=== PATIENT | male | born 1965 | race Caucasian/White ===

== ENCOUNTER → 2017-11-25 | Outpatient (CLI) | payer BC ==
--- NOTE | 2017-11-25 13:21 | US ---
EXAMINATION TYPE: US thyroid st tissue head/neck DATE OF EXAM: 11/25/2017 COMPARISON: NONE CLINICAL HISTORY: E04.1 Thyroid nodule. GLAND SIZE: Right Lobe: 4.5 x 2.1 x 1.9 cm Overall Parenchyma: homogenous Left Lobe: 5.1 x 1.9 x 1.9 cm Overall Parenchyma: homogeneous Isthmus Thickness: 0.4 cm NODULES RIGHT: # of nodules measured on right: 1 1. 1.1 X 1.1 x 1.0 cm isoechoic mixed nodule at the lower pole with well-defined margins. This nod ule is wider than tall and shows no intranodular vascularity. Prior size: no prior LEFT: # of nodules measured on left: 0 ISTHMUS: # of nodules measured in the isthmus: 0 Bilateral neck scanned, no evidence of lymphadenopathy. Also scanned just superior to left thyroid, where patient states Dr felt lump, the submandibular glan d is seen, no other abnormality noted. IMPRESSION: 1.1 cm right thyroid nodule corresponding to a TI-RADS 3: Mildly Suspicious: FNA if ? 2.5 cm; Follow if ? 1.5 cm. Surveillance could still considered. Overall thyroid gland is enlarged.
== END | disposition home or self-care (01) ==
LOC: RADUSWWP 12:54
PROVIDERS: ATTEND Family Medicine
DX: E04.1 Nontoxic single thyroid nodule (principal)
CPT/HCPCS: 76536

== ENCOUNTER 2018-01-19 09:26 | Day surgery (SDC) | payer OTHER ==
[2018-01-19 09:54] VITALS: RESP 16; TEMP 98.1
[2018-01-19 11:39] VITALS: BP 139/90; PULSE 76
--- NOTE | 2018-01-19 14:26 | US ---
EXAMINATION TYPE: US FNA thyroid DATE OF EXAM: 01/19/2018 COMPARISON: NONE HISTORY: Thyroid nodule, E04.1 Maximal barrier technique was utilized. Ultrasound using sterile technique. The skin overlying the no dule was localized with ultrasound and the overlying skin prepped and draped. Lidocaine used for loca l anesthesia. 5 passes with a 25-gauge needle were made into the nodule under ultrasound guidance. As pirate specimen submitted to cytology. Following the procedure hemostasis achieved. No immediate comp lication IMPRESSION: Status post ultrasound-guided fine-needle aspiration of thyroid nodule, pathology pending .
== END 2018-01-19 11:05 | disposition home or self-care (01) ==
LOC: RADPROMAIN 09:26
PROVIDERS: ATTEND Otolaryngology
DX: E04.1 Nontoxic single thyroid nodule (principal)
CPT/HCPCS: 10022; 76942; 88173; 88305

== ENCOUNTER → 2019-03-01 | Outpatient (CLI) | payer BC ==
--- NOTE | 2019-03-02 06:55 | CT ---
EXAMINATION TYPE: CT chest wo/w con DATE OF EXAM: 03/01/2019 COMPARISON: None HISTORY: Bronchopneumonia CT DLP: 1201.50 mGycm, Automated exposure control for dose reduction was used. CONTRAST: Performed injected with 100 mL of Isovue 300. TECHNIQUE: Axial images were obtained at 5 mm thick sections. Reconstructed images are reviewed on [employer] computer in the coronal plane. FINDINGS: Portion of the thyroid visualized is normal. No suspicious lung nodules or focal infiltrates are present. No significant peribronchial thickening is evident. Very minimal infiltrate may be in the azygoesophageal recess. No enlarged mediastinal or hilar adenopathy is evident. The ascending aorta diameter at the level o f the main pulmonary artery is 3.2 cm. The main pulmonary artery diameter at the bifurcation is 3.4 cm. Correlate for pulmonary hypertension Limited CT sections are obtained through the upper abdomen. There has been a prior cholecystectomy. IMPRESSIONS: 1. Very minimal infiltrate within the azygoesophageal recess. Resolving pneumonia could be considered . Atelectasis is within the differential. 2. Clinical consideration for pulmonary hypertension is recommended
== END | disposition home or self-care (01) ==
LOC: RADCTMAIN 16:43
PROVIDERS: ATTEND Nurse Practitioner Family
DX: K22.8 Other specified diseases of esophagus (principal)
CPT/HCPCS: 71270; Q9967

== ENCOUNTER → 2019-04-02 | Outpatient (CLI) | payer BC ==
--- NOTE | 2019-04-03 09:36 | ECHOF ---
Referral Reason:I27.20 pulmonary hypertension MEASUREMENTS -------- HEIGHT: 170.2 cm WEIGHT: 118.8 kg BP: RVIDd: 2.9 cm (< 3.3) IVSd: 1.2 cm (0.6 - 1.1) LVIDd: 4.1 cm (3.9 - 5.3) LVPWd: 1.5 cm (0.6 - 1.1) IVSs: 1.7 cm LVIDs: 2.5 cm LVPWs: 2.1 cm LAESV Index (A-L): 12.85 ml/m Ao Diam: 2.9 cm (2.0 - 3.7) AV Cusp: 2.3 cm (1.5 - 2.6) LA Diam: 3.0 cm (2.7 - 3.8) MV EXCURSION: 13.189 mm (> 18.000) MV EF SLOPE: 62 mm/s (70 - 150) EPSS: 0.9 cm MV E Nate: 0.61 m/s MV DecT: 227 ms MV A Nate: 0.79 m/s MV E/A Ratio: 0.78 RAP: 5.00 mmHg RVSP: 13.49 mmHg TAPSE: 25.77 mm FINDINGS -------- Sinus rhythm. This was a technically adequate study. The left ventricular size is normal. There is mild concentric left ventricular hypertrophy. Overa ll left ventricular systolic function is normal with, an EF between 55 - 60 %. The diastolic fillin g pattern is normal for the age of the patient 8.74. The right ventricle is normal in size. The right ventricular systolic function is normal. The left atrial size is normal. Normal LA size by volume 22+/-6 ml/m2. The right atrial size is normal. The aortic valve is trileaflet and appears structurally normal. The mitral valve is normal. There is trace mitral regurgitation. The tricuspid valve appears structurally normal. Trace tricuspid regurgitation present. Right natalie tricular systolic pressure is normal at < 35 mmHg. There is no pulmonic regurgitation present. The aortic root size is normal. Normal inferior vena cava with normal inspiratory collapse consistent with estimated right atrial pre ssure of 5 mmHg. There is no pericardial effusion. CONCLUSIONS -------- 1. Sinus rhythm. 2. This was a technically adequate study. 3. The left ventricular size is normal. 4. There is mild concentric left ventricular hypertrophy. 5. Overall left ventricular systolic function is normal with, an EF between 55 - 60 %. 6. The diastolic filling pattern is normal for the age of the patient 8.74 7. The right ventricle is normal in size. 8. The right ventricular systolic function is normal. 9. The left atrial size is normal. 10. Normal LA size by volume 22+/-6 ml/m2. 11. The right atrial size is normal. 12. The aortic valve is trileaflet and appears structurally normal. 13. The mitral valve is normal. 14. There is trace mitral regurgitation. 15. The tricuspid valve appears structurally normal. 16. Trace tricuspid regurgitation present. 17. Right ventricular systolic pressure is normal at < 35 mmHg. 18. There is no pulmonic regurgitation present. 19. The aortic root size is normal. 20. Normal inferior vena cava with normal inspiratory collapse consistent with estimated right atrial pressure of 5 mmHg. 21. There is no pericardial effusion. [employer]CTIONAL [employer]PPLY SUPERVISOR: Davina Avalos RDCS
== END | disposition home or self-care (01) ==
LOC: RADECHMAIN 14:54
PROVIDERS: ATTEND Internal Medicine
DX: I27.20 Pulmonary hypertension, unspecified (principal)
CPT/HCPCS: 93306

== ENCOUNTER 2021-02-25 08:05 | Inpatient (IN) | payer BC ==
[2021-02-25] MEDS ORDERED: DEXAMETHASONE SOD PHOSPHATE 10 MG/ML 1 ML VIAL IV STA (08:12)
[2021-02-25] MEDS ORDERED: ACETAMINOPHEN TAB 500 MG TAB PO STA (08:31)
--- NOTE | 2021-02-25 08:42 | XR ---
EXAMINATION TYPE: XR chest 1V portable DATE OF EXAM: 02/25/2021 COMPARISON: Chest x-ray 09/24/2019, 05/16/2015 HISTORY: Covid 19 pneumonia, shortness of breath and cough TECHNIQUE: frontal view of the chest is obtained on 2 images. FINDINGS: Bilateral airspace disease is present. There is motion on the exam, technique is apical lo rdotic and rotated. There are overlying leads. Heart appears prominently which may be at least in par t due to technique. Right hemidiaphragm remains elevated. No evident pneumothorax or pleural effusion . IMPRESSION: Correlate for pneumonia versus edema, heart appears enlarged as described. Follow-up PA and lateral chest x-ray when stable.
[2021-02-25 08:55] LABS: Basophils % (A) 0 %; Eosinophils % (A) 0 %; HGB 15.6 gm/dL (13.0-17.5); Lymphocytes # (A) 0.5 k/uL (1.0-4.8); Lymphocytes % (A) 3 %; MCH 30.2 pg (25.0-35.0); MCHC 32.6 g/dL (31.0-37.0); MCV 92.6 fL (80.0-100.0); Mean Platelet Volume 8.1; Monocytes # (A) 0.2 k/uL (0-1.0); Monocytes % (A) 1 %; Neutrophils # (A) 15.2 k/uL (1.3-7.7); Neutrophils % (A) 95 %; Platelet Count 230 k/uL (150-450); RBC 5.18 m/uL (4.30-5.90); RDW 13.4 % (11.5-15.5); WBC 15.9 k/uL (3.8-10.6)
[2021-02-25] MEDS ORDERED: NALOXONE 0.4 MG/ML 1 ML VIAL IV PRN ×2 (09:15→10:34)
--- NOTE | 2021-02-25 09:27 | ED ---
General Adult HPI - General Chief complaint: Shortness of Breath Stated complaint: SOB Time Seen by Provider: 02/25/21 08:08 Source: patient, EMS, RN notes reviewed, old records reviewed Mode of arrival: EMS Limitations: no limitations - History of Present Illness Initial comments: 55-year-old male presenting with cough and dyspnea over the past 4 days. Patient is not vaccinated against coronavirus and did test positive as an outpatient. He was found to be hypoxic in the 50s by paramedics, placed on a nonrebreather. He has had slightly reduced appetite, no nausea or vomiting. No central chest pain. No lower extremity pain or swelling. - Related Data Home Medications Medication Instructions Recorded Confirmed Losartan Potassium 100 mg PO HS 06/21/13 02/25/21 Budesonide [Pulmicort Flexhaler] 2 puff INHALATION RT-BID 02/25/21 02/25/21 Cholecalciferol (Vitamin D3) 125 mcg PO DAILY 02/25/21 02/25/21 [Vitamin D3 (125 MCG = 5,000 IU)] Citalopram Hydrobromide [CeleXA] 20 mg PO DAILY 02/25/21 02/25/21 Fluticasone/Umeclidin/Vilanter 1 puff INHALATION RT-DAILY 02/25/21 02/25/21 [Trelegy Ellipta 200-62.5-25] Levofloxacin [Levaquin] 500 mg PO DAILY 02/25/21 02/25/21 metFORMIN HCL 500 mg PO BID 02/25/21 02/25/21 Allergies Allergy/AdvReac Type Severity Reaction Status Date / Time lisinopril AdvReac Cough Verified 02/25/21 09:40 Review of Systems ROS Statement: Those systems with pertinent positive or pertinent negative responses have been documented in the HPI. ROS Other: All systems not noted in ROS Statement are negative. Past Medical History Past Medical History: GERD/Reflux, Hypertension, Sleep Apnea/CPAP/BIPAP Additional Past Medical History / Comment(s): thyroid nodule History of Any Multi-Drug Resistant Organisms: None Reported Past Surgical History: Cholecystectomy Additional Past Surgical History / Comment(s): EGD Past Anesthesia/Blood Transfusion Reactions: No Reported Reaction Past Psychological History: No Psychological Hx Reported Smoking Status: Never smoker Past Alcohol Use History: Occasional Past Drug Use History: None Reported - Past Family History Mother Family Medical History: Cancer Additional Family Medical History / Comment(s): ovarian General Exam Limitations: no limitations General appearance: alert, in distress Head exam: Present: atraumatic, normocephalic Eye exam: Present: normal appearance, PERRL ENT exam: Present: normal exam Neck exam: Present: normal inspection. Absent: tenderness, meningismus Respiratory exam: Present: respiratory distress, rales, rhonchi Cardiovascular Exam: Present: normal rhythm, tachycardia GI/Abdominal exam: Present: soft. Absent: distended, tenderness Extremities exam: Present: normal inspection, normal capillary refill Neurological exam: Present: alert, oriented X3 Psychiatric exam: Present: anxious Skin exam: Present: warm, dry, intact. Absent: cyanosis, diaphoretic Course Vital Signs 02/25/21 02/25/21 08:08 10:05 Temperature 101.9 F H Pulse Rate 106 H 95 Respiratory 30 H 24 Rate Blood Pressure 88/52 96/61 O2 Sat by Pulse 90 L 92 L Oximetry EKG Findings - EKG Comments: EKG Findings:: EKG: Sinus tachycardia, rate of 109, VT interval 1:30, QRS duration 82, QTC 447, no ST segment elevation. Medical Decision Making - Medical Decision Making 55-year-old male with severe Covid pneumonia and hypoxia. Chest x-ray showed bilateral infiltrate. Laboratory studies are pending due to computer downtime. The patient given Decadron in the emergency department, started on maintenance fluid. He will be admitted to [facility] physician Dr. Mcelroy who is aware. - Lab Data Result diagrams: 02/25/21 08:15 02/25/21 08:15 Lab Results 02/25/21 02/25/21 02/25/21 Range/Units 08:15 08:15 08:15 WBC 15.9 H (3.8-10.6) k/uL RBC 5.18 (4.30-5.90) m/uL Hgb 15.6 (13.0-17.5) gm/dL Hct 48.0 (39.0-53.0) % MCV 92.6 (80.0-100.0) fL MCH 30.2 (25.0-35.0) pg MCHC 32.6 (31.0-37.0) g/dL RDW 13.4 (11.5-15.5) % Plt Count 230 (150-450) k/uL MPV 8.1 Neutrophils % 95 % Lymphocytes % 3 % Monocytes % 1 % Eosinophils % 0 % Basophils % 0 % Neutrophils # 15.2 H (1.3-7.7) k/uL Lymphocytes # 0.5 L (1.0-4.8) k/uL Monocytes # 0.2 (0-1.0) k/uL Eosinophils # 0.0 (0-0.7) k/uL Basophils # 0.0 (0-0.2) k/uL Sodium 137 (137-145) mmol/L Potassium 4.4 (3.5-5.1) mmol/L Chloride 106 (98-107) mmol/L Carbon Dioxide 21 L (22-30) mmol/L Anion Gap 10 mmol/L BUN 27 H (9-20) mg/dL Creatinine 1.30 H (0.66-1.25) mg/dL Est GFR (CKD-EPI)AfAm 72 (>60 ml/min/1.73 sqM) Est GFR (CKD-EPI)NonAf 62 (>60 ml/min/1.73 sqM) Glucose 224 H (74-99) mg/dL Plasma Lactic Acid Homero 2.9 H* (0.7-2.0) mmol/L Calcium 8.7 (8.4-10.2) mg/dL Magnesium 1.8 (1.6-2.3) mg/dL Total Bilirubin 0.6 (0.2-1.3) mg/dL AST 42 (17-59) U/L ALT 37 (4-49) U/L Alkaline Phosphatase 93 (38-126) U/L Lactate Dehydrogenase 1661 H (313-618) U/L C-Reactive Protein 26.4 H (<1.0) mg/dL Total Protein 6.1 L (6.3-8.2) g/dL Albumin 3.1 L (3.5-5.0) g/dL Coronavirus (PCR) (Not Detectd) 02/25/21 Range/Units 08:15 WBC (3.8-10.6) k/uL RBC (4.30-5.90) m/uL Hgb (13.0-17.5) gm/dL Hct (39.0-53.0) % MCV (80.0-100.0) fL MCH (25.0-35.0) pg MCHC (31.0-37.0) g/dL RDW (11.5-15.5) % Plt Count (150-450) k/uL MPV Neutrophils % % Lymphocytes % % Monocytes % % Eosinophils % % Basophils % % Neutrophils # (1.3-7.7) k/uL Lymphocytes # (1.0-4.8) k/uL Monocytes # (0-1.0) k/uL Eosinophils # (0-0.7) k/uL Basophils # (0-0.2) k/uL Sodium (137-145) mmol/L Potassium (3.5-5.1) mmol/L Chloride (98-107) mmol/L Carbon Dioxide (22-30) mmol/L Anion Gap mmol/L BUN (9-20) mg/dL Creatinine (0.66-1.25) mg/dL Est GFR (CKD-EPI)AfAm (>60 ml/min/1.73 sqM) Est GFR (CKD-EPI)NonAf (>60 ml/min/1.73 sqM) Glucose (74-99) mg/dL Plasma Lactic Acid Homero (0.7-2.0) mmol/L Calcium (8.4-10.2) mg/dL Magnesium (1.6-2.3) mg/dL Total Bilirubin (0.2-1.3) mg/dL AST (17-59) U/L ALT (4-49) U/L Alkaline Phosphatase (38-126) U/L Lactate Dehydrogenase (313-618) U/L C-Reactive Protein (<1.0) mg/dL Total Protein (6.3-8.2) g/dL Albumin (3.5-5.0) g/dL Coronavirus (PCR) Detected A (Not Detectd) Critical Care Time Critical Care Time: Yes Total Critical Care Time: 35 Disposition Clinical Impression: Pneumonia due to COVID-19 virus Disposition: ADMITTED IP TO THIS HOSP Condition: Serious Is patient prescribed a controlled substance at d/c from ED?: No Decision to Admit Reason: Admit from EC Decision Date: 02/25/21 Decision Time: 09:27
[2021-02-25 09:31] LABS: Albumin 3.1 g/dL (3.5-5.0); Calcium 8.7 mg/dL (8.4-10.2); Magnesium 1.8 mg/dL (1.6-2.3); Potassium 4.4 mmol/L (3.5-5.1); Total Bilirubin 0.6 mg/dL (0.2-1.3); Total Protein 6.1 g/dL (6.3-8.2)
[2021-02-25 09:45] LABS: C Reactive Protein 26.4 mg/dL (<1.0)
[2021-02-25 10:33] LABS: Partial Thromboplastin Time 20.7 sec (22.0-30.0)
[2021-02-25] MEDS ORDERED: ONDANSETRON 4 MG/2 ML VIAL IVP PRN (10:34)
[2021-02-25] MEDS ORDERED: LOPERAMIDE 2 MG CAP PO PRN (10:34)
[2021-02-25] MEDS ORDERED: MAG HYDROX/AL HYDROX/SIMETH 30 ML CUP PO PRN (10:34)
--- NOTE | 2021-02-25 10:44 | P.HPIM ---
History of Present Illness H&P Date: 02/25/21 55-year-old male with past medical history of hypertension morbid obesity was not been feeling well for the last few days has been recently diagnosed with covid into got worse more short of breath feeling weak Patient was found to be hypoxic in the ER started on 100% on nonrebreather Review of systems and systems has been reviewed all negative and positive findings as per history of present illness Constitutional: No acute distress, conversant, pleasant Eyes: Anicteric sclerae, moist conjunctiva, no lid-lag PERRLA ENMT: NC/AT Oropharynx clear, no erythema, exudates Neck: Supple, FROM, no masses, or JVD No carotid bruits No thyromegaly Lungs: crackly , no accessory muscle use Cardiovascular: Heart regular in rate and rhythm, No murmurs, gallops, or rubs No peripheral edema Abdominal: Soft Nontender, no guarding, rebound or rigidity Abdomen moving with respiration Normoactive bowel sounds No hepatomegaly, No splenomegaly No palpable mass No abdominal wall hernia noted Skin: Normal temperature, tone, texture, turgor No induration No subcutaneous nodules No rash, lesions No ulcers Extremities: No digital cyanosis No clubbing Pedal pulses intact and symmetrical Radial pulses intact and symmetrical Normal gait and station No calf tenderness Psychiatric:Alert and oriented to person, place and time Appropriate affect Intact judgement Neuro: Muscles Strength 5/5 in all 4 extremities Sensation to light touch grossly present throughout Cranial nerves II-XII grossly intact No focal sensory deficits Acute hypoxic respiratory failure due to pneumonia from COVID-19 infection Pulmonology has been consulted We'll continue patient on IV antibiotic Rocephin and Zithromax We'll also add IV steroids Borderline diabetes but the patient on sliding scale insulin Morbid obesity DVT and GI prophylaxis Past Medical History Past Medical History: GERD/Reflux, Hypertension, Sleep Apnea/CPAP/BIPAP Additional Past Medical History / Comment(s): thyroid nodule History of Any Multi-Drug Resistant Organisms: None Reported Past Surgical History: Cholecystectomy Additional Past Surgical History / Comment(s): EGD Past Anesthesia/Blood Transfusion Reactions: No Reported Reaction Past Psychological History: No Psychological Hx Reported Smoking Status: Never smoker Past Alcohol Use History: Occasional Past Drug Use History: None Reported - Past Family History Mother Family Medical History: Cancer Additional Family Medical History / Comment(s): ovarian Medications and Allergies Home Medications Medication Instructions Recorded Confirmed Type Losartan Potassium 100 mg PO HS 06/21/13 02/25/21 History Budesonide [Pulmicort Flexhaler] 2 puff INHALATION RT-BID 02/25/21 02/25/21 History Cholecalciferol (Vitamin D3) 125 mcg PO DAILY 02/25/21 02/25/21 History [Vitamin D3 (125 MCG = 5,000 IU)] Citalopram Hydrobromide [CeleXA] 20 mg PO DAILY 02/25/21 02/25/21 History Fluticasone/Umeclidin/Vilanter 1 puff INHALATION RT-DAILY 02/25/21 02/25/21 History [Trelegy Ellipta 200-62.5-25] Levofloxacin [Levaquin] 500 mg PO DAILY 02/25/21 02/25/21 History metFORMIN HCL 500 mg PO BID 02/25/21 02/25/21 History Allergies Allergy/AdvReac Type Severity Reaction Status Date / Time lisinopril AdvReac Cough Verified 02/25/21 09:40 Physical Exam Vitals: Vital Signs Temp Pulse Resp BP Pulse Ox 02/25/21 10:38 100.5 F H 86 22 100/56 91 L 02/25/21 10:05 95 24 96/61 92 L 02/25/21 08:08 101.9 F H 106 H 30 H 88/52 90 L Intake and Output 02/24/21 02/25/21 02/25/21 22:59 06:59 14:59 Other: Weight 119.748 kg Results CBC & Chem 7: 02/25/21 08:15 02/25/21 08:15 Labs: Abnormal Lab Results - Last 24 Hours (Table) 02/25/21 02/25/21 02/25/21 Range/Units 08:15 08:15 08:15 WBC 15.9 H (3.8-10.6) k/uL Neutrophils # 15.2 H (1.3-7.7) k/uL Lymphocytes # 0.5 L (1.0-4.8) k/uL APTT 20.7 L (22.0-30.0) sec D-Dimer 3.97 H (<0.60) mg/L FEU Carbon Dioxide 21 L (22-30) mmol/L BUN 27 H (9-20) mg/dL Creatinine 1.30 H (0.66-1.25) mg/dL Glucose 224 H (74-99) mg/dL Plasma Lactic Acid Homero (0.7-2.0) mmol/L Lactate Dehydrogenase 1661 H (313-618) U/L C-Reactive Protein 26.4 H (<1.0) mg/dL Total Protein 6.1 L (6.3-8.2) g/dL Albumin 3.1 L (3.5-5.0) g/dL Coronavirus (PCR) (Not Detectd) 02/25/21 02/25/21 Range/Units 08:15 08:15 WBC (3.8-10.6) k/uL Neutrophils # (1.3-7.7) k/uL Lymphocytes # (1.0-4.8) k/uL APTT (22.0-30.0) sec D-Dimer (<0.60) mg/L FEU Carbon Dioxide (22-30) mmol/L BUN (9-20) mg/dL Creatinine (0.66-1.25) mg/dL Glucose (74-99) mg/dL Plasma Lactic Acid Homero 2.9 H* (0.7-2.0) mmol/L Lactate Dehydrogenase (313-618) U/L C-Reactive Protein (<1.0) mg/dL Total Protein (6.3-8.2) g/dL Albumin (3.5-5.0) g/dL Coronavirus (PCR) Detected A (Not Detectd)
[2021-02-25] MEDS ORDERED: ENOXAPARIN 40 MG/0.4 ML SYRINGE SQ SCH (10:45)
[2021-02-25] MEDS ORDERED: IBUPROFEN 400 MG TAB PO STA (11:18)
[2021-02-25] MEDS: SODIUM CHLORIDE 0.9% 1,000 ML IV SCH (11:31)
[2021-02-25 11:43] LABS: Glucose,Whole Blood 201 mg/dL (75-99)
[2021-02-25] MEDS: AZITHROMYCIN 500 MG in SODIUM CHLORIDE 0.9% 250 ML IVPB SCH (11:44)
[2021-02-25] MEDS: INSULIN ASPART (NovoLOG) 100 UNIT/ML VIAL SQ SCH ×3 (11:53→22:06)
[2021-02-25] MEDS: ALBUTEROL HFA INHALER INHALATION PRN ×2 (16:36→20:32)
--- NOTE | 2021-02-25 17:24 | P.CNPUL ---
History of Present Illness Consult date: 02/25/21 Requesting physician: Anton Gill Reason for consult: pneumonia Chief complaint: Shortness of breath History of present illness: This is a 55-year-old white male with history of mild intermittent asthma, GERD , hypertension, obstructive sleep apnea syndrome, normally on CPAP. Patient was recently diagnosed with COVID-19 infection, and the patient has had symptoms for the last 10 days. Patient had mostly symptoms of shortness of breath weakness, vague aches and pains, and his oxygen saturation has been getting worse over the last 2 days, hence he decided to come to the ER. Chest x-ray showed bilateral infiltrates consistent with COVID-19 pneumonia. Patient required placement on a nonrebreather mask and high flow nasal cannula with O2 saturation in the low 90s. Patient was found to have elevated WBC count of 15.9. Elevated d-dimer of 3.97. Elevated creatinine of 1.30. Elevated ferritin of 710, elevated LDH of 1661 elevated C-reactive protein of 26.4, and he was also noted to have elevated pro calcitonin of 0.54. Patient tested positive for COVID-19. Hence the patient was admitted and this consult was initiated. I saw the patient in the ER, recommended that the patient continues with the COVID-19 cocktail. Patient is already out of the window for Remdesivir. Patient is not a good candidate to receive Baricitinib at this point specially with elevated pro calcitonin level. Considering his elevated d-dimer I'm recommending venous Doppler of the lower extremities. In the meantime I'm recommending a relatively higher dose of Lovenox 40 mg subcu twice a day, considering his renal status I would not recommend CT angiogram of the chest at this point. Patient will be admitted and we will continue to follow closely. Review of Systems Constitutional: Vague aches and pains, no fever no chills. No weight loss. HEENT: History of obstructive sleep apnea syndrome on CPAP. Pulmonary: As noted in HPI mostly shortness of breath, hardly any cough. Patient is known to have history of asthma presently not requiring any medication is not even using a rescue inhaler. Cardiac: Negative patient is known to have history of hypertension. GI: Negative. Genitourinary: Negative. Musculoskeletal: Vague aches and pains Psychiatric: Negative Endocrine: Negative Hematologic: Negative Neurologic: Negative Skin: Negative Past Medical History Past Medical History: Asthma, GERD/Reflux, Hypertension, Sleep Apnea/CPAP/BIPAP Additional Past Medical History / Comment(s): thyroid nodule History of Any Multi-Drug Resistant Organisms: None Reported Past Surgical History: Cholecystectomy Additional Past Surgical History / Comment(s): EGD Past Anesthesia/Blood Transfusion Reactions: No Reported Reaction Past Psychological History: No Psychological Hx Reported Smoking Status: Never smoker Past Alcohol Use History: Occasional Past Drug Use History: None Reported - Past Family History Mother Family Medical History: Cancer Additional Family Medical History / Comment(s): ovarian Medications and Allergies Home Medications Medication Instructions Recorded Confirmed Type Losartan Potassium 100 mg PO HS 06/21/13 02/25/21 History Budesonide [Pulmicort Flexhaler] 2 puff INHALATION RT-BID 02/25/21 02/25/21 History Cholecalciferol (Vitamin D3) 125 mcg PO DAILY 02/25/21 02/25/21 History [Vitamin D3 (125 MCG = 5,000 IU)] Citalopram Hydrobromide [CeleXA] 20 mg PO DAILY 02/25/21 02/25/21 History Fluticasone/Umeclidin/Vilanter 1 puff INHALATION RT-DAILY 02/25/21 02/25/21 History [Trelegy Ellipta 200-62.5-25] Levofloxacin [Levaquin] 500 mg PO DAILY 02/25/21 02/25/21 History metFORMIN HCL 500 mg PO BID 02/25/21 02/25/21 History Allergies Allergy/AdvReac Type Severity Reaction Status Date / Time lisinopril AdvReac Cough Verified 02/25/21 09:40 Physical Exam Vitals: Vital Signs Temp Pulse Resp BP Pulse Ox 02/25/21 16:36 89 L 02/25/21 14:44 73 20 93 L 02/25/21 13:31 99.8 F H 74 18 95/59 94 L 02/25/21 11:27 84 92 L 02/25/21 10:38 100.5 F H 86 22 100/56 91 L 02/25/21 10:05 95 24 96/61 92 L 02/25/21 10:00 90 22 92/68 92 L 02/25/21 08:08 101.9 F H 106 H 30 H 88/52 90 L Intake and Output 02/25/21 02/25/21 02/25/21 06:59 14:59 22:59 Other: Weight 119.748 kg Physical Exam: Revealed 55-year-old white male, pleasant, obese, on non-r ebreather mask and high flow cannula, does not seem to be in distress. Head: Atraumatic, normocephalic. HEENT:[Neck is supple.] [No neck masses.] [No thyromegaly.] [No JVD.] Mallampati class IV. Chest: [Symmetrical chest expansion crackles at the bases bilaterally. Cardiac Exam: Distant S1 and S2, no S3 gallop. Abdomen: [Obese, Soft, nontender, no megaly, no rebound, no guarding, normal bowel sounds.] Positive bowel sounds. Extremities: [No clubbing, no edema, no cyanosis.] Good pulses bilaterally. Neurological Exam: Alert and oriented 3. [No focal neurologic deficit.] Psychiatric: Normal mood affect and normal mental status examination. Skin: No rashes. Musculoskeletal no deformities and no limitation in range of motion. Results - Laboratory Findings CBC and BMP: 02/25/21 08:15 02/25/21 08:15 PT/INR, D-dimer PT 11.0 sec (9.0-12.0) 02/25/21 08:15 INR 1.0 (<1.2) 02/25/21 08:15 D-Dimer 3.97 mg/L FEU (<0.60) H 02/25/21 08:15 Abnormal lab findings: Abnormal Labs 02/25/21 02/25/21 02/25/21 08:15 08:15 08:15 WBC 15.9 H Neutrophils # 15.2 H Lymphocytes # 0.5 L APTT 20.7 L D-Dimer 3.97 H Carbon Dioxide 21 L BUN 27 H Creatinine 1.30 H Glucose 224 H POC Glucose (mg/dL) Plasma Lactic Acid Homero Ferritin 710.0 H Lactate Dehydrogenase 1661 H C-Reactive Protein 26.4 H Total Protein 6.1 L Albumin 3.1 L Procalcitonin Coronavirus (PCR) 02/25/21 02/25/21 02/25/21 08:15 08:15 08:15 WBC Neutrophils # Lymphocytes # APTT D-Dimer Carbon Dioxide BUN Creatinine Glucose POC Glucose (mg/dL) Plasma Lactic Acid Homero 2.9 H* Ferritin Lactate Dehydrogenase C-Reactive Protein Total Protein Albumin Procalcitonin 0.54 H Coronavirus (PCR) Detected A 02/25/21 11:42 WBC Neutrophils # Lymphocytes # APTT D-Dimer Carbon Dioxide BUN Creatinine Glucose POC Glucose (mg/dL) 201 H Plasma Lactic Acid Homero Ferritin Lactate Dehydrogenase C-Reactive Protein Total Protein Albumin Procalcitonin Coronavirus (PCR) - Diagnostic Findings Chest x-ray: image reviewed (As noted in HPI.) Assessment and Plan Assessment: Impression: Acute hypoxic respiratory failure secondary to COVID-19 pneumonia Not vaccinated History of mild intermittent asthma History of obstructive sleep apnea syndrome, maintained on CPAP at home. History of hypertension. Type 2 diabetes. GERD without esophagitis. Morbid obesity. Elevated pro calcitonin level, underlying superimposed bacterial pneumonia is not entirely ruled out, especially with his elevated pro calcitonin level. Recommendation: Continue oxygen and titrate accordingly Continue COVID-19 cocktail, patient is out of the window for Remdesivir and definitely not a candidate for Baricitinib. Especially with his elevated pro calcitonin level. BiPAP at night, patient is known to have history of severe obstructive sleep apnea. Arrange for venous Doppler with his elevated d-dimer in the meantime patient will go on Lovenox 40 mg subcu twice a day. Consider CT angiogram of the chest once his renal profile improves. Continue GI and DVT prophylaxis. Continue Decadron 6 mg IV push twice a day. Continue empiric antibiotics including Rocephin and Zithromax. Resume home meds. We'll continue to follow. Patient is very well aware that his prognosis is guarded considering his multi ple comorbidities. Monitor renal profile and monitor inflammatory markers. Time with Patient: Greater than 30
--- NOTE | 2021-02-25 17:44 | US ---
EXAMINATION TYPE: US venous doppler duplex LE DATE OF EXAM: 02/25/2021 4:56 PM COMPARISON: NONE CLINICAL HISTORY: elevated d-dimer. SIDE PERFORMED: Bilateral TECHNIQUE: The lower extremity deep venous system is examined utilizing real time linear array sonog jeremi with graded compression, doppler sonography and color-flow sonography. VESSELS IMAGED: Common Femoral Vein Deep Femoral Vein Greater Saphenous Vein * Femoral Vein Popliteal Vein Small Saphenous Vein * Proximal Calf Veins (* superficial vessels) Right Leg: Appears negative for DVT Left Leg: Appears negative for DVT IMPRESSION: Negative exam. No evidence of deep vein thrombosis in both legs.
[2021-02-25 18:36] LABS: Glucose,Whole Blood 290 mg/dL (75-99)
[2021-02-25] MEDS: PANTOPRAZOLE 40 MG/10 ML VIAL IVP SCH (18:37)
[2021-02-25] MEDS: CHOLECALCIFEROL 25 MCG (1000 IU) TABLET PO SCH (18:38)
[2021-02-25] MEDS: ASCORBIC ACID 500 MG TAB PO SCH (18:38)
[2021-02-25 21:07] LABS: Glucose,Whole Blood 314 mg/dL (75-99)
[2021-02-25] MEDS: DEXAMETHASONE SOD PHOSPHATE 10 MG/ML 1 ML VIAL IVP SCH (22:06)
[2021-02-25] MEDS: ENOXAPARIN 40 MG/0.4 ML SYRINGE SQ SCH (22:06)
[2021-02-25] MEDS: ACETAMINOPHEN TAB 325 MG TAB PO PRN (23:52)
[2021-02-26] MEDS: SODIUM CHLORIDE 0.9% 1,000 ML IV SCH ×2 (03:26→13:22)
[2021-02-26] MEDS: INSULIN ASPART (NovoLOG) 100 UNIT/ML VIAL SQ SCH ×4 (06:12→20:25)
[2021-02-26] MEDS ORDERED: DEXAMETHASONE SOD PHOSPHATE 10 MG/ML 1 ML VIAL IVP SCH (09:00)
[2021-02-26] MEDS: PANTOPRAZOLE 40 MG/10 ML VIAL IVP SCH (09:05)
[2021-02-26] MEDS: ASCORBIC ACID 500 MG TAB PO SCH (09:05)
[2021-02-26] MEDS: DEXAMETHASONE SOD PHOSPHATE 10 MG/ML 1 ML VIAL IVP SCH ×2 (09:05→20:25)
[2021-02-26] MEDS: CHOLECALCIFEROL 25 MCG (1000 IU) TABLET PO SCH (09:05)
[2021-02-26] MEDS: ENOXAPARIN 40 MG/0.4 ML SYRINGE SQ SCH ×2 (09:05→20:24)
[2021-02-26 09:49] LABS: Glucose,Whole Blood 186 mg/dL (75-99)
--- NOTE | 2021-02-26 10:13 | P.PN ---
Subjective Progress Note Date: 02/26/21 Principal diagnosis: 55-year-old male with past medical history of hypertension morbid obesity was not been feeling well for the last few days has been recently diagnosed with covid into got worse more short of breath feeling weak Patient was found to be hypoxic in the ER started on 100% on nonrebreather Patient is still short of breath improved on BiPAP Review of systems and systems has been reviewed all negative and positive findings as per history of present illness Constitutional: No acute distress, conversant, pleasant Eyes: Anicteric sclerae, moist conjunctiva, no lid-lag PERRLA ENMT: NC/AT Oropharynx clear, no erythema, exudates Neck: Supple, FROM, no masses, or JVD No carotid bruits No thyromegaly Lungs: crackly , no accessory muscle use Cardiovascular: Heart regular in rate and rhythm, No murmurs, gallops, or rubs No peripheral edema Abdominal: Soft Nontender, no guarding, rebound or rigidity Abdomen moving with respiration Normoactive bowel sounds No hepatomegaly, No splenomegaly No palpable mass No abdominal wall hernia noted Skin: Normal temperature, tone, texture, turgor No induration No subcutaneous nodules No rash, lesions No ulcers Extremities: No digital cyanosis No clubbing Pedal pulses intact and symmetrical Radial pulses intact and symmetrical Normal gait and station No calf tenderness Psychiatric:Alert and oriented to person, place and time Appropriate affect Intact judgement Neuro: Muscles Strength 5/5 in all 4 extremities Sensation to light touch grossly present throughout Cranial nerves II-XII grossly intact No focal sensory deficits Acute hypoxic respiratory failure due to pneumonia from COVID-19 infection Continue the patient on BiPAP Pulmonology following We'll continue patient on IV antibiotic Rocephin and Zithromax We'll also add IV steroids Borderline diabetes but the patient on sliding scale insulin Morbid obesity DVT and GI prophylaxis Objective - Vital Signs Vital signs: Vital Signs Temp 98.3 F 02/26/21 06:06 Pulse 70 02/26/21 06:06 Resp 36 H 02/26/21 06:06 BP 122/80 02/26/21 06:06 Pulse Ox 92 L 02/26/21 09:04 Intake & Output 02/25/21 02/26/21 02/26/21 18:59 06:59 18:59 Intake Total 600 Output Total 500 Balance 100 Weight 119.748 kg 119.748 kg Intake: Intake, IV Titration 600 Amount Sodium Chloride 0.9% 1, 600 000 ml @ 75 mls/hr IV . [id number] [facility] Rx#:[id number] Output: Urine 500 Other: Voiding Method Urinal # Bowel Movements 1 - Labs CBC & Chem 7: 02/25/21 08:15 02/25/21 08:15 Labs: Abnormal Lab Results - Last 24 Hours (Table) 02/25/21 02/25/21 02/25/21 Range/Units 08:15 08:15 08:15 APTT 20.7 L (22.0-30.0) sec D-Dimer 3.97 H (<0.60) mg/L FEU POC Glucose (mg/dL) (75-99) mg/dL Ferritin 710.0 H (22.0-322.0) ng/mL Procalcitonin 0.54 H (0.02-0.09) ng/mL 02/25/21 02/25/21 02/25/21 Range/Units 11:42 18:35 21:05 APTT (22.0-30.0) sec D-Dimer (<0.60) mg/L FEU POC Glucose (mg/dL) 201 H 290 H 314 H (75-99) mg/dL Ferritin (22.0-322.0) ng/mL Procalcitonin (0.02-0.09) ng/mL 02/26/21 Range/Units 06:03 APTT (22.0-30.0) sec D-Dimer (<0.60) mg/L FEU POC Glucose (mg/dL) 186 H (75-99) mg/dL Ferritin (22.0-322.0) ng/mL Procalcitonin (0.02-0.09) ng/mL
[2021-02-26] MEDS: AZITHROMYCIN 500 MG in SODIUM CHLORIDE 0.9% 250 ML IVPB SCH (10:24)
[2021-02-26 10:38] LABS: ALT 33 U/L (4-49); AST 46 U/L (17-59); African American GFR (CKD) >90 (>60 ml/min/1.73 sqM); Albumin 2.9 g/dL (3.5-5.0); Alkaline Phosphatase 126 U/L (38-126); Anion Gap 6 mmol/L; Blood Urea Nitrogen 28 mg/dL (9-20); Calcium 8.5 mg/dL (8.4-10.2); Carbon Dioxide 27 mmol/L (22-30); Chloride 106 mmol/L (98-107); Glucose 188 mg/dL (74-99); Non-African American GFR(CKD) >90 (>60 ml/min/1.73 sqM); Potassium 5.3 mmol/L (3.5-5.1); Sodium 139 mmol/L (137-145); Total Bilirubin 0.5 mg/dL (0.2-1.3)
[2021-02-26 10:50] LABS: Basophils % (A) 0 %; Eosinophils % (A) 0 %; HCT 45.5 % (39.0-53.0); HGB 14.4 gm/dL (13.0-17.5); Hypochromasia Slight; Lymphocytes # (A) 0.4 k/uL (1.0-4.8); Lymphocytes % (A) 2 %; MCHC 31.7 g/dL (31.0-37.0); MCV 94.6 fL (80.0-100.0); Mean Platelet Volume 8.1; Monocytes # (A) 0.3 k/uL (0-1.0); Monocytes % (A) 2 %; Neutrophils # (A) 17.2 k/uL (1.3-7.7); Neutrophils % (A) 95 %; Platelet Count 214 k/uL (150-450); RBC 4.81 m/uL (4.30-5.90); RDW 13.9 % (11.5-15.5); WBC 18.1 k/uL (3.8-10.6)
--- NOTE | 2021-02-26 11:19 | P.PN ---
Subjective Progress Note Date: 02/26/21 Principal diagnosis: CoVID pneumonia This is a 55-year-old white male with history of mild intermittent asthma, GERD , hypertension, obstructive sleep apnea syndrome, normally on CPAP. Patient was recently diagnosed with COVID-19 infection, and the patient has had symptoms for the last 10 days. Patient had mostly symptoms of shortness of breath weakness, vague aches and pains, and his oxygen saturation has been getting worse over the last 2 days, hence he decided to come to the ER. Chest x-ray showed bilateral infiltrates consistent with COVID-19 pneumonia. Patient required placement on a nonrebreather mask and high flow nasal cannula with O2 saturation in the low 90 s. Patient was found to have elevated WBC count of 15.9. Elevated d-dimer of 3.97. Elevated creatinine of 1.30. Elevated ferritin of 710, elevated LDH of 1661 elevated C-reactive protein of 26.4, and he was also noted to have elevated pro calcitonin of 0.54. Patient tested positive for COVID-19. Hence the patient was admitted and this consult was initiated. I saw the patient in the ER, recommended that the patient continues with the COVID-19 cocktail. Patient is already out of the window for Remdesivir. Patient is not a good candidate to receive Baricitinib at this point specially with elevated pro calcitonin level. Considering his elevated d-dimer I'm recommending venous Doppler of the lower extremities. In the meantime I'm recommending a relatively higher dose of Lovenox 40 mg subcu twice a day, considering his renal status I would not recommend CT angiogram of the chest at this point. Patient will be admitted and we will continue to follow closely. The patient is seen today 02/26/2021 in follow-up on the selective care unit. He is currently sitting up in bed. Awake and alert. He is dyspneic with minimal conversation. Dyspneic with minimal exertion. He is currently on AirVo high flow oxygen at 60 L and 90% FiO2 to maintain O2 saturation 92%. He did utilize BiPAP throughout the evening 14/600% FiO2. He continues with coarse bilateral crackles. Dopplers of the lower extremities were negative for DVT. White count 18.1. Hemoglobin 14.4. Lymphocytes 0.4. Sodium 139. Potassium 5.3. Creatinine 0.93. Glucose 188. AST 46. ALT 33. Pro calcitonin 0.54. He is continued on Decadron, Lovenox, vitamin supplements. Remains on antibiotics in the form of ceftriaxone and azithromycin. Objective - Vital Signs Vital signs: Vital Signs Temp 99.1 F 02/26/21 08:00 Pulse 71 02/26/21 08:00 Resp 28 H 02/26/21 08:00 BP 141/65 02/26/21 08:00 Pulse Ox 92 L 02/26/21 09:04 Intake & Output 02/25/21 02/26/21 02/26/21 18:59 06:59 18:59 Intake Total 600 Output Total 500 Balance 100 Weight 119.748 kg 119.748 kg Intake: Intake, IV Titration 600 Amount Sodium Chloride 0.9% 1, 600 000 ml @ 75 mls/hr IV . [id number] [facility] Rx#:[id number] Output: Urine 500 Other: Voiding Method Urinal # Bowel Movements 1 - Exam GENERAL EXAM: Alert, very pleasant 55-year-old gentleman, on AirVo high flow oxygen at 60 L and 90% FiO2 with O2 saturations at 92%, in mild respiratory distress. HEAD: Normocephalic. EYES: Normal reaction of pupils, equal size. NOSE: Clear with pink turbinates. THROAT: No erythema or exudates. NECK: No masses, no JVD. CHEST: No chest wall deformity. LUNGS: Equal air entry with coarse crackles in the bilateral bases. CVS: S1 and S2 normal with no audible murmur, regular rhythm. ABDOMEN: No hepatosplenomegaly, normal bowel sounds, no guarding or rigidity. SPINE: No scoliosis or deformity SKIN: No rashes CENTRAL NERVOUS SYSTEM: No focal deficits, tone is normal in all 4 extremities. EXTREMITIES: There is no peripheral edema. No clubbing, no cyanosis. Peripheral pulses are intact. - Labs CBC & Chem 7: 02/26/21 09:13 02/26/21 09:13 Labs: Abnormal Lab Results - Last 24 Hours (Table) 02/25/21 02/25/21 02/25/21 Range/Units 08:15 08:15 11:42 WBC (3.8-10.6) k/uL Neutrophils # (1.3-7.7) k/uL Lymphocytes # (1.0-4.8) k/uL Potassium (3.5-5.1) mmol/L BUN (9-20) mg/dL Glucose (74-99) mg/dL POC Glucose (mg/dL) 201 H (75-99) mg/dL Ferritin 710.0 H (22.0-322.0) ng/mL Total Protein (6.3-8.2) g/dL Albumin (3.5-5.0) g/dL Procalcitonin 0.54 H (0.02-0.09) ng/mL 02/25/21 02/25/21 02/26/21 Range/Units 18:35 21:05 06:03 WBC (3.8-10.6) k/uL Neutrophils # (1.3-7.7) k/uL Lymphocytes # (1.0-4.8) k/uL Potassium (3.5-5.1) mmol/L BUN (9-20) mg/dL Glucose (74-99) mg/dL POC Glucose (mg/dL) 290 H 314 H 186 H (75-99) mg/dL Ferritin (22.0-322.0) ng/mL Total Protein (6.3-8.2) g/dL Albumin (3.5-5.0) g/dL Procalcitonin (0.02-0.09) ng/mL 02/26/21 02/26/21 Range/Units 09:13 09:13 WBC 18.1 H (3.8-10.6) k/uL Neutrophils # 17.2 H (1.3-7.7) k/uL Lymphocytes # 0.4 L (1.0-4.8) k/uL Potassium 5.3 H (3.5-5.1) mmol/L BUN 28 H (9-20) mg/dL Glucose 188 H (74-99) mg/dL POC Glucose (mg/dL) (75-99) mg/dL Ferritin (22.0-322.0) ng/mL Total Protein 6.0 L (6.3-8.2) g/dL Albumin 2.9 L (3.5-5.0) g/dL Procalcitonin (0.02-0.09) ng/mL Assessment and Plan Assessment: 1 Acute hypoxic respiratory failure secondary to COVID-19 pneumonia. Not vaccinated 2 History of mild intermittent asthma 3 History of obstructive sleep apnea syndrome, maintained on CPAP at home. 4 History of hypertension. 5 Type 2 diabetes. 6 GERD without esophagitis. 7 Morbid obesity. 8 Elevated pro calcitonin level, underlying superimposed bacterial pneumonia is not entirely ruled out, especially with his elevated pro calcitonin level Landing: The patient was seen and evaluated Labs reviewed Continued on Decadron, Lovenox, vitamin supplement Remains on antibiotics Titrate the FiO2 as tolerated Continue to monitor pulmonary status closely Follow-up chest x-ray, inflammatory markers in the a.m. We will continue to follow and make further recommendations based on his clinical status I, the cosigning physician, performed a history & physical examination of the patient. Lungs sounds with coarse crackles in the bilateral bases. Maintaining O2 saturations in the 90s on AirVo high flow oxygen at 60 L and 90% FiO2. I discussed the assessment and plan of care with my nurse practitioner, Sasha Vega. I attest to the above note as dictated by her.
[2021-02-26 11:48] LABS: Glucose,Whole Blood 187 mg/dL (75-99)
[2021-02-26] MEDS: ACETAMINOPHEN TAB 325 MG TAB PO PRN ×2 (15:21→20:25)
[2021-02-26] MEDS: ALBUTEROL HFA INHALER INHALATION PRN ×2 (15:38→19:44)
[2021-02-26 16:39] LABS: Glucose,Whole Blood 335 mg/dL (75-99)
[2021-02-26 19:59] LABS: Glucose,Whole Blood 298 mg/dL (75-99)
[2021-02-27 06:02] LABS: Glucose,Whole Blood 249 mg/dL (75-99)
[2021-02-27] MEDS: INSULIN ASPART (NovoLOG) 100 UNIT/ML VIAL SQ SCH ×4 (06:29→20:16)
--- NOTE | 2021-02-27 08:42 | XR ---
EXAMINATION TYPE: XR chest 1V portable DATE OF EXAM: 02/27/2021 COMPARISON: Chest x-ray 02/25/2021 HISTORY: Covid pneumonia TECHNIQUE: Single frontal view of the chest is obtained. FINDINGS: Bilateral airspace disease is present. There are overlying artifacts. No evident pneumotho rax or pleural effusion. Cardiac mediastinal silhouette is similar accounting for differences in tech nique, heart size is borderline increased although exam is expiratory. Interstitium is increased with prominence the central vascularity. IMPRESSION: Correlate for pneumonia versus congestive heart failure.
[2021-02-27 08:50] LABS: Basophils % (A) 0 %; Eosinophils % (A) 0 %; HCT 46.6 % (39.0-53.0); HGB 14.8 gm/dL (13.0-17.5); Hypochromasia Slight; Lymphocytes # (A) 0.4 k/uL (1.0-4.8); Lymphocytes % (A) 2 %; MCH 30.2 pg (25.0-35.0); MCHC 31.8 g/dL (31.0-37.0); MCV 94.9 fL (80.0-100.0); Monocytes # (A) 0.2 k/uL (0-1.0); Monocytes % (A) 2 %; Neutrophils # (A) 14.1 k/uL (1.3-7.7); Neutrophils % (A) 95 %; Platelet Count 201 k/uL (150-450); RBC 4.91 m/uL (4.30-5.90); RDW 13.9 % (11.5-15.5); WBC 14.9 k/uL (3.8-10.6)
[2021-02-27 09:06] LABS: ALT 31 U/L (4-49); AST 34 U/L (17-59); African American GFR (CKD) >90 (>60 ml/min/1.73 sqM); Albumin 3.1 g/dL (3.5-5.0); Alkaline Phosphatase 140 U/L (38-126); Anion Gap 7 mmol/L; Blood Urea Nitrogen 33 mg/dL (9-20); Calcium 8.8 mg/dL (8.4-10.2); Carbon Dioxide 29 mmol/L (22-30); Chloride 102 mmol/L (98-107); Glucose 244 mg/dL (74-99); LDH 1902 U/L (313-618); Non-African American GFR(CKD) >90 (>60 ml/min/1.73 sqM); Potassium 5.1 mmol/L (3.5-5.1); Sodium 138 mmol/L (137-145); Total Bilirubin 0.6 mg/dL (0.2-1.3); Total Protein 6.5 g/dL (6.3-8.2)
[2021-02-27] MEDS: ALBUTEROL HFA INHALER INHALATION PRN ×2 (09:18→15:43)
[2021-02-27 09:21] LABS: C Reactive Protein 19.4 mg/dL (<1.0)
[2021-02-27] MEDS: ASCORBIC ACID 500 MG TAB PO SCH (09:45)
[2021-02-27] MEDS: CHOLECALCIFEROL 25 MCG (1000 IU) TABLET PO SCH (09:45)
[2021-02-27] MEDS: AZITHROMYCIN 500 MG in SODIUM CHLORIDE 0.9% 250 ML IVPB SCH (09:45)
[2021-02-27] MEDS: PANTOPRAZOLE 40 MG/10 ML VIAL IVP SCH (09:46)
[2021-02-27] MEDS: DEXAMETHASONE SOD PHOSPHATE 10 MG/ML 1 ML VIAL IVP SCH ×2 (09:46→20:16)
[2021-02-27] MEDS: ENOXAPARIN 40 MG/0.4 ML SYRINGE SQ SCH (09:47)
--- NOTE | 2021-02-27 10:54 | P.PN ---
Subjective Progress Note Date: 02/27/21 Principal diagnosis: Patient is still on 100% nonrebreather able to wean from BiPAP 55-year-old male with past medical history of hypertension morbid obesity was not been feeling well for the last few days has been recently diagnosed with covid into got worse more short of breath feeling weak Patient was found to be hypoxic in the ER started on 100% on nonrebreather Patient is still short of breath improved on BiPAP Review of systems and systems has been reviewed all negative and positive findings as per history of present illness Constitutional: No acute distress, conversant, pleasant Eyes: Anicteric sclerae, moist conjunctiva, no lid-lag PERRLA ENMT: NC/AT Oropharynx clear, no erythema, exudates Neck: Supple, FROM, no masses, or JVD No carotid bruits No thyromegaly Lungs: crackly , no accessory muscle use Cardiovascular: Heart regular in rate and rhythm, No murmurs, gallops, or rubs No peripheral edema Abdominal: Soft Nontender, no guarding, rebound or rigidity Abdomen moving with respiration Normoactive bowel sounds No hepatomegaly, No splenomegaly No palpable mass No abdominal wall hernia noted Skin: Normal temperature, tone, texture, turgor No induration No subcutaneous nodules No rash, lesions No ulcers Extremities: No digital cyanosis No clubbing Pedal pulses intact and symmetrical Radial pulses intact and symmetrical Normal gait and station No calf tenderness Psychiatric:Alert and oriented to person, place and time Appropriate affect Intact judgement Neuro: Muscles Strength 5/5 in all 4 extremities Sensation to light touch jefferson ssly present throughout Cranial nerves II-XII grossly intact No focal sensory deficits Acute hypoxic respiratory failure due to pneumonia from COVID-19 infection Continue the patient on BiPAP as needed Currently patient on 100% nonrebreather continue to monitor closely Pulmonology following We'll continue patient on IV antibiotic Rocephin and Zithromax We'll also add IV steroids Borderline diabetes but the patient on sliding scale insulin Morbid obesity DVT and GI prophylaxis Objective - Vital Signs Vital signs: Vital Signs Temp 99 F 02/27/21 09:43 Pulse 75 02/27/21 09:43 Resp 26 H 02/27/21 09:43 BP 135/67 02/27/21 09:43 Pulse Ox 94 L 02/27/21 09:43 Intake & Output 02/26/21 02/27/21 02/27/21 18:59 06:59 18:59 Intake Total 240 120 Output Total 500 700 300 Balance -260 -700 -180 Intake: Oral 240 120 Output: Urine 500 700 300 Other: Voiding Method Urinal - Labs CBC & Chem 7: 02/27/21 08:18 02/27/21 08:18 Labs: Abnormal Lab Results - Last 24 Hours (Table) 02/26/21 02/26/21 02/26/21 Range/Units 11:46 16:30 19:58 WBC (3.8-10.6) k/uL Neutrophils # (1.3-7.7) k/uL Lymphocytes # (1.0-4.8) k/uL D-Dimer (<0.60) mg/L FEU BUN (9-20) mg/dL Glucose (74-99) mg/dL POC Glucose (mg/dL) 187 H 335 H 298 H (75-99) mg/dL Alkaline Phosphatase (38-126) U/L Lactate Dehydrogenase (313-618) U/L C-Reactive Protein (<1.0) mg/dL Albumin (3.5-5.0) g/dL 02/27/21 02/27/21 02/27/21 Range/Units 06:01 08:18 08:18 WBC 14.9 H (3.8-10.6) k/uL Neutrophils # 14.1 H (1.3-7.7) k/uL Lymphocytes # 0.4 L (1.0-4.8) k/uL D-Dimer (<0.60) mg/L FEU BUN 33 H (9-20) mg/dL Glucose 244 H (74-99) mg/dL POC Glucose (mg/dL) 249 H (75-99) mg/dL Alkaline Phosphatase 140 H (38-126) U/L Lactate Dehydrogenase 1902 H (313-618) U/L C-Reactive Protein 19.4 H (<1.0) mg/dL Albumin 3.1 L (3.5-5.0) g/dL 02/27/21 Range/Units 08:18 WBC (3.8-10.6) k/uL Neutrophils # (1.3-7.7) k/uL Lymphocytes # (1.0-4.8) k/uL D-Dimer >34.10 H (<0.60) mg/L FEU BUN (9-20) mg/dL Glucose (74-99) mg/dL POC Glucose (mg/dL) (75-99) mg/dL Alkaline Phosphatase (38-126) U/L Lactate Dehydrogenase (313-618) U/L C-Reactive Protein (<1.0) mg/dL Albumin (3.5-5.0) g/dL Microbiology - Last 24 Hours (Table) 02/25/21 11:26 Blood Culture - Preliminary Blood No Growth after 24 hours 02/25/21 11:31 Blood Culture - Preliminary Blood No Growth after 24 hours
--- NOTE | 2021-02-27 11:07 | P.PN ---
Subjective Progress Note Date: 02/27/21 Principal diagnosis: CoVID pneumonia This is a 55-year-old white male with history of mild intermittent asthma, GERD , hypertension, obstructive sleep apnea syndrome, normally on CPAP. Patient was recently diagnosed with COVID-19 infection, and the patient has had symptoms for the last 10 days. Patient had mostly symptoms of shortness of breath weakness, vague aches and pains, and his oxygen saturation has been getting worse over the last 2 days, hence he decided to come to the ER. Chest x-ray showed bilateral infiltrates consistent with COVID-19 pneumonia. Patient required placement on a nonrebreather mask and high flow nasal cannula with O2 saturation in the low 90 s. Patient was found to have elevated WBC count of 15.9. Elevated d-dimer of 3.97. Elevated creatinine of 1.30. Elevated ferritin of 710, elevated LDH of 1661 elevated C-reactive protein of 26.4, and he was also noted to have elevated pro calcitonin of 0.54. Patient tested positive for COVID-19. Hence the patient was admitted and this consult was initiated. I saw the patient in the ER, recommended that the patient continues with the COVID-19 cocktail. Patient is already out of the window for Remdesivir. Patient is not a good candidate to receive Baricitinib at this point specially with elevated pro calcitonin level. Considering his elevated d-dimer I'm recommending venous Doppler of the lower extremities. In the meantime I'm recommending a relatively higher dose of Lovenox 40 mg subcu twice a day, considering his renal status I would not recommend CT angiogram of the chest at this point. Patient will be admitted and we will continue to follow closely. The patient is seen today 02/26/2021 in follow-up on the selective care unit. He is currently sitting up in bed. Awake and alert. He is dyspneic with minimal conversation. Dyspneic with minimal exertion. He is currently on AirVo high flow oxygen at 60 L and 90% FiO2 to maintain O2 saturation 92%. He did utilize BiPAP throughout the evening 14/600% FiO2. He continues with coarse bilateral crackles. Dopplers of the lower extremities were negative for DVT. White count 18.1. Hemoglobin 14.4. Lymphocytes 0.4. Sodium 139. Potassium 5.3. Creatinine 0.93. Glucose 188. AST 46. ALT 33. Pro calcitonin 0.54. He is continued on Decadron, Lovenox, vitamin supplements. Remains on antibiotics in the form of ceftriaxone and azithromycin. The patient is seen today 02/27/2021 in follow-up on the selective care unit. He is currently sitting up in a chair at the bedside. Awake and alert. He is dyspneic with conversation. Dyspneic with minimal exertion. He is requiring AirVo high flow oxygen at 60 L and 94% FiO2 along with the 100% nonrebreather mask with O2 saturation 94%. He had been on BiPAP 14/600% FiO2 through the night. Chest x-ray continues to show bilateral patchy opacities consistent with COVID-19 pneumonia. He is continued on Decadron, Lovenox, vitamin supplements. He is also on antibiotics in the form of ceftriaxone and azithromycin. White count 14.9. Hemoglobin 14.8. Lymphocytes 0.4. D-dimer greater than 34. Sodium 138. Potassium 5.1. Creatinine 0.91. AST 34. ALT 31. LDH 1902. C- reactive protein 19.4. Objective - Vital Signs Vital signs: Vital Signs Temp 99 F 02/27/21 09:43 Pulse 75 02/27/21 09:43 Resp 26 H 02/27/21 09:43 BP 135/67 02/27/21 09:43 Pulse Ox 94 L 02/27/21 09:43 Intake & Output 02/26/21 02/27/21 02/27/21 18:59 06:59 18:59 Intake Total 240 120 Output Total 500 700 300 Balance -260 -700 -180 Intake: Oral 240 120 Output: Urine 500 700 300 Other: Voiding Method Urinal - Exam GENERAL EXAM: Alert, very pleasant 55-year-old gentleman, on AirVo high flow oxygen at 60 L and 90% FiO2 less 100% nonrebreather mask with O2 saturations at 94%, in mild respiratory distress. HEAD: Normocephalic. EYES: Normal reaction of pupils, equal size. NOSE: Clear with pink turbinates. THROAT: No erythema or exudates. NECK: No masses, no JVD. CHEST: No chest wall deformity. LUNGS: Equal air entry with coarse crackles in the bilateral bases. CVS: S1 and S2 normal with no audible murmur, regular rhythm. ABDOMEN: No hepatosplenomegaly, normal bowel sounds, no guarding or rigidity. SPINE: No scoliosis or deformity SKIN: No rashes CENTRAL NERVOUS SYSTEM: No focal deficits, tone is normal in all 4 extremities. EXTREMITIES: There is no peripheral edema. No clubbing, no cyanosis. Peripheral pulses are intact. - Labs CBC & Chem 7: 02/27/21 08:18 02/27/21 08:18 Labs: Abnormal Lab Results - Last 24 Hours (Table) 02/26/21 02/26/21 02/26/21 Range/Units 11:46 16:30 19:58 WBC (3.8-10.6) k/uL Neutrophils # (1.3-7.7) k/uL Lymphocytes # (1.0-4.8) k/uL D-Dimer (<0.60) mg/L FEU BUN (9-20) mg/dL Glucose (74-99) mg/dL POC Glucose (mg/dL) 187 H 335 H 298 H (75-99) mg/dL Alkaline Phosphatase (38-126) U/L Lactate Dehydrogenase (313-618) U/L C-Reactive Protein (<1.0) mg/dL Albumin (3.5-5.0) g/dL 02/27/21 02/27/21 02/27/21 Range/Units 06:01 08:18 08:18 WBC 14.9 H (3.8-10.6) k/uL Neutrophils # 14.1 H (1.3-7.7) k/uL Lymphocytes # 0.4 L (1.0-4.8) k/uL D-Dimer (<0.60) mg/L FEU BUN 33 H (9-20) mg/dL Glucose 244 H (74-99) mg/dL POC Glucose (mg/dL) 249 H (75-99) mg/dL Alkaline Phosphatase 140 H (38-126) U/L Lactate Dehydrogenase 1902 H (313-618) U/L C-Reactive Protein 19.4 H (<1.0) mg/dL Albumin 3.1 L (3.5-5.0) g/dL 02/27/21 Range/Units 08:18 WBC (3.8-10.6) k/uL Neutrophils # (1.3-7.7) k/uL Lymphocytes # (1.0-4.8) k/uL D-Dimer >34.10 H (<0.60) mg/L FEU BUN (9-20) mg/dL Glucose (74-99) mg/dL POC Glucose (mg/dL) (75-99) mg/dL Alkaline Phosphatase (38-126) U/L Lactate Dehydrogenase (313-618) U/L C-Reactive Protein (<1.0) mg/dL Albumin (3.5-5.0) g/dL Microbiology - Last 24 Hours (Table) 02/25/21 11:26 Blood Culture - Preliminary Blood No Growth after 24 hours 02/25/21 11:31 Blood Culture - Preliminary Blood No Growth after 24 hours Assessment and Plan Assessment: 1 Acute hypoxic respiratory failure secondary to COVID-19 pneumonia. Not vaccinated. Currently on AirVo high flow oxygen at 60 L and 94% FiO2 with O2 saturation at 94%. He is alternating with BiPAP 14/600% FiO2. Chest x-ray continues to show bilateral patchy multifocal infiltrates. He is continued on Decadron, therapeutic Lovenox, vitamin supplements. No Baricitinib due to the elevated pro calcitonin and currently on antibiotics. 2 History of mild intermittent asthma 3 History of obstructive sleep apnea syndrome, maintained on CPAP at home. 4 History of hypertension. 5 Type 2 diabetes. 6 GERD without esophagitis. 7 Morbid obesity. 8 Elevated pro calcitonin level, underlying superimposed bacterial pneumonia is not entirely ruled out, especially with his elevated pro calcitonin level Landing: The patient was seen and evaluated Chest x-ray and labs reviewed Continued on Decadron, vitamin supplement Remains on antibiotics D-dimer greater than 34 today, increase Lovenox to 80 mg twice a day Titrate the FiO2 as tolerated Condition is guarded We will continue to follow and make further recommendations based on his clinical status I, the cosigning physician, performed a history & physical examination of the patient. Lungs sounds with coarse crackles in the bilateral bases. Maintaining O2 saturations in the 90s on AirVo high flow oxygen at 60 L and 94% FiO2. I discussed the assessment and plan of care with my nurse practitioner, Sasha Vega. I attest to the above note as dictated by her.
[2021-02-27 11:58] LABS: Glucose,Whole Blood 267 mg/dL (75-99)
[2021-02-27 16:27] LABS: Glucose,Whole Blood 319 mg/dL (75-99)
[2021-02-27 20:05] LABS: Glucose,Whole Blood 296 mg/dL (75-99)
[2021-02-27] MEDS: ENOXAPARIN 80 MG/0.8 ML SYRINGE SQ SCH (20:16)
[2021-02-28] MEDS: ACETAMINOPHEN TAB 325 MG TAB PO PRN (03:46)
[2021-02-28 06:17] LABS: Glucose,Whole Blood 257 mg/dL (75-99)
[2021-02-28] MEDS: INSULIN ASPART (NovoLOG) 100 UNIT/ML VIAL SQ SCH ×4 (06:19→20:14)
[2021-02-28] MEDS: ENOXAPARIN 80 MG/0.8 ML SYRINGE SQ SCH ×2 (08:22→21:28)
[2021-02-28] MEDS: DEXAMETHASONE SOD PHOSPHATE 10 MG/ML 1 ML VIAL IVP SCH ×2 (08:22→20:14)
[2021-02-28] MEDS: AZITHROMYCIN 500 MG in SODIUM CHLORIDE 0.9% 250 ML IVPB SCH (08:22)
[2021-02-28] MEDS: ASCORBIC ACID 500 MG TAB PO SCH (08:22)
[2021-02-28] MEDS: CHOLECALCIFEROL 25 MCG (1000 IU) TABLET PO SCH (08:22)
[2021-02-28] MEDS: PANTOPRAZOLE 40 MG/10 ML VIAL IVP SCH (08:22)
[2021-02-28 09:03] LABS: Basophils # (A) 0.1 k/uL (0-0.2); Basophils % (A) 0 %; Eosinophils % (A) 0 %; HCT 48.6 % (39.0-53.0); HGB 15.3 gm/dL (13.0-17.5); Lymphocytes # (A) 0.4 k/uL (1.0-4.8); Lymphocytes % (A) 3 %; MCH 29.6 pg (25.0-35.0); MCHC 31.4 g/dL (31.0-37.0); MCV 94.1 fL (80.0-100.0); Monocytes # (A) 0.4 k/uL (0-1.0); Monocytes % (A) 3 %; Neutrophils % (A) 93 %; Platelet Count 182 k/uL (150-450); RBC 5.16 m/uL (4.30-5.90); RDW 13.4 % (11.5-15.5)
[2021-02-28 09:19] LABS: ALT 29 U/L (4-49); AST 33 U/L (17-59); African American GFR (CKD) >90 (>60 ml/min/1.73 sqM); Albumin 3.2 g/dL (3.5-5.0); Alkaline Phosphatase 161 U/L (38-126); Anion Gap 3 mmol/L; Blood Urea Nitrogen 31 mg/dL (9-20); Calcium 8.9 mg/dL (8.4-10.2); Carbon Dioxide 32 mmol/L (22-30); Chloride 102 mmol/L (98-107); Glucose 249 mg/dL (74-99); Non-African American GFR(CKD) 90 (>60 ml/min/1.73 sqM); Potassium 5.5 mmol/L (3.5-5.1); Sodium 137 mmol/L (137-145); Total Bilirubin 0.7 mg/dL (0.2-1.3); Total Protein 6.8 g/dL (6.3-8.2)
--- NOTE | 2021-02-28 09:24 | P.PN ---
Subjective Progress Note Date: 02/28/21 Principal diagnosis: Patient on BiPAP today still short of breath 55-year-old male with past medical history of hypertension morbid obesity was not been feeling well for the last few days has been recently diagnosed with covid into got worse more short of breath feeling weak Patient was found to be hypoxic in the ER started on 100% on nonrebreather Patient is still short of breath improved on BiPAP Review of systems and systems has been reviewed all negative and positive findings as per history of present illness Constitutional: No acute distress, conversant, pleasant Eyes: Anicteric sclerae, moist conjunctiva, no lid-lag PERRLA ENMT: NC/AT Oropharynx clear, no erythema, exudates Neck: Supple, FROM, no masses, or JVD No carotid bruits No thyromegaly Lungs: crackly , no accessory muscle use Cardiovascular: Heart regular in rate and rhythm, No murmurs, gallops, or rubs No peripheral edema Abdominal: Soft Nontender, no guarding, rebound or rigidity Abdomen moving with respiration Normoactive bowel sounds No hepatomegaly, No splenomegaly No palpable mass No abdominal wall hernia noted Skin: Normal temperature, tone, texture, turgor No induration No subcutaneous nodules No rash, lesions No ulcers Extremities: No digital cyanosis No clubbing Pedal pulses intact and symmetrical Radial pulses intact and symmetrical Normal gait and station No calf tenderness Psychiatric:Alert and oriented to person, place and time Appropriate affect Intact judgement Neuro: Muscles Strength 5/5 in all 4 extremities Sensation to light touch grossly present throughout Cranial nerves II-XII grossly intact No focal sensory deficits Acute hypoxic respiratory failure due to pneumonia from COVID-19 infection Continue the patient on BiPAP as needed Currently patient on 100% nonrebreather continue to monitor closely Pulmonology following Continue patient on BiPAP We'll continue patient on IV antibiotic Rocephin and Zithromax We'll also add IV steroids Borderline diabetes but the patient on sliding scale insulin Morbid obesity DVT and GI prophylaxis Objective - Vital Signs Vital signs: Vital Signs Temp 98.1 F 02/28/21 08:00 Pulse 69 02/28/21 08:00 Resp 28 H 02/28/21 08:00 BP 136/76 02/28/21 08:00 Pulse Ox 96 02/28/21 08:00 Intake & Output 02/27/21 02/28/21 02/28/21 18:59 06:59 18:59 Intake Total 120 Output Total 750 1550 Balance -630 -1550 Intake: Oral 120 Output: Urine 750 1550 Other: Voiding Method Urinal - Labs CBC & Chem 7: 02/28/21 08:16 02/28/21 08:16 Labs: Abnormal Lab Results - Last 24 Hours (Table) 02/27/21 02/27/21 02/27/21 Range/Units 11:55 16:26 20:04 WBC (3.8-10.6) k/uL Neutrophils # (1.3-7.7) k/uL Lymphocytes # (1.0-4.8) k/uL Potassium (3.5-5.1) mmol/L Carbon Dioxide (22-30) mmol/L BUN (9-20) mg/dL Glucose (74-99) mg/dL POC Glucose (mg/dL) 267 H 319 H 296 H (75-99) mg/dL Alkaline Phosphatase (38-126) U/L Albumin (3.5-5.0) g/dL 02/28/21 02/28/21 02/28/21 Range/Units 06:16 08:16 08:16 WBC 14.0 H (3.8-10.6) k/uL Neutrophils # 13.0 H (1.3-7.7) k/uL Lymphocytes # 0.4 L (1.0-4.8) k/uL Potassium 5.5 H (3.5-5.1) mmol/L Carbon Dioxide 32 H (22-30) mmol/L BUN 31 H (9-20) mg/dL Glucose 249 H (74-99) mg/dL POC Glucose (mg/dL) 257 H (75-99) mg/dL Alkaline Phosphatase 161 H (38-126) U/L Albumin 3.2 L (3.5-5.0) g/dL Microbiology - Last 24 Hours (Table) 02/25/21 11:31 Blood Culture - Preliminary Blood No Growth after 48 hours 02/25/21 11:26 Blood Culture - Preliminary Blood No Growth after 48 hours
[2021-02-28 11:49] LABS: Glucose,Whole Blood 163 mg/dL (75-99)
--- NOTE | 2021-02-28 12:16 | P.PN ---
Subjective Progress Note Date: 02/28/21 Principal diagnosis: CoVID pneumonia This is a 55-year-old white male with history of mild intermittent asthma, GERD , hypertension, obstructive sleep apnea syndrome, normally on CPAP. Patient was recently diagnosed with COVID-19 infection, and the patient has had symptoms for the last 10 days. Patient had mostly symptoms of shortness of breath weakness, vague aches and pains, and his oxygen saturation has been getting worse over the last 2 days, hence he decided to come to the ER. Chest x-ray showed bilateral infiltrates consistent with COVID-19 pneumonia. Patient required placement on a nonrebreather mask and high flow nasal cannula with O2 saturation in the low 90 s. Patient was found to have elevated WBC count of 15.9. Elevated d-dimer of 3.97. Elevated creatinine of 1.30. Elevated ferritin of 710, elevated LDH of 1661 elevated C-reactive protein of 26.4, and he was also noted to have elevated pro calcitonin of 0.54. Patient tested positive for COVID-19. Hence the patient was admitted and this consult was initiated. I saw the patient in the ER, recommended that the patient continues with the COVID-19 cocktail. Patient is already out of the window for Remdesivir. Patient is not a good candidate to receive Baricitinib at this point specially with elevated pro calcitonin level. Considering his elevated d-dimer I'm recommending venous Doppler of the lower extremities. In the meantime I'm recommending a relatively higher dose of Lovenox 40 mg subcu twice a day, considering his renal status I would not recommend CT angiogram of the chest at this point. Patient will be admitted and we will continue to follow closely. The patient is seen today 02/26/2021 in follow-up on the selective care unit. He is currently sitting up in bed. Awake and alert. He is dyspneic with minimal conversation. Dyspneic with minimal exertion. He is currently on AirVo high flow oxygen at 60 L and 90% FiO2 to maintain O2 saturation 92%. He did utilize BiPAP throughout the evening 14/600% FiO2. He continues with coarse bilateral crackles. Dopplers of the lower extremities were negative for DVT. White count 18.1. Hemoglobin 14.4. Lymphocytes 0.4. Sodium 139. Potassium 5.3. Creatinine 0.93. Glucose 188. AST 46. ALT 33. Pro calcitonin 0.54. He is continued on Decadron, Lovenox, vitamin supplements. Remains on antibiotics in the form of ceftriaxone and azithromycin. The patient is seen today 02/27/2021 in follow-up on the selective care unit. He is currently sitting up in a chair at the bedside. Awake and alert. He is dyspneic with conversation. Dyspneic with minimal exertion. He is requiring AirVo high flow oxygen at 60 L and 94% FiO2 along with the 100% nonrebreather mask with O2 saturation 94%. He had been on BiPAP 14/600% FiO2 through the night. Chest x-ray continues to show bilateral patchy opacities consistent with COVID-19 pneumonia. He is continued on Decadron, Lovenox, vitamin supplements. He is also on antibiotics in the form of ceftriaxone and azithromycin. White count 14.9. Hemoglobin 14.8. Lymphocytes 0.4. D-dimer greater than 34. Sodium 138. Potassium 5.1. Creatinine 0.91. AST 34. ALT 31. LDH 1902. C- reactive protein 19.4. The patient is seen today 02/28/2021 he follow-up on the selective care unit. He is currently sitting up in a chair at the bedside and alert. He is currently on BiPAP 14/6 and 100% FiO2 to maintain O2 saturations in the low 90s. He's been alternating with AirVo at 60 L and 90% FiO2 in addition to 100% nonrebreather mask. He has been slow to progress but is no worse today compared to yesterday. WBCs 14.0. Hemoglobin 15.3. Lymphocytes 0.4. Sodium 137. Potassium 5.5. Creatinine 0.96. Glucose 163. AST 33. ALT 29. He is continued on antibiotics in the form of ceftriaxone and azithromycin. He is continued on Decadron 6 mg IV twice a day. Lovenox 80 mg subcu twice a day. Bronchodilators. Vitamin supplements. Objective - Vital Signs Vital signs: Vital Signs Temp 98.1 F 02/28/21 08:00 Pulse 69 02/28/21 08:00 Resp 28 H 02/28/21 08:00 BP 136/76 02/28/21 08:00 Pulse Ox 96 02/28/21 08:00 Intake & Output 01/21/22 01/22/22 01/22/22 18:59 06:59 18:59 Intake Total 120 Output Total 750 1550 250 Balance -133 -1860 -212 Intake: Oral 120 Output: Urine 750 1550 250 Other: Voiding Method Urinal - Exam GENERAL EXAM: Alert, very pleasant 55-year-old gentleman, on BiPAP 12/6 and 100% FiO2. Alternating with AirVo high flow oxygen at 60 L and 90% FiO2 less 100% nonrebreather mask with O2 saturations at 94%, in mild respiratory distress. HEAD: Normocephalic. EYES: Normal reaction of pupils, equal size. NOSE: Clear with pink turbinates. THROAT: No erythema or exudates. NECK: No masses, no JVD. CHEST: No chest wall deformity. LUNGS: Equal air entry with coarse crackles in the bilateral bases. CVS: S1 and S2 normal with no audible murmur, regular rhythm. ABDOMEN: No hepatosplenomegaly, normal bowel sounds, no guarding or rigidity. SPINE: No scoliosis or deformity SKIN: No rashes CENTRAL NERVOUS SYSTEM: No focal deficits, tone is normal in all 4 extremities. EXTREMITIES: There is no peripheral edema. No clubbing, no cyanosis. Peripheral pulses are intact. - Labs CBC & Chem 7: 02/28/21 08:16 02/28/21 08:16 Labs: Abnormal Lab Results - Last 24 Hours (Table) 02/27/21 02/27/21 02/28/21 Range/Units 16:26 20:04 06:16 WBC (3.8-10.6) k/uL Neutrophils # (1.3-7.7) k/uL Lymphocytes # (1.0-4.8) k/uL Potassium (3.5-5.1) mmol/L Carbon Dioxide (22-30) mmol/L BUN (9-20) mg/dL Glucose (74-99) mg/dL POC Glucose (mg/dL) 319 H 296 H 257 H (75-99) mg/dL Alkaline Phosphatase (38-126) U/L Albumin (3.5-5.0) g/dL 02/28/21 02/28/21 02/28/21 Range/Units 08:16 08:16 11:47 WBC 14.0 H (3.8-10.6) k/uL Neutrophils # 13.0 H (1.3-7.7) k/uL Lymphocytes # 0.4 L (1.0-4.8) k/uL Potassium 5.5 H (3.5-5.1) mmol/L Carbon Dioxide 32 H (22-30) mmol/L BUN 31 H (9-20) mg/dL Glucose 249 H (74-99) mg/dL POC Glucose (mg/dL) 163 H (75-99) mg/dL Alkaline Phosphatase 161 H (38-126) U/L Albumin 3.2 L (3.5-5.0) g/dL Microbiology - Last 24 Hours (Table) 02/25/21 11:31 Blood Culture - Preliminary Blood No Growth after 48 hours 02/25/21 11:26 Blood Culture - Preliminary Blood No Growth after 48 hours Assessment and Plan Assessment: 1 Acute hypoxic respiratory failure secondary to COVID-19 pneumonia. Not vaccinated. Currently on BiPAP 12/600% FiO2 alternating with AirVo high flow ox ygen at 60 L and 94% FiO2 also 100% nonrebreather mask. Chest x-ray continues to show bilateral patchy multifocal infiltrates. He is continued on Decadron, therapeutic Lovenox, vitamin supplements. No Baricitinib due to the elevated pro calcitonin and currently on antibiotics. 2 History of mild intermittent asthma 3 History of obstructive sleep apnea syndrome, maintained on CPAP at home. 4 History of hypertension. 5 Type 2 diabetes. 6 GERD without esophagitis. 7 Morbid obesity. 8 Elevated pro calcitonin level, underlying superimposed bacterial pneumonia is not entirely ruled out Plan: The patient was seen and evaluated Currently on BiPAP alternating with AirVo Labs reviewed Continued on Decadron, Lovenox, vitamin supplement Remains on antibiotics Titrate the FiO2 as tolerated Condition is guarded Follow-up chest x-ray and labs in the a.m. We will continue to follow I, the cosigning physician, performed a history & physical examination of the patient. Lungs sounds with coarse crackles in the bilateral bases. Maintaining O2 saturations in the 90s on BiPAP 12/600% FiO2 alternating with AirVo high flow oxygen at 60 L and 94% FiO2. I discussed the assessment and plan of care with my nurse practitioner, Sasha Vega. I attest to the above note as dictated by her.
[2021-02-28] MEDS: ALBUTEROL HFA INHALER INHALATION PRN (15:24)
[2021-02-28 16:43] LABS: Glucose,Whole Blood 281 mg/dL (75-99)
[2021-02-28 19:58] LABS: Glucose,Whole Blood 330 mg/dL (75-99)
[2021-03-01 06:28] LABS: Glucose,Whole Blood 194 mg/dL (75-99)
[2021-03-01] MEDS: INSULIN ASPART (NovoLOG) 100 UNIT/ML VIAL SQ SCH ×4 (06:40→21:27)
[2021-03-01] MEDS: ALBUTEROL HFA INHALER INHALATION PRN ×4 (07:43→20:07)
--- NOTE | 2021-03-01 08:48 | XR ---
EXAMINATION TYPE: XR chest 1V portable DATE OF EXAM: 03/01/2021 COMPARISON: Chest x-ray 02/27/2021 HISTORY: Covid pneumonia TECHNIQUE: Single frontal view of the chest is obtained. FINDINGS: Bilateral airspace disease shows a similar appearance. The right hemidiaphragm is elevated . Cardiac mediastinal silhouette is stable. There is no evident pneumothorax or pleural effusion. The re are overlying leads. IMPRESSION: Findings consistent with patient's history of Covid pneumonia
[2021-03-01] MEDS: ASCORBIC ACID 500 MG TAB PO SCH (10:01)
[2021-03-01] MEDS: CHOLECALCIFEROL 25 MCG (1000 IU) TABLET PO SCH (10:01)
[2021-03-01] MEDS: DEXAMETHASONE SOD PHOSPHATE 10 MG/ML 1 ML VIAL IVP SCH ×2 (10:01→21:26)
[2021-03-01] MEDS: ENOXAPARIN 80 MG/0.8 ML SYRINGE SQ SCH ×2 (10:02→21:26)
[2021-03-01] MEDS: PANTOPRAZOLE 40 MG/10 ML VIAL IVP SCH (10:02)
[2021-03-01] MEDS: AZITHROMYCIN 500 MG in SODIUM CHLORIDE 0.9% 250 ML IVPB SCH (10:02)
--- NOTE | 2021-03-01 10:36 | P.PN ---
Subjective Progress Note Date: 03/01/21 This is a 55-year-old white male with history of mild intermittent asthma, GERD , hypertension, obstructive sleep apnea syndrome, normally on CPAP. Patient was recently diagnosed with COVID-19 infection, and the patient has had symptoms for the last 10 days. Patient had mostly symptoms of shortness of breath weakness, vague aches and pains, and his oxygen saturation has been getting worse over the last 2 days, hence he decided to come to the ER. Chest x-ray showed bilateral infiltrates consistent with COVID-19 pneumonia. Patient required placement on a nonrebreather mask and high flow nasal cannula with O2 saturation in the low 90s. Patient was found to have elevated WBC count of 15.9. Elevated d-dimer of 3.97. Elevated creatinine of 1.30. Elevated ferritin of 710, elevated LDH of 1661 elevated C-reactive protein of 26.4, and he was also noted to have elevated pro calcitonin of 0.54. Patient tested positive for COVID-19. Hence the patient was admitted and this consult was initiated. I saw the patient in the ER, recommended that the patient continues with the COVID-19 cocktail. Patient is already out of the window for Remdesivir. Patient is not a good candidate to receive Baricitinib at this point specially with elevated pro calcitonin level. Considering his elevated d-dimer I'm recommending venous Doppler of the lower extremities. In the meantime I'm recommending a relatively higher dose of Lovenox 40 mg subcu twice a day, considering his renal status I would not alice mmend CT angiogram of the chest at this point. Patient will be admitted and we will continue to follow closely. The patient is seen today 02/26/2021 in follow-up on the selective care unit. He is currently sitting up in bed. Awake and alert. He is dyspneic with minimal conversation. Dyspneic with minimal exertion. He is currently on AirVo high flow oxygen at 60 L and 90% FiO2 to maintain O2 saturation 92%. He did utilize BiPAP throughout the evening 14/600% FiO2. He continues with coarse bilateral crackles. Dopplers of the lower extremities were negative for DVT. White count 18.1. Hemoglobin 14.4. Lymphocytes 0.4. Sodium 139. Potassium 5.3. Creatinine 0.93. Glucose 188. AST 46. ALT 33. Pro calcitonin 0.54. He is continued on Decadron, Lovenox, vitamin supplements. Remains on antibiotics in the form of ceftriaxone and azithromycin. The patient is seen today 02/27/2021 in follow-up on the selective care unit. He is currently sitting up in a chair at the bedside. Awake and alert. He is dyspneic with conversation. Dyspneic with minimal exertion. He is requiring AirVo high flow oxygen at 60 L and 94% FiO2 along with the 100% nonrebreather mask with O2 saturation 94%. He had been on BiPAP 14/600% FiO2 through the night. Chest x-ray continues to show bilateral patchy opacities consistent with COVID-19 pneumonia. He is continued on Decadron, Lovenox, vitamin supplements. He is also on antibiotics in the form of ceftriaxone and azithromycin. White count 14.9. Hemoglobin 14.8. Lymphocytes 0.4. D-dimer greater than 34. Sodium 138. Potassium 5.1. Creatinine 0.91. AST 34. ALT 31. LDH 1902. C- reactive protein 19.4. The patient is seen today 02/28/2021 he follow-up on the selective care unit. He is currently sitting up in a chair at the bedside and alert. He is currently on BiPAP 14/6 and 100% FiO2 to maintain O2 saturations in the low 90s. He's been alternating with AirVo at 60 L and 90% FiO2 in addition to 100% nonrebreather mask. He has been slow to progress but is no worse today compared to yesterday. WBCs 14.0. Hemoglobin 15.3. Lymphocytes 0.4. Sodium 137. Potassium 5.5. Creatinine 0.96. Glucose 163. AST 33. ALT 29. He is continued on antibiotics in the form of ceftriaxone and azithromycin. He is continued on Decadron 6 mg IV twice a day. Lovenox 80 mg subcu twice a day. Bronchodilators. Vitamin supplements. On 03/01/2021 patient seen in follow-up on selective care unit, he is currently on BiPAP support, with pressures of 14 and 6, and 100%, his pulse ox is 92-93%, patient is mildly tachypneic, but does not appear to be in any acute distress, nevertheless patient is BiPAP dependent, she quickly desaturates into the 60s when he is taken off BiPAP support to be given his oral medications or sips of w ater. He has been able to alternate with Airvo at 60 L and FiO2 of 92%, and he maintains O2 saturations at about 90-92%. Afebrile, hemodynamically has been stable, lung sounds reveal coarse crackles at bilateral bases, and some fine scattered crackles in the mid lungs. No complaints of chest discomfort, at times he is able to cough up some brown-colored phlegm, he remains on a combination of Rocephin and azithromycin for empiric antibiotic coverage. His initial pro-calcitonin level was mildly elevated at 0.54 suggesting possibility of underlying bacterial infection, we'll obtain follow-up pro-calcitonin level today. He remains on Decadron 6 mg twice daily, and his Lovenox was increased to 80 mg twice daily in view of significantly elevated d-dimer which was greater than 34.1. His lower extremity Dopplers were negative for DVT however patient has not been able to travel to CT department for CT angiogram of the chest related to high FiO2 requirement and the risk of clinical decompensation. Mentation since to be appropriate, he is alert, he is oriented 3, dates his been able to take in some oral nutrition when he switched to Airvo. His follow- up chest x-ray today shows bilateral airspace disease with similar appearance without significant change. There is elevation of the right hemidiaphragm was noted. No evident pneumothorax or pleural effusion. Objective - Vital Signs Vital signs: Vital Signs Temp 98 F 03/01/21 07:31 Pulse 66 03/01/21 07:31 Resp 24 03/01/21 07:31 BP 139/77 03/01/21 07:31 Pulse Ox 92 L 03/01/21 08:00 Intake & Output 02/28/21 03/01/21 03/01/21 18:59 06:59 18:59 Output Total 250 800 Balance -250 -800 Output: Urine 250 800 Other: Voiding Method Urinal # Voids 1 # Bowel Movements 1 - Exam GENERAL EXAM: Alert, very pleasant, 56-year-old obese white male, on BiPAP support with pressures of 14/6 and 100% FiO2 satting 92% sitting up in the recliner mildly tachypneic, but does not appear to be in any acute distress HEAD: Normocephalic/atraumatic. EYES: Normal reaction of pupils, equal size. Conjunctiva pink, sclera white. NOSE: Clear with pink turbinates. THROAT: No erythema or exudates. NECK: No masses, no JVD, no thyroid enlargement, no adenopathy. CHEST: No chest wall deformity. Symmetrical expansion. LUNGS: Equal air entry with coarse crackles at bilateral bases CVS: Regular rate and rhythm, normal S1 and S2, no gallops, no murmurs, no rubs ABDOMEN: Soft, nontender. No hepatosplenomegaly, normal bowel sounds, no guarding or rigidity. EXTREMITIES: No clubbing, no edema, no cyanosis, 2+ pulses and upper and lower extremities. MUSCULOSKELETAL: Muscle strength and tone normal. SPINE: No scoliosis or deformity SKIN: No rashes CENTRAL NERVOUS SYSTEM: Alert and oriented -3. No focal deficits, tone is normal in all 4 extremities. PSYCHIATRIC: Alert and oriented -3. Appropriate affect. Intact judgment and insight. - Labs CBC & Chem 7: 02/28/21 08:16 02/28/21 08:16 Labs: Abnormal Lab Results - Last 24 Hours (Table) 02/28/21 02/28/21 02/28/21 Range/Units 11:47 16:40 19:57 POC Glucose (mg/dL) 163 H 281 H 330 H (75-99) mg/dL 03/01/21 Range/Units 06:27 POC Glucose (mg/dL) 194 H (75-99) mg/dL Microbiology - Last 24 Hours (Table) 02/25/21 11:26 Blood Culture - Preliminary Blood No Growth after 72 hours 02/25/21 11:31 Blood Culture - Preliminary Blood No Growth after 72 hours Assessment and Plan Plan: Assessment: #1. Acute hypoxic respiratory failure secondary to COVID-19 pneumonia, patient is a non-vaccinated adult, at the time of his presentation patient was already requiring high flow oxygen on 100% nonrebreather and subsequently placed on BiPAP support on which she remains with pressures of 14 and 6 on FiO2 of 100%, alternating with Airvo at 60 L and FiO2 of 92%. Patient was not a candidate for Remdesivir related to severity of his hypoxia, length of symptoms, patient is a not a candidate for Baricitinib related to elevated pro calcitonin suggestive of bacterial infection. Patient came in to the emergency department with 10 day history of symptoms on 02/25/2021 #2. Elevated d-dimer, lower extremity Dopplers were negative for DVT, patient is currently on Lovenox 80 mg twice daily. Unable to complete CTA chest related to FiO2 requirements and the risk of clinical decompensation. #3. Elevated inflammatory markers related to COVID-19 pneumonia #4. History of mild intermittent bronchial asthma #5. Morbid obesity with the BMI of 41.3 kg/m #6. Hypertension #7. Obstructive sleep apnea #8. GERD without esophagitis #9. Elevated pro calcitonin level suggesting underlying superimposed bacterial infection, currently on a combination of azithromycin and Rocephin Plan: Continue Airvo support during meals, patient is on BiPAP support most of the time He is BiPAP dependent, quickly desaturates when he is off BiPAP Continue Decadron twice daily dosing Continue antibiotics We will obtain a follow-up pro calcitonin level, d-dimer and inflammatory markers prognosis at this time is extremely guarded We'll continue to closely follow his clinical course I performed a history & physical examination of the patient and discussed their management with my nurse practitioner, Pushpa Rajan. I reviewed the nurse practitioner's note and agree with the documented findings and plan of care. Lung sounds are positive for dim breath sounds with coarse crackles throughout the lung lo. The findings and the impression was discussed with the patient. I attest to the documentation by the nurse practitioner. Time with Patient: Less than 30
[2021-03-01 10:53] LABS: Basophils # (A) 0.1 k/uL (0-0.2); Basophils % (A) 0 %; Eosinophils % (A) 0 %; HCT 45.3 % (39.0-53.0); HGB 14.3 gm/dL (13.0-17.5); Lymphocytes # (A) 0.4 k/uL (1.0-4.8); Lymphocytes % (A) 3 %; MCH 29.8 pg (25.0-35.0); MCHC 31.6 g/dL (31.0-37.0); MCV 94.2 fL (80.0-100.0); Monocytes # (A) 0.3 k/uL (0-1.0); Monocytes % (A) 2 %; Neutrophils # (A) 12.4 k/uL (1.3-7.7); Neutrophils % (A) 94 %; Platelet Count 173 k/uL (150-450); RBC 4.81 m/uL (4.30-5.90); RDW 13.2 % (11.5-15.5); WBC 13.3 k/uL (3.8-10.6)
[2021-03-01 11:00] LABS: ALT 27 U/L (4-49); AST 25 U/L (17-59); African American GFR (CKD) >90 (>60 ml/min/1.73 sqM); Albumin 2.9 g/dL (3.5-5.0); Alkaline Phosphatase 131 U/L (38-126); Anion Gap 7 mmol/L; Blood Urea Nitrogen 30 mg/dL (9-20); C Reactive Protein 3.6 mg/dL (<1.0); Calcium 8.3 mg/dL (8.4-10.2); Carbon Dioxide 27 mmol/L (22-30); Chloride 100 mmol/L (98-107); Glucose 341 mg/dL (74-99); LDH 1565 U/L (313-618); Non-African American GFR(CKD) >90 (>60 ml/min/1.73 sqM); Potassium 4.9 mmol/L (3.5-5.1); Sodium 134 mmol/L (137-145); Total Bilirubin 0.6 mg/dL (0.2-1.3); Total Protein 5.9 g/dL (6.3-8.2)
--- NOTE | 2021-03-01 11:19 | P.PN ---
Subjective Progress Note Date: 03/01/21 Pt is now bipap dependent with quick desaturations off bipap. However, inflammatory markers do seem to be improving, CRP down to 3.6 from peak of 26.4. LDH is down today as well to 1565. WBC is downtrending. Objective - Vital Signs Vital signs: Vital Signs Temp 98 F 03/01/21 07:31 Pulse 66 03/01/21 07:31 Resp 24 03/01/21 07:31 BP 139/77 03/01/21 07:31 Pulse Ox 92 L 03/01/21 08:00 Intake & Output 02/28/21 03/01/21 03/01/21 18:59 06:59 18:59 Output Total 250 800 Balance -250 -800 Output: Urine 250 800 Other: Voiding Method Urinal # Voids 1 # Bowel Movements 1 - Exam Gen: awake, alert HEENT: normocephalic, atraumatic, good hearing acuity, moist mucous membranes Resp: Impaired air exchange, tachypnea CVS: good distal perfusion x 4, GI: soft, NTTP, ND : no SPT, no CVAT, zuniga catheter not present MSK: no pitting edema, no clubbing Neuro: non-focal, moving all extremities Psych: cooperative, euthymic mood - Labs CBC & Chem 7: 03/01/21 09:37 03/01/21 09:37 Labs: Abnormal Lab Results - Last 24 Hours (Table) 02/28/21 02/28/21 02/28/21 Range/Units 11:47 16:40 19:57 WBC (3.8-10.6) k/uL Neutrophils # (1.3-7.7) k/uL Lymphocytes # (1.0-4.8) k/uL Sodium (137-145) mmol/L BUN (9-20) mg/dL Glucose (74-99) mg/dL POC Glucose (mg/dL) 163 H 281 H 330 H (75-99) mg/dL Calcium (8.4-10.2) mg/dL Alkaline Phosphatase (38-126) U/L Lactate Dehydrogenase (313-618) U/L C-Reactive Protein (<1.0) mg/dL Total Protein (6.3-8.2) g/dL Albumin (3.5-5.0) g/dL 03/01/21 03/01/21 03/01/21 Range/Units 06:27 09:37 09:37 WBC 13.3 H (3.8-10.6) k/uL Neutrophils # 12.4 H (1.3-7.7) k/uL Lymphocytes # 0.4 L (1.0-4.8) k/uL Sodium 134 L (137-145) mmol/L BUN 30 H (9-20) mg/dL Glucose 341 H (74-99) mg/dL POC Glucose (mg/dL) 194 H (75-99) mg/dL Calcium 8.3 L (8.4-10.2) mg/dL Alkaline Phosphatase 131 H (38-126) U/L Lactate Dehydrogenase 1565 H (313-618) U/L C-Reactive Protein 3.6 H (<1.0) mg/dL Total Protein 5.9 L (6.3-8.2) g/dL Albumin 2.9 L (3.5-5.0) g/dL Microbiology - Last 24 Hours (Table) 02/25/21 11:26 Blood Culture - Preliminary Blood No Growth after 72 hours 02/25/21 11:31 Blood Culture - Preliminary Blood No Growth after 72 hours Assessment and Plan Assessment: Acute hypoxemic respiratory failure ARDS secondary to Covid 19 Sepsis secondary to Community acquired pneumonia -Admit to inpatient, telemetry -Oxygen when necessary, currently BiPAP dependent, 01/12, FiO2 100% -Dexamethasone, day 5 -Vitamin C, D, zinc -Ceftriaxone, azithromycin -On therapeutic Lovenox -Pulmonary consulted -Trend inflammatory markers Acute kidney injury, now resolved -Now resolved, status post IV fluids Mild intermittent asthma GERD Hypertension TESHA on CPAP Mood disorder -Home medications reviewed and reconciled Patient is a full code DVT prophylaxis covered with therapeutic Lovenox
[2021-03-01 11:57] LABS: Glucose,Whole Blood 281 mg/dL (75-99)
[2021-03-01] MEDS: ZINC SULFATE 220 MG CAP PO SCH (11:59)
[2021-03-01 17:05] LABS: Glucose,Whole Blood 255 mg/dL (75-99)
[2021-03-01] MEDS: FLUTICASONE 110 MCG INHALER INHALATION SCH (20:06)
[2021-03-01 20:55] LABS: Glucose,Whole Blood 332 mg/dL (75-99)
[2021-03-01] MEDS: LOSARTAN 50 MG TAB PO SCH (21:26)
[2021-03-02 06:13] LABS: Glucose,Whole Blood 183 mg/dL (75-99)
[2021-03-02] MEDS: INSULIN ASPART (NovoLOG) 100 UNIT/ML VIAL SQ SCH ×4 (06:41→21:13)
[2021-03-02] MEDS: ZINC SULFATE 220 MG CAP PO SCH (07:44)
[2021-03-02] MEDS: PANTOPRAZOLE 40 MG/10 ML VIAL IVP SCH (07:44)
[2021-03-02] MEDS: ASCORBIC ACID 500 MG TAB PO SCH (07:44)
[2021-03-02] MEDS: CITALOPRAM HYDROBROMIDE 20 MG TAB PO SCH (07:44)
[2021-03-02] MEDS: CHOLECALCIFEROL 25 MCG (1000 IU) TABLET PO SCH (07:44)
[2021-03-02] MEDS: DEXAMETHASONE SOD PHOSPHATE 10 MG/ML 1 ML VIAL IVP SCH ×2 (07:45→21:13)
[2021-03-02] MEDS: SYMBICORT 80-4.5 MCG INHALER INHALATION SCH ×2 (08:16→21:55)
[2021-03-02] MEDS: ALBUTEROL HFA INHALER INHALATION PRN ×2 (08:16→21:55)
[2021-03-02] MEDS: FLUTICASONE 110 MCG INHALER INHALATION SCH ×2 (08:16→21:55)
[2021-03-02 08:23] LABS: HCT 47.5 % (39.0-53.0); HGB 15.2 gm/dL (13.0-17.5); MCH 30.1 pg (25.0-35.0); MCV 93.9 fL (80.0-100.0); Platelet Count 215 k/uL (150-450); RBC 5.06 m/uL (4.30-5.90); RDW 13.6 % (11.5-15.5); WBC 13.2 k/uL (3.8-10.6)
[2021-03-02 08:24] LABS: ALT 30 U/L (4-49); AST 29 U/L (17-59); African American GFR (CKD) >90 (>60 ml/min/1.73 sqM); Alkaline Phosphatase 138 U/L (38-126); Anion Gap 5 mmol/L; Blood Urea Nitrogen 26 mg/dL (9-20); Calcium 8.7 mg/dL (8.4-10.2); Carbon Dioxide 30 mmol/L (22-30); Chloride 101 mmol/L (98-107); Glucose 176 mg/dL (74-99); LDH 1855 U/L (313-618); Non-African American GFR(CKD) >90 (>60 ml/min/1.73 sqM); Potassium 5.5 mmol/L (3.5-5.1); Sodium 136 mmol/L (137-145); Total Protein 6.5 g/dL (6.3-8.2)
[2021-03-02 09:13] LABS: C Reactive Protein 2.8 mg/dL (<1.0)
--- NOTE | 2021-03-02 09:37 | P.PN ---
Subjective Pt is still bipap dependent with quick desaturations off bipap. No new issues, but expressed to the patient today that he is very critically ill and anything can happen at this point. Objective - Vital Signs Vital signs: Vital Signs Temp 97.6 F 03/02/21 03:56 Pulse 65 03/02/21 07:37 Resp 35 H 03/02/21 07:37 BP 124/76 03/02/21 07:37 Pulse Ox 89 L 03/02/21 07:37 Intake & Output 03/01/21 03/02/21 03/02/21 18:59 06:59 18:59 Intake Total 480 360 Output Total 750 Balance 480 -390 Intake: Oral 480 360 Output: Urine 750 Other: # Voids 300 # Bowel Movements 1 - Exam Gen: awake, alert HEENT: normocephalic, atraumatic, good hearing acuity, moist mucous membranes Resp: Impaired air exchange, tachypnea CVS: good distal perfusion x 4, GI: soft, NTTP, ND : no SPT, no CVAT, zuniga catheter not present MSK: no pitting edema, no clubbing Neuro: non-focal, moving all extremities Psych: cooperative, euthymic mood - Labs CBC & Chem 7: 03/02/21 07:35 03/02/21 07:35 Labs: Abnormal Lab Results - Last 24 Hours (Table) 03/01/21 03/01/21 03/01/21 Range/Units 09:37 09:37 09:37 WBC 13.3 H (3.8-10.6) k/uL Neutrophils # 12.4 H (1.3-7.7) k/uL Lymphocytes # 0.4 L (1.0-4.8) k/uL D-Dimer >34.10 H (<0.60) mg/L FEU Sodium 134 L (137-145) mmol/L Potassium (3.5-5.1) mmol/L BUN 30 H (9-20) mg/dL Glucose 341 H (74-99) mg/dL POC Glucose (mg/dL) (75-99) mg/dL Calcium 8.3 L (8.4-10.2) mg/dL Alkaline Phosphatase 131 H (38-126) U/L Lactate Dehydrogenase 1565 H (313-618) U/L C-Reactive Protein 3.6 H (<1.0) mg/dL Total Protein 5.9 L (6.3-8.2) g/dL Albumin 2.9 L (3.5-5.0) g/dL 03/01/21 03/01/21 03/01/21 Range/Units 11:54 16:59 20:53 WBC (3.8-10.6) k/uL Neutrophils # (1.3-7.7) k/uL Lymphocytes # (1.0-4.8) k/uL D-Dimer (<0.60) mg/L FEU Sodium (137-145) mmol/L Potassium (3.5-5.1) mmol/L BUN (9-20) mg/dL Glucose (74-99) mg/dL POC Glucose (mg/dL) 281 H 255 H 332 H (75-99) mg/dL Calcium (8.4-10.2) mg/dL Alkaline Phosphatase (38-126) U/L Lactate Dehydrogenase (313-618) U/L C-Reactive Protein (<1.0) mg/dL Total Protein (6.3-8.2) g/dL Albumin (3.5-5.0) g/dL 03/02/21 03/02/21 03/02/21 Range/Units 06:06 07:35 07:35 WBC 13.2 H (3.8-10.6) k/uL Neutrophils # (1.3-7.7) k/uL Lymphocytes # (1.0-4.8) k/uL D-Dimer 31.24 H (<0.60) mg/L FEU Sodium (137-145) mmol/L Potassium (3.5-5.1) mmol/L BUN (9-20) mg/dL Glucose (74-99) mg/dL POC Glucose (mg/dL) 183 H (75-99) mg/dL Calcium (8.4-10.2) mg/dL Alkaline Phosphatase (38-126) U/L Lactate Dehydrogenase (313-618) U/L C-Reactive Protein (<1.0) mg/dL Total Protein (6.3-8.2) g/dL Albumin (3.5-5.0) g/dL 03/02/21 Range/Units 07:35 WBC (3.8-10.6) k/uL Neutrophils # (1.3-7.7) k/uL Lymphocytes # (1.0-4.8) k/uL D-Dimer (<0.60) mg/L FEU Sodium 136 L (137-145) mmol/L Potassium 5.5 H (3.5-5.1) mmol/L BUN 26 H (9-20) mg/dL Glucose 176 H (74-99) mg/dL POC Glucose (mg/dL) (75-99) mg/dL Calcium (8.4-10.2) mg/dL Alkaline Phosphatase 138 H (38-126) U/L Lactate Dehydrogenase 1855 H (313-618) U/L C-Reactive Protein 2.8 H (<1.0) mg/dL Total Protein (6.3-8.2) g/dL Albumin 3.0 L (3.5-5.0) g/dL Microbiology - Last 24 Hours (Table) 02/25/21 11:31 Blood Culture - Preliminary Blood No Growth after 96 hours 02/25/21 11:26 Blood Culture - Preliminary Blood No Growth after 96 hours Assessment and Plan Assessment: Acute hypoxemic respiratory failure ARDS secondary to Covid 19 Sepsis secondary to Community acquired pneumonia -Admit to inpatient, telemetry -Oxygen when necessary, currently BiPAP dependent, 01/12, FiO2 100% -Dexamethasone, day 6 -Vitamin C, D, zinc -Ceftriaxone, azithromycin -On therapeutic Lovenox -Pulmonary consulted -Trend inflammatory markers Acute kidney injury, now resolved -Now resolved, status post IV fluids Mild intermittent asthma GERD Hypertension TESHA on CPAP Mood disorder -Home medications reviewed and reconciled Patient is a full code DVT prophylaxis covered with therapeutic Lovenox
[2021-03-02] MEDS: AZITHROMYCIN 500 MG in SODIUM CHLORIDE 0.9% 250 ML IVPB SCH (10:03)
[2021-03-02] MEDS: ENOXAPARIN 80 MG/0.8 ML SYRINGE SQ SCH ×2 (10:03→21:13)
[2021-03-02 11:04] LABS: Band Neutrophils % 2 %; Metamyelocytes # (M) 0.26 k/uL (0); Metamyelocytes % 2 %; Myelocytes # (M) 0.13 k/uL (0); Myelocytes % 1 %; Neutrophils % (M) 91 %; Nucleated Red Blood Cells 0 /100 WBC (0-0); Total Cells Counted 200
[2021-03-02 11:05] LABS: RBC Morphology Normal
--- NOTE | 2021-03-02 11:32 | CDI ---
Documentation Clarification Form Date: 03/02/2021 11:10:25 AM From: Funmilayo Kirk RN CCDS Admit Date: 02/25/2021 09:15:00 AM Patient Name: Brian Escalante Visit Number: [id number] Discharge Date: ATTENTION: The Clinical Documentation Specialists (CDI) and [facility] Coding Staff appreciate your assistance in clarifying documentation. Please respond to the clarification below the line at the bottom and electronically sign. The CDI & [facility] Coding staff will review the response and follow-up if needed. Please note: Queries are made part of the Legal Health Record. If you have any questions, please contact the author of this message via ITS. Dr. Louie Velasco The patient presented with the following clinical indicators. Additional clarification regarding the etiology/cause of the clinical indicators is requested. History/Risk Factors: 55-year-old male presents to the ED with shortness of breath and feeling weak, has been diagnosed with COVID. Medical History: Morbid obesity, Sleep Apnea and HTN. H&P, 02/25. Clinical Indicators: Medicine Progress note, 03/01 & 03/02 Sepsis secondary to community acquired pneumonia Labs 02/25: Wbc 15.9; Neutrophils 15.2; LDH 1661; CRP 26.4; Procalcitonin 54; BAKER Detected. Blood cultures 02/28: No Growth after 96 hours. Vitals sign 02/25: B/P 88/52; HR 106; RR 30; Temp 101.9; SpO2 90% Non-rebreather Treatment: 02/25 to current Vitamin C 500mg PO Daily; 03/01 to current Zinc 220mg PO Daily. 02/25 Decadron 10mg IV x 1; 02/25 to current Decadron 6mg IVP BID. Antibiotics: 02/25 to current Azithromycin 500mg IVPB Daily;02/25 to current Ceftriaxone 1gm IVPB Q24HR 03/01 to current Flovent 100Mcg Inhaler 2 puff Inhalation RT BID ABEBE IV Fluids: 02/25 02/26 0.9ns 75cchr. In your professional opinion, please clarify if these findings signify one of the following conditions: [x] Sepsis POA secondary to Community acquired pneumonia and COVID 19 [ ] Sepsis, Not POA secondary to Community acquired pneumonia and COVID 19 [ ] Other, please specify [ ] Unable to determine SIRS Criteria: 2 or more of the following may indicate SIRS -Temperature < 96.8F (36C) or > 101.0F (38.3C) -Heart Rate > 90 bpm -Respiratory Rate > 20 breaths/min or PaCO2 < 32 mmHg -White Blood Cell Count > 12,000 or < 4,000 cells/mm3 or > 10% bands (Template Last Reviewed: March 2020) JTD
[2021-03-02 11:52] LABS: Glucose,Whole Blood 206 mg/dL (75-99)
--- NOTE | 2021-03-02 16:20 | P.PN ---
Subjective Progress Note Date: 03/02/21 This is a 55-year-old white male with history of mild intermittent asthma, GERD , hypertension, obstructive sleep apnea syndrome, normally on CPAP. Patient was recently diagnosed with COVID-19 infection, and the patient has had symptoms for the last 10 days. Patient had mostly symptoms of shortness of breath weakness, vague aches and pains, and his oxygen saturation has been getting worse over the last 2 days, hence he decided to come to the ER. Chest x-ray showed bilateral infiltrates consistent with COVID-19 pneumonia. Patient required placement on a nonrebreather mask and high flow nasal cannula with O2 saturation in the low 90s. Patient was found to have elevated WBC count of 15.9. Elevated d-dimer of 3.97. Elevated creatinine of 1.30. Elevated ferritin of 710, elevated LDH of 1661 elevated C-reactive protein of 26.4, and he was also noted to have elevated pro calcitonin of 0.54. Patient tested positive for COVID-19. Hence the patient was admitted and this consult was initiated. I saw the patient in the ER, recommended that the patient continues with the COVID-19 cocktail. Patient is already out of the window for Remdesivir. Patient is not a good candidate to receive Baricitinib at this point specially with elevated pro calcitonin level. Considering his elevated d-dimer I'm recommending venous Doppler of the lower extremities. In the meantime I'm recommending a relatively higher dose of Lovenox 40 mg subcu twice a day, considering his renal status I would not alice mmend CT angiogram of the chest at this point. Patient will be admitted and we will continue to follow closely. The patient is seen today 02/26/2021 in follow-up on the selective care unit. He is currently sitting up in bed. Awake and alert. He is dyspneic with minimal conversation. Dyspneic with minimal exertion. He is currently on AirVo high flow oxygen at 60 L and 90% FiO2 to maintain O2 saturation 92%. He did utilize BiPAP throughout the evening 14/600% FiO2. He continues with coarse bilateral crackles. Dopplers of the lower extremities were negative for DVT. White count 18.1. Hemoglobin 14.4. Lymphocytes 0.4. Sodium 139. Potassium 5.3. Creatinine 0.93. Glucose 188. AST 46. ALT 33. Pro calcitonin 0.54. He is continued on Decadron, Lovenox, vitamin supplements. Remains on antibiotics in the form of ceftriaxone and azithromycin. The patient is seen today 02/27/2021 in follow-up on the selective care unit. He is currently sitting up in a chair at the bedside. Awake and alert. He is dyspneic with conversation. Dyspneic with minimal exertion. He is requiring AirVo high flow oxygen at 60 L and 94% FiO2 along with the 100% nonrebreather mask with O2 saturation 94%. He had been on BiPAP 14/600% FiO2 through the night. Chest x-ray continues to show bilateral patchy opacities consistent with COVID-19 pneumonia. He is continued on Decadron, Lovenox, vitamin supplements. He is also on antibiotics in the form of ceftriaxone and azithromycin. White count 14.9. Hemoglobin 14.8. Lymphocytes 0.4. D-dimer greater than 34. Sodium 138. Potassium 5.1. Creatinine 0.91. AST 34. ALT 31. LDH 1902. C- reactive protein 19.4. The patient is seen today 02/28/2021 he follow-up on the selective care unit. He is currently sitting up in a chair at the bedside and alert. He is currently on BiPAP 14/6 and 100% FiO2 to maintain O2 saturations in the low 90s. He's been alternating with AirVo at 60 L and 90% FiO2 in addition to 100% nonrebreather mask. He has been slow to progress but is no worse today compared to yesterday. WBCs 14.0. Hemoglobin 15.3. Lymphocytes 0.4. Sodium 137. Potassium 5.5. Creatinine 0.96. Glucose 163. AST 33. ALT 29. He is continued on antibiotics in the form of ceftriaxone and azithromycin. He is continued on Decadron 6 mg IV twice a day. Lovenox 80 mg subcu twice a day. Bronchodilators. Vitamin supplements. On 03/01/2021 patient seen in follow-up on selective care unit, he is currently on BiPAP support, with pressures of 14 and 6, and 100%, his pulse ox is 92-93%, patient is mildly tachypneic, but does not appear to be in any acute distress, nevertheless patient is BiPAP dependent, she quickly desaturates into the 60s when he is taken off BiPAP support to be given his oral medications or sips of w ater. He has been able to alternate with Airvo at 60 L and FiO2 of 92%, and he maintains O2 saturations at about 90-92%. Afebrile, hemodynamically has been stable, lung sounds reveal coarse crackles at bilateral bases, and some fine scattered crackles in the mid lungs. No complaints of chest discomfort, at times he is able to cough up some brown-colored phlegm, he remains on a combination of Rocephin and azithromycin for empiric antibiotic coverage. His initial pro-calcitonin level was mildly elevated at 0.54 suggesting possibility of underlying bacterial infection, we'll obtain follow-up pro-calcitonin level today. He remains on Decadron 6 mg twice daily, and his Lovenox was increased to 80 mg twice daily in view of significantly elevated d-dimer which was greater than 34.1. His lower extremity Dopplers were negative for DVT however patient has not been able to travel to CT department for CT angiogram of the chest related to high FiO2 requirement and the risk of clinical decompensation. Mentation since to be appropriate, he is alert, he is oriented 3, dates his been able to take in some oral nutrition when he switched to Airvo. His follow- up chest x-ray today shows bilateral airspace disease with similar appearance without significant change. There is elevation of the right hemidiaphragm was noted. No evident pneumothorax or pleural effusion. On 03/02/2021 patient seen in follow-up on selective care unit. Patient is on BiPAP support currently with pressures of 14 and 6 and FiO2 100%, patient has been tolerating Airvo support at mealtimes and he was able to take some oral intake. His back on BiPAP support, his pulse ox is 88-90%, appears to be comfortable, he denies any worsening dyspnea. No complaints of chest discomfort, he is awake and alert, oriented 3, his been afebrile. He is sitting up in the recliner, he has been get not to the bedside commode, tolerating activity fairly well, does get short of breath with exertion. His inflammatory markers remain elevated, inflammatory markers still elevated, and patient continues to require high flow oxygen and BiPAP support. Objective - Vital Signs Vital signs: Vital Signs Temp 97.6 F 03/02/21 12:16 Pulse 65 03/02/21 12:16 Resp 49 H 03/02/21 12:16 BP 125/75 03/02/21 12:16 Pulse Ox 88 L 03/02/21 12:16 Intake & Output 03/01/21 03/02/21 03/02/21 18:59 06:59 18:59 Intake Total 480 360 Output Total 750 200 Balance 480 -390 -200 Intake: Oral 480 360 Output: Urine 750 200 Other: Voiding Method Urinal # Voids 300 # Bowel Movements 1 - Exam GENERAL EXAM: Alert, very pleasant, 56-year-old obese white male, on BiPAP márquez pport with pressures of 14/6 and 100% FiO2 satting 88-92% sitting up in the recliner mildly tachypneic, but does not appear to be in any acute distress HEAD: Normocephalic/atraumatic. EYES: Normal reaction of pupils, equal size. Conjunctiva pink, sclera white. NOSE: Clear with pink turbinates. THROAT: No erythema or exudates. NECK: No masses, no JVD, no thyroid enlargement, no adenopathy. CHEST: No chest wall deformity. Symmetrical expansion. LUNGS: Equal air entry with coarse crackles at bilateral bases CVS: Regular rate and rhythm, normal S1 and S2, no gallops, no murmurs, no rubs ABDOMEN: Soft, nontender. No hepatosplenomegaly, normal bowel sounds, no guarding or rigidity. EXTREMITIES: No clubbing, no edema, no cyanosis, 2+ pulses and upper and lower extremities. MUSCULOSKELETAL: Muscle strength and tone normal. SPINE: No scoliosis or deformity SKIN: No rashes CENTRAL NERVOUS SYSTEM: Alert and oriented -3. No focal deficits, tone is normal in all 4 extremities. PSYCHIATRIC: Alert and oriented -3. Appropriate affect. Intact judgment and insight. - Labs CBC & Chem 7: 03/02/21 07:35 03/02/21 07:35 Labs: Abnormal Lab Results - Last 24 Hours (Table) 03/01/21 03/01/21 03/02/21 Range/Units 16:59 20:53 06:06 WBC (3.8-10.6) k/uL Neutrophils # (Manual) (1.3-7.7) k/uL Lymphocytes # (Manual) (1.0-4.8) k/uL Metamyelocytes # (Man) (0) k/uL Myelocytes # (Manual) (0) k/uL D-Dimer (<0.60) mg/L FEU Sodium (137-145) mmol/L Potassium (3.5-5.1) mmol/L BUN (9-20) mg/dL Glucose (74-99) mg/dL POC Glucose (mg/dL) 255 H 332 H 183 H (75-99) mg/dL Alkaline Phosphatase (38-126) U/L Lactate Dehydrogenase (313-618) U/L C-Reactive Protein (<1.0) mg/dL Albumin (3.5-5.0) g/dL Procalcitonin (0.02-0.09) ng/mL 03/02/21 03/02/21 03/02/21 Range/Units 07:35 07:35 07:35 WBC 13.2 H (3.8-10.6) k/uL Neutrophils # (Manual) 12.20 H (1.3-7.7) k/uL Lymphocytes # (Manual) 0.40 L (1.0-4.8) k/uL Metamyelocytes # (Man) 0.26 H (0) k/uL Myelocytes # (Manual) 0.13 H (0) k/uL D-Dimer 31.24 H (<0.60) mg/L FEU Sodium (137-145) mmol/L Potassium (3.5-5.1) mmol/L BUN (9-20) mg/dL Glucose (74-99) mg/dL POC Glucose (mg/dL) (75-99) mg/dL Alkaline Phosphatase (38-126) U/L Lactate Dehydrogenase (313-618) U/L C-Reactive Protein (<1.0) mg/dL Albumin (3.5-5.0) g/dL Procalcitonin 0.24 H (0.02-0.09) ng/mL 03/02/21 03/02/21 Range/Units 07:35 11:50 WBC (3.8-10.6) k/uL Neutrophils # (Manual) (1.3-7.7) k/uL Lymphocytes # (Manual) (1.0-4.8) k/uL Metamyelocytes # (Man) (0) k/uL Myelocytes # (Manual) (0) k/uL D-Dimer (<0.60) mg/L FEU Sodium 136 L (137-145) mmol/L Potassium 5.5 H (3.5-5.1) mmol/L BUN 26 H (9-20) mg/dL Glucose 176 H (74-99) mg/dL POC Glucose (mg/dL) 206 H (75-99) mg/dL Alkaline Phosphatase 138 H (38-126) U/L Lactate Dehydrogenase 1855 H (313-618) U/L C-Reactive Protein 2.8 H (<1.0) mg/dL Albumin 3.0 L (3.5-5.0) g/dL Procalcitonin (0.02-0.09) ng/mL Microbiology - Last 24 Hours (Table) 02/25/21 11:31 Blood Culture - Preliminary Blood No Growth after 120 hours 02/25/21 11:26 Blood Culture - Preliminary Blood No Growth after 120 hours Assessment and Plan Plan: Assessment: #1. Acute hypoxic respiratory failure secondary to COVID-19 pneumonia, patient is a non-vaccinated adult, at the time of his presentation patient was already requiring high flow oxygen on 100% nonrebreather and subsequently placed on BiPAP support on which she remains with pressures of 14 and 6 on FiO2 of 100%, alternating with Airvo at 60 L and FiO2 of 92%. Patient was not a candidate for Remdesivir related to severity of his hypoxia, length of symptoms, patient is a not a candidate for Baricitinib related to elevated pro calcitonin suggestive of bacterial infection. Patient came in to the emergency department with 10 day history of symptoms on 02/25/2021. Pro calcitonin level has improved after 5 d ays of empiric antibiotics in the form of azithromycin and Rocephin, and on 03/02/2021 antibiotics will be discontinued and patient will be started on Baricitinib #2. Elevated d-dimer, lower extremity Dopplers were negative for DVT, patient is currently on Lovenox 80 mg twice daily. Unable to complete CTA chest related to FiO2 requirements and the risk of clinical decompensation. #3. Elevated inflammatory markers related to COVID-19 pneumonia #4. History of mild intermittent bronchial asthma #5. Morbid obesity with the BMI of 41.3 kg/m #6. Hypertension #7. Obstructive sleep apnea #8. GERD without esophagitis #9. Elevated pro calcitonin level suggesting underlying superimposed bacterial infection, currently on a combination of azithromycin and Rocephin Plan: Patient remains very hypoxic, and for the most part BiPAP dependent Inflammatory markers remain significantly elevated We will discontinue the antibiotics And patient will be started on Baricitinib Continue current dose Decadron and Lovenox We'll continue to follow his clinical course I performed a history & physical examination of the patient and discussed their management with my nurse practitioner, Pushpa Rajan. I reviewed the nurse practitioner's note and agree with the documented findings and plan of care. Lung sounds are positive for dim breath sounds with coarse crackles throughout the lung lo. The findings and the impression was discussed with the patient. I attest to the documentation by the nurse practitioner. Time with Patient: Less than 30
[2021-03-02 16:44] LABS: Glucose,Whole Blood 211 mg/dL (75-99)
[2021-03-02] MEDS: BARICITINIB 2 MG TABLET PO SCH (17:38)
[2021-03-02 21:06] LABS: Glucose,Whole Blood 257 mg/dL (75-99)
[2021-03-02] MEDS: LOSARTAN 50 MG TAB PO SCH (21:13)
[2021-03-03] MEDS: ACETAMINOPHEN TAB 325 MG TAB PO PRN (03:41)
[2021-03-03 06:06] LABS: Glucose,Whole Blood 188 mg/dL (75-99)
[2021-03-03] MEDS: INSULIN ASPART (NovoLOG) 100 UNIT/ML VIAL SQ SCH ×4 (06:25→20:42)
[2021-03-03] MEDS: FLUTICASONE 110 MCG INHALER INHALATION SCH ×2 (08:01→19:52)
[2021-03-03] MEDS: SYMBICORT 80-4.5 MCG INHALER INHALATION SCH ×2 (08:01→19:51)
[2021-03-03] MEDS: DEXAMETHASONE SOD PHOSPHATE 10 MG/ML 1 ML VIAL IVP SCH ×2 (08:15→20:42)
[2021-03-03] MEDS: ENOXAPARIN 80 MG/0.8 ML SYRINGE SQ SCH ×2 (08:16→20:42)
[2021-03-03] MEDS: PANTOPRAZOLE 40 MG/10 ML VIAL IVP SCH (08:16)
[2021-03-03] MEDS: ASCORBIC ACID 500 MG TAB PO SCH (08:16)
[2021-03-03] MEDS: CITALOPRAM HYDROBROMIDE 20 MG TAB PO SCH (08:16)
[2021-03-03] MEDS: CHOLECALCIFEROL 25 MCG (1000 IU) TABLET PO SCH (08:16)
[2021-03-03] MEDS: ZINC SULFATE 220 MG CAP PO SCH (08:16)
[2021-03-03 09:33] LABS: ALT 36 U/L (4-49); AST 32 U/L (17-59); African American GFR (CKD) >90 (>60 ml/min/1.73 sqM); Albumin 3.2 g/dL (3.5-5.0); Alkaline Phosphatase 134 U/L (38-126); Anion Gap 5 mmol/L; Bilirubin, Delta 0.1 mg/dL (0.0-0.2); Bilirubin,Unconjugated 0.7 mg/dL (0.0-1.1); Blood Urea Nitrogen 32 mg/dL (9-20); C Reactive Protein 2.7 mg/dL (<1.0); Calcium 8.9 mg/dL (8.4-10.2); Carbon Dioxide 32 mmol/L (22-30); Chloride 99 mmol/L (98-107); Glucose 145 mg/dL (74-99); LDH 2029 U/L (313-618); Magnesium 2.3 mg/dL (1.6-2.3); Non-African American GFR(CKD) >90 (>60 ml/min/1.73 sqM); Potassium 5.7 mmol/L (3.5-5.1); Sodium 136 mmol/L (137-145); Total Bilirubin 0.8 mg/dL (0.2-1.3); Total Protein 6.8 g/dL (6.3-8.2)
--- NOTE | 2021-03-03 09:39 | P.PN ---
Subjective Progress Note Date: 03/03/21 Pt is still BIPAP dependent, but saturations on BIPAP are improving. Started on baricitinib yesterday. Objective - Vital Signs Vital signs: Vital Signs Temp 98.1 F 03/03/21 03:39 Pulse 59 L 03/03/21 03:39 Resp 20 03/03/21 03:39 BP 128/70 03/03/21 03:39 Pulse Ox 95 03/03/21 03:39 Intake & Output 03/02/21 03/03/21 03/03/21 18:59 06:59 18:59 Intake Total 1200 Output Total 500 975 Balance -500 225 Intake: Oral 1200 Output: Urine 500 975 Other: Voiding Method Urinal - Exam Gen: awake, alert HEENT: normocephalic, atraumatic, good hearing acuity, moist mucous membranes Resp: Impaired air exchange, tachypnea CVS: good distal perfusion x 4, GI: soft, NTTP, ND : no SPT, no CVAT, zuniga catheter not present MSK: no pitting edema, no clubbing Neuro: non-focal, moving all extremities Psych: cooperative, euthymic mood - Labs CBC & Chem 7: 03/02/21 07:35 03/03/21 08:43 Labs: Abnormal Lab Results - Last 24 Hours (Table) 03/02/21 03/02/21 03/02/21 Range/Units 07:35 07:35 11:50 Neutrophils # (Manual) 12.20 H (1.3-7.7) k/uL Lymphocytes # (Manual) 0.40 L (1.0-4.8) k/uL Metamyelocytes # (Man) 0.26 H (0) k/uL Myelocytes # (Manual) 0.13 H (0) k/uL Sodium (137-145) mmol/L Potassium (3.5-5.1) mmol/L Carbon Dioxide (22-30) mmol/L BUN (9-20) mg/dL Glucose (74-99) mg/dL POC Glucose (mg/dL) 206 H (75-99) mg/dL Alkaline Phosphatase (38-126) U/L Lactate Dehydrogenase (313-618) U/L C-Reactive Protein (<1.0) mg/dL Albumin (3.5-5.0) g/dL Procalcitonin 0.24 H (0.02-0.09) ng/mL 03/02/21 03/02/21 03/03/21 Range/Units 16:42 21:04 06:05 Neutrophils # (Manual) (1.3-7.7) k/uL Lymphocytes # (Manual) (1.0-4.8) k/uL Metamyelocytes # (Man) (0) k/uL Myelocytes # (Manual) (0) k/uL Sodium (137-145) mmol/L Potassium (3.5-5.1) mmol/L Carbon Dioxide (22-30) mmol/L BUN (9-20) mg/dL Glucose (74-99) mg/dL POC Glucose (mg/dL) 211 H 257 H 188 H (75-99) mg/dL Alkaline Phosphatase (38-126) U/L Lactate Dehydrogenase (313-618) U/L C-Reactive Protein (<1.0) mg/dL Albumin (3.5-5.0) g/dL Procalcitonin (0.02-0.09) ng/mL 03/03/21 Range/Units 08:43 Neutrophils # (Manual) (1.3-7.7) k/uL Lymphocytes # (Manual) (1.0-4.8) k/uL Metamyelocytes # (Man) (0) k/uL Myelocytes # (Manual) (0) k/uL Sodium 136 L (137-145) mmol/L Potassium 5.7 H (3.5-5.1) mmol/L Carbon Dioxide 32 H (22-30) mmol/L BUN 32 H (9-20) mg/dL Glucose 145 H (74-99) mg/dL POC Glucose (mg/dL) (75-99) mg/dL Alkaline Phosphatase 134 H (38-126) U/L Lactate Dehydrogenase 2029 H (313-618) U/L C-Reactive Protein 2.7 H (<1.0) mg/dL Albumin 3.2 L (3.5-5.0) g/dL Procalcitonin (0.02-0.09) ng/mL Microbiology - Last 24 Hours (Table) 02/25/21 11:31 Blood Culture - Preliminary Blood No Growth after 120 hours 02/25/21 11:26 Blood Culture - Preliminary Blood No Growth after 120 hours Assessment and Plan Assessment: Acute hypoxemic respiratory failure ARDS secondary to Covid 19 Sepsis secondary to Community acquired pneumonia -Admit to inpatient, telemetry -Oxygen when necessary, currently BiPAP dependent, 01/12, FiO2 100% -Dexamethasone, day 7 -Baricitinib, day 2 -Vitamin C, D, zinc -Ceftriaxone, azithromycin -On therapeutic Lovenox -Pulmonary consulted -Trend inflammatory markers Acute kidney injury, now resolved -Now resolved, status post IV fluids Mild intermittent asthma GERD Hypertension TESHA on CPAP Mood disorder -Home medications reviewed and reconciled Patient is a full code DVT prophylaxis covered with therapeutic Lovenox
[2021-03-03 10:10] LABS: MCH 29.6 pg (25.0-35.0); MCHC 31.3 g/dL (31.0-37.0); MCV 94.5 fL (80.0-100.0); Mean Platelet Volume 8.4; Platelet Count 244 k/uL (150-450); RDW 13.5 % (11.5-15.5); WBC 14.6 k/uL (3.8-10.6)
[2021-03-03 11:48] LABS: Glucose,Whole Blood 237 mg/dL (75-99)
[2021-03-03 12:33] LABS: Band Neutrophils % 2 %; Eosinophils # (M) 0.15 k/uL (0-0.7); Lymphocytes # (M) 0.88 k/uL (1.0-4.8); Metamyelocytes # (M) 0.29 k/uL (0); Metamyelocytes % 2 %; Monocytes # (M) 0.58 k/uL (0-1.0); Myelocytes # (M) 0.29 k/uL (0); Myelocytes % 2 %; Neutrophils % (M) 85 %; Nucleated Red Blood Cells 0 /100 WBC (0-0); Total Cells Counted 200
[2021-03-03 12:34] LABS: RBC Morphology Normal
--- NOTE | 2021-03-03 13:34 | P.PN ---
Subjective Progress Note Date: 03/03/21 This is a 55-year-old white male with history of mild intermittent asthma, GERD , hypertension, obstructive sleep apnea syndrome, normally on CPAP. Patient was recently diagnosed with COVID-19 infection, and the patient has had symptoms for the last 10 days. Patient had mostly symptoms of shortness of breath weakness, vague aches and pains, and his oxygen saturation has been getting worse over the last 2 days, hence he decided to come to the ER. Chest x-ray showed bilateral infiltrates consistent with COVID-19 pneumonia. Patient required placement on a nonrebreather mask and high flow nasal cannula with O2 saturation in the low 90s. Patient was found to have elevated WBC count of 15.9. Elevated d-dimer of 3.97. Elevated creatinine of 1.30. Elevated ferritin of 710, elevated LDH of 1661 elevated C-reactive protein of 26.4, and he was also noted to have elevated pro calcitonin of 0.54. Patient tested positive for COVID-19. Hence the patient was admitted and this consult was initiated. I saw the patient in the ER, recommended that the patient continues with the COVID-19 cocktail. Patient is already out of the window for Remdesivir. Patient is not a good candidate to receive Baricitinib at this point specially with elevated pro calcitonin level. Considering his elevated d-dimer I'm recommending venous Doppler of the lower extremities. In the meantime I'm recommending a relatively higher dose of Lovenox 40 mg subcu twice a day, considering his renal status I would not alice mmend CT angiogram of the chest at this point. Patient will be admitted and we will continue to follow closely. The patient is seen today 02/26/2021 in follow-up on the selective care unit. He is currently sitting up in bed. Awake and alert. He is dyspneic with minimal conversation. Dyspneic with minimal exertion. He is currently on AirVo high flow oxygen at 60 L and 90% FiO2 to maintain O2 saturation 92%. He did utilize BiPAP throughout the evening 14/600% FiO2. He continues with coarse bilateral crackles. Dopplers of the lower extremities were negative for DVT. White count 18.1. Hemoglobin 14.4. Lymphocytes 0.4. Sodium 139. Potassium 5.3. Creatinine 0.93. Glucose 188. AST 46. ALT 33. Pro calcitonin 0.54. He is continued on Decadron, Lovenox, vitamin supplements. Remains on antibiotics in the form of ceftriaxone and azithromycin. The patient is seen today 02/27/2021 in follow-up on the selective care unit. He is currently sitting up in a chair at the bedside. Awake and alert. He is dyspneic with conversation. Dyspneic with minimal exertion. He is requiring AirVo high flow oxygen at 60 L and 94% FiO2 along with the 100% nonrebreather mask with O2 saturation 94%. He had been on BiPAP 14/600% FiO2 through the night. Chest x-ray continues to show bilateral patchy opacities consistent with COVID-19 pneumonia. He is continued on Decadron, Lovenox, vitamin supplements. He is also on antibiotics in the form of ceftriaxone and azithromycin. White count 14.9. Hemoglobin 14.8. Lymphocytes 0.4. D-dimer greater than 34. Sodium 138. Potassium 5.1. Creatinine 0.91. AST 34. ALT 31. LDH 1902. C- reactive protein 19.4. The patient is seen today 02/28/2021 he follow-up on the selective care unit. He is currently sitting up in a chair at the bedside and alert. He is currently on BiPAP 14/6 and 100% FiO2 to maintain O2 saturations in the low 90s. He's been alternating with AirVo at 60 L and 90% FiO2 in addition to 100% nonrebreather mask. He has been slow to progress but is no worse today compared to yesterday. WBCs 14.0. Hemoglobin 15.3. Lymphocytes 0.4. Sodium 137. Potassium 5.5. Creatinine 0.96. Glucose 163. AST 33. ALT 29. He is continued on antibiotics in the form of ceftriaxone and azithromycin. He is continued on Decadron 6 mg IV twice a day. Lovenox 80 mg subcu twice a day. Bronchodilators. Vitamin supplements. On 03/01/2021 patient seen in follow-up on selective care unit, he is currently on BiPAP support, with pressures of 14 and 6, and 100%, his pulse ox is 92-93%, patient is mildly tachypneic, but does not appear to be in any acute distress, nevertheless patient is BiPAP dependent, she quickly desaturates into the 60s when he is taken off BiPAP support to be given his oral medications or sips of w ater. He has been able to alternate with Airvo at 60 L and FiO2 of 92%, and he maintains O2 saturations at about 90-92%. Afebrile, hemodynamically has been stable, lung sounds reveal coarse crackles at bilateral bases, and some fine scattered crackles in the mid lungs. No complaints of chest discomfort, at times he is able to cough up some brown-colored phlegm, he remains on a combination of Rocephin and azithromycin for empiric antibiotic coverage. His initial pro-calcitonin level was mildly elevated at 0.54 suggesting possibility of underlying bacterial infection, we'll obtain follow-up pro-calcitonin level today. He remains on Decadron 6 mg twice daily, and his Lovenox was increased to 80 mg twice daily in view of significantly elevated d-dimer which was greater than 34.1. His lower extremity Dopplers were negative for DVT however patient has not been able to travel to CT department for CT angiogram of the chest related to high FiO2 requirement and the risk of clinical decompensation. Mentation since to be appropriate, he is alert, he is oriented 3, dates his been able to take in some oral nutrition when he switched to Airvo. His follow- up chest x-ray today shows bilateral airspace disease with similar appearance without significant change. There is elevation of the right hemidiaphragm was noted. No evident pneumothorax or pleural effusion. On 03/02/2021 patient seen in follow-up on selective care unit. Patient is on BiPAP support currently with pressures of 14 and 6 and FiO2 100%, patient has been tolerating Airvo support at mealtimes and he was able to take some oral intake. His back on BiPAP support, his pulse ox is 88-90%, appears to be comfortable, he denies any worsening dyspnea. No complaints of chest discomfort, he is awake and alert, oriented 3, his been afebrile. He is sitting up in the recliner, he has been get not to the bedside commode, tolerating activity fairly well, does get short of breath with exertion. His inflammatory markers remain elevated, inflammatory markers still elevated, and patient continues to require high flow oxygen and BiPAP support. On 03/03/2021 patient seen in follow-up on selective care unit, he remains on BiPAP support with pressures of 14/6, Fio2 100%, his pulse 91-95%, he thinks he is breathing easier today, he is resting comfortably in the recliner, we will trial him on Airvo this afternoon. Patient has not been tolerating Airvo very well prior to this. Occasional cough, no chest pain, patient is awake and alert, oriented 3, he is responding appropriately. No fever or chills. He has been able to take in some food by mouth however his oral intake is somewhat limited by his BiPAP dependence. Today's labs have been reviewed going white blood cell count of 14.6, hemoglobin of 16.0, d-dimer is improved and is down to 14.72, sodium is 136, potassium is 5.7, chloride is 99, CO2 32, BUN 32 creatinine 0.86. LDH is up to 2028, CRP is 2.7, pro-calcitonin level from yesterday was down to 0.24, antibiotics have been discontinued. Patient remains on Lovenox 80 mg twice daily, Baricitinib, Decadron 6 program twice daily. Objective - Vital Signs Vital signs: Vital Signs Temp 97.6 F 03/03/21 12:00 Pulse 68 03/03/21 12:00 Resp 22 03/03/21 12:00 BP 134/69 03/03/21 12:00 Pulse Ox 91 L 03/03/21 12:00 Intake & Output 03/02/21 03/03/21 03/03/21 18:59 06:59 18:59 Intake Total 1200 120 Output Total 500 975 Balance -500 225 120 Intake: Oral 1200 120 Output: Urine 500 975 Other: Voiding Method Urinal # Voids 1 # Bowel Movements 1 - Exam GENERAL EXAM: Alert, very pleasant, 56-year-old obese white male, on BiPAP support with pressures of 14/6 and 100% FiO2 satting 91-94% sitting up in the recliner breathing comfortably, in no acute distress HEAD: Normocephalic/atraumatic. EYES: Normal reaction of pupils, equal size. Conjunctiva pink, sclera white. NOSE: Clear with pink turbinates. THROAT: No erythema or exudates. NECK: No masses, no JVD, no thyroid enlargement, no adenopathy. CHEST: No chest wall deformity. Symmetrical expansion. LUNGS: Equal air entry with coarse crackles at bilateral bases CVS: Regular rate and rhythm, normal S1 and S2, no gallops, no murmurs, no rubs ABDOMEN: Soft, nontender. No hepatosplenomegaly, normal bowel sounds, no guarding or rigidity. EXTREMITIES: No clubbing, no edema, no cyanosis, 2+ pulses and upper and lower extremities. MUSCULOSKELETAL: Muscle strength and tone normal. SPINE: No scoliosis or deformity SKIN: No rashes CENTRAL NERVOUS SYSTEM: Alert and oriented -3. No focal deficits, tone is normal in all 4 extremities. PSYCHIATRIC: Alert and oriented -3. Appropriate affect. Intact judgment and insight. - Labs CBC & Chem 7: 03/03/21 08:43 03/03/21 08:43 Labs: Abnormal Lab Results - Last 24 Hours (Table) 03/02/21 03/02/21 03/03/21 Range/Units 16:42 21:04 06:05 WBC (3.8-10.6) k/uL Neutrophils # (Manual) (1.3-7.7) k/uL Lymphocytes # (Manual) (1.0-4.8) k/uL Metamyelocytes # (Man) (0) k/uL Myelocytes # (Manual) (0) k/uL D-Dimer (<0.60) mg/L FEU Sodium (137-145) mmol/L Potassium (3.5-5.1) mmol/L Carbon Dioxide (22-30) mmol/L BUN (9-20) mg/dL Glucose (74-99) mg/dL POC Glucose (mg/dL) 211 H 257 H 188 H (75-99) mg/dL Alkaline Phosphatase (38-126) U/L Lactate Dehydrogenase (313-618) U/L C-Reactive Protein (<1.0) mg/dL Albumin (3.5-5.0) g/dL 03/03/21 03/03/21 03/03/21 Range/Units 08:43 08:43 08:43 WBC 14.6 H (3.8-10.6) k/uL Neutrophils # (Manual) 12.70 H (1.3-7.7) k/uL Lymphocytes # (Manual) 0.88 L (1.0-4.8) k/uL Metamyelocytes # (Man) 0.29 H (0) k/uL Myelocytes # (Manual) 0.29 H (0) k/uL D-Dimer 14.72 H (<0.60) mg/L FEU Sodium 136 L (137-145) mmol/L Potassium 5.7 H (3.5-5.1) mmol/L Carbon Dioxide 32 H (22-30) mmol/L BUN 32 H (9-20) mg/dL Glucose 145 H (74-99) mg/dL POC Glucose (mg/dL) (75-99) mg/dL Alkaline Phosphatase 134 H (38-126) U/L Lactate Dehydrogenase 2029 H (313-618) U/L C-Reactive Protein 2.7 H (<1.0) mg/dL Albumin 3.2 L (3.5-5.0) g/dL 03/03/21 Range/Units 11:45 WBC (3.8-10.6) k/uL Neutrophils # (Manual) (1.3-7.7) k/uL Lymphocytes # (Manual) (1.0-4.8) k/uL Metamyelocytes # (Man) (0) k/uL Myelocytes # (Manual) (0) k/uL D-Dimer (<0.60) mg/L FEU Sodium (137-145) mmol/L Potassium (3.5-5.1) mmol/L Carbon Dioxide (22-30) mmol/L BUN (9-20) mg/dL Glucose (74-99) mg/dL POC Glucose (mg/dL) 237 H (75-99) mg/dL Alkaline Phosphatase (38-126) U/L Lactate Dehydrogenase (313-618) U/L C-Reactive Protein (<1.0) mg/dL Albumin (3.5-5.0) g/dL Microbiology - Last 24 Hours (Table) 02/25/21 11:31 Blood Culture - Preliminary Blood No Growth after 120 hours 02/25/21 11:26 Blood Culture - Preliminary Blood No Growth after 120 hours Assessment and Plan Plan: Assessment: #1. Acute hypoxic respiratory failure secondary to COVID-19 pneumonia, patient is a non-vaccinated adult, at the time of his presentation patient was already requiring high flow oxygen on 100% nonrebreather and subsequently placed on BiPAP support on which she remains with pressures of 14 and 6 on FiO2 of 100%, alternating with Airvo at 60 L and FiO2 of 92%. Patient was not a candidate for Remdesivir related to severity of his hypoxia, length of symptoms, patient is a not a candidate for Baricitinib related to elevated pro calcitonin suggestive of bacterial infection. Patient came in to the emergency department with 10 day history of symptoms on 02/25/2021. Pro calcitonin level has improved after 5 days of empiric antibiotics in the form of azithromycin and Rocephin, and on 03/02/2021 antibiotics will be discontinued and patient will be started on Bar icitinib #2. Elevated d-dimer, lower extremity Dopplers were negative for DVT, patient is currently on Lovenox 80 mg twice daily. Unable to complete CTA chest related to FiO2 requirements and the risk of clinical decompensation. #3. Elevated inflammatory markers related to COVID-19 pneumonia, continue to trend, patient was started on Baricitinib on 03/02/2021 #4. History of mild intermittent bronchial asthma #5. Morbid obesity with the BMI of 41.3 kg/m #6. Hypertension #7. Obstructive sleep apnea #8. GERD without esophagitis #9. Elevated pro calcitonin level suggesting underlying superimposed bacterial infection, patient was given azithromycin and Rocephin, pro-calcitonin level Has Improved, no growth on the cultures, and antibiotics have been discontinued after 5 Days Plan: Patient seems to be breathing more comfortably, Stable for the most part BiPAP dependent, we will trial him on Airvo this afternoon May alternate between BiPAP and Airvo to allow for oral intake Today's labs have been noted We'll continue Decadron 6 mg twice daily Continue Lovenox 80 mg twice daily Continue Baricitinib We'll continue to follow his clinical course; other recommendations I performed a history & physical examination of the patient and discussed their management with my nurse practitioner, Pushpa Rajan. I reviewed the nurse practitioner's note and agree with the documented findings and plan of care. Lung sounds are positive for dim breath sounds with coarse crackles throughout the lung lo. The findings and the impression was discussed with the patient. I attest to the documentation by the nurse practitioner. Time with Patient: Less than 30
[2021-03-03 13:43] VITALS: BMI 41.3
[2021-03-03] MEDS: ALBUTEROL HFA INHALER INHALATION PRN ×2 (16:14→19:52)
[2021-03-03 16:58] LABS: Glucose,Whole Blood 326 mg/dL (75-99)
[2021-03-03] MEDS: BARICITINIB 2 MG TABLET PO SCH (17:15)
[2021-03-03 20:22] LABS: Glucose,Whole Blood 349 mg/dL (75-99)
[2021-03-03] MEDS: LOSARTAN 50 MG TAB PO SCH (20:42)
[2021-03-04 05:25] LABS: Glucose,Whole Blood 205 mg/dL (75-99)
[2021-03-04] MEDS: INSULIN ASPART (NovoLOG) 100 UNIT/ML VIAL SQ SCH ×4 (06:16→21:03)
[2021-03-04 07:37] LABS: ALT 39 U/L (4-49); AST 25 U/L (17-59); African American GFR (CKD) >90 (>60 ml/min/1.73 sqM); Alkaline Phosphatase 124 U/L (38-126); Anion Gap 1 mmol/L; Blood Urea Nitrogen 30 mg/dL (9-20); Calcium 8.8 mg/dL (8.4-10.2); Carbon Dioxide 34 mmol/L (22-30); Chloride 98 mmol/L (98-107); Glucose 218 mg/dL (74-99); Non-African American GFR(CKD) 88 (>60 ml/min/1.73 sqM); Sodium 133 mmol/L (137-145); Total Bilirubin 0.8 mg/dL (0.2-1.3); Total Protein 6.4 g/dL (6.3-8.2)
[2021-03-04 07:40] LABS: Potassium 6.1 mmol/L (3.5-5.1)
[2021-03-04] MEDS: CHOLECALCIFEROL 25 MCG (1000 IU) TABLET PO SCH (07:44)
[2021-03-04] MEDS: ENOXAPARIN 80 MG/0.8 ML SYRINGE SQ SCH ×2 (07:44→21:02)
[2021-03-04] MEDS: CITALOPRAM HYDROBROMIDE 20 MG TAB PO SCH (07:44)
[2021-03-04] MEDS: ASCORBIC ACID 500 MG TAB PO SCH (07:45)
[2021-03-04] MEDS: ZINC SULFATE 220 MG CAP PO SCH (07:45)
[2021-03-04] MEDS: DEXAMETHASONE SOD PHOSPHATE 10 MG/ML 1 ML VIAL IVP SCH ×2 (07:45→21:02)
[2021-03-04] MEDS: PANTOPRAZOLE 40 MG/10 ML VIAL IVP SCH (07:45)
[2021-03-04 08:04] LABS: HCT 47.8 % (39.0-53.0); HGB 15.1 gm/dL (13.0-17.5); MCH 29.8 pg (25.0-35.0); MCHC 31.6 g/dL (31.0-37.0); MCV 94.2 fL (80.0-100.0); Mean Platelet Volume 8.3; Platelet Count 291 k/uL (150-450); RBC 5.08 m/uL (4.30-5.90); RDW 13.4 % (11.5-15.5); WBC 14.9 k/uL (3.8-10.6)
[2021-03-04] MEDS ORDERED: DEXTROSE 50% SYRINGE 50 ML IVP STA (08:24)
[2021-03-04] MEDS ORDERED: INSULIN REGULAR 100 UNIT/ML VIAL (IV) IV ONE (09:00)
[2021-03-04] MEDS ORDERED: SODIUM ZIRCONIUM CYCLOSILICATE 10 GM PACKET PO ONE (09:00)
[2021-03-04] MEDS: FLUTICASONE 110 MCG INHALER INHALATION SCH ×2 (09:22→19:46)
[2021-03-04] MEDS: SYMBICORT 80-4.5 MCG INHALER INHALATION SCH ×2 (09:22→19:46)
[2021-03-04] MEDS: ALBUTEROL HFA INHALER INHALATION PRN ×4 (09:22→19:46)
--- NOTE | 2021-03-04 09:34 | P.PN ---
Subjective Progress Note Date: 03/04/21 Oxygenation stable, now patient is on airvo and NRB combination. K is high, will treat today. Objective - Vital Signs Vital signs: Vital Signs Temp 98 F 03/04/21 07:41 Pulse 63 03/04/21 07:41 Resp 28 H 03/04/21 07:41 BP 108/62 03/04/21 07:41 Pulse Ox 95 03/04/21 07:41 Intake & Output 03/03/21 03/04/21 03/04/21 18:59 06:59 18:59 Intake Total 360 840 Output Total 700 1325 Balance -340 -485 Weight 119.748 kg Intake: Oral 360 840 Output: Urine 700 1325 Other: # Voids 1 # Bowel Movements 1 - Exam Gen: awake, alert HEENT: normocephalic, atraumatic, good hearing acuity, moist mucous membranes Resp: Impaired air exchange, tachypnea CVS: good distal perfusion x 4, GI: soft, NTTP, ND : no SPT, no CVAT, znuiga catheter not present MSK: no pitting edema, no clubbing Neuro: non-focal, moving all extremities Psych: cooperative, euthymic mood - Labs CBC & Chem 7: 03/04/21 06:59 03/04/21 06:59 Labs: Abnormal Lab Results - Last 24 Hours (Table) 03/03/21 03/03/21 03/03/21 Range/Units 08:43 08:43 08:43 WBC 14.6 H (3.8-10.6) k/uL Neutrophils # (Manual) 12.70 H (1.3-7.7) k/uL Lymphocytes # (Manual) 0.88 L (1.0-4.8) k/uL Metamyelocytes # (Man) 0.29 H (0) k/uL Myelocytes # (Manual) 0.29 H (0) k/uL D-Dimer 14.72 H (<0.60) mg/L FEU Sodium 136 L (137-145) mmol/L Potassium 5.7 H (3.5-5.1) mmol/L Carbon Dioxide 32 H (22-30) mmol/L BUN 32 H (9-20) mg/dL Glucose 145 H (74-99) mg/dL POC Glucose (mg/dL) (75-99) mg/dL Alkaline Phosphatase 134 H (38-126) U/L Lactate Dehydrogenase 2029 H (313-618) U/L C-Reactive Protein 2.7 H (<1.0) mg/dL Albumin 3.2 L (3.5-5.0) g/dL 03/03/21 03/03/21 03/03/21 Range/Units 11:45 16:51 20:20 WBC (3.8-10.6) k/uL Neutrophils # (Manual) (1.3-7.7) k/uL Lymphocytes # (Manual) (1.0-4.8) k/uL Metamyelocytes # (Man) (0) k/uL Myelocytes # (Manual) (0) k/uL D-Dimer (<0.60) mg/L FEU Sodium (137-145) mmol/L Potassium (3.5-5.1) mmol/L Carbon Dioxide (22-30) mmol/L BUN (9-20) mg/dL Glucose (74-99) mg/dL POC Glucose (mg/dL) 237 H 326 H 349 H (75-99) mg/dL Alkaline Phosphatase (38-126) U/L Lactate Dehydrogenase (313-618) U/L C-Reactive Protein (<1.0) mg/dL Albumin (3.5-5.0) g/dL 03/04/21 03/04/21 03/04/21 Range/Units 05:23 06:59 06:59 WBC 14.9 H (3.8-10.6) k/uL Neutrophils # (Manual) (1.3-7.7) k/uL Lymphocytes # (Manual) (1.0-4.8) k/uL Metamyelocytes # (Man) (0) k/uL Myelocytes # (Manual) (0) k/uL D-Dimer (<0.60) mg/L FEU Sodium 133 L (137-145) mmol/L Potassium 6.1 H* (3.5-5.1) mmol/L Carbon Dioxide 34 H (22-30) mmol/L BUN 30 H (9-20) mg/dL Glucose 218 H (74-99) mg/dL POC Glucose (mg/dL) 205 H (75-99) mg/dL Alkaline Phosphatase (38-126) U/L Lactate Dehydrogenase (313-618) U/L C-Reactive Protein (<1.0) mg/dL Albumin 3.0 L (3.5-5.0) g/dL Microbiology - Last 24 Hours (Table) 02/25/21 11:26 Blood Culture - Final Blood No Growth after 144 hours 02/25/21 11:31 Blood Culture - Final Blood No Growth after 144 hours Assessment and Plan Assessment: Acute hypoxemic respiratory failure ARDS secondary to Covid 19 Sepsis secondary to Community acquired pneumonia -Admit to inpatient, telemetry -Oxygen when necessary, currently BiPAP dependent, 01/12, FiO2 100% -Dexamethasone, day 8 -Baricitinib, day 3 -Vitamin C, D, zinc -Ceftriaxone, azithromycin -On therapeutic Lovenox -Pulmonary consulted -Trend inflammatory markers Acute kidney injury, now resolved -Now resolved, status post IV fluids Mild intermittent asthma GERD Hypertension TESHA on CPAP Mood disorder -Home medications reviewed and reconciled Patient is a full code DVT prophylaxis covered with therapeutic Lovenox
[2021-03-04 10:37] LABS: Band Neutrophils % 4 %; Metamyelocytes % 2 %; Monocytes # (M) 0.45 k/uL (0-1.0); Myelocytes # (M) 0.15 k/uL (0); Myelocytes % 1 %; Neutrophils % (M) 88 %; Nucleated Red Blood Cells 0 /100 WBC (0-0); Total Cells Counted 200
[2021-03-04 10:38] LABS: RBC Morphology Normal
[2021-03-04 12:20] LABS: Glucose,Whole Blood 280 mg/dL (75-99)
--- NOTE | 2021-03-04 14:24 | P.PN ---
Subjective Progress Note Date: 03/04/21 This is a 55-year-old white male with history of mild intermittent asthma, GERD , hypertension, obstructive sleep apnea syndrome, normally on CPAP. Patient was recently diagnosed with COVID-19 infection, and the patient has had symptoms for the last 10 days. Patient had mostly symptoms of shortness of breath weakness, vague aches and pains, and his oxygen saturation has been getting worse over the last 2 days, hence he decided to come to the ER. Chest x-ray showed bilateral infiltrates consistent with COVID-19 pneumonia. Patient required placement on a nonrebreather mask and high flow nasal cannula with O2 saturation in the low 90s. Patient was found to have elevated WBC count of 15.9. Elevated d-dimer of 3.97. Elevated creatinine of 1.30. Elevated ferritin of 710, elevated LDH of 1661 elevated C-reactive protein of 26.4, and he was also noted to have elevated pro calcitonin of 0.54. Patient tested positive for COVID-19. Hence the patient was admitted and this consult was initiated. I saw the patient in the ER, recommended that the patient continues with the COVID-19 cocktail. Patient is already out of the window for Remdesivir. Patient is not a good candidate to receive Baricitinib at this point specially with elevated pro calcitonin level. Considering his elevated d-dimer I'm recommending venous Doppler of the lower extremities. In the meantime I'm recommending a relatively higher dose of Lovenox 40 mg subcu twice a day, considering his renal status I would not alice mmend CT angiogram of the chest at this point. Patient will be admitted and we will continue to follow closely. The patient is seen today 02/26/2021 in follow-up on the selective care unit. He is currently sitting up in bed. Awake and alert. He is dyspneic with minimal conversation. Dyspneic with minimal exertion. He is currently on AirVo high flow oxygen at 60 L and 90% FiO2 to maintain O2 saturation 92%. He did utilize BiPAP throughout the evening 14/600% FiO2. He continues with coarse bilateral crackles. Dopplers of the lower extremities were negative for DVT. White count 18.1. Hemoglobin 14.4. Lymphocytes 0.4. Sodium 139. Potassium 5.3. Creatinine 0.93. Glucose 188. AST 46. ALT 33. Pro calcitonin 0.54. He is continued on Decadron, Lovenox, vitamin supplements. Remains on antibiotics in the form of ceftriaxone and azithromycin. The patient is seen today 02/27/2021 in follow-up on the selective care unit. He is currently sitting up in a chair at the bedside. Awake and alert. He is dyspneic with conversation. Dyspneic with minimal exertion. He is requiring AirVo high flow oxygen at 60 L and 94% FiO2 along with the 100% nonrebreather mask with O2 saturation 94%. He had been on BiPAP 14/600% FiO2 through the night. Chest x-ray continues to show bilateral patchy opacities consistent with COVID-19 pneumonia. He is continued on Decadron, Lovenox, vitamin supplements. He is also on antibiotics in the form of ceftriaxone and azithromycin. White count 14.9. Hemoglobin 14.8. Lymphocytes 0.4. D-dimer greater than 34. Sodium 138. Potassium 5.1. Creatinine 0.91. AST 34. ALT 31. LDH 1902. C- reactive protein 19.4. The patient is seen today 02/28/2021 he follow-up on the selective care unit. He is currently sitting up in a chair at the bedside and alert. He is currently on BiPAP 14/6 and 100% FiO2 to maintain O2 saturations in the low 90s. He's been alternating with AirVo at 60 L and 90% FiO2 in addition to 100% nonrebreather mask. He has been slow to progress but is no worse today compared to yesterday. WBCs 14.0. Hemoglobin 15.3. Lymphocytes 0.4. Sodium 137. Potassium 5.5. Creatinine 0.96. Glucose 163. AST 33. ALT 29. He is continued on antibiotics in the form of ceftriaxone and azithromycin. He is continued on Decadron 6 mg IV twice a day. Lovenox 80 mg subcu twice a day. Bronchodilators. Vitamin supplements. On 03/01/2021 patient seen in follow-up on selective care unit, he is currently on BiPAP support, with pressures of 14 and 6, and 100%, his pulse ox is 92-93%, patient is mildly tachypneic, but does not appear to be in any acute distress, nevertheless patient is BiPAP dependent, she quickly desaturates into the 60s when he is taken off BiPAP support to be given his oral medications or sips of w ater. He has been able to alternate with Airvo at 60 L and FiO2 of 92%, and he maintains O2 saturations at about 90-92%. Afebrile, hemodynamically has been stable, lung sounds reveal coarse crackles at bilateral bases, and some fine scattered crackles in the mid lungs. No complaints of chest discomfort, at times he is able to cough up some brown-colored phlegm, he remains on a combination of Rocephin and azithromycin for empiric antibiotic coverage. His initial pro-calcitonin level was mildly elevated at 0.54 suggesting possibility of underlying bacterial infection, we'll obtain follow-up pro-calcitonin level today. He remains on Decadron 6 mg twice daily, and his Lovenox was increased to 80 mg twice daily in view of significantly elevated d-dimer which was greater than 34.1. His lower extremity Dopplers were negative for DVT however patient has not been able to travel to CT department for CT angiogram of the chest related to high FiO2 requirement and the risk of clinical decompensation. Mentation since to be appropriate, he is alert, he is oriented 3, dates his been able to take in some oral nutrition when he switched to Airvo. His follow- up chest x-ray today shows bilateral airspace disease with similar appearance without significant change. There is elevation of the right hemidiaphragm was noted. No evident pneumothorax or pleural effusion. On 03/02/2021 patient seen in follow-up on selective care unit. Patient is on BiPAP support currently with pressures of 14 and 6 and FiO2 100%, patient has been tolerating Airvo support at mealtimes and he was able to take some oral intake. His back on BiPAP support, his pulse ox is 88-90%, appears to be comfortable, he denies any worsening dyspnea. No complaints of chest discomfort, he is awake and alert, oriented 3, his been afebrile. He is sitting up in the recliner, he has been get not to the bedside commode, tolerating activity fairly well, does get short of breath with exertion. His inflammatory markers remain elevated, inflammatory markers still elevated, and patient continues to require high flow oxygen and BiPAP support. On 03/03/2021 patient seen in follow-up on selective care unit, he remains on BiPAP support with pressures of 14/6, Fio2 100%, his pulse 91-95%, he thinks he is breathing easier today, he is resting comfortably in the recliner, we will trial him on Airvo this afternoon. Patient has not been tolerating Airvo very well prior to this. Occasional cough, no chest pain, patient is awake and alert, oriented 3, he is responding appropriately. No fever or chills. He has been able to take in some food by mouth however his oral intake is somewhat limited by his BiPAP dependence. Today's labs have been reviewed going white blood cell count of 14.6, hemoglobin of 16.0, d-dimer is improved and is down to 14.72, sodium is 136, potassium is 5.7, chloride is 99, CO2 32, BUN 32 creatinine 0.86. LDH is up to 2028, CRP is 2.7, pro-calcitonin level from yesterday was down to 0.24, antibiotics have been discontinued. Patient remains on Lovenox 80 mg twice daily, Baricitinib, Decadron 6 program twice daily. On 03/04/2021 patient seen in follow-up on selective care unit. Patient is currently off BiPAP support, he is currently on Airvo at 60 L and FiO2 of 90% in [facility] breather mask, he is breathing much more comfortably, is much more awake, seems a bit more conversant, he was able to take in some nutrition and water by mouth. Denies any worsening dyspnea or cough. Breathing fairly comfortably, his been a has recliner most of the time. No fever or chills o vernight. Remains on Lovenox 80 daily,Baricitinib, Decadron 6 program twice daily. Objective - Vital Signs Vital signs: Vital Signs Temp 97.6 F 03/04/21 10:58 Pulse 61 03/04/21 10:58 Resp 22 03/04/21 11:06 BP 134/54 03/04/21 10:58 Pulse Ox 95 03/04/21 10:58 Intake & Output 03/03/21 03/04/21 03/04/21 18:59 06:59 18:59 Intake Total 360 840 Output Total 700 1325 Balance -340 -485 Weight 119.748 kg Intake: Oral 360 840 Output: Urine 700 1325 Other: # Voids 1 # Bowel Movements 1 - Exam GENERAL EXAM: Alert, very pleasant, 56-year-old obese white male, on Airvo at 60 l/ Fio2 of 90%, and Nonrebreather mask HEAD: Normocephalic/atraumatic. EYES: Normal reaction of pupils, equal size. Conjunctiva pink, sclera white. NOSE: Clear with pink turbinates. THROAT: No erythema or exudates. NECK: No masses, no JVD, no thyroid enlargement, no adenopathy. CHEST: No chest wall deformity. Symmetrical expansion. LUNGS: Equal air entry with coarse crackles at bilateral bases CVS: Regular rate and rhythm, normal S1 and S2, no gallops, no murmurs, no rubs ABDOMEN: Soft, nontender. No hepatosplenomegaly, normal bowel sounds, no guarding or rigidity. EXTREMITIES: No clubbing, no edema, no cyanosis, 2+ pulses and upper and lower extremities. MUSCULOSKELETAL: Muscle strength and tone normal. SPINE: No scoliosis or deformity SKIN: No rashes CENTRAL NERVOUS SYSTEM: Alert and oriented -3. No focal deficits, tone is nor mal in all 4 extremities. PSYCHIATRIC: Alert and oriented -3. Appropriate affect. Intact judgment and insight. - Labs CBC & Chem 7: 03/04/21 06:59 03/04/21 06:59 Labs: Abnormal Lab Results - Last 24 Hours (Table) 03/03/21 03/03/21 03/04/21 Range/Units 16:51 20:20 05:23 WBC (3.8-10.6) k/uL Neutrophils # (Manual) (1.3-7.7) k/uL Lymphocytes # (Manual) (1.0-4.8) k/uL Metamyelocytes # (Man) (0) k/uL Myelocytes # (Manual) (0) k/uL Sodium (137-145) mmol/L Potassium (3.5-5.1) mmol/L Carbon Dioxide (22-30) mmol/L BUN (9-20) mg/dL Glucose (74-99) mg/dL POC Glucose (mg/dL) 326 H 349 H 205 H (75-99) mg/dL Albumin (3.5-5.0) g/dL 03/04/21 03/04/21 03/04/21 Range/Units 06:59 06:59 12:14 WBC 14.9 H (3.8-10.6) k/uL Neutrophils # (Manual) 13.70 H (1.3-7.7) k/uL Lymphocytes # (Manual) 0.30 L (1.0-4.8) k/uL Metamyelocytes # (Man) 0.30 H (0) k/uL Myelocytes # (Manual) 0.15 H (0) k/uL Sodium 133 L (137-145) mmol/L Potassium 6.1 H* (3.5-5.1) mmol/L Carbon Dioxide 34 H (22-30) mmol/L BUN 30 H (9-20) mg/dL Glucose 218 H (74-99) mg/dL POC Glucose (mg/dL) 280 H (75-99) mg/dL Albumin 3.0 L (3.5-5.0) g/dL Microbiology - Last 24 Hours (Table) 02/25/21 11:26 Blood Culture - Final Blood No Growth after 144 hours 02/25/21 11:31 Blood Culture - Final Blood No Growth after 144 hours Assessment and Plan Plan: Assessment: #1. Acute hypoxic respiratory failure secondary to COVID-19 pneumonia, patient is a non-vaccinated adult, at the time of his presentation patient was already requiring high flow oxygen on 100% nonrebreather and subsequently placed on BiPAP support on which she remains with pressures of 14 and 6 on FiO2 of 100%, alternating with Airvo at 60 L and FiO2 of 92%. Patient was not a candidate for Remdesivir related to severity of his hypoxia, length of symptoms, patient is a not a candidate for Baricitinib related to elevated pro calcitonin suggestive of bacterial infection. Patient came in to the emergency department with 10 day history of symptoms on 02/25/2021. Pro calcitonin level has improved after 5 days of empiric antibiotics in the form of azithromycin and Rocephin, and on 03/02/2021 antibiotics will be discontinued and patient will be started on Baricitinib #2. Elevated d-dimer, lower extremity Dopplers were negative for DVT, patient is currently on Lovenox 80 mg twice daily. Unable to complete CTA chest related to FiO2 requirements and the risk of clinical decompensation. #3. Elevated inflammatory markers related to COVID-19 pneumonia, continue to trend, patient was started on Baricitinib on 03/02/2021 #4. History of mild intermittent bronchial asthma #5. Morbid obesity with the BMI of 41.3 kg/m #6. Hypertension #7. Obstructive sleep apnea #8. GERD without esophagitis #9. Elevated pro calcitonin level suggesting underlying superimposed bacterial infection, patient was given azithromycin and Rocephin, pro-calcitonin level Has Improved, no growth on the cultures, and antibiotics have been discontinued after 5 Days Plan: No worsening dyspnea Tolerating Airvo with NRB 100% Will continue Baricitinib We'll continue Decadron 6 mg twice daily Continue Lovenox 80 mg twice daily We'll continue to follow his clinical course; other recommendations I performed a history & physical examination of the patient and discussed their management with my nurse practitioner, Pushpa Rajan. I reviewed the nurse practitioner's note and agree with the documented findings and plan of care. Lung sounds are positive for dim breath sounds with coarse crackles throughout the lung lo. The findings and the impression was discussed with the patient. I attest to the documentation by the nurse practitioner. Time with Patient: Less than 30
[2021-03-04 15:55] LABS: African American GFR (CKD) >90 (>60 ml/min/1.73 sqM); Anion Gap 4 mmol/L; Blood Urea Nitrogen 36 mg/dL (9-20); Calcium 8.3 mg/dL (8.4-10.2); Carbon Dioxide 28 mmol/L (22-30); Chloride 98 mmol/L (98-107); Glucose 355 mg/dL (74-99); Non-African American GFR(CKD) 90 (>60 ml/min/1.73 sqM); Potassium 5.3 mmol/L (3.5-5.1); Sodium 130 mmol/L (137-145)
[2021-03-04 16:56] LABS: Glucose,Whole Blood 296 mg/dL (75-99)
[2021-03-04] MEDS: BARICITINIB 2 MG TABLET PO SCH (16:58)
[2021-03-04 20:51] LABS: Glucose,Whole Blood 340 mg/dL (75-99)
[2021-03-04] MEDS: LOSARTAN 50 MG TAB PO SCH (21:02)
[2021-03-05 06:03] LABS: Glucose,Whole Blood 297 mg/dL (75-99)
[2021-03-05] MEDS: INSULIN ASPART (NovoLOG) 100 UNIT/ML VIAL SQ SCH ×5 (06:26→20:55)
[2021-03-05 08:18] LABS: ALT 31 U/L (4-49); AST 21 U/L (17-59); African American GFR (CKD) >90 (>60 ml/min/1.73 sqM); Albumin 2.9 g/dL (3.5-5.0); Alkaline Phosphatase 108 U/L (38-126); Anion Gap 3 mmol/L; Blood Urea Nitrogen 28 mg/dL (9-20); Calcium 8.6 mg/dL (8.4-10.2); Carbon Dioxide 27 mmol/L (22-30); Chloride 101 mmol/L (98-107); Glucose 226 mg/dL (74-99); Non-African American GFR(CKD) >90 (>60 ml/min/1.73 sqM); Potassium 5.1 mmol/L (3.5-5.1); Sodium 131 mmol/L (137-145); Total Bilirubin 0.8 mg/dL (0.2-1.3); Total Protein 6.2 g/dL (6.3-8.2)
[2021-03-05 08:29] LABS: Basophils # (A) 0.1 k/uL (0-0.2); Basophils % (A) 1 %; Eosinophils % (A) 0 %; HCT 45.8 % (39.0-53.0); HGB 14.7 gm/dL (13.0-17.5); Lymphocytes # (A) 0.4 k/uL (1.0-4.8); Lymphocytes % (A) 3 %; MCH 29.9 pg (25.0-35.0); MCHC 32.1 g/dL (31.0-37.0); MCV 93.1 fL (80.0-100.0); Mean Platelet Volume 8.4; Monocytes # (A) 0.4 k/uL (0-1.0); Monocytes % (A) 2 %; Neutrophils # (A) 16.2 k/uL (1.3-7.7); Neutrophils % (A) 94 %; Platelet Count 301 k/uL (150-450); RBC 4.92 m/uL (4.30-5.90); RDW 12.8 % (11.5-15.5); WBC 17.2 k/uL (3.8-10.6)
[2021-03-05] MEDS: ALBUTEROL HFA INHALER INHALATION PRN ×4 (08:34→19:59)
[2021-03-05] MEDS: SYMBICORT 80-4.5 MCG INHALER INHALATION SCH ×2 (08:34→20:00)
[2021-03-05] MEDS: FLUTICASONE 110 MCG INHALER INHALATION SCH ×2 (08:34→19:59)
[2021-03-05] MEDS: PANTOPRAZOLE 40 MG/10 ML VIAL IVP SCH (09:17)
[2021-03-05] MEDS: DEXAMETHASONE SOD PHOSPHATE 10 MG/ML 1 ML VIAL IVP SCH ×2 (09:17→20:31)
[2021-03-05] MEDS: CITALOPRAM HYDROBROMIDE 20 MG TAB PO SCH (09:18)
[2021-03-05] MEDS: ENOXAPARIN 80 MG/0.8 ML SYRINGE SQ SCH ×2 (09:18→20:31)
[2021-03-05] MEDS: CHOLECALCIFEROL 25 MCG (1000 IU) TABLET PO SCH (09:18)
[2021-03-05] MEDS: ASCORBIC ACID 500 MG TAB PO SCH (09:18)
[2021-03-05] MEDS: ZINC SULFATE 220 MG CAP PO SCH (09:18)
[2021-03-05 11:31] LABS: Glucose,Whole Blood 342 mg/dL (75-99)
--- NOTE | 2021-03-05 14:27 | P.PN ---
Subjective Progress Note Date: 03/05/21 This is a 55-year-old white male with history of mild intermittent asthma, GERD , hypertension, obstructive sleep apnea syndrome, normally on CPAP. Patient was recently diagnosed with COVID-19 infection, and the patient has had symptoms for the last 10 days. Patient had mostly symptoms of shortness of breath weakness, vague aches and pains, and his oxygen saturation has been getting worse over the last 2 days, hence he decided to come to the ER. Chest x-ray showed bilateral infiltrates consistent with COVID-19 pneumonia. Patient required placement on a nonrebreather mask and high flow nasal cannula with O2 saturation in the low 90s. Patient was found to have elevated WBC count of 15.9. Elevated d-dimer of 3.97. Elevated creatinine of 1.30. Elevated ferritin of 710, elevated LDH of 1661 elevated C-reactive protein of 26.4, and he was also noted to have elevated pro calcitonin of 0.54. Patient tested positive for COVID-19. Hence the patient was admitted and this consult was initiated. I saw the patient in the ER, recommended that the patient continues with the COVID-19 cocktail. Patient is already out of the window for Remdesivir. Patient is not a good candidate to receive Baricitinib at this point specially with elevated pro calcitonin level. Considering his elevated d-dimer I'm recommending venous Doppler of the lower extremities. In the meantime I'm recommending a relatively higher dose of Lovenox 40 mg subcu twice a day, considering his renal status I would not alice mmend CT angiogram of the chest at this point. Patient will be admitted and we will continue to follow closely. The patient is seen today 02/26/2021 in follow-up on the selective care unit. He is currently sitting up in bed. Awake and alert. He is dyspneic with minimal conversation. Dyspneic with minimal exertion. He is currently on AirVo high flow oxygen at 60 L and 90% FiO2 to maintain O2 saturation 92%. He did utilize BiPAP throughout the evening 14/600% FiO2. He continues with coarse bilateral crackles. Dopplers of the lower extremities were negative for DVT. White count 18.1. Hemoglobin 14.4. Lymphocytes 0.4. Sodium 139. Potassium 5.3. Creatinine 0.93. Glucose 188. AST 46. ALT 33. Pro calcitonin 0.54. He is continued on Decadron, Lovenox, vitamin supplements. Remains on antibiotics in the form of ceftriaxone and azithromycin. The patient is seen today 02/27/2021 in follow-up on the selective care unit. He is currently sitting up in a chair at the bedside. Awake and alert. He is dyspneic with conversation. Dyspneic with minimal exertion. He is requiring AirVo high flow oxygen at 60 L and 94% FiO2 along with the 100% nonrebreather mask with O2 saturation 94%. He had been on BiPAP 14/600% FiO2 through the night. Chest x-ray continues to show bilateral patchy opacities consistent with COVID-19 pneumonia. He is continued on Decadron, Lovenox, vitamin supplements. He is also on antibiotics in the form of ceftriaxone and azithromycin. White count 14.9. Hemoglobin 14.8. Lymphocytes 0.4. D-dimer greater than 34. Sodium 138. Potassium 5.1. Creatinine 0.91. AST 34. ALT 31. LDH 1902. C- reactive protein 19.4. The patient is seen today 02/28/2021 he follow-up on the selective care unit. He is currently sitting up in a chair at the bedside and alert. He is currently on BiPAP 14/6 and 100% FiO2 to maintain O2 saturations in the low 90s. He's been alternating with AirVo at 60 L and 90% FiO2 in addition to 100% nonrebreather mask. He has been slow to progress but is no worse today compared to yesterday. WBCs 14.0. Hemoglobin 15.3. Lymphocytes 0.4. Sodium 137. Potassium 5.5. Creatinine 0.96. Glucose 163. AST 33. ALT 29. He is continued on antibiotics in the form of ceftriaxone and azithromycin. He is continued on Decadron 6 mg IV twice a day. Lovenox 80 mg subcu twice a day. Bronchodilators. Vitamin supplements. On 03/01/2021 patient seen in follow-up on selective care unit, he is currently on BiPAP support, with pressures of 14 and 6, and 100%, his pulse ox is 92-93%, patient is mildly tachypneic, but does not appear to be in any acute distress, nevertheless patient is BiPAP dependent, she quickly desaturates into the 60s when he is taken off BiPAP support to be given his oral medications or sips of w ater. He has been able to alternate with Airvo at 60 L and FiO2 of 92%, and he maintains O2 saturations at about 90-92%. Afebrile, hemodynamically has been stable, lung sounds reveal coarse crackles at bilateral bases, and some fine scattered crackles in the mid lungs. No complaints of chest discomfort, at times he is able to cough up some brown-colored phlegm, he remains on a combination of Rocephin and azithromycin for empiric antibiotic coverage. His initial pro-calcitonin level was mildly elevated at 0.54 suggesting possibility of underlying bacterial infection, we'll obtain follow-up pro-calcitonin level today. He remains on Decadron 6 mg twice daily, and his Lovenox was increased to 80 mg twice daily in view of significantly elevated d-dimer which was greater than 34.1. His lower extremity Dopplers were negative for DVT however patient has not been able to travel to CT department for CT angiogram of the chest related to high FiO2 requirement and the risk of clinical decompensation. Mentation since to be appropriate, he is alert, he is oriented 3, dates his been able to take in some oral nutrition when he switched to Airvo. His follow- up chest x-ray today shows bilateral airspace disease with similar appearance without significant change. There is elevation of the right hemidiaphragm was noted. No evident pneumothorax or pleural effusion. On 03/02/2021 patient seen in follow-up on selective care unit. Patient is on BiPAP support currently with pressures of 14 and 6 and FiO2 100%, patient has been tolerating Airvo support at mealtimes and he was able to take some oral intake. His back on BiPAP support, his pulse ox is 88-90%, appears to be comfortable, he denies any worsening dyspnea. No complaints of chest discomfort, he is awake and alert, oriented 3, his been afebrile. He is sitting up in the recliner, he has been get not to the bedside commode, tolerating activity fairly well, does get short of breath with exertion. His inflammatory markers remain elevated, inflammatory markers still elevated, and patient continues to require high flow oxygen and BiPAP support. On 03/03/2021 patient seen in follow-up on selective care unit, he remains on BiPAP support with pressures of 14/6, Fio2 100%, his pulse 91-95%, he thinks he is breathing easier today, he is resting comfortably in the recliner, we will trial him on Airvo this afternoon. Patient has not been tolerating Airvo very well prior to this. Occasional cough, no chest pain, patient is awake and alert, oriented 3, he is responding appropriately. No fever or chills. He has been able to take in some food by mouth however his oral intake is somewhat limited by his BiPAP dependence. Today's labs have been reviewed going white blood cell count of 14.6, hemoglobin of 16.0, d-dimer is improved and is down to 14.72, sodium is 136, potassium is 5.7, chloride is 99, CO2 32, BUN 32 creatinine 0.86. LDH is up to 2028, CRP is 2.7, pro-calcitonin level from yesterday was down to 0.24, antibiotics have been discontinued. Patient remains on Lovenox 80 mg twice daily, Baricitinib, Decadron 6 program twice daily. On 03/04/2021 patient seen in follow-up on selective care unit. Patient is currently off BiPAP support, he is currently on Airvo at 60 L and FiO2 of 90% in [facility] breather mask, he is breathing much more comfortably, is much more awake, seems a bit more conversant, he was able to take in some nutrition and water by mouth. Denies any worsening dyspnea or cough. Breathing fairly comfortably, his been a has recliner most of the time. No fever or chills o vernight. Remains on Lovenox 80 daily,Baricitinib, Decadron 6 program twice daily. On 03/05/2021 patient seen in follow-up on selective care unit, he is currently on Airvo at 60 L and FiO2 of 89%, he is not using the nonrebreather mask, his maintaining O2 sat around 90%, breathing very comfortably, he states he is feeling better overall, he sitting up in the recliner, no worsening cough or dyspnea, he remains on Decadron 6 program twice daily, he remains on Baricitinib, and her Lovenox at 80 mg twice daily, he is on inhaled bronchodilators, and multivitamins, his lung sounds reveal some bibasilar crackles, overall sounds improved on today's exam. No new chest x-ray. Today's labs have been reviewed, his white blood cell count is 17.2, hemoglobin is 14.7, sodium is 131, potassium is 5.1, chloride is 101, BUN is 20 creatinine 0.74. His inflammatory marker levels are still pending for today. At times patient is bringing up some light yellow colored phlegm which will be sent for cultures, vital signs have been stable, no fever or chills overnight. Objective - Vital Signs Vital signs: Vital Signs Temp 97.9 F 03/05/21 08:00 Pulse 70 03/05/21 08:00 Resp 18 03/05/21 08:00 BP 93/48 03/05/21 08:00 Pulse Ox 90 L 03/05/21 08:34 Intake & Output 03/04/21 03/05/21 03/05/21 18:59 06:59 18:59 Intake Total 360 480 Output Total 1000 400 175 Balance -640 -400 305 Intake: Oral 360 480 Output: Urine 1000 400 175 Other: Voiding Method Urinal Urinal # Voids 1 # Bowel Movements 1 - Exam GENERAL EXAM: Alert, very pleasant, 56-year-old obese white male, on Airvo at 60 l/ Fio2 of 89%, has not required nonrebreather mask HEAD: Normocephalic/atraumatic. EYES: Normal reaction of pupils, equal size. Conjunctiva pink, sclera white. NOSE: Clear with pink turbinates. THROAT: No erythema or exudates. NECK: No masses, no JVD, no thyroid enlargement, no adenopathy. CHEST: No chest wall deformity. Symmetrical expansion. LUNGS: Equal air entry with coarse crackles at bilateral bases CVS: Regular rate and rhythm, normal S1 and S2, no gallops, no murmurs, no rubs ABDOMEN: Soft, nontender. No hepatosplenomegaly, normal bowel sounds, no guarding or rigidity. EXTREMITIES: No clubbing, no edema, no cyanosis, 2+ pulses and upper and lower extremities. MUSCULOSKELETAL: Muscle strength and tone normal. SPINE: No scoliosis or deformity SKIN: No rashes CENTRAL NERVOUS SYSTEM: Alert and oriented -3. No focal deficits, tone is normal in all 4 extremities. PSYCHIATRIC: Alert and oriented -3. Appropriate affect. Intact judgment and insight. - Labs CBC & Chem 7: 03/05/21 07:55 01/27/22 07:55 Labs: Abnormal Lab Results - Last 24 Hours (Table) 03/04/21 03/04/21 03/04/21 Range/Units 15:32 16:52 20:49 WBC (3.8-10.6) k/uL Neutrophils # (1.3-7.7) k/uL Lymphocytes # (1.0-4.8) k/uL Sodium 130 L (137-145) mmol/L Potassium 5.3 H (3.5-5.1) mmol/L BUN 36 H (9-20) mg/dL Glucose 355 H (74-99) mg/dL POC Glucose (mg/dL) 296 H 340 H (75-99) mg/dL Calcium 8.3 L (8.4-10.2) mg/dL Total Protein (6.3-8.2) g/dL Albumin (3.5-5.0) g/dL 03/05/21 03/05/21 03/05/21 Range/Units 05:58 07:55 07:55 WBC 17.2 H (3.8-10.6) k/uL Neutrophils # 16.2 H (1.3-7.7) k/uL Lymphocytes # 0.4 L (1.0-4.8) k/uL Sodium 131 L (137-145) mmol/L Potassium (3.5-5.1) mmol/L BUN 28 H (9-20) mg/dL Glucose 226 H (74-99) mg/dL POC Glucose (mg/dL) 297 H (75-99) mg/dL Calcium (8.4-10.2) mg/dL Total Protein 6.2 L (6.3-8.2) g/dL Albumin 2.9 L (3.5-5.0) g/dL 03/05/21 Range/Units 11:28 WBC (3.8-10.6) k/uL Neutrophils # (1.3-7.7) k/uL Lymphocytes # (1.0-4.8) k/uL Sodium (137-145) mmol/L Potassium (3.5-5.1) mmol/L BUN (9-20) mg/dL Glucose (74-99) mg/dL POC Glucose (mg/dL) 342 H (75-99) mg/dL Calcium (8.4-10.2) mg/dL Total Protein (6.3-8.2) g/dL Albumin (3.5-5.0) g/dL Assessment and Plan Plan: Assessment: #1. Acute hypoxic respiratory failure secondary to COVID-19 pneumonia, patient is a non-vaccinated adult, at the time of his presentation patient was already requiring high flow oxygen on 100% nonrebreather and subsequently placed on BiPAP support on which she remains with pressures of 14 and 6 on FiO2 of 100%, alternating with Airvo at 60 L and FiO2 of 92%. Patient was not a candidate for Remdesivir related to severity of his hypoxia, length of symptoms, patient is a not a candidate for Baricitinib related to elevated pro calcitonin suggestive of bacterial infection. Patient came in to the emergency department with 10 day history of symptoms on 02/25/2021. Pro calcitonin level has improved after 5 days of empiric antibiotics in the form of azithromycin and Rocephin, and on 03/02/2021 antibiotics were discontinued and patient started on Baricitinib on 03/02/2021 #2. Elevated d-dimer, lower extremity Dopplers were negative for DVT, patient is currently on Lovenox 80 mg twice daily. Unable to complete CTA chest related to FiO2 requirements and the risk of clinical decompensation. #3. Elevated inflammatory markers related to COVID-19 pneumonia, continue to trend, patient was started on Baricitinib on 03/02/2021 #4. History of mild intermittent bronchial asthma #5. Morbid obesity with the BMI of 41.3 kg/m #6. Hypertension #7. Obstructive sleep apnea #8. GERD without esophagitis #9. Elevated pro calcitonin level suggesting underlying superimposed bacterial infection, patient was given azithromycin and Rocephin, pro-calcitonin level Has Improved, no growth on the cultures, and antibiotics have been discontinued after 5 Days Plan: Patient continues on Airvo 60 L and FiO2 of 89%, breathing comfortably, he is not utilizing nonrebreather mask Clinically he seems to be improved, did not use BiPAP support for last 2 days We'll continue current medical treatment Will continue Baricitinib We'll continue Decadron 6 mg twice daily Continue Lovenox 80 mg twice daily We'll continue to follow his clinical course; other recommendations I performed a history & physical examination of the patient and discussed their management with my nurse practitioner, Pushpa Rajan. I reviewed the nurse practitioner's note and agree with the documented findings and plan of care. Lung sounds are positive for dim breath sounds with coarse crackles throughout the lung lo. The findings and the impression was discussed with the patient. I attest to the documentation by the nurse practitioner. Time with Patient: Less than 30
--- NOTE | 2021-03-05 15:02 | P.PN ---
Subjective Patient was examined by etc. not complaining of any new symptomatology. Continues to be on high flow with a setting of 90% FiO2 60 L saturating above 90%. Case discussed with RN present at bedside. Objective - Vital Signs Vital signs: Vital Signs Temp 97.9 F 03/05/21 08:00 Pulse 70 03/05/21 08:00 Resp 18 03/05/21 08:00 BP 93/48 03/05/21 08:00 Pulse Ox 90 L 03/05/21 08:34 Intake & Output 03/04/21 03/05/21 03/05/21 18:59 06:59 18:59 Intake Total 360 480 Output Total 1000 400 175 Balance -640 -400 305 Intake: Oral 360 480 Output: Urine 1000 400 175 Other: Voiding Method Urinal Urinal # Voids 1 # Bowel Movements 1 - Exam Gen: awake, alert HEENT: normocephalic, atraumatic, good hearing acuity, moist mucous membranes Resp: Impaired air exchange, some rhonchi/crackles appreciated the bases. On high flow CVS: good distal perfusion x 4, GI: soft, NTTP, ND : no SPT, no CVAT, zuniga catheter not present MSK: no pitting edema, no clubbing Neuro: non-focal, moving all extremities Psych: not very cooperative, euthymic mood - Labs CBC & Chem 7: 03/05/21 07:55 03/05/21 07:55 Labs: Abnormal Lab Results - Last 24 Hours (Table) 03/04/21 03/04/21 03/04/21 Range/Units 15:32 16:52 20:49 WBC (3.8-10.6) k/uL Neutrophils # (1.3-7.7) k/uL Lymphocytes # (1.0-4.8) k/uL Sodium 130 L (137-145) mmol/L Potassium 5.3 H (3.5-5.1) mmol/L BUN 36 H (9-20) mg/dL Glucose 355 H (74-99) mg/dL POC Glucose (mg/dL) 296 H 340 H (75-99) mg/dL Calcium 8.3 L (8.4-10.2) mg/dL Total Protein (6.3-8.2) g/dL Albumin (3.5-5.0) g/dL 03/05/21 03/05/21 03/05/21 Range/Units 05:58 07:55 07:55 WBC 17.2 H (3.8-10.6) k/uL Neutrophils # 16.2 H (1.3-7.7) k/uL Lymphocytes # 0.4 L (1.0-4.8) k/uL Sodium 131 L (137-145) mmol/L Potassium (3.5-5.1) mmol/L BUN 28 H (9-20) mg/dL Glucose 226 H (74-99) mg/dL POC Glucose (mg/dL) 297 H (75-99) mg/dL Calcium (8.4-10.2) mg/dL Total Protein 6.2 L (6.3-8.2) g/dL Albumin 2.9 L (3.5-5.0) g/dL 03/05/21 Range/Units 11:28 WBC (3.8-10.6) k/uL Neutrophils # (1.3-7.7) k/uL Lymphocytes # (1.0-4.8) k/uL Sodium (137-145) mmol/L Potassium (3.5-5.1) mmol/L BUN (9-20) mg/dL Glucose (74-99) mg/dL POC Glucose (mg/dL) 342 H (75-99) mg/dL Calcium (8.4-10.2) mg/dL Total Protein (6.3-8.2) g/dL Albumin (3.5-5.0) g/dL Assessment and Plan Plan: Assessment: #1 Acute hypoxic respiratory distress secondary COVID-19 pneumonia #2 COVID-19 pneumonia #3 essential hypertension #4 obstructive sleep apnea on CPAP #5 sepsis secondary to demeaned acquired pneumonia Plan: -Admitted to medicine for close monitoring -Aspiration/fall precaution/CHOP 30 -Continue with Versed and daily 4 -Continue with antimicrobials Rocephin and azithromycin and monitor microbiology antibiotic course completed on 03/02/2021 -Patient has been started on therapeutic dose of Lovenox by pulmonary team -DVT prophylaxis currently on Lovenox
[2021-03-05 16:26] LABS: Glucose,Whole Blood 412 mg/dL (75-99)
[2021-03-05] MEDS: BARICITINIB 2 MG TABLET PO SCH (17:43)
[2021-03-05] MEDS: LOSARTAN 50 MG TAB PO SCH (20:31)
[2021-03-05 20:47] LABS: Glucose,Whole Blood 332 mg/dL (75-99)
[2021-03-05] MEDS ORDERED: INSULIN DETEMIR (LEVEMIR) 100 UNIT/ML SYR SQ SCH (21:00)
[2021-03-06 06:20] LABS: Glucose,Whole Blood 226 mg/dL (75-99)
[2021-03-06] MEDS: INSULIN ASPART (NovoLOG) 100 UNIT/ML VIAL SQ SCH ×7 (06:25→20:28)
[2021-03-06 07:37] LABS: Basophils # (A) 0.1 k/uL (0-0.2); Basophils % (A) 0 %; Eosinophils % (A) 0 %; HCT 45.5 % (39.0-53.0); HGB 14.2 gm/dL (13.0-17.5); Lymphocytes # (A) 0.5 k/uL (1.0-4.8); Lymphocytes % (A) 3 %; MCH 29.1 pg (25.0-35.0); MCHC 31.2 g/dL (31.0-37.0); Mean Platelet Volume 8.1; Monocytes # (A) 0.4 k/uL (0-1.0); Monocytes % (A) 2 %; Neutrophils # (A) 16.1 k/uL (1.3-7.7); Neutrophils % (A) 94 %; Platelet Count 384 k/uL (150-450); RBC 4.89 m/uL (4.30-5.90); RDW 13.3 % (11.5-15.5); WBC 17.2 k/uL (3.8-10.6)
[2021-03-06 07:57] LABS: ALT 29 U/L (4-49); AST 20 U/L (17-59); African American GFR (CKD) >90 (>60 ml/min/1.73 sqM); Albumin 2.9 g/dL (3.5-5.0); Alkaline Phosphatase 100 U/L (38-126); Anion Gap 4 mmol/L; Blood Urea Nitrogen 31 mg/dL (9-20); Calcium 8.9 mg/dL (8.4-10.2); Carbon Dioxide 26 mmol/L (22-30); Chloride 99 mmol/L (98-107); Glucose 257 mg/dL (74-99); Non-African American GFR(CKD) >90 (>60 ml/min/1.73 sqM); Potassium 5.5 mmol/L (3.5-5.1); Sodium 129 mmol/L (137-145); Total Bilirubin 0.8 mg/dL (0.2-1.3); Total Protein 6.2 g/dL (6.3-8.2)
[2021-03-06] MEDS: FLUTICASONE 110 MCG INHALER INHALATION SCH ×2 (08:04→20:46)
[2021-03-06] MEDS: SYMBICORT 80-4.5 MCG INHALER INHALATION SCH ×3 (08:04→20:47)
[2021-03-06] MEDS: ALBUTEROL HFA INHALER INHALATION PRN ×3 (08:04→20:46)
[2021-03-06] MEDS: ENOXAPARIN 80 MG/0.8 ML SYRINGE SQ SCH ×2 (10:21→20:11)
[2021-03-06] MEDS: PANTOPRAZOLE 40 MG/10 ML VIAL IVP SCH (10:21)
[2021-03-06] MEDS: CHOLECALCIFEROL 25 MCG (1000 IU) TABLET PO SCH (10:21)
[2021-03-06] MEDS: DEXAMETHASONE SOD PHOSPHATE 10 MG/ML 1 ML VIAL IVP SCH ×2 (10:21→20:10)
[2021-03-06] MEDS: ASCORBIC ACID 500 MG TAB PO SCH (10:22)
[2021-03-06] MEDS: ZINC SULFATE 220 MG CAP PO SCH (10:22)
[2021-03-06] MEDS: CITALOPRAM HYDROBROMIDE 20 MG TAB PO SCH (10:23)
[2021-03-06 11:55] LABS: Glucose,Whole Blood 221 mg/dL (75-99)
[2021-03-06] MEDS ORDERED: SODIUM POLYSTYRENE SULFONATE 15 GM/60 ML BOTTLE PO STA (15:18)
--- NOTE | 2021-03-06 15:23 | P.PN ---
Subjective Patient was examined at bedside today continues to be on high flow currently fi02 90%. Case discussed with RN present at bedside. Encourage patient to use incentive spirometry. His also been unfortunately diagnosed with new-onset diabetes who A1c was 9.2 education regarding diabetes was also discussed with patient at bedside. Objective - Vital Signs Vital signs: Vital Signs Temp 98.5 F 03/06/21 12:57 Pulse 70 03/06/21 12:57 Resp 21 03/06/21 12:57 BP 122/57 03/06/21 12:57 Pulse Ox 91 L 03/06/21 12:57 Intake & Output 03/05/21 03/06/21 03/06/21 18:59 06:59 18:59 Intake Total 720 236 Output Total 175 200 200 Balance 545 -200 36 Intake: Oral 720 236 Output: Urine 175 200 200 Other: Voiding Method Urinal Urinal Urinal # Voids 1 2 # Bowel Movements 1 - Exam Gen: awake, alert HEENT: normocephalic, atraumatic, good hearing acuity, moist mucous membranes Resp: Impaired air exchange, some rhonchi/crackles appreciated the bases. On high flow CVS: good distal perfusion x 4, GI: soft, NTTP, ND : no SPT, no CVAT, zuniga catheter not present MSK: no pitting edema, no clubbing Neuro: non-focal, moving all extremities Psych: not very cooperative, euthymic mood - Labs CBC & Chem 7: 03/06/21 07:12 03/06/21 07:12 Labs: Abnormal Lab Results - Last 24 Hours (Table) 03/05/21 03/05/21 03/05/21 Range/Units 07:55 16:22 20:42 WBC (3.8-10.6) k/uL Neutrophils # (1.3-7.7) k/uL Lymphocytes # (1.0-4.8) k/uL Sodium (137-145) mmol/L Potassium (3.5-5.1) mmol/L BUN (9-20) mg/dL Glucose (74-99) mg/dL POC Glucose (mg/dL) 412 H 332 H (75-99) mg/dL Hemoglobin A1c 9.2 H (0.0-6.0) % Total Protein (6.3-8.2) g/dL Albumin (3.5-5.0) g/dL 03/06/21 03/06/21 03/06/21 Range/Units 06:01 07:12 07:12 WBC 17.2 H (3.8-10.6) k/uL Neutrophils # 16.1 H (1.3-7.7) k/uL Lymphocytes # 0.5 L (1.0-4.8) k/uL Sodium 129 L (137-145) mmol/L Potassium 5.5 H (3.5-5.1) mmol/L BUN 31 H (9-20) mg/dL Glucose 257 H (74-99) mg/dL POC Glucose (mg/dL) 226 H (75-99) mg/dL Hemoglobin A1c (0.0-6.0) % Total Protein 6.2 L (6.3-8.2) g/dL Albumin 2.9 L (3.5-5.0) g/dL 03/06/21 Range/Units 11:48 WBC (3.8-10.6) k/uL Neutrophils # (1.3-7.7) k/uL Lymphocytes # (1.0-4.8) k/uL Sodium (137-145) mmol/L Potassium (3.5-5.1) mmol/L BUN (9-20) mg/dL Glucose (74-99) mg/dL POC Glucose (mg/dL) 221 H (75-99) mg/dL Hemoglobin A1c (0.0-6.0) % Total Protein (6.3-8.2) g/dL Albumin (3.5-5.0) g/dL Assessment and Plan Plan: Assessment: #1 Acute hypoxic respiratory distress secondary COVID-19 pneumonia #2 COVID-19 pneumonia #3 essential hypertension #4 obstructive sleep apnea on CPAP #5 sepsis secondary to demeaned acquired pneumonia #6 new onset diabetes mellitus type 2 hemoglobin A1c 9.2 Plan: -Admitted to medicine for close monitoring -Aspiration/fall precaution/CHOP 30 -Continue with dexamethasone 6 mg twice a day and barcitnib -Continue with antimicrobials Rocephin and azithromycin and monitor microbiology antibiotic course completed on 03/02/2021 -Patient is started on Levemir 10 mg twice a day and 5 units NovoLog to maintain inpatient glucose levels less than 180. -Started on therapeutic dose of Lovenox by pulmonary team -DVT prophylaxis currently on Lovenox -Diabetic education, supply will be provided on discharge. Time with Patient: Greater than 30
--- NOTE | 2021-03-06 15:43 | P.PN ---
Subjective Progress Note Date: 03/06/21 Principal diagnosis: CoVID pneumonia This is a 55-year-old white male with history of mild intermittent asthma, GERD , hypertension, obstructive sleep apnea syndrome, normally on CPAP. Patient was recently diagnosed with COVID-19 infection, and the patient has had symptoms for the last 10 days. Patient had mostly symptoms of shortness of breath weakness, vague aches and pains, and his oxygen saturation has been getting worse over the last 2 days, hence he decided to come to the ER. Chest x-ray showed bilateral infiltrates consistent with COVID-19 pneumonia. Patient required placement on a nonrebreather mask and high flow nasal cannula with O2 saturation in the low 90 s. Patient was found to have elevated WBC count of 15.9. Elevated d-dimer of 3.97. Elevated creatinine of 1.30. Elevated ferritin of 710, elevated LDH of 1661 elevated C-reactive protein of 26.4, and he was also noted to have elevated pro calcitonin of 0.54. Patient tested positive for COVID-19. Hence the patient was admitted and this consult was initiated. I saw the patient in the ER, recommended that the patient continues with the COVID-19 cocktail. Patient is already out of the window for Remdesivir. Patient is not a good candidate to receive Baricitinib at this point specially with elevated pro calcitonin level. Considering his elevated d-dimer I'm recommending venous Doppler of the lower extremities. In the meantime I'm recommending a relatively higher dose of Lovenox 40 mg subcu twice a day, considering his renal status I would not recommend CT angiogram of the chest at this point. Patient will be admitted and we will continue to follow closely. The patient is seen today 02/26/2021 in follow-up on the selective care unit. He is currently sitting up in bed. Awake and alert. He is dyspneic with minimal conversation. Dyspneic with minimal exertion. He is currently on AirVo high flow oxygen at 60 L and 90% FiO2 to maintain O2 saturation 92%. He did utilize BiPAP throughout the evening 14/600% FiO2. He continues with coarse bilateral crackles. Dopplers of the lower extremities were negative for DVT. White count 18.1. Hemoglobin 14.4. Lymphocytes 0.4. Sodium 139. Potassium 5.3. Creatinine 0.93. Glucose 188. AST 46. ALT 33. Pro calcitonin 0.54. He is continued on Decadron, Lovenox, vitamin supplements. Remains on antibiotics in the form of ceftriaxone and azithromycin. The patient is seen today 02/27/2021 in follow-up on the selective care unit. He is currently sitting up in a chair at the bedside. Awake and alert. He is dyspneic with conversation. Dyspneic with minimal exertion. He is requiring AirVo high flow oxygen at 60 L and 94% FiO2 along with the 100% nonrebreather mask with O2 saturation 94%. He had been on BiPAP 14/600% FiO2 through the night. Chest x-ray continues to show bilateral patchy opacities consistent with COVID-19 pneumonia. He is continued on Decadron, Lovenox, vitamin supplements. He is also on antibiotics in the form of ceftriaxone and azithromycin. White count 14.9. Hemoglobin 14.8. Lymphocytes 0.4. D-dimer greater than 34. Sodium 138. Potassium 5.1. Creatinine 0.91. AST 34. ALT 31. LDH 1902. C- reactive protein 19.4. The patient is seen today 02/28/2021 he follow-up on the selective care unit. He is currently sitting up in a chair at the bedside and alert. He is currently on BiPAP 14/6 and 100% FiO2 to maintain O2 saturations in the low 90s. He's been alternating with AirVo at 60 L and 90% FiO2 in addition to 100% nonrebreather mask. He has been slow to progress but is no worse today compared to yesterday. WBCs 14.0. Hemoglobin 15.3. Lymphocytes 0.4. Sodium 137. Potassium 5.5. Creatinine 0.96. Glucose 163. AST 33. ALT 29. He is continued on antibiotics in the form of ceftriaxone and azithromycin. He is continued on Decadron 6 mg IV twice a day. Lovenox 80 mg subcu twice a day. Bronchodilators. Vitamin supplements. The patient is seen today 03/06/2021 in follow-up on the selective care unit. He is currently sitting up in a chair at the bedside. Awake and alert in no acute distress. He feels he is getting stronger each day. We'll short of breath. He does continue to require AirVo high flow oxygen at 60 L and 90% FiO2. Not requiring a nonrebreather mask. O2 saturation in the low 90s. He remains afebrile. Hemodynamically stable. White count 17.2. Hemoglobin 14.2. Leukocyte 0.5. Sodium 129. Potassium 5.5. Creatinine 0.80. He is continued on Baricitinib, Decadron, Lovenox, vitamin supplements. He is on Symbicort and albuterol. Objective - Vital Signs Vital signs: Vital Signs Temp 98.5 F 03/06/21 12:57 Pulse 70 03/06/21 12:57 Resp 21 03/06/21 12:57 BP 122/57 03/06/21 12:57 Pulse Ox 91 L 03/06/21 12:57 Intake & Output 03/05/21 03/06/21 03/06/21 18:59 06:59 18:59 Intake Total 720 236 Output Total 175 200 200 Balance 545 -200 36 Intake: Oral 720 236 Output: Urine 175 200 200 Other: Voiding Method Urinal Urinal Urinal # Voids 1 2 # Bowel Movements 1 - Exam GENERAL EXAM: Alert, very pleasant 55-year-old gentleman, on AirVo high flow oxygen at 60 L and 90% FiO2 with O2 saturations at 91%, in mild respiratory distress. HEAD: Normocephalic. EYES: Normal reaction of pupils, equal size. NOSE: Clear with pink turbinates. THROAT: No erythema or exudates. NECK: No masses, no JVD. CHEST: No chest wall deformity. LUNGS: Equal air entry with coarse crackles in the bilateral bases. CVS: S1 and S2 normal with no audible murmur, regular rhythm. ABDOMEN: No hepatosplenomegaly, normal bowel sounds, no guarding or rigidity. SPINE: No scoliosis or deformity SKIN: No rashes CENTRAL NERVOUS SYSTEM: No focal deficits, tone is normal in all 4 extremities. EXTREMITIES: There is no peripheral edema. No clubbing, no cyanosis. Peripheral pulses are intact. - Labs CBC & Chem 7: 03/06/21 07:12 03/06/21 07:12 Labs: Abnormal Lab Results - Last 24 Hours (Table) 03/05/21 03/05/21 03/05/21 Range/Units 07:55 16:22 20:42 WBC (3.8-10.6) k/uL Neutrophils # (1.3-7.7) k/uL Lymphocytes # (1.0-4.8) k/uL Sodium (137-145) mmol/L Potassium (3.5-5.1) mmol/L BUN (9-20) mg/dL Glucose (74-99) mg/dL POC Glucose (mg/dL) 412 H 332 H (75-99) mg/dL Hemoglobin A1c 9.2 H (0.0-6.0) % Total Protein (6.3-8.2) g/dL Albumin (3.5-5.0) g/dL 03/06/21 03/06/21 03/06/21 Range/Units 06:01 07:12 07:12 WBC 17.2 H (3.8-10.6) k/uL Neutrophils # 16.1 H (1.3-7.7) k/uL Lymphocytes # 0.5 L (1.0-4.8) k/uL Sodium 129 L (137-145) mmol/L Potassium 5.5 H (3.5-5.1) mmol/L BUN 31 H (9-20) mg/dL Glucose 257 H (74-99) mg/dL POC Glucose (mg/dL) 226 H (75-99) mg/dL Hemoglobin A1c (0.0-6.0) % Total Protein 6.2 L (6.3-8.2) g/dL Albumin 2.9 L (3.5-5.0) g/dL 03/06/21 Range/Units 11:48 WBC (3.8-10.6) k/uL Neutrophils # (1.3-7.7) k/uL Lymphocytes # (1.0-4.8) k/uL Sodium (137-145) mmol/L Potassium (3.5-5.1) mmol/L BUN (9-20) mg/dL Glucose (74-99) mg/dL POC Glucose (mg/dL) 221 H (75-99) mg/dL Hemoglobin A1c (0.0-6.0) % Total Protein (6.3-8.2) g/dL Albumin (3.5-5.0) g/dL Assessment and Plan Assessment: 1 Acute hypoxic respiratory failure secondary to COVID-19 pneumonia. Not vaccinated. Currently on BiPAP 12/600% FiO2 alternating with AirVo high flow oxygen at 60 L and 94% FiO2 also 100% nonrebreather mask. Chest x-ray continues to show bilateral patchy multifocal infiltrates. He is continued on Decadron, therapeutic Lovenox, vitamin supplements. No Baricitinib initially due to the elevated pro calcitonin and currently on antibiotics. His antibiotics were stopped and he was started on Baricitinib on 03/05/2021. 2 History of mild intermittent asthma 3 History of obstructive sleep apnea syndrome, maintained on CPAP at home. 4 History of hypertension. 5 Type 2 diabetes. 6 GERD without esophagitis. 7 Morbid obesity. 8 Elevated pro calcitonin level, underlying superimposed bacterial pneumonia is not entirely ruled out Plan: The patient was seen and evaluated Stronger and up in a chair Currently on AirVo Baricitinib initiated 03/05/2021 Continued on Decadron, Lovenox, vitamin supplement Titrate the FiO2 as tolerated Follow-up chest x-ray and labs in the a.m. We will continue to follow I, the cosigning physician, performed a history & physical examination of the patient. Lungs sounds with coarse crackles in the bilateral bases. Maintaining O2 saturations in the 90s on AirVo high flow oxygen at 60 L and 90% FiO2. I discussed the assessment and plan of care with my nurse practitioner, Sasha Vega. I attest to the above note as dictated by her.
[2021-03-06 16:25] LABS: Glucose,Whole Blood 285 mg/dL (75-99)
[2021-03-06] MEDS: BARICITINIB 2 MG TABLET PO SCH (17:51)
[2021-03-06] MEDS: LOSARTAN 50 MG TAB PO SCH (20:11)
[2021-03-06 20:24] LABS: Glucose,Whole Blood 271 mg/dL (75-99)
[2021-03-06] MEDS: INSULIN DETEMIR (LEVEMIR) 100 UNIT/ML SYR SQ SCH (20:29)
[2021-03-06] MEDS ORDERED: INSULIN DETEMIR (LEVEMIR) 100 UNIT/ML SYR SQ SCH (21:00)
[2021-03-07 06:02] LABS: Glucose,Whole Blood 207 mg/dL (75-99)
[2021-03-07] MEDS: INSULIN DETEMIR (LEVEMIR) 100 UNIT/ML SYR SQ SCH ×2 (06:24→20:42)
[2021-03-07] MEDS: INSULIN ASPART (NovoLOG) 100 UNIT/ML VIAL SQ SCH ×7 (06:24→20:43)
--- NOTE | 2021-03-07 06:45 | XR ---
EXAMINATION TYPE: XR chest 1V portable DATE OF EXAM: 03/07/2021 COMPARISON: 03/01/2021 HISTORY: Covid pneumonia TECHNIQUE: Single frontal view of the chest is obtained. FINDINGS: There are diffuse interstitial and small airspace opacities in both lungs stable on the le ft and mild worsening on the right. There is no pneumothorax or large pleural effusion. The osseous s tructures are intact. IMPRESSION: Acute cardiopulmonary disease with no change in the left lung and mild interval worsenin g on the right.
[2021-03-07] MEDS: PANTOPRAZOLE 40 MG/10 ML VIAL IVP SCH (08:53)
[2021-03-07] MEDS: ZINC SULFATE 220 MG CAP PO SCH (08:54)
[2021-03-07] MEDS: CHOLECALCIFEROL 25 MCG (1000 IU) TABLET PO SCH (08:54)
[2021-03-07] MEDS: DEXAMETHASONE SOD PHOSPHATE 10 MG/ML 1 ML VIAL IVP SCH ×2 (08:55→20:43)
[2021-03-07] MEDS: CITALOPRAM HYDROBROMIDE 20 MG TAB PO SCH (08:56)
[2021-03-07] MEDS: ENOXAPARIN 80 MG/0.8 ML SYRINGE SQ SCH ×2 (08:56→20:41)
[2021-03-07] MEDS: ASCORBIC ACID 500 MG TAB PO SCH (08:56)
[2021-03-07 09:26] LABS: C Reactive Protein 0.8 mg/dL (<1.0)
[2021-03-07] MEDS: SYMBICORT 80-4.5 MCG INHALER INHALATION SCH ×2 (09:34→20:32)
[2021-03-07] MEDS: FLUTICASONE 110 MCG INHALER INHALATION SCH (09:34)
[2021-03-07] MEDS: ALBUTEROL HFA INHALER INHALATION PRN ×4 (09:35→23:21)
[2021-03-07 11:45] LABS: Glucose,Whole Blood 192 mg/dL (75-99)
[2021-03-07 12:46] LABS: WBC 18.1 k/uL (3.8-10.6)
[2021-03-07 12:47] LABS: Basophils # (A) 0.1 k/uL (0-0.2); Basophils % (A) 0 %; Eosinophils % (A) 0 %; HCT 44.1 % (39.0-53.0); HGB 13.9 gm/dL (13.0-17.5); Lymphocytes # (A) 0.6 k/uL (1.0-4.8); Lymphocytes % (A) 3 %; MCH 29.4 pg (25.0-35.0); MCHC 31.6 g/dL (31.0-37.0); MCV 93.1 fL (80.0-100.0); Mean Platelet Volume 8.9; Monocytes # (A) 0.4 k/uL (0-1.0); Monocytes % (A) 2 %; Neutrophils # (A) 16.9 k/uL (1.3-7.7); Neutrophils % (A) 94 %; Platelet Count 368 k/uL (150-450); RBC 4.74 m/uL (4.30-5.90)
[2021-03-07 12:55] LABS: African American GFR (CKD) >90 (>60 ml/min/1.73 sqM); Anion Gap 1 mmol/L; Blood Urea Nitrogen 30 mg/dL (9-20); Calcium 8.6 mg/dL (8.4-10.2); Carbon Dioxide 29 mmol/L (22-30); Chloride 101 mmol/L (98-107); Glucose 109 mg/dL (74-99); Non-African American GFR(CKD) >90 (>60 ml/min/1.73 sqM); Potassium 4.9 mmol/L (3.5-5.1); Sodium 131 mmol/L (137-145)
--- NOTE | 2021-03-07 14:14 | P.PN ---
Subjective Patient was examined at bedside today not complaining of any worsening symptomatology. Patient did sleep overnight in the prone position and is using incentive spirometry. States that this was the first night he was able to get some sleep [facility] admission. He denies any fever, chills, nausea or vomiting. Objective - Vital Signs Vital signs: Vital Signs Temp 97.4 F L 03/07/21 12:00 Pulse 86 03/07/21 12:00 Resp 28 H 03/07/21 12:00 BP 104/54 03/07/21 12:00 Pulse Ox 87 L 03/07/21 12:00 Intake & Output 03/06/21 03/07/21 03/07/21 18:59 06:59 18:59 Intake Total 436 660 Output Total 400 700 Balance 36 -700 660 Intake: Oral 436 660 Output: Urine 400 700 Other: Voiding Method Urinal Urinal Urinal # Voids 2 1 # Bowel Movements 1 - Exam Gen: awake, alert HEENT: normocephalic, atraumatic, good hearing acuity, moist mucous membranes Resp: Impaired air exchange, some rhonchi/crackles appreciated the bases. On high flow CVS: good distal perfusion x 4, GI: soft, NTTP, ND : no SPT, no CVAT, zuniga catheter not present MSK: no pitting edema, no clubbing Neuro: non-focal, moving all extremities Psych: not very cooperative, euthymic mood - Labs CBC & Chem 7: 03/07/21 08:35 03/07/21 08:35 Labs: Abnormal Lab Results - Last 24 Hours (Table) 03/06/21 03/06/21 03/07/21 Range/Units 16:21 20:23 06:00 WBC (3.8-10.6) k/uL Neutrophils # (1.3-7.7) k/uL Lymphocytes # (1.0-4.8) k/uL D-Dimer (<0.60) mg/L FEU Sodium (137-145) mmol/L BUN (9-20) mg/dL Glucose (74-99) mg/dL POC Glucose (mg/dL) 285 H 271 H 207 H (75-99) mg/dL Lactate Dehydrogenase (313-618) U/L 03/07/21 03/07/21 03/07/21 Range/Units 08:35 08:35 08:35 WBC 18.1 H (3.8-10.6) k/uL Neutrophils # 16.9 H (1.3-7.7) k/uL Lymphocytes # 0.6 L (1.0-4.8) k/uL D-Dimer 7.49 H (<0.60) mg/L FEU Sodium (137-145) mmol/L BUN (9-20) mg/dL Glucose (74-99) mg/dL POC Glucose (mg/dL) (75-99) mg/dL Lactate Dehydrogenase 1488 H (313-618) U/L 03/07/21 03/07/21 Range/Units 08:35 11:43 WBC (3.8-10.6) k/uL Neutrophils # (1.3-7.7) k/uL Lymphocytes # (1.0-4.8) k/uL D-Dimer (<0.60) mg/L FEU Sodium 131 L (137-145) mmol/L BUN 30 H (9-20) mg/dL Glucose 109 H (74-99) mg/dL POC Glucose (mg/dL) 192 H (75-99) mg/dL Lactate Dehydrogenase (313-618) U/L Assessment and Plan Plan: Assessment: #1 Acute hypoxic respiratory distress secondary COVID-19 pneumonia #2 COVID-19 pneumonia #3 essential hypertension #4 obstructive sleep apnea on CPAP #5 sepsis secondary to demeaned acquired pneumonia #6 new onset diabetes mellitus type 2 hemoglobin A1c 9.2 Plan: -Admitted to medicine for close monitoring -Aspiration/fall precaution/CHOP 30 -Continue with dexamethasone 6 mg twice a day and barcitnib -Obtain repeat chest x-ray tomorrow morning. -Continue with antimicrobials Rocephin and azithromycin and monitor microbiology antibiotic course completed on 03/02/2021 -Patient is started on Levemir 12 mg twice a day and 5 units NovoLog to maintain inpatient glucose levels less than 180. -Started on therapeutic dose of Lovenox by pulmonary team -DVT prophylaxis currently on Lovenox -Diabetic education, supply will be provided on discharge.
--- NOTE | 2021-03-07 16:13 | P.PN ---
Subjective Progress Note Date: 03/07/21 Principal diagnosis: CoVID pneumonia This is a 55-year-old white male with history of mild intermittent asthma, GERD , hypertension, obstructive sleep apnea syndrome, normally on CPAP. Patient was recently diagnosed with COVID-19 infection, and the patient has had symptoms for the last 10 days. Patient had mostly symptoms of shortness of breath weakness, vague aches and pains, and his oxygen saturation has been getting worse over the last 2 days, hence he decided to come to the ER. Chest x-ray showed bilateral infiltrates consistent with COVID-19 pneumonia. Patient required placement on a nonrebreather mask and high flow nasal cannula with O2 saturation in the low 90 s. Patient was found to have elevated WBC count of 15.9. Elevated d-dimer of 3.97. Elevated creatinine of 1.30. Elevated ferritin of 710, elevated LDH of 1661 elevated C-reactive protein of 26.4, and he was also noted to have elevated pro calcitonin of 0.54. Patient tested positive for COVID-19. Hence the patient was admitted and this consult was initiated. I saw the patient in the ER, recommended that the patient continues with the COVID-19 cocktail. Patient is already out of the window for Remdesivir. Patient is not a good candidate to receive Baricitinib at this point specially with elevated pro calcitonin level. Considering his elevated d-dimer I'm recommending venous Doppler of the lower extremities. In the meantime I'm recommending a relatively higher dose of Lovenox 40 mg subcu twice a day, considering his renal status I would not recommend CT angiogram of the chest at this point. Patient will be admitted and we will continue to follow closely. The patient is seen today 02/26/2021 in follow-up on the selective care unit. He is currently sitting up in bed. Awake and alert. He is dyspneic with minimal conversation. Dyspneic with minimal exertion. He is currently on AirVo high flow oxygen at 60 L and 90% FiO2 to maintain O2 saturation 92%. He did utilize BiPAP throughout the evening 14/600% FiO2. He continues with coarse bilateral crackles. Dopplers of the lower extremities were negative for DVT. White count 18.1. Hemoglobin 14.4. Lymphocytes 0.4. Sodium 139. Potassium 5.3. Creatinine 0.93. Glucose 188. AST 46. ALT 33. Pro calcitonin 0.54. He is continued on Decadron, Lovenox, vitamin supplements. Remains on antibiotics in the form of ceftriaxone and azithromycin. The patient is seen today 02/27/2021 in follow-up on the selective care unit. He is currently sitting up in a chair at the bedside. Awake and alert. He is dyspneic with conversation. Dyspneic with minimal exertion. He is requiring AirVo high flow oxygen at 60 L and 94% FiO2 along with the 100% nonrebreather mask with O2 saturation 94%. He had been on BiPAP 14/600% FiO2 through the night. Chest x-ray continues to show bilateral patchy opacities consistent with COVID-19 pneumonia. He is continued on Decadron, Lovenox, vitamin supplements. He is also on antibiotics in the form of ceftriaxone and azithromycin. White count 14.9. Hemoglobin 14.8. Lymphocytes 0.4. D-dimer greater than 34. Sodium 138. Potassium 5.1. Creatinine 0.91. AST 34. ALT 31. LDH 1902. C- reactive protein 19.4. The patient is seen today 02/28/2021 he follow-up on the selective care unit. He is currently sitting up in a chair at the bedside and alert. He is currently on BiPAP 14/6 and 100% FiO2 to maintain O2 saturations in the low 90s. He's been alternating with AirVo at 60 L and 90% FiO2 in addition to 100% nonrebreather mask. He has been slow to progress but is no worse today compared to yesterday. WBCs 14.0. Hemoglobin 15.3. Lymphocytes 0.4. Sodium 137. Potassium 5.5. Creatinine 0.96. Glucose 163. AST 33. ALT 29. He is continued on antibiotics in the form of ceftriaxone and azithromycin. He is continued on Decadron 6 mg IV twice a day. Lovenox 80 mg subcu twice a day. Bronchodilators. Vitamin supplements. The patient is seen today 03/06/2021 in follow-up on the selective care unit. He is currently sitting up in a chair at the bedside. Awake and alert in no acute distress. He feels he is getting stronger each day. We'll short of breath. He does continue to require AirVo high flow oxygen at 60 L and 90% FiO2. Not requiring a nonrebreather mask. O2 saturation in the low 90s. He remains afebrile. Hemodynamically stable. White count 17.2. Hemoglobin 14.2. Leukocyte 0.5. Sodium 129. Potassium 5.5. Creatinine 0.80. He is continued on Baricitinib, Decadron, Lovenox, vitamin supplements. He is on Symbicort and albuterol. The patient is seen today 03/07/2021 in follow-up on the selective care unit. He is currently resting comfortably in a chair at the bedside. He is continued on AirVo hyperflexion at 60 L and 90% FiO2. He has been quite slow to recover but stable. No worsening shortness of breath. He is continued on Decadron, therapeutic Lovenox, vitamin supplements. Continued on Baricitinib. Continued on Symbicort and Ventolin. Continued on Levemir and a NovoLog sliding scale. Count 18.1. Hemoglobin 13.9. Lymphocytes 0.6. D-dimer 7.49. Sodium 131. Potassium 4.9. This x-ray continues to revealed diffuse interstitial and small spacer paced opacities bilaterally. No pneumothorax. No significant change. Objective - Vital Signs Vital signs: Vital Signs Temp 97.4 F L 03/07/21 12:00 Pulse 86 03/07/21 12:00 Resp 28 H 03/07/21 12:00 BP 104/54 03/07/21 12:00 Pulse Ox 87 L 03/07/21 12:00 Intake & Output 03/06/21 03/07/21 03/07/21 18:59 06:59 18:59 Intake Total 436 660 Output Total 400 700 Balance 36 -700 660 Intake: Oral 436 660 Output: Urine 400 700 Other: Voiding Method Urinal Urinal Urinal # Voids 2 1 # Bowel Movements 1 - Exam GENERAL EXAM: Alert, very pleasant 55-year-old gentleman, on AirVo high flow oxygen at 60 L and 90% FiO2 with O2 saturations at 87%, in mild respiratory distress. HEAD: Normocephalic. EYES: Normal reaction of pupils, equal size. NOSE: Clear with pink turbinates. THROAT: No erythema or exudates. NECK: No masses, no JVD. CHEST: No chest wall deformity. LUNGS: Equal air entry with coarse crackles in the bilateral bases. CVS: S1 and S2 normal with no audible murmur, regular rhythm. ABDOMEN: No hepatosplenomegaly, normal bowel sounds, no guarding or rigidity. SPINE: No scoliosis or deformity SKIN: No rashes CENTRAL NERVOUS SYSTEM: No focal deficits, tone is normal in all 4 extremities. EXTREMITIES: There is no peripheral edema. No clubbing, no cyanosis. Peripheral pulses are intact. - Labs CBC & Chem 7: 03/07/21 08:35 03/07/21 08:35 Labs: Abnormal Lab Results - Last 24 Hours (Table) 03/06/21 03/06/21 03/07/21 Range/Units 16:21 20:23 06:00 WBC (3.8-10.6) k/uL Neutrophils # (1.3-7.7) k/uL Lymphocytes # (1.0-4.8) k/uL D-Dimer (<0.60) mg/L FEU Sodium (137-145) mmol/L BUN (9-20) mg/dL Glucose (74-99) mg/dL POC Glucose (mg/dL) 285 H 271 H 207 H (75-99) mg/dL Lactate Dehydrogenase (313-618) U/L 03/07/21 03/07/21 03/07/21 Range/Units 08:35 08:35 08:35 WBC 18.1 H (3.8-10.6) k/uL Neutrophils # 16.9 H (1.3-7.7) k/uL Lymphocytes # 0.6 L (1.0-4.8) k/uL D-Dimer 7.49 H (<0.60) mg/L FEU Sodium (137-145) mmol/L BUN (9-20) mg/dL Glucose (74-99) mg/dL POC Glucose (mg/dL) (75-99) mg/dL Lactate Dehydrogenase 1488 H (313-618) U/L 03/07/21 03/07/21 Range/Units 08:35 11:43 WBC (3.8-10.6) k/uL Neutrophils # (1.3-7.7) k/uL Lymphocytes # (1.0-4.8) k/uL D-Dimer (<0.60) mg/L FEU Sodium 131 L (137-145) mmol/L BUN 30 H (9-20) mg/dL Glucose 109 H (74-99) mg/dL POC Glucose (mg/dL) 192 H (75-99) mg/dL Lactate Dehydrogenase (313-618) U/L Assessment and Plan Assessment: 1 Acute hypoxic respiratory failure secondary to COVID-19 pneumonia. Not vaccinated. Currently on AirVo high flow oxygen at 60 L and 90% FiO2 and occasionally 100% nonrebreather mask. Chest x-ray continues to show bilateral patchy multifocal infiltrates. He is continued on Decadron, therapeutic Lovenox, vitamin supplements. No Baricitinib initially due to the elevated pro calcitonin and currently on antibiotics. His antibiotics were stopped and he was started on Baricitinib on 03/05/2021. 2 History of mild intermittent asthma 3 History of obstructive sleep apnea syndrome, maintained on CPAP at home. 4 History of hypertension. 5 Type 2 diabetes. 6 GERD without esophagitis. 7 Morbid obesity. 8 Elevated pro calcitonin level, underlying superimposed bacterial pneumonia is not entirely ruled out Plan: The patient was seen and evaluated Currently on AirVo 60 L at 90% FiO2 He has been slow to progress Baricitinib initiated 03/05/2021 Continued on Decadron, Lovenox, vitamin supplement Titrate the FiO2 as tolerated Increase his activity as tolerated We will continue to follow I, the cosigning physician, performed a history & physical examination of the patient. Lungs sounds with coarse crackles in the bilateral bases. Maintaining O2 saturations in the 90s on AirVo high flow oxygen at 60 L and 90% FiO2. I discussed the assessment and plan of care with my nurse practitioner, Sasha Vega. I attest to the above note as dictated by her.
[2021-03-07 16:35] LABS: Glucose,Whole Blood 328 mg/dL (75-99)
[2021-03-07] MEDS: BARICITINIB 2 MG TABLET PO SCH (16:48)
[2021-03-07 20:05] LABS: Glucose,Whole Blood 272 mg/dL (75-99)
[2021-03-07] MEDS: LOSARTAN 50 MG TAB PO SCH (20:42)
[2021-03-08 06:07] LABS: Glucose,Whole Blood 294 mg/dL (75-99)
[2021-03-08] MEDS: INSULIN DETEMIR (LEVEMIR) 100 UNIT/ML SYR SQ SCH ×2 (06:49→21:04)
[2021-03-08] MEDS: INSULIN ASPART (NovoLOG) 100 UNIT/ML VIAL SQ SCH ×7 (06:50→21:03)
[2021-03-08] MEDS: SYMBICORT 80-4.5 MCG INHALER INHALATION SCH ×2 (07:33→20:09)
[2021-03-08 09:10] LABS: Basophils # (A) 0.1 k/uL (0-0.2); Basophils % (A) 0 %; Eosinophils % (A) 0 %; HCT 44.9 % (39.0-53.0); HGB 14.1 gm/dL (13.0-17.5); Lymphocytes # (A) 0.7 k/uL (1.0-4.8); Lymphocytes % (A) 4 %; MCH 29.6 pg (25.0-35.0); MCHC 31.4 g/dL (31.0-37.0); MCV 94.3 fL (80.0-100.0); Mean Platelet Volume 8.1; Monocytes # (A) 0.5 k/uL (0-1.0); Monocytes % (A) 3 %; Neutrophils # (A) 17.1 k/uL (1.3-7.7); Neutrophils % (A) 93 %; Platelet Count 375 k/uL (150-450); RBC 4.76 m/uL (4.30-5.90); RDW 12.8 % (11.5-15.5); WBC 18.4 k/uL (3.8-10.6)
[2021-03-08] MEDS ORDERED: FUROSEMIDE 10 MG/ML 4 ML VIAL IV STA (09:14)
--- NOTE | 2021-03-08 09:14 | P.PN ---
Subjective Patient was examined at bedside complaining of any new symptomatology. He continues to be on high flow FiO2 of 80% downtrending from yesterday was 90%. He is bringing up a productive cough which is whitish in color however decreasing in intensity. Currently saturating around 90-92%. Objective - Vital Signs Vital signs: Vital Signs Temp 97.6 F 03/07/21 23:30 Pulse 63 03/08/21 03:51 Resp 20 03/08/21 03:51 BP 125/62 03/08/21 03:51 Pulse Ox 92 L 03/08/21 04:10 Intake & Output 03/07/21 03/08/21 03/08/21 18:59 06:59 18:59 Intake Total 1830 180 Output Total 625 1600 Balance 1205 -1600 180 Intake: Oral 1830 180 Output: Urine 625 1600 Other: Voiding Method Urinal Urinal # Voids 1 # Bowel Movements 1 - Exam Gen: awake, alert HEENT: normocephalic, atraumatic, good hearing acuity, moist mucous membranes Resp: Impaired air exchange, some rhonchi/crackles appreciated the bases. On high flow CVS: good distal perfusion x 4, GI: soft, NTTP, ND : no SPT, no CVAT, zuniga catheter not present MSK: no pitting edema, no clubbing Neuro: non-focal, moving all extremities Psych: not very cooperative, euthymic mood - Labs CBC & Chem 7: 03/08/21 08:22 03/07/21 08:35 Labs: Abnormal Lab Results - Last 24 Hours (Table) 03/07/21 03/07/21 03/07/21 Range/Units 08:35 08:35 08:35 WBC 18.1 H (3.8-10.6) k/uL Neutrophils # 16.9 H (1.3-7.7) k/uL Lymphocytes # 0.6 L (1.0-4.8) k/uL D-Dimer 7.49 H (<0.60) mg/L FEU Sodium (137-145) mmol/L BUN (9-20) mg/dL Glucose (74-99) mg/dL POC Glucose (mg/dL) (75-99) mg/dL Lactate Dehydrogenase 1488 H (313-618) U/L 03/07/21 03/07/21 03/07/21 Range/Units 08:35 11:43 16:33 WBC (3.8-10.6) k/uL Neutrophils # (1.3-7.7) k/uL Lymphocytes # (1.0-4.8) k/uL D-Dimer (<0.60) mg/L FEU Sodium 131 L (137-145) mmol/L BUN 30 H (9-20) mg/dL Glucose 109 H (74-99) mg/dL POC Glucose (mg/dL) 192 H 328 H (75-99) mg/dL Lactate Dehydrogenase (313-618) U/L 03/07/21 03/08/21 03/08/21 Range/Units 20:02 06:00 08:22 WBC 18.4 H (3.8-10.6) k/uL Neutrophils # 17.1 H (1.3-7.7) k/uL Lymphocytes # 0.7 L (1.0-4.8) k/uL D-Dimer (<0.60) mg/L FEU Sodium (137-145) mmol/L BUN (9-20) mg/dL Glucose (74-99) mg/dL POC Glucose (mg/dL) 272 H 294 H (75-99) mg/dL Lactate Dehydrogenase (313-618) U/L Assessment and Plan Plan: Assessment: #1 Acute hypoxic respiratory distress secondary COVID-19 pneumonia #2 COVID-19 pneumonia #3 essential hypertension #4 obstructive sleep apnea on CPAP #5 sepsis secondary to demeaned acquired pneumonia #6 new onset diabetes mellitus type 2 hemoglobin A1c 9.2 Plan: -Admitted to medicine for close monitoring -Aspiration/fall precaution/CHOP 30 -Continue with dexamethasone 6 mg twice a day and barcitnib -Chest x-ray completed showing mild interval worsening on the right side. We'll give a one-time dose of IV Lasix 40 mg. -Antimicrobials Rocephin and azithromycin and monitor microbiology antibiotic course completed on 03/02/2021 -Patient is started on Levemir 12 mg twice a day and 5 units NovoLog to maintain inpatient glucose levels less than 180. -Started on therapeutic dose of Lovenox by pulmonary team -DVT prophylaxis currently on Lovenox -Diabetic education, supply will be provided on discharge.
[2021-03-08 09:25] LABS: ALT 29 U/L (4-49); AST 21 U/L (17-59); African American GFR (CKD) >90 (>60 ml/min/1.73 sqM); Albumin 2.9 g/dL (3.5-5.0); Alkaline Phosphatase 93 U/L (38-126); Anion Gap 4 mmol/L; Blood Urea Nitrogen 31 mg/dL (9-20); Calcium 8.5 mg/dL (8.4-10.2); Carbon Dioxide 28 mmol/L (22-30); Chloride 99 mmol/L (98-107); Glucose 244 mg/dL (74-99); Non-African American GFR(CKD) >90 (>60 ml/min/1.73 sqM); Potassium 4.9 mmol/L (3.5-5.1); Sodium 131 mmol/L (137-145); Total Bilirubin 0.7 mg/dL (0.2-1.3); Total Protein 5.9 g/dL (6.3-8.2)
[2021-03-08] MEDS: PANTOPRAZOLE 40 MG/10 ML VIAL IVP SCH (09:58)
[2021-03-08] MEDS: CITALOPRAM HYDROBROMIDE 20 MG TAB PO SCH (09:59)
[2021-03-08] MEDS: CHOLECALCIFEROL 25 MCG (1000 IU) TABLET PO SCH (09:59)
[2021-03-08] MEDS: ZINC SULFATE 220 MG CAP PO SCH (09:59)
[2021-03-08] MEDS: DEXAMETHASONE SOD PHOSPHATE 10 MG/ML 1 ML VIAL IVP SCH ×2 (09:59→21:02)
[2021-03-08] MEDS: ENOXAPARIN 80 MG/0.8 ML SYRINGE SQ SCH ×2 (09:59→21:03)
[2021-03-08] MEDS: ASCORBIC ACID 500 MG TAB PO SCH (09:59)
[2021-03-08 12:00] LABS: Glucose,Whole Blood 174 mg/dL (75-99)
--- NOTE | 2021-03-08 14:13 | P.PN ---
Subjective Progress Note Date: 03/08/21 Principal diagnosis: CoVID pneumonia This is a 55-year-old white male with history of mild intermittent asthma, GERD , hypertension, obstructive sleep apnea syndrome, normally on CPAP. Patient was recently diagnosed with COVID-19 infection, and the patient has had symptoms for the last 10 days. Patient had mostly symptoms of shortness of breath weakness, vague aches and pains, and his oxygen saturation has been getting worse over the last 2 days, hence he decided to come to the ER. Chest x-ray showed bilateral infiltrates consistent with COVID-19 pneumonia. Patient required placement on a nonrebreather mask and high flow nasal cannula with O2 saturation in the low 90 s. Patient was found to have elevated WBC count of 15.9. Elevated d-dimer of 3.97. Elevated creatinine of 1.30. Elevated ferritin of 710, elevated LDH of 1661 elevated C-reactive protein of 26.4, and he was also noted to have elevated pro calcitonin of 0.54. Patient tested positive for COVID-19. Hence the patient was admitted and this consult was initiated. I saw the patient in the ER, recommended that the patient continues with the COVID-19 cocktail. Patient is already out of the window for Remdesivir. Patient is not a good candidate to receive Baricitinib at this point specially with elevated pro calcitonin level. Considering his elevated d-dimer I'm recommending venous Doppler of the lower extremities. In the meantime I'm recommending a relatively higher dose of Lovenox 40 mg subcu twice a day, considering his renal status I would not recommend CT angiogram of the chest at this point. Patient will be admitted and we will continue to follow closely. The patient is seen today 02/26/2021 in follow-up on the selective care unit. He is currently sitting up in bed. Awake and alert. He is dyspneic with minimal conversation. Dyspneic with minimal exertion. He is currently on AirVo high flow oxygen at 60 L and 90% FiO2 to maintain O2 saturation 92%. He did utilize BiPAP throughout the evening 14/600% FiO2. He continues with coarse bilateral crackles. Dopplers of the lower extremities were negative for DVT. White count 18.1. Hemoglobin 14.4. Lymphocytes 0.4. Sodium 139. Potassium 5.3. Creatinine 0.93. Glucose 188. AST 46. ALT 33. Pro calcitonin 0.54. He is continued on Decadron, Lovenox, vitamin supplements. Remains on antibiotics in the form of ceftriaxone and azithromycin. The patient is seen today 02/27/2021 in follow-up on the selective care unit. He is currently sitting up in a chair at the bedside. Awake and alert. He is dyspneic with conversation. Dyspneic with minimal exertion. He is requiring AirVo high flow oxygen at 60 L and 94% FiO2 along with the 100% nonrebreather mask with O2 saturation 94%. He had been on BiPAP 14/600% FiO2 through the night. Chest x-ray continues to show bilateral patchy opacities consistent with COVID-19 pneumonia. He is continued on Decadron, Lovenox, vitamin supplements. He is also on antibiotics in the form of ceftriaxone and azithromycin. White count 14.9. Hemoglobin 14.8. Lymphocytes 0.4. D-dimer greater than 34. Sodium 138. Potassium 5.1. Creatinine 0.91. AST 34. ALT 31. LDH 1902. C- reactive protein 19.4. The patient is seen today 02/28/2021 he follow-up on the selective care unit. He is currently sitting up in a chair at the bedside and alert. He is currently on BiPAP 14/6 and 100% FiO2 to maintain O2 saturations in the low 90s. He's been alternating with AirVo at 60 L and 90% FiO2 in addition to 100% nonrebreather mask. He has been slow to progress but is no worse today compared to yesterday. WBCs 14.0. Hemoglobin 15.3. Lymphocytes 0.4. Sodium 137. Potassium 5.5. Creatinine 0.96. Glucose 163. AST 33. ALT 29. He is continued on antibiotics in the form of ceftriaxone and azithromycin. He is continued on Decadron 6 mg IV twice a day. Lovenox 80 mg subcu twice a day. Bronchodilators. Vitamin supplements. The patient is seen today 03/06/2021 in follow-up on the selective care unit. He is currently sitting up in a chair at the bedside. Awake and alert in no acute distress. He feels he is getting stronger each day. We'll short of breath. He does continue to require AirVo high flow oxygen at 60 L and 90% FiO2. Not requiring a nonrebreather mask. O2 saturation in the low 90s. He remains afebrile. Hemodynamically stable. White count 17.2. Hemoglobin 14.2. Leukocyte 0.5. Sodium 129. Potassium 5.5. Creatinine 0.80. He is continued on Baricitinib, Decadron, Lovenox, vitamin supplements. He is on Symbicort and albuterol. The patient is seen today 03/07/2021 in follow-up on the selective care unit. He is currently resting comfortably in a chair at the bedside. He is continued on AirVo hyperflexion at 60 L and 90% FiO2. He has been quite slow to recover but stable. No worsening shortness of breath. He is continued on Decadron, therapeutic Lovenox, vitamin supplements. Continued on Baricitinib. Continued on Symbicort and Ventolin. Continued on Levemir and a NovoLog sliding scale. Count 18.1. Hemoglobin 13.9. Lymphocytes 0.6. D-dimer 7.49. Sodium 131. Potassium 4.9. This x-ray continues to revealed diffuse interstitial and small spacer paced opacities bilaterally. No pneumothorax. No significant change. The patient is seen today March 08 2021 in follow-up on the selective care unit. He remains awake and alert in no acute distress. Sitting up in a chair at the bedside. He is still requiring AirVo high flow oxygen at 60 L and 80% FiO2. Feeling a bit better today compared to yesterday. He was given some IV diuretics. White count 18.4. Hemoglobin 14.1. Lymphocytes 0.7. Sodium 131. Potassium 4.9. BUN 31. Creatinine 0.89. Blood glucose 174. AST 21. ALT 29. He remains on Baricitinib, Decadron, Lovenox, vitamin supplements. Continued on Symbicort and albuterol HFA. Protonix for GI prophylaxis. Objective - Vital Signs Vital signs: Vital Signs Temp 98.3 F 03/08/21 12:50 Pulse 82 03/08/21 12:50 Resp 20 03/08/21 12:50 BP 101/50 03/08/21 12:50 Pulse Ox 90 L 03/08/21 12:50 Intake & Output 03/07/21 03/08/21 03/08/21 18:59 06:59 18:59 Intake Total 1830 180 Output Total 625 1600 1100 Balance 1205 -1600 -920 Intake: Oral 1830 180 Output: Urine 625 1600 1100 Other: Voiding Method Urinal Urinal Urinal # Voids 1 # Bowel Movements 1 - Exam GENERAL EXAM: Alert, very pleasant 55-year-old gentleman, on AirVo high flow oxygen at 60 L and 80% FiO2 with O2 saturations at 90%, in mild respiratory distress. HEAD: Normocephalic. EYES: Normal reaction of pupils, equal size. NOSE: Clear with pink turbinates. THROAT: No erythema or exudates. NECK: No masses, no JVD. CHEST: No chest wall deformity. LUNGS: Equal air entry with coarse crackles in the bilateral bases. CVS: S1 and S2 normal with no audible murmur, regular rhythm. ABDOMEN: No hepatosplenomegaly, normal bowel sounds, no guarding or rigidity. SPINE: No scoliosis or deformity SKIN: No rashes CENTRAL NERVOUS SYSTEM: No focal deficits, tone is normal in all 4 extremities. EXTREMITIES: There is no peripheral edema. No clubbing, no cyanosis. Peripheral pulses are intact. - Labs CBC & Chem 7: 03/08/21 08:22 03/08/21 08:22 Labs: Abnormal Lab Results - Last 24 Hours (Table) 03/07/21 03/07/21 03/08/21 Range/Units 16:33 20:02 06:00 WBC (3.8-10.6) k/uL Neutrophils # (1.3-7.7) k/uL Lymphocytes # (1.0-4.8) k/uL Sodium (137-145) mmol/L BUN (9-20) mg/dL Glucose (74-99) mg/dL POC Glucose (mg/dL) 328 H 272 H 294 H (75-99) mg/dL Total Protein (6.3-8.2) g/dL Albumin (3.5-5.0) g/dL 03/08/21 03/08/21 03/08/21 Range/Units 08:22 08:22 11:58 WBC 18.4 H (3.8-10.6) k/uL Neutrophils # 17.1 H (1.3-7.7) k/uL Lymphocytes # 0.7 L (1.0-4.8) k/uL Sodium 131 L (137-145) mmol/L BUN 31 H (9-20) mg/dL Glucose 244 H (74-99) mg/dL POC Glucose (mg/dL) 174 H (75-99) mg/dL Total Protein 5.9 L (6.3-8.2) g/dL Albumin 2.9 L (3.5-5.0) g/dL Assessment and Plan Assessment: 1 Acute hypoxic respiratory failure secondary to COVID-19 pneumonia. Not vaccinated. Currently on AirVo high flow oxygen at 60 L and 90% FiO2 and occasionally 100% nonrebreather mask. Chest x-ray continues to show bilateral patchy multifocal infiltrates. He is continued on Decadron, therapeutic Lovenox, vitamin supplements. No Baricitinib initially due to the elevated pro calcitonin and currently on antibiotics. His antibiotics were stopped and he was started on Baricitinib on 03/05/2021. 2 History of mild intermittent asthma 3 History of obstructive sleep apnea syndrome, maintained on CPAP at home. 4 History of hypertension. 5 Type 2 diabetes. 6 GERD without esophagitis. 7 Morbid obesity. 8 Elevated pro calcitonin level, underlying superimposed bacterial pneumonia is not entirely ruled out Plan: The patient was seen and evaluated Currently on AirVo 60 L at 80% FiO2 Continued on Baricitinib, Decadron, Lovenox, vitamin supplement Titrate the FiO2 as tolerated Increase his activity as tolerated We will continue to follow I, the cosigning physician, performed a history & physical examination of the patient. Lungs sounds with coarse crackles in the bilateral bases. Maintaining O2 saturations in the 90s on AirVo high flow oxygen at 60 L and 80% FiO2. I discussed the assessment and plan of care with my nurse practitioner, Sasha Vega. I attest to the above note as dictated by her.
[2021-03-08 16:51] LABS: Glucose,Whole Blood 182 mg/dL (75-99)
[2021-03-08] MEDS: ALBUTEROL HFA INHALER INHALATION PRN ×2 (17:29→20:09)
[2021-03-08] MEDS: BARICITINIB 2 MG TABLET PO SCH (18:30)
[2021-03-08 20:51] LABS: Glucose,Whole Blood 208 mg/dL (75-99)
[2021-03-08] MEDS: LOSARTAN 50 MG TAB PO SCH (21:04)
[2021-03-09 06:28] LABS: Glucose,Whole Blood 214 mg/dL (75-99)
[2021-03-09] MEDS: INSULIN DETEMIR (LEVEMIR) 100 UNIT/ML SYR SQ SCH ×2 (06:53→21:04)
[2021-03-09] MEDS: INSULIN ASPART (NovoLOG) 100 UNIT/ML VIAL SQ SCH ×7 (06:53→21:04)
[2021-03-09] MEDS: CHOLECALCIFEROL 25 MCG (1000 IU) TABLET PO SCH (08:21)
[2021-03-09] MEDS: CITALOPRAM HYDROBROMIDE 20 MG TAB PO SCH (08:21)
[2021-03-09] MEDS: ASCORBIC ACID 500 MG TAB PO SCH (08:22)
[2021-03-09] MEDS: PANTOPRAZOLE 40 MG/10 ML VIAL IVP SCH (08:22)
[2021-03-09] MEDS: ENOXAPARIN 80 MG/0.8 ML SYRINGE SQ SCH ×2 (08:22→21:04)
[2021-03-09] MEDS: DEXAMETHASONE SOD PHOSPHATE 10 MG/ML 1 ML VIAL IVP SCH (08:22)
[2021-03-09] MEDS: ZINC SULFATE 220 MG CAP PO SCH (08:22)
[2021-03-09 08:25] LABS: African American GFR (CKD) >90 (>60 ml/min/1.73 sqM); Anion Gap 1 mmol/L; Blood Urea Nitrogen 33 mg/dL (9-20); Calcium 8.5 mg/dL (8.4-10.2); Carbon Dioxide 30 mmol/L (22-30); Chloride 99 mmol/L (98-107); Glucose 160 mg/dL (74-99); Non-African American GFR(CKD) >90 (>60 ml/min/1.73 sqM); Potassium 4.8 mmol/L (3.5-5.1); Sodium 130 mmol/L (137-145)
[2021-03-09 08:59] LABS: Basophils # (A) 0.1 k/uL (0-0.2); Basophils % (A) 0 %; Eosinophils % (A) 0 %; HCT 44.9 % (39.0-53.0); HGB 14.5 gm/dL (13.0-17.5); Lymphocytes # (A) 0.6 k/uL (1.0-4.8); Lymphocytes % (A) 4 %; MCH 29.9 pg (25.0-35.0); MCHC 32.3 g/dL (31.0-37.0); MCV 92.6 fL (80.0-100.0); Mean Platelet Volume 8.4; Monocytes # (A) 0.6 k/uL (0-1.0); Monocytes % (A) 4 %; Neutrophils # (A) 13.1 k/uL (1.3-7.7); Neutrophils % (A) 91 %; Platelet Count 376 k/uL (150-450); RBC 4.85 m/uL (4.30-5.90); RDW 13.1 % (11.5-15.5); WBC 14.5 k/uL (3.8-10.6)
[2021-03-09] MEDS: ALBUTEROL HFA INHALER INHALATION PRN ×4 (09:32→20:53)
[2021-03-09] MEDS: SYMBICORT 80-4.5 MCG INHALER INHALATION SCH ×2 (09:32→20:53)
[2021-03-09 11:39] LABS: Glucose,Whole Blood 206 mg/dL (75-99)
--- NOTE | 2021-03-09 12:08 | US ---
EXAMINATION TYPE: US venous doppler duplex LE BI DATE OF EXAM: 03/09/2021 10:59 AM COMPARISON: 02/25/2021 CLINICAL HISTORY: lower extremity edema . SIDE PERFORMED: Bilateral TECHNIQUE: The lower extremity deep venous system is examined utilizing real time linear array sonog jeremi with graded compression, doppler sonography and color-flow sonography. VESSELS IMAGED: Common Femoral Vein Deep Femoral Vein Greater Saphenous Vein * Femoral Vein Popliteal Vein Small Saphenous Vein * Proximal Calf Veins (* superficial vessels) There is normal flow, compressibility, vascular waveforms Right Leg: Negative for DVT Left Leg: Negative for DVT IMPRESSION: No evident deep venous thrombosis within the lower extremities from the knees centrally
[2021-03-09] MEDS ORDERED: FUROSEMIDE 10 MG/ML 4 ML VIAL IV STA (12:49)
--- NOTE | 2021-03-09 14:30 | P.PN ---
Subjective Progress Note Date: 03/09/21 03/09/2021, [facility] patient for a follow-up. The patient is comfortable on high flow oxygen at 6 L with an FiO2 of 80%. The patient still desaturates with activity and mobility and talking. He is a case of community related pneumonia was been in the hospital since 02/25/2021. He is known to have obesity with a BMI of 41.3. The patient is known to have mild intermittent bronchial asthma, hypertension, obstructive sleep apnea and the patient normally is on CPAP therapy. The patient during the course of his illness Treated with steroids. He was not found to be a good candidate for Baricitinib at the time of admission as the patient's pro calcitonin level was slightly elevated at time of admission at 0.5.. For now, the patient is on Baricitinib per protocol at a dose of 4 mg by mouth daily. The patient is also on Decadron 6 mg IV every 24 hours. The patient is on vitamin C, vitamin D, zinc and the patient is also on articulation with Lovenox 80 mg subcu every 12 hours. The repeat venous Doppler showed no evidence of any DVT involving the lower extremities. The patient's d-dimer was as high as 34 and currently is down to 7.49. Due to high suspicion for pulmonary embolism, the patient was given a therapeutic dose of Lovenox. Chest x-ray still showing diffuse bilateral pulmonary infiltrates consistent with community related pneumonia. Objective - Vital Signs Vital signs: Vital Signs Temp 96.2 F L 03/09/21 12:00 Pulse 63 03/09/21 12:00 Resp 20 03/09/21 12:00 BP 115/67 03/09/21 12:00 Pulse Ox 95 03/09/21 12:09 Intake & Output 03/08/21 03/09/21 03/09/21 18:59 06:59 18:59 Intake Total 360 120 Output Total 1450 Balance -1090 120 Weight 119.748 kg Intake: Oral 360 120 Output: Urine 1450 Other: Voiding Method Urinal # Bowel Movements 1 - Exam GENERAL EXAM: Alert, very pleasant 55-year-old gentleman, on AirVo high flow oxygen at 60 L and 80% FiO2 with O2 saturations at 90%, in mild respiratory distress. HEAD: Normocephalic. EYES: Normal reaction of pupils, equal size. NOSE: Clear with pink turbinates. THROAT: No erythema or exudates. NECK: No masses, no JVD. CHEST: No chest wall deformity. LUNGS: Equal air entry with coarse crackles in the bilateral bases. CVS: S1 and S2 normal with no audible murmur, regular rhythm. ABDOMEN: No hepatosplenomegaly, normal bowel sounds, no guarding or rigidity. SPINE: No scoliosis or deformity SKIN: No rashes CENTRAL NERVOUS SYSTEM: No focal deficits, tone is normal in all 4 extremities. EXTREMITIES: There is no peripheral edema. No clubbing, no cyanosis. Peripheral pulses are intact. - Labs CBC & Chem 7: 03/09/21 07:53 03/09/21 07:53 Labs: Abnormal Lab Results - Last 24 Hours (Table) 03/08/21 03/08/21 03/09/21 Range/Units 16:49 20:48 05:43 WBC (3.8-10.6) k/uL Neutrophils # (1.3-7.7) k/uL Lymphocytes # (1.0-4.8) k/uL Sodium (137-145) mmol/L BUN (9-20) mg/dL Glucose (74-99) mg/dL POC Glucose (mg/dL) 182 H 208 H 214 H (75-99) mg/dL 03/09/21 03/09/21 03/09/21 Range/Units 07:53 07:53 11:36 WBC 14.5 H (3.8-10.6) k/uL Neutrophils # 13.1 H (1.3-7.7) k/uL Lymphocytes # 0.6 L (1.0-4.8) k/uL Sodium 130 L (137-145) mmol/L BUN 33 H (9-20) mg/dL Glucose 160 H (74-99) mg/dL POC Glucose (mg/dL) 206 H (75-99) mg/dL Assessment and Plan Plan: 1 Acute hypoxic respiratory failure secondary to COVID-19 pneumonia. Not vaccinated. Currently on AirVo high flow oxygen at 60 L and 90% FiO2 and o ccasionally 100% nonrebreather mask. Chest x-ray continues to show bilateral patchy multifocal infiltrates. He is continued on Decadron, therapeutic Lovenox, vitamin supplements. No Baricitinib initially due to the elevated pro calcitonin and currently on antibiotics. His antibiotics were stopped and he was started on Baricitinib on 03/05/2021. The patient had an elevated d-dimer that was above 34. The patient accordingly had series of Dopplers of lower extremity including one from today on 03/09/2021 and was negative. The patient remains on therapeutic dose of Lovenox. D-dimer levels have dropped. The patient remains on Decadron on Baricitinib. The patient remains on Airvo 60 L with an FiO2 of 80%. 2 History of mild intermittent asthma 3 History of obstructive sleep apnea syndrome, maintained on CPAP at home. 4 History of hypertension. 5 Type 2 diabetes. 6 GERD without esophagitis. 7 Morbid obesity. 8 Elevated pro calcitonin level, underlying superimposed bacterial pneumonia is not entirely ruled out Plan: Monitor inflammatory markers D-dimer is at declined 50 Doppler of the lower extremity was negative Continue high flow oxygen the patient is Currently on AirVo 60 L at 80% FiO2 Continued on Baricitinib, Decadron, Lovenox, vitamin supplement Titrate the FiO2 as tolerated Increase his activity as tolerated We will continue to follow
--- NOTE | 2021-03-09 14:47 | P.PN ---
Subjective Progress Note Date: 03/09/21 (seen at 0930) Principal diagnosis: shortness of breath Patient is a 55-year-old male with hypertension, GERD, TESHA, and morbid obesity with initially presented to the hospital after recent diagnosis of COVID-19 with increasing shortness of breath and weakness. In the ER he required 100% nonrebreather. Initial chest x-ray showed pneumonia. Venous Dopplers were negative for DVT in bilateral lower extremities. He was started on Rocephin, Zithromax, and IV steroids. Pulmonology was consulted, patient was out of the window for REM. By the morning of 02/27 he was requiring aerosol pulse 100% nonrebreather as well as BiPAP at night. On the morning of 03/01 he was BiPAP dependent which was able to be weaned back to Airvo and nonrebreather by 03/05. He continues to slowly improve. His D-dimer did reach beyond the upper limit for normal and he was started on therapeutic anticoagulation. Patient seen and examined at bedside. His cough is less severe shortness of breath is improving. Still having fatigue. Still having some lower extremity edema. Appetite has returned. Feeling much better overall General: non toxic, no distress, appears at stated age, obese Derm: warm, dry Head: atraumatic, normocephalic, symmetric Eyes: EOMI, no lid lag, anicteric sclera Mouth: no lip lesion, mucus membranes dry Cardiovascular: S1S2 reg, no murmur, positive posterior tibial pulse bilateral, Lungs: Coarse breath sounds bilateral], no rhonchi, no rales , no accessory muscle use Abdominal: soft, nontender to palpation, no guarding, no appreciable organomegaly Ext: no gross muscle atrophy, + bilateral pedal edema, no contractures Neuro: CN II-XI grossly intact, no focal neuro deficits Psych: Alert, oriented, appropriate affect COVID-19 pneumonia Acute hypoxic respiratory failure Mild intermittent asthma TESHA-on CPAP at home ARDS secondary to COVID-19 - on Barcitnib D # 7/14 - Decadron D# 11, decreased to once daily - Completed 5 days of zithromax and rocephin - Vit C, Vit D , Zinc -Pulmonary recommendations -On therapeutic Lovenox - Patient is unable to travel to [facility] scan however had exceedingly high d-dimer is greater than 31. Ideally this should be obtained prior to discharge. Repeat venous Doppler from 03/09 are negative. Diabetes mellitus type 2, newly discovered -A1c 9.2 - on fixed dose with meals, long acting, and sliding scale. Hyponatremia, fluid overload - mild continue to follow -IV Lasix times once now, also given once on 03/08 Hypertension, controlled - cozaar - follow BP GERD - on IV protonix will change to oral Morbid obesity with BMI 41.3 - outpatient structured weight loss. Acute kidney injury, resolved Sepsis, resolved DVT prophylaxis: Lovenox Discussed with: Patient, nursing, Dr. Brown Anticipated discharge: 5-[address]: Home A total of 37 minutes was spent on the care of this complex patient more than 50% of the time was spent in counseling and care coordination. Objective - Vital Signs Vital signs: Vital Signs Temp 97.1 F L 03/09/21 04:00 Pulse 63 03/09/21 04:00 Resp 22 03/09/21 04:00 BP 103/57 03/09/21 04:00 Pulse Ox 94 L 03/09/21 04:00 Intake & Output 03/08/21 03/09/21 03/09/21 18:59 06:59 18:59 Intake Total 360 Output Total 1450 Balance -1090 Intake: Oral 360 Output: Urine 1450 Other: Voiding Method Urinal - Labs CBC & Chem 7: 03/09/21 07:53 03/09/21 07:53 Labs: Abnormal Lab Results - Last 24 Hours (Table) 03/08/21 03/08/21 03/08/21 Range/Units 08:22 08:22 11:58 WBC 18.4 H (3.8-10.6) k/uL Neutrophils # 17.1 H (1.3-7.7) k/uL Lymphocytes # 0.7 L (1.0-4.8) k/uL Sodium 131 L (137-145) mmol/L BUN 31 H (9-20) mg/dL Glucose 244 H (74-99) mg/dL POC Glucose (mg/dL) 174 H (75-99) mg/dL Total Protein 5.9 L (6.3-8.2) g/dL Albumin 2.9 L (3.5-5.0) g/dL 01/30/22 01/30/22 01/31/22 Range/Units 16:49 20:48 05:43 WBC (3.8-10.6) k/uL Neutrophils # (1.3-7.7) k/uL Lymphocytes # (1.0-4.8) k/uL Sodium (137-145) mmol/L BUN (9-20) mg/dL Glucose (74-99) mg/dL POC Glucose (mg/dL) 182 H 208 H 214 H (75-99) mg/dL Total Protein (6.3-8.2) g/dL Albumin (3.5-5.0) g/dL
[2021-03-09 16:49] LABS: Glucose,Whole Blood 244 mg/dL (75-99)
[2021-03-09] MEDS: BARICITINIB 2 MG TABLET PO SCH (17:41)
[2021-03-09 20:05] LABS: Glucose,Whole Blood 164 mg/dL (75-99)
[2021-03-09] MEDS: LOSARTAN 50 MG TAB PO SCH (21:04)
[2021-03-10 06:17] LABS: Glucose,Whole Blood 150 mg/dL (75-99)
[2021-03-10] MEDS: INSULIN DETEMIR (LEVEMIR) 100 UNIT/ML SYR SQ SCH ×2 (07:08→21:07)
[2021-03-10] MEDS: INSULIN ASPART (NovoLOG) 100 UNIT/ML VIAL SQ SCH ×7 (07:08→21:07)
[2021-03-10] MEDS: PANTOPRAZOLE 40 MG TABLET PO SCH (07:08)
[2021-03-10] MEDS: SYMBICORT 80-4.5 MCG INHALER INHALATION SCH ×2 (07:44→19:41)
[2021-03-10] MEDS: ALBUTEROL HFA INHALER INHALATION PRN ×3 (07:44→19:41)
[2021-03-10] MEDS: ASCORBIC ACID 500 MG TAB PO SCH (08:16)
[2021-03-10] MEDS: ENOXAPARIN 80 MG/0.8 ML SYRINGE SQ SCH ×2 (08:16→21:06)
[2021-03-10] MEDS: DEXAMETHASONE SOD PHOSPHATE 10 MG/ML 1 ML VIAL IVP SCH (08:16)
[2021-03-10] MEDS: ZINC SULFATE 220 MG CAP PO SCH (08:16)
[2021-03-10] MEDS: CITALOPRAM HYDROBROMIDE 20 MG TAB PO SCH (08:16)
[2021-03-10] MEDS: CHOLECALCIFEROL 25 MCG (1000 IU) TABLET PO SCH (08:16)
[2021-03-10 08:35] LABS: African American GFR (CKD) >90 (>60 ml/min/1.73 sqM); Anion Gap 5 mmol/L; Blood Urea Nitrogen 42 mg/dL (9-20); Calcium 8.5 mg/dL (8.4-10.2); Carbon Dioxide 27 mmol/L (22-30); Chloride 100 mmol/L (98-107); Glucose 156 mg/dL (74-99); Non-African American GFR(CKD) 81 (>60 ml/min/1.73 sqM); Potassium 4.4 mmol/L (3.5-5.1); Sodium 132 mmol/L (137-145)
--- NOTE | 2021-03-10 11:18 | P.PN ---
Subjective Progress Note Date: 03/10/21 03/09/2021, [facility] patient for a follow-up. The patient is comfortable on high flow oxygen at 60 L with an FiO2 of 80%. The patient still desaturates with activity and mobility and talking. He is a case of community related pneumonia was been in the hospital since 02/25/2021. He is known to have obesity with a BMI of 41.3. The patient is known to have mild intermittent bronchial asthma, hypertension, obstructive sleep apnea and the patient normally is on CPAP therapy. The patient during the course of his illness Treated with steroids. He was not found to be a good candidate for Baricitinib at the time of admission as the patient's pro calcitonin level was slightly elevated at time of admission at 0.5.. For now, the patient is on Baricitinib per protocol at a dose of 4 mg by mouth daily. The patient is also on Decadron 6 mg IV every 24 hours. The patient is on vitamin C, vitamin D, zinc and the patient is also on articulation with Lovenox 80 mg subcu every 12 hours. The repeat venous Doppler showed no evidence of any DVT involving the lower extremities. The patient's d-dimer was as high as 34 and currently is down to 7.49. Due to high suspicion for pulmonary embolism, the patient was given a therapeutic dose of Lovenox. Chest x-ray still showing diffuse bilateral pulmonary infiltrates consistent with community related pneumonia. 03/10/2021, I'm seeing the patient for a follow-up. Doing well. The patient remains on Airvo 60 L with an FiO2 of 70% this morning. His breathing is getting labored with mobility and activity and the patient does some movement and activity of walking within his room. He remains on Decadron 6 mg IV every 24 hours. He remains on Baricitinib per protocol. No fever. No chills. No cough or sputum production. He is using incentive spirometer. He remains on Lovenox 80 mg subcu every 12 hours. Repeat a Doppler of the lower extremity s howed no evidence of any DVT. The patient has a sodium level of 132 with a potassium level of 4.4 BUN is at 42 with a creatinine of 1.05. Calcium level is 8.5. No other significant complaints otherwise for now. Objective - Vital Signs Vital signs: Vital Signs Temp 97.6 F 03/10/21 08:08 Pulse 63 02/01/22 08:08 Resp 20 03/10/21 08:08 BP 98/56 03/10/21 08:22 Pulse Ox 96 03/10/21 08:15 Intake & Output 03/09/21 03/10/21 03/10/21 18:59 06:59 18:59 Intake Total 240 420 Output Total 650 375 Balance -410 -375 420 Weight 119.748 kg Intake: Oral 240 420 Output: Urine 650 375 Other: Voiding Method Urinal # Bowel Movements 1 1 1 - Exam GENERAL EXAM: Alert, very pleasant 55-year-old gentleman, on AirVo high flow oxygen at 60 L and 70% FiO2 with O2 saturations at 90%, in mild respiratory distress. HEAD: Normocephalic. EYES: Normal reaction of pupils, equal size. NOSE: Clear with pink turbinates. THROAT: No erythema or exudates. NECK: No masses, no JVD. CHEST: No chest wall deformity. LUNGS: Equal air entry with coarse crackles in the bilateral bases. CVS: S1 and S2 normal with no audible murmur, regular rhythm. ABDOMEN: No hepatosplenomegaly, normal bowel sounds, no guarding or rigidity. SPINE: No scoliosis or deformity SKIN: No rashes CENTRAL NERVOUS SYSTEM: No focal deficits, tone is normal in all 4 extremities. EXTREMITIES: There is no peripheral edema. No clubbing, no cyanosis. Peripheral pulses are intact. - Labs CBC & Chem 7: 03/09/21 07:53 03/10/21 08:04 Labs: Abnormal Lab Results - Last 24 Hours (Table) 03/09/21 03/09/21 03/09/21 Range/Units 11:36 16:48 20:01 Sodium (137-145) mmol/L BUN (9-20) mg/dL Glucose (74-99) mg/dL POC Glucose (mg/dL) 206 H 244 H 164 H (75-99) mg/dL 03/10/21 03/10/21 Range/Units 06:15 08:04 Sodium 132 L (137-145) mmol/L BUN 42 H (9-20) mg/dL Glucose 156 H (74-99) mg/dL POC Glucose (mg/dL) 150 H (75-99) mg/dL Microbiology - Last 24 Hours (Table) 01/31/22 12:56 Gram Stain - Preliminary Sputum Sputum Culture - Preliminary Assessment and Plan Plan: 1 Acute hypoxic respiratory failure secondary to COVID-19 pneumonia. Not vaccinated. Currently on AirVo high flow oxygen at 60 L and 70% FiO2 . The patient is on a combination of Decadron and Baricitinib per protocol for hypoxic respiratory failure. The patient is also on therapeutic dose of Lovenox. Repeat Dopplers of lower extremity has been negative. Intensity symptomatic and short of breath with mobility. His breathing is nonlabored at rest. 2 History of mild intermittent asthma 3 History of obstructive sleep apnea syndrome, maintained on CPAP at home. 4 History of hypertension. 5 Type 2 diabetes. 6 GERD without esophagitis. 7 Morbid obesity. 8 Elevated pro calcitonin level, underlying superimposed bacterial pneumonia is not entirely ruled out Plan: Monitor inflammatory markers D-dimer is at declined, repeat Doppler lower extremity was negative Continue high flow oxygen the patient is Currently on AirVo 60 L and drop the FiO2 to 60% Continued on Baricitinib, Decadron, Lovenox, vitamin supplement Titrate the FiO2 as tolerated Increase his activity as tolerated We will continue to follow
[2021-03-10 11:43] LABS: Glucose,Whole Blood 178 mg/dL (75-99)
[2021-03-10] MEDS ORDERED: FUROSEMIDE 10 MG/ML 4 ML VIAL IV ONE (12:00)
--- NOTE | 2021-03-10 14:08 | P.PN ---
Subjective Progress Note Date: 03/10/21 (delayed charting seen at 1045) Principal diagnosis: shortness of breath Patient is a 55-year-old male with hypertension, GERD, TESHA, and morbid obesity with initially presented to the hospital after recent diagnosis of COVID-19 with increasing shortness of breath and weakness. In the ER he required 100% nonrebreather. Initial chest x-ray showed pneumonia. Venous Dopplers were negative for DVT in bilateral lower extremities. He was started on Rocephin, Zithromax, and IV steroids. Pulmonology was consulted, patient was out of the window for REM. By the morning of 02/27 he was requiring aerosol pulse 100% nonrebreather as well as BiPAP at night. On the morning of 03/01 he was BiPAP dependent which was able to be weaned back to Airvo and nonrebreather by 03/05. He continues to slowly improve. His D-dimer did reach beyond the upper limit for normal and he was started on therapeutic anticoagulation. Patient seen and examined at bedside. Feeling more tired today General: non toxic, no distress, appears at stated age, obese Derm: warm, dry Head: atraumatic, normocephalic, symmetric Eyes: EOMI, no lid lag, anicteric sclera Mouth: no lip lesion, mucus membranes dry Cardiovascular: S1S2 reg, no murmur, positive posterior tibial pulse bilateral, Lungs: Coarse breath sounds bilateral], no rhonchi, no rales , no accessory muscle use Abdominal: soft, nontender to palpation, no guarding, no appreciable organomegaly Ext: no gross muscle atrophy, + bilateral pedal edema, no contractures Neuro: CN II-XI grossly intact, no focal neuro deficits Psych: Alert, oriented, appropriate affect COVID-19 pneumonia Acute hypoxic respiratory failure Mild intermittent asthma TESHA-on CPAP at home ARDS secondary to COVID-19 - on Barcitnib D # 8/14 - Decadron D# 12, decreased to once daily 03/09 and plan to D/C on 2/3 - Completed 5 days of zithromax and rocephin - Vit C, Vit D , Zinc -Pulmonary recommendations -On therapeutic Lovenox - Patient is [place] to travel to [place] Chest scan however had exceedingly high d- dimer is greater than 31. Ideally this should be obtained prior to discharge. Repeat venous Doppler from 03/09 are negative. Diabetes mellitus type 2, newly discovered -A1c 9.2 - on fixed dose with meals (decreased), long acting, and sliding scale. - Will need a glucometer to check blood sugars three times daily as anticipate home on long acting insulin plus orals Hyponatremia, fluid overload -Mild continue to follow -IV Lasix times once again today Hypertension, controlled - cozaar decreased due to low BP - follow BP GERD - on IV protonix will change to oral Morbid obesity with BMI 41.3 - outpatient structured weight loss. Acute kidney injury, resolved Sepsis, resolved DVT prophylaxis: Lovenox Discussed with: Patient, nursing Anticipated discharge: 5-[address]: Home A total of 32 minutes was spent on the care of this complex patient more than 50% of the time was spent in counseling and care coordination. Objective - Vital Signs Vital signs: Vital Signs Temp 97.6 F 03/10/21 08:08 Pulse 62 03/10/21 12:17 Resp 18 03/10/21 12:17 BP 125/63 03/10/21 12:17 Pulse Ox 91 L 03/10/21 12:17 Intake & Output 03/09/21 03/10/21 03/10/21 18:59 06:59 18:59 Intake Total 240 420 Output Total 650 375 Balance -410 -375 420 Weight 119.748 kg Intake: Oral 240 420 Output: Urine 650 375 Other: Voiding Method Urinal # Bowel Movements 1 1 1 - Labs CBC & Chem 7: 03/09/21 07:53 03/10/21 08:04 Labs: Abnormal Lab Results - Last 24 Hours (Table) 03/09/21 03/09/21 03/10/21 Range/Units 16:48 20:01 06:15 Sodium (137-145) mmol/L BUN (9-20) mg/dL Glucose (74-99) mg/dL POC Glucose (mg/dL) 244 H 164 H 150 H (75-99) mg/dL 03/10/21 03/10/21 Range/Units 08:04 11:41 Sodium 132 L (137-145) mmol/L BUN 42 H (9-20) mg/dL Glucose 156 H (74-99) mg/dL POC Glucose (mg/dL) 178 H (75-99) mg/dL Microbiology - Last 24 Hours (Table) 03/09/21 12:56 Gram Stain - Preliminary Sputum Sputum Culture - Preliminary
[2021-03-10 16:35] LABS: Glucose,Whole Blood 218 mg/dL (75-99)
[2021-03-10] MEDS: BARICITINIB 2 MG TABLET PO SCH (17:01)
[2021-03-10 20:13] LABS: Glucose,Whole Blood 161 mg/dL (75-99)
[2021-03-10] MEDS: LOSARTAN 50 MG TAB PO SCH (21:06)
[2021-03-11 02:19] LABS: Glucose,Whole Blood 202 mg/dL (75-99)
[2021-03-11 06:19] LABS: Glucose,Whole Blood 134 mg/dL (75-99)
[2021-03-11] MEDS: INSULIN ASPART (NovoLOG) 100 UNIT/ML VIAL SQ SCH ×7 (06:57→21:34)
[2021-03-11] MEDS: INSULIN DETEMIR (LEVEMIR) 100 UNIT/ML SYR SQ SCH ×2 (06:57→21:34)
[2021-03-11] MEDS: PANTOPRAZOLE 40 MG TABLET PO SCH (06:58)
[2021-03-11 07:11] LABS: HCT 45.2 % (39.0-53.0); HGB 14.3 gm/dL (13.0-17.5); MCH 29.4 pg (25.0-35.0); MCHC 31.5 g/dL (31.0-37.0); MCV 93.3 fL (80.0-100.0); Mean Platelet Volume 7.9; Platelet Count 332 k/uL (150-450); RBC 4.85 m/uL (4.30-5.90); RDW 13.2 % (11.5-15.5)
[2021-03-11 07:14] LABS: ALT 130 U/L (4-49); AST 48 U/L (17-59); African American GFR (CKD) >90 (>60 ml/min/1.73 sqM); Alkaline Phosphatase 75 U/L (38-126); Anion Gap 0 mmol/L; Blood Urea Nitrogen 36 mg/dL (9-20); Calcium 8.7 mg/dL (8.4-10.2); Carbon Dioxide 32 mmol/L (22-30); Chloride 100 mmol/L (98-107); Non-African American GFR(CKD) >90 (>60 ml/min/1.73 sqM); Potassium 4.9 mmol/L (3.5-5.1); Sodium 132 mmol/L (137-145); Total Bilirubin 0.9 mg/dL (0.2-1.3)
[2021-03-11 07:15] LABS: Glucose 146 mg/dL (74-99)
[2021-03-11] MEDS: CHOLECALCIFEROL 25 MCG (1000 IU) TABLET PO SCH (07:46)
[2021-03-11] MEDS: DEXAMETHASONE SOD PHOSPHATE 10 MG/ML 1 ML VIAL IVP SCH (07:46)
[2021-03-11] MEDS: ASCORBIC ACID 500 MG TAB PO SCH (07:46)
[2021-03-11] MEDS: ENOXAPARIN 80 MG/0.8 ML SYRINGE SQ SCH ×2 (07:46→21:34)
[2021-03-11] MEDS: CITALOPRAM HYDROBROMIDE 20 MG TAB PO SCH (07:46)
[2021-03-11] MEDS: ZINC SULFATE 220 MG CAP PO SCH (07:47)
[2021-03-11] MEDS: SYMBICORT 80-4.5 MCG INHALER INHALATION SCH ×2 (08:33→20:22)
[2021-03-11] MEDS: ALBUTEROL HFA INHALER INHALATION PRN ×4 (08:33→20:22)
[2021-03-11 08:59] LABS: Band Neutrophils % 1 %; Neutrophils % (M) 75 %; Nucleated Red Blood Cells 0 /100 WBC (0-0); Total Cells Counted 100
[2021-03-11 09:01] LABS: RBC Morphology Normal
[2021-03-11 11:22] LABS: Glucose,Whole Blood 239 mg/dL (75-99)
--- NOTE | 2021-03-11 14:00 | P.PN ---
Subjective Progress Note Date: 03/11/21 (delayed charting seen at 1125) Principal diagnosis: shortness of breath Patient is a 55-year-old male with hypertension, GERD, TESHA, and morbid obesity with initially presented to the hospital after recent diagnosis of COVID-19 with increasing shortness of breath and weakness. In the ER he required 100% nonrebreather. Initial chest x-ray showed pneumonia. Venous Dopplers were negative for DVT in bilateral lower extremities. He was started on Rocephin, Zithromax, and IV steroids. Pulmonology was consulted, patient was out of the window for REM. By the morning of 02/27 he was requiring aerosol pulse 100% nonrebreather as well as BiPAP at night. On the morning of 03/01 he was BiPAP dependent which was able to be weaned back to Airvo and nonrebreather by 03/05. He continues to slowly improve. His D-dimer did reach beyond the upper limit for normal and he was started on therapeutic anticoagulation. He was continued to improve slowly. Patient seen and examined at bedside. Feeling slightly more short of breath today and tired. Eating and drinking well. having some chest pain with cough and deep inspiration General: non toxic, no distress, appears at stated age, obese Derm: warm, dry Head: atraumatic, normocephalic, symmetric Eyes: EOMI, no lid lag, anicteric sclera Mouth: no lip lesion, mucus membranes moist Cardiovascular: S1S2 reg, no murmur, positive posterior tibial pulse bilateral, Lungs: Coarse breath sounds bilateral, no rhonchi, no rales , no accessory muscle use Abdominal: soft, nontender to palpation, no guarding, no appreciable or ganomegaly Ext: no gross muscle atrophy, + bilateral pedal edema, no contractures Neuro: CN II-XI grossly intact, no focal neuro deficits Psych: Alert, oriented, appropriate affect COVID-19 pneumonia Acute hypoxic respiratory failure Mild intermittent asthma TESHA-on CPAP at home ARDS secondary to COVID-19 - on Barcitnib D #/ - Decadron D# 13, decreased to once daily 03/09 and plan to D/C on 2/3 - Completed 5 days of zithromax and rocephin - Vit C, Vit D , Zinc -Pulmonary recommendations -On therapeutic Lovenox - Patient is unable to travel to [place] Chest scan however had exceedingly high d- dimer is greater than 31. Ideally this should be obtained prior to discharge. Repeat venous Doppler from 03/09 are negative. Diabetes mellitus type 2, newly discovered -A1c 9.2 - on fixed dose with meals (decreased), long acting, and sliding scale. - Will need a glucometer to check blood sugars three times daily as anticipate home on long acting insulin plus orals Hyponatremia, fluid overload -Mild continue to follow -IV Lasix times once again today Hypertension, controlled - cozaar decreased due to low BP - follow BP GERD - on IV protonix will change to oral Morbid obesity with BMI 41.3 - outpatient structured weight loss. Acute kidney injury, resolved Sepsis, resolved DVT prophylaxis: Lovenox Discussed with: Patient, nursing Anticipated discharge: 4-[address]: Home A total of 25 minutes was spent on the care of this complex patient more than 50% of the time was spent in counseling and care coordination. Objective - Vital Signs Vital signs: Vital Signs Temp 97.6 F 03/11/21 11:02 Pulse 80 03/11/21 11:02 Resp 21 03/11/21 11:02 BP 117/65 03/11/21 11:02 Pulse Ox 92 L 03/11/21 11:02 Intake & Output 03/10/21 03/11/21 03/11/21 18:59 06:59 18:59 Intake Total 780 Output Total 1425 875 Balance -645 -875 Intake: Oral 780 Output: Urine 1425 875 Other: Voiding Method Urinal Urinal # Voids 1 # Bowel Movements 1 - Labs CBC & Chem 7: 03/11/21 06:37 03/11/21 06:37 Labs: Abnormal Lab Results - Last 24 Hours (Table) 03/10/21 03/10/21 03/11/21 Range/Units 16:33 20:11 02:15 WBC (3.8-10.6) k/uL Neutrophils # (Manual) (1.3-7.7) k/uL D-Dimer (<0.60) mg/L FEU Sodium (137-145) mmol/L Carbon Dioxide (22-30) mmol/L BUN (9-20) mg/dL Glucose (74-99) mg/dL POC Glucose (mg/dL) 218 H 161 H 202 H (75-99) mg/dL ALT (4-49) U/L Total Protein (6.3-8.2) g/dL Albumin (3.5-5.0) g/dL 03/11/21 03/11/21 03/11/21 Range/Units 06:18 06:37 06:37 WBC (3.8-10.6) k/uL Neutrophils # (Manual) (1.3-7.7) k/uL D-Dimer 2.47 H (<0.60) mg/L FEU Sodium 132 L (137-145) mmol/L Carbon Dioxide 32 H (22-30) mmol/L BUN 36 H (9-20) mg/dL Glucose 146 H (74-99) mg/dL POC Glucose (mg/dL) 134 H (75-99) mg/dL ALT 130 H (4-49) U/L Total Protein 6.0 L (6.3-8.2) g/dL Albumin 3.0 L (3.5-5.0) g/dL 03/11/21 03/11/21 Range/Units 06:37 11:20 WBC 15.0 H (3.8-10.6) k/uL Neutrophils # (Manual) 11.40 H (1.3-7.7) k/uL D-Dimer (<0.60) mg/L FEU Sodium (137-145) mmol/L Carbon Dioxide (22-30) mmol/L BUN (9-20) mg/dL Glucose (74-99) mg/dL POC Glucose (mg/dL) 239 H (75-99) mg/dL ALT (4-49) U/L Total Protein (6.3-8.2) g/dL Albumin (3.5-5.0) g/dL Microbiology - Last 24 Hours (Table) 03/09/21 12:56 Gram Stain - Final Sputum Sputum Culture - Final
--- NOTE | 2021-03-11 14:37 | P.PN ---
Subjective Progress Note Date: 03/11/21 03/09/2021, [facility] patient for a follow-up. The patient is comfortable on high flow oxygen at 60 L with an FiO2 of 80%. The patient still desaturates with activity and mobility and talking. He is a case of community related pneumonia was been in the hospital since 02/25/2021. He is known to have obesity with a BMI of 41.3. The patient is known to have mild intermittent bronchial asthma, hypertension, obstructive sleep apnea and the patient normally is on CPAP therapy. The patient during the course of his illness Treated with steroids. He was not found to be a good candidate for Baricitinib at the time of admission as the patient's pro calcitonin level was slightly elevated at time of admission at 0.5.. For now, the patient is on Baricitinib per protocol at a dose of 4 mg by mouth daily. The patient is also on Decadron 6 mg IV every 24 hours. The patient is on vitamin C, vitamin D, zinc and the patient is also on articulation with Lovenox 80 mg subcu every 12 hours. The repeat venous Doppler showed no evidence of any DVT involving the lower extremities. The patient's d-dimer was as high as 34 and currently is down to 7.49. Due to high suspicion for pulmonary embolism, the patient was given a therapeutic dose of Lovenox. Chest x-ray still showing diffuse bilateral pulmonary infiltrates consistent with community related pneumonia. 03/10/2021, I'm seeing the patient for a follow-up. Doing well. The patient remains on Airvo 60 L with an FiO2 of 70% this morning. His breathing is getting labored with mobility and activity and the patient does some movement and activity of walking within his room. He remains on Decadron 6 mg IV every 24 hours. He remains on Baricitinib per protocol. No fever. No chills. No cough or sputum production. He is using incentive spirometer. He remains on Lovenox 80 mg subcu every 12 hours. Repeat a Doppler of the lower extremity s howed no evidence of any DVT. The patient has a sodium level of 132 with a potassium level of 4.4 BUN is at 42 with a creatinine of 1.05. Calcium level is 8.5. No other significant complaints otherwise for now. 03/11/2021, the patient is on Airvo at 60 L an FiO2 of 60%. His pulse ox is 92%. His breathing is labored with activity. Suggested further weaning of the Airvo setting. The patient felt that this is appropriate at this point in time and he wanted to maintain the current flow. No new complaints. No significant sputum production. No pleurisy no hemoptysis. He has a chronic cough and the patient is unable to fully expand his lungs because of episodic cough and. He is using incentive spirometer. He remains on a combination of Decadron and Baricitinib per protocol. He is also on vitamin C, zinc, and vitamin D. No new complaints otherwise for now. He remains on therapeutic dose of Lovenox 80 mg subcu every 12 hours. The patient has a d-dimer of 2.47 which has dropped from yesterday. The white second is a 50 with a hemoglobin 14.3. Urine is a 36 with a creatinine of 0.9 and his sodium level is 132. LFTs are essentially within normal limits. He is tolerating his diet. No nausea. No vomiting. No diarrhea. No abdominal pain. No altered mentation. Objective - Vital Signs Vital signs: Vital Signs Temp 97.6 F 03/11/21 11:02 Pulse 80 03/11/21 11:02 Resp 21 03/11/21 11:02 BP 117/65 03/11/21 11:02 Pulse Ox 92 L 03/11/21 11:02 Intake & Output 03/10/21 03/11/21 03/11/21 18:59 06:59 18:59 Intake Total 780 Output Total 1425 875 Balance -645 -875 Intake: Oral 780 Output: Urine 1425 875 Other: Voiding Method Urinal Urinal # Voids 1 # Bowel Movements 1 - Exam GENERAL EXAM: Alert, very pleasant 55-year-old gentleman, on AirVo high flow oxygen at 60 L and 70% FiO2 with O2 saturations at 90%, in mild respiratory distress. HEAD: Normocephalic. EYES: Normal reaction of pupils, equal size. NOSE: Clear with pink turbinates. THROAT: No erythema or exudates. NECK: No masses, no JVD. CHEST: No chest wall deformity. LUNGS: Equal air entry with coarse crackles in the bilateral bases. CVS: S1 and S2 normal with no audible murmur, regular rhythm. ABDOMEN: No hepatosplenomegaly, normal bowel sounds, no guarding or rigidity. SPINE: No scoliosis or deformity SKIN: No rashes CENTRAL NERVOUS SYSTEM: No focal deficits, tone is normal in all 4 extremities. EXTREMITIES: There is no peripheral edema. No clubbing, no cyanosis. Peripheral pulses are intact. - Labs CBC & Chem 7: 03/11/21 06:37 03/11/21 06:37 Labs: Abnormal Lab Results - Last 24 Hours (Table) 03/10/21 03/10/21 03/11/21 Range/Units 16:33 20:11 02:15 WBC (3.8-10.6) k/uL Neutrophils # (Manual) (1.3-7.7) k/uL D-Dimer (<0.60) mg/L FEU Sodium (137-145) mmol/L Carbon Dioxide (22-30) mmol/L BUN (9-20) mg/dL Glucose (74-99) mg/dL POC Glucose (mg/dL) 218 H 161 H 202 H (75-99) mg/dL ALT (4-49) U/L Total Protein (6.3-8.2) g/dL Albumin (3.5-5.0) g/dL 03/11/21 03/11/21 03/11/21 Range/Units 06:18 06:37 06:37 WBC (3.8-10.6) k/uL Neutrophils # (Manual) (1.3-7.7) k/uL D-Dimer 2.47 H (<0.60) mg/L FEU Sodium 132 L (137-145) mmol/L Carbon Dioxide 32 H (22-30) mmol/L BUN 36 H (9-20) mg/dL Glucose 146 H (74-99) mg/dL POC Glucose (mg/dL) 134 H (75-99) mg/dL ALT 130 H (4-49) U/L Total Protein 6.0 L (6.3-8.2) g/dL Albumin 3.0 L (3.5-5.0) g/dL 03/11/21 03/11/21 Range/Units 06:37 11:20 WBC 15.0 H (3.8-10.6) k/uL Neutrophils # (Manual) 11.40 H (1.3-7.7) k/uL D-Dimer (<0.60) mg/L FEU Sodium (137-145) mmol/L Carbon Dioxide (22-30) mmol/L BUN (9-20) mg/dL Glucose (74-99) mg/dL POC Glucose (mg/dL) 239 H (75-99) mg/dL ALT (4-49) U/L Total Protein (6.3-8.2) g/dL Albumin (3.5-5.0) g/dL Microbiology - Last 24 Hours (Table) 03/09/21 12:56 Gram Stain - Final Sputum Sputum Culture - Final Assessment and Plan Plan: 1 Acute hypoxic respiratory failure secondary to COVID-19 pneumonia. Not vaccinated. Currently on AirVo high flow oxygen at 60 L and 60 % FiO2 . The patient is on a combination of Decadron and Baricitinib per protocol for hypoxic respiratory failure. The patient is also on therapeutic dose of Lovenox. Repeat Dopplers of lower extremity has been negative. Intensity symptomatic and short of breath with mobility. His breathing is nonlabored at rest. Unable to wean him any further as the patient's pulse ox is currently borderline and the patient is still having some labored breathing/with activity. Overall, his condition is stable. D-dimer to drop down to 2.47. 2 History of mild intermittent asthma 3 History of obstructive sleep apnea syndrome, maintained on CPAP at home. 4 History of hypertension. 5 Type 2 diabetes. 6 GERD without esophagitis. 7 Morbid obesity. 8 Elevated pro calcitonin level, underlying superimposed bacterial pneumonia is not entirely ruled out Plan: Monitor inflammatory markers, d-dimer his lower D-dimer continues to drop and the patient remains on therapeutic dose of Lovenox. Continue the Decadron by medicine the per protocol. Continue high flow oxygen the patient is Currently on AirVo 60 L and drop the FiO2 to 60% Titrate the FiO2 as tolerated Increase his activity as tolerated We will continue to follow
[2021-03-11 16:25] LABS: Glucose,Whole Blood 179 mg/dL (75-99)
[2021-03-11] MEDS: BARICITINIB 2 MG TABLET PO SCH (16:44)
[2021-03-11 20:37] LABS: Glucose,Whole Blood 190 mg/dL (75-99)
[2021-03-11] MEDS: LOSARTAN 50 MG TAB PO SCH (21:34)
[2021-03-12 06:06] LABS: Glucose,Whole Blood 220 mg/dL (75-99)
[2021-03-12] MEDS: INSULIN DETEMIR (LEVEMIR) 100 UNIT/ML SYR SQ SCH (06:35)
[2021-03-12] MEDS: PANTOPRAZOLE 40 MG TABLET PO SCH (06:36)
[2021-03-12] MEDS: INSULIN ASPART (NovoLOG) 100 UNIT/ML VIAL SQ SCH ×7 (06:36→20:24)
[2021-03-12] MEDS: SYMBICORT 80-4.5 MCG INHALER INHALATION SCH ×2 (07:49→20:54)
[2021-03-12] MEDS: ALBUTEROL HFA INHALER INHALATION PRN ×3 (07:49→20:54)
[2021-03-12 09:26] LABS: ALT 162 U/L (4-49); AST 58 U/L (17-59); African American GFR (CKD) >90 (>60 ml/min/1.73 sqM); Alkaline Phosphatase 86 U/L (38-126); Anion Gap 3 mmol/L; Blood Urea Nitrogen 30 mg/dL (9-20); Calcium 8.5 mg/dL (8.4-10.2); Carbon Dioxide 28 mmol/L (22-30); Chloride 99 mmol/L (98-107); Glucose 112 mg/dL (74-99); Non-African American GFR(CKD) >90 (>60 ml/min/1.73 sqM); Potassium 4.5 mmol/L (3.5-5.1); Sodium 130 mmol/L (137-145); Total Bilirubin 0.7 mg/dL (0.2-1.3); Total Protein 5.8 g/dL (6.3-8.2)
[2021-03-12 09:35] LABS: HCT 42.6 % (39.0-53.0); HGB 13.7 gm/dL (13.0-17.5); MCH 30.4 pg (25.0-35.0); MCHC 32.2 g/dL (31.0-37.0); MCV 94.5 fL (80.0-100.0); Mean Platelet Volume 8.1; Platelet Count 307 k/uL (150-450); RBC 4.51 m/uL (4.30-5.90); RDW 12.9 % (11.5-15.5)
[2021-03-12] MEDS: CHOLECALCIFEROL 25 MCG (1000 IU) TABLET PO SCH (09:49)
[2021-03-12] MEDS: DEXAMETHASONE SOD PHOSPHATE 10 MG/ML 1 ML VIAL IVP SCH (09:49)
[2021-03-12] MEDS: CITALOPRAM HYDROBROMIDE 20 MG TAB PO SCH (09:49)
[2021-03-12] MEDS: ZINC SULFATE 220 MG CAP PO SCH (09:49)
[2021-03-12] MEDS: ASCORBIC ACID 500 MG TAB PO SCH (09:49)
[2021-03-12] MEDS: ENOXAPARIN 80 MG/0.8 ML SYRINGE SQ SCH ×2 (09:49→20:24)
[2021-03-12 11:28] LABS: Glucose,Whole Blood 159 mg/dL (75-99)
--- NOTE | 2021-03-12 13:43 | P.PN ---
Subjective Progress Note Date: 03/12/21 (daniella charting seen at 1105) Principal diagnosis: shortness of breath Patient is a 55-year-old male with hypertension, GERD, TESHA, and morbid obesity with initially presented to the hospital after recent diagnosis of COVID-19 with increasing shortness of breath and weakness. In the ER he required 100% nonrebreather. Initial chest x-ray showed pneumonia. Venous Dopplers were negative for DVT in bilateral lower extremities. He was started on Rocephin, Zithromax, and IV steroids. Pulmonology was consulted, patient was out of the window for REM. By the morning of 02/27 he was requiring aerosol pulse 100% nonrebreather as well as BiPAP at night. On the morning of 03/01 he was BiPAP dependent which was able to be weaned back to Airvo and nonrebreather by 03/05. He continues to slowly improve. His D-dimer did reach beyond the upper limit for normal and he was started on therapeutic anticoagulation. He continued to improve slowly. Patient seen and examined at bedside. Pressure today he is so significantly short of breath every time that he moves. Denies any chest pain nausea or vomiting. Still eating and drinking well. We again discussed his overall plan of discontinuing steroids today and try to move him to once daily insulin regimen plus oral medications. General: non toxic, no distress, appears at stated age, obese Derm: warm, dry Head: atraumatic, normocephalic, symmetric Eyes: EOMI, no lid lag, anicteric sclera Mouth: no lip lesion, mucus membranes moist Cardiovascular: S1S2 reg, no murmur, positive posterior tibial pulse bilateral, Lungs: Coarse breath sounds bilateral, no rhonchi, no rales , no accessory muscle use Abdominal: soft, nontender to palpation, no guarding, no appreciable organomegaly Ext: no gross muscle atrophy, + bilateral LE edema, no contractures Neuro: CN II-XI grossly intact, no focal neuro deficits Psych: Alert, oriented, appropriate affect COVID-19 pneumonia Acute hypoxic respiratory failure Mild intermittent asthma TESHA-on CPAP at home ARDS secondary to COVID-19 - on Barcitnib D #10/ - Decadron D# 14, D/C today - Completed 5 days of zithromax and rocephin - Vit C, Vit D , Zinc -Pulmonary recommendations -On therapeutic Lovenox - Patient is [place] to travel [place] Chest scan however had exceedingly high d- dimer is greater than 34. Ideally this should be obtained prior to discharge. Repeat venous Doppler from 03/09 are negative. Diabetes mellitus type 2, newly discovered -A1c 9.2 - on fixed dose with meals, change to once daily levemir - Will need a glucometer to check blood sugars three times daily as anticipate home on long acting insulin plus orals Hyponatremia, fluid overload -Mild continue to follow -Lasix 40 mg IV daily Hypertension, controlled - Cozaar - follow BP GERD - protonix Morbid obesity with BMI 41.3 - outpatient structured weight loss. Acute kidney injury, resolved Sepsis, resolved DVT prophylaxis: Lovenox Discussed with: Patient, nursing Anticipated discharge: 4-[address]: Home A total of 25 minutes was spent on the care of this complex patient more than 50% of the time was spent in counseling and care coordination. Objective - Vital Signs Vital signs: Vital Signs Temp 96.5 F L 03/12/21 09:04 Pulse 69 03/12/21 12:00 Resp 20 03/12/21 12:00 BP 116/71 03/12/21 12:00 Pulse Ox 93 L 03/12/21 12:00 Intake & Output 03/11/21 03/12/21 03/12/21 18:59 06:59 18:59 Intake Total 840 480 Output Total 300 1100 Balance -300 -260 480 Intake: Oral 840 480 Output: Urine 300 1100 Other: Voiding Method Urinal - Labs CBC & Chem 7: 03/12/21 08:32 03/12/21 08:32 Labs: Abnormal Lab Results - Last 24 Hours (Table) 03/11/21 03/11/21 03/12/21 Range/Units 16:23 20:35 06:04 WBC (3.8-10.6) k/uL Sodium (137-145) mmol/L BUN (9-20) mg/dL Glucose (74-99) mg/dL POC Glucose (mg/dL) 179 H 190 H 220 H (75-99) mg/dL ALT (4-49) U/L Total Protein (6.3-8.2) g/dL Albumin (3.5-5.0) g/dL 03/12/21 03/12/21 03/12/21 Range/Units 08:32 08:32 11:27 WBC 15.0 H (3.8-10.6) k/uL Sodium 130 L (137-145) mmol/L BUN 30 H (9-20) mg/dL Glucose 112 H (74-99) mg/dL POC Glucose (mg/dL) 159 H (75-99) mg/dL ALT 162 H (4-49) U/L Total Protein 5.8 L (6.3-8.2) g/dL Albumin 3.0 L (3.5-5.0) g/dL Microbiology - Last 24 Hours (Table) 03/09/21 12:56 Gram Stain - Final Sputum Sputum Culture - Final
--- NOTE | 2021-03-12 14:22 | P.PN ---
Subjective Progress Note Date: 03/12/21 03/09/2021, [facility] patient for a follow-up. The patient is comfortable on high flow oxygen at 60 L with an FiO2 of 80%. The patient still desaturates with activity and mobility and talking. He is a case of community related pneumonia was been in the hospital since 02/25/2021. He is known to have obesity with a BMI of 41.3. The patient is known to have mild intermittent bronchial asthma, hypertension, obstructive sleep apnea and the patient normally is on CPAP therapy. The patient during the course of his illness Treated with steroids. He was not found to be a good candidate for Baricitinib at the time of admission as the patient's pro calcitonin level was slightly elevated at time of admission at 0.5.. For now, the patient is on Baricitinib per protocol at a dose of 4 mg by mouth daily. The patient is also on Decadron 6 mg IV every 24 hours. The patient is on vitamin C, vitamin D, zinc and the patient is also on articulation with Lovenox 80 mg subcu every 12 hours. The repeat venous Doppler showed no evidence of any DVT involving the lower extremities. The patient's d-dimer was as high as 34 and currently is down to 7.49. Due to high suspicion for pulmonary embolism, the patient was given a therapeutic dose of Lovenox. Chest x-ray still showing diffuse bilateral pulmonary infiltrates consistent with community related pneumonia. 03/10/2021, I'm seeing the patient for a follow-up. Doing well. The patient remains on Airvo 60 L with an FiO2 of 70% this morning. His breathing is getting labored with mobility and activity and the patient does some movement and activity of walking within his room. He remains on Decadron 6 mg IV every 24 hours. He remains on Baricitinib per protocol. No fever. No chills. No cough or sputum production. He is using incentive spirometer. He remains on Lovenox 80 mg subcu every 12 hours. Repeat a Doppler of the lower extremity s howed no evidence of any DVT. The patient has a sodium level of 132 with a potassium level of 4.4 BUN is at 42 with a creatinine of 1.05. Calcium level is 8.5. No other significant complaints otherwise for now. 03/11/2021, the patient is on Airvo at 60 L an FiO2 of 60%. His pulse ox is 92%. His breathing is labored with activity. Suggested further weaning of the Airvo setting. The patient felt that this is appropriate at this point in time and he wanted to maintain the current flow. No new complaints. No significant sputum production. No pleurisy no hemoptysis. He has a chronic cough and the patient is unable to fully expand his lungs because of episodic cough and. He is using incentive spirometer. He remains on a combination of Decadron and Baricitinib per protocol. He is also on vitamin C, zinc, and vitamin D. No new complaints otherwise for now. He remains on therapeutic dose of Lovenox 80 mg subcu every 12 hours. The patient has a d-dimer of 2.47 which has dropped from yesterday. The white second is a 50 with a hemoglobin 14.3. Urine is a 36 with a creatinine of 0.9 and his sodium level is 132. LFTs are essentially within normal limits. He is tolerating his diet. No nausea. No vomiting. No diarrhea. No abdominal pain. No altered mentation. 03/12/2021, I'm seeing the patient for a follow-up. He is feeling well. No new complaints. He is currently on Airvo at the 55 L flow and 55 percent FiO2. Pulse ox is currently 93%. He is showing slow but ongoing signs of improvement. He has no other new complaints otherwise. Blood work essentially stable. Creatinine is 0.8. White cell count of 15 with a hemoglobin of 13.7. No other significant events overnight. No chest pain. He remains on therapeutic dose of Lovenox 80 mg subcu every 12 hours. As mentioned earlier, his inflammatory markers are all improving. D-dimer was down to 2.4. Objective - Vital Signs Vital signs: Vital Signs Temp 96.5 F L 03/12/21 09:04 Pulse 69 03/12/21 12:00 Resp 20 03/12/21 12:00 BP 116/71 03/12/21 12:00 Pulse Ox 93 L 03/12/21 12:00 Intake & Output 03/11/21 03/12/21 03/12/21 18:59 06:59 18:59 Intake Total 840 480 Output Total 300 1100 Balance -300 -260 480 Intake: Oral 840 480 Output: Urine 300 1100 Other: Voiding Method Urinal - Exam GENERAL EXAM: Alert, very pleasant 55-year-old gentleman, on AirVo high flow oxygen at 55 L and 55% FiO2 with O2 saturations at 90%, in mild respiratory distress. HEAD: Normocephalic. EYES: Normal reaction of pupils, equal size. NOSE: Clear with pink turbinates. THROAT: No erythema or exudates. NECK: No masses, no JVD. CHEST: No chest wall deformity. LUNGS: Equal air entry with coarse crackles in the bilateral bases. CVS: S1 and S2 normal with no audible murmur, regular rhythm. ABDOMEN: No hepatosplenomegaly, normal bowel sounds, no guarding or rigidity. SPINE: No scoliosis or deformity SKIN: No rashes CENTRAL NERVOUS SYSTEM: No focal deficits, tone is normal in all 4 extremities. EXTREMITIES: There is no peripheral edema. No clubbing, no cyanosis. Peripheral pulses are intact. - Labs CBC & Chem 7: 03/12/21 08:32 03/12/21 08:32 Labs: Abnormal Lab Results - Last 24 Hours (Table) 03/11/21 03/11/21 03/12/21 Range/Units 16:23 20:35 06:04 WBC (3.8-10.6) k/uL Sodium (137-145) mmol/L BUN (9-20) mg/dL Glucose (74-99) mg/dL POC Glucose (mg/dL) 179 H 190 H 220 H (75-99) mg/dL ALT (4-49) U/L Total Protein (6.3-8.2) g/dL Albumin (3.5-5.0) g/dL 03/12/21 03/12/21 03/12/21 Range/Units 08:32 08:32 11:27 WBC 15.0 H (3.8-10.6) k/uL Sodium 130 L (137-145) mmol/L BUN 30 H (9-20) mg/dL Glucose 112 H (74-99) mg/dL POC Glucose (mg/dL) 159 H (75-99) mg/dL ALT 162 H (4-49) U/L Total Protein 5.8 L (6.3-8.2) g/dL Albumin 3.0 L (3.5-5.0) g/dL Microbiology - Last 24 Hours (Table) 03/09/21 12:56 Gram Stain - Final Sputum Sputum Culture - Final Assessment and Plan Plan: 1 Acute hypoxic respiratory failure secondary to COVID-19 pneumonia. Not vaccinated. Currently on AirVo high flow oxygen at 55 L and 55 % FiO2 . The patient is on a combination of Decadron and Baricitinib per protocol for hypoxic respiratory failure. The patient is also on therapeutic dose of Lovenox. Clinically stable, oxidation is improving slowly. Still on Airvo. Inflammatory markers are slowly improving. 2 History of mild intermittent asthma 3 History of obstructive sleep apnea syndrome, maintained on CPAP at home. 4 History of hypertension. 5 Type 2 diabetes. 6 GERD without esophagitis. 7 Morbid obesity. 8 Elevated pro calcitonin level, underlying superimposed bacterial pneumonia is not entirely ruled out Plan: Keep the patient on Airvo 55 L along with a FiO2 of 55% Continue Lovenox tapering dose Continue the Decadron by medicine the per protocol. Titrate the FiO2 as tolerated Increase his activity as tolerated We will continue to follow
[2021-03-12 16:20] LABS: Glucose,Whole Blood 227 mg/dL (75-99)
[2021-03-12] MEDS: BARICITINIB 2 MG TABLET PO SCH (18:12)
[2021-03-12] MEDS: FUROSEMIDE 10 MG/ML 4 ML VIAL IV SCH (18:12)
[2021-03-12 20:11] LABS: Glucose,Whole Blood 203 mg/dL (75-99)
[2021-03-12] MEDS: LOSARTAN 50 MG TAB PO SCH (20:24)
[2021-03-12] MEDS ORDERED: INSULIN DETEMIR (LEVEMIR) 100 UNIT/ML SYR SQ SCH (21:00)
[2021-03-13 05:46] LABS: Glucose,Whole Blood 160 mg/dL (75-99)
[2021-03-13] MEDS: INSULIN ASPART (NovoLOG) 100 UNIT/ML VIAL SQ SCH ×7 (06:53→22:00)
[2021-03-13] MEDS: PANTOPRAZOLE 40 MG TABLET PO SCH (06:53)
[2021-03-13 08:38] LABS: HCT 43.7 % (39.0-53.0); MCHC 32.1 g/dL (31.0-37.0); MCV 93.5 fL (80.0-100.0); Mean Platelet Volume 8.3; Platelet Count 288 k/uL (150-450); RBC 4.67 m/uL (4.30-5.90); RDW 12.9 % (11.5-15.5); WBC 16.1 k/uL (3.8-10.6)
[2021-03-13] MEDS: ALBUTEROL HFA INHALER INHALATION PRN ×3 (08:38→16:48)
[2021-03-13] MEDS: SYMBICORT 80-4.5 MCG INHALER INHALATION SCH ×2 (08:38→20:20)
[2021-03-13 09:00] LABS: African American GFR (CKD) >90 (>60 ml/min/1.73 sqM); Anion Gap 3 mmol/L; Blood Urea Nitrogen 34 mg/dL (9-20); Calcium 8.7 mg/dL (8.4-10.2); Carbon Dioxide 30 mmol/L (22-30); Chloride 99 mmol/L (98-107); Glucose 86 mg/dL (74-99); Magnesium 2.2 mg/dL (1.6-2.3); Non-African American GFR(CKD) >90 (>60 ml/min/1.73 sqM); Potassium 4.6 mmol/L (3.5-5.1); Sodium 132 mmol/L (137-145)
[2021-03-13] MEDS: ENOXAPARIN 80 MG/0.8 ML SYRINGE SQ SCH ×2 (10:03→22:00)
[2021-03-13] MEDS: ZINC SULFATE 220 MG CAP PO SCH (10:03)
[2021-03-13] MEDS: FUROSEMIDE 10 MG/ML 4 ML VIAL IV SCH (10:03)
[2021-03-13] MEDS: ASCORBIC ACID 500 MG TAB PO SCH (10:03)
[2021-03-13] MEDS: CHOLECALCIFEROL 25 MCG (1000 IU) TABLET PO SCH (10:03)
[2021-03-13] MEDS: CITALOPRAM HYDROBROMIDE 20 MG TAB PO SCH (10:03)
[2021-03-13 11:47] LABS: Glucose,Whole Blood 133 mg/dL (75-99)
--- NOTE | 2021-03-13 14:00 | P.PN ---
Subjective Progress Note Date: 03/13/21 03/09/2021, [facility] patient for a follow-up. The patient is comfortable on high flow oxygen at 60 L with an FiO2 of 80%. The patient still desaturates with activity and mobility and talking. He is a case of community related pneumonia was been in the hospital since 02/25/2021. He is known to have obesity with a BMI of 41.3. The patient is known to have mild intermittent bronchial asthma, hypertension, obstructive sleep apnea and the patient normally is on CPAP therapy. The patient during the course of his illness Treated with steroids. He was not found to be a good candidate for Baricitinib at the time of admission as the patient's pro calcitonin level was slightly elevated at time of admission at 0.5.. For now, the patient is on Baricitinib per protocol at a dose of 4 mg by mouth daily. The patient is also on Decadron 6 mg IV every 24 hours. The patient is on vitamin C, vitamin D, zinc and the patient is also on articulation with Lovenox 80 mg subcu every 12 hours. The repeat venous Doppler showed no evidence of any DVT involving the lower extremities. The patient's d-dimer was as high as 34 and currently is down to 7.49. Due to high suspicion for pulmonary embolism, the patient was given a therapeutic dose of Lovenox. Chest x-ray still showing diffuse bilateral pulmonary infiltrates consistent with community related pneumonia. 03/10/2021, I'm seeing the patient for a follow-up. Doing well. The patient remains on Airvo 60 L with an FiO2 of 70% this morning. His breathing is getting labored with mobility and activity and the patient does some movement and activity of walking within his room. He remains on Decadron 6 mg IV every 24 hours. He remains on Baricitinib per protocol. No fever. No chills. No cough or sputum production. He is using incentive spirometer. He remains on Lovenox 80 mg subcu every 12 hours. Repeat a Doppler of the lower extremity s howed no evidence of any DVT. The patient has a sodium level of 132 with a potassium level of 4.4 BUN is at 42 with a creatinine of 1.05. Calcium level is 8.5. No other significant complaints otherwise for now. 03/11/2021, the patient is on Airvo at 60 L an FiO2 of 60%. His pulse ox is 92%. His breathing is labored with activity. Suggested further weaning of the Airvo setting. The patient felt that this is appropriate at this point in time and he wanted to maintain the current flow. No new complaints. No significant sputum production. No pleurisy no hemoptysis. He has a chronic cough and the patient is unable to fully expand his lungs because of episodic cough and. He is using incentive spirometer. He remains on a combination of Decadron and Baricitinib per protocol. He is also on vitamin C, zinc, and vitamin D. No new complaints otherwise for now. He remains on therapeutic dose of Lovenox 80 mg subcu every 12 hours. The patient has a d-dimer of 2.47 which has dropped from yesterday. The white second is a 50 with a hemoglobin 14.3. Urine is a 36 with a creatinine of 0.9 and his sodium level is 132. LFTs are essentially within normal limits. He is tolerating his diet. No nausea. No vomiting. No diarrhea. No abdominal pain. No altered mentation. 03/12/2021, I'm seeing the patient for a follow-up. He is feeling well. No new complaints. He is currently on Airvo at the 55 L flow and 55 percent FiO2. Pulse ox is currently 93%. He is showing slow but ongoing signs of improvement. He has no other new complaints otherwise. Blood work essentially stable. Creatinine is 0.8. White cell count of 15 with a hemoglobin of 13.7. No other significant events overnight. No chest pain. He remains on therapeutic dose of Lovenox 80 mg subcu every 12 hours. As mentioned earlier, his inflammatory markers are all improving. D-dimer was down to 2.4. On 03/13/2021, the patient has no complaints. The patient is currently on Airvo 50 L with an FiO2 of 50%. He is being gradually weaned off the floor and FiO2. The patient is calm and comfortable. The patient is not having any respiratory difficulties. No cough sputum production or chest that is so wheezing. He keeps a sitting on the recliner. Using incentive spirometer. He is completing the course of Baricitinib. Also, is on Decadron. The white cell count today's at 16.4 with a hemoglobin of 14. The is a 34 with a creatinine of 0.7 sodium level is at 132. Glucose level is at 133. Objective - Vital Signs Vital signs: Vital Signs Temp 98.4 F 03/13/21 08:00 Pulse 88 03/13/21 12:00 Resp 18 03/13/21 13:51 BP 97/55 03/13/21 12:00 Pulse Ox 94 L 03/13/21 12:00 Intake & Output 03/12/21 03/13/21 03/13/21 18:59 06:59 18:59 Intake Total 720 1200 720 Output Total 275 1350 1075 Balance 445 -150 -355 Weight 119.748 kg Intake: Oral 720 1200 720 Output: Urine 275 1350 1075 Other: Voiding Method Urinal # Bowel Movements 2 - Exam GENERAL EXAM: Alert, very pleasant 55-year-old gentleman, on AirVo high flow oxygen at 50 L and 50% FiO2 with O2 saturations at 90%, in mild respiratory distress. HEAD: Normocephalic. EYES: Normal reaction of pupils, equal size. NOSE: Clear with pink turbinates. THROAT: No erythema or exudates. NECK: No masses, no JVD. CHEST: No chest wall deformity. LUNGS: Equal air entry with coarse crackles in the bilateral bases. CVS: S1 and S2 normal with no audible murmur, regular rhythm. ABDOMEN: No hepatosplenomegaly, normal bowel sounds, no guarding or rigidity. SPINE: No scoliosis or deformity SKIN: No rashes CENTRAL NERVOUS SYSTEM: No focal deficits, tone is normal in all 4 extremities. EXTREMITIES: There is no peripheral edema. No clubbing, no cyanosis. Peripheral pulses are intact. - Labs CBC & Chem 7: 03/13/21 08:14 03/13/21 08:14 Labs: Abnormal Lab Results - Last 24 Hours (Table) 03/12/21 03/12/21 03/13/21 Range/Units 16:16 20:10 05:45 WBC (3.8-10.6) k/uL Sodium (137-145) mmol/L BUN (9-20) mg/dL POC Glucose (mg/dL) 227 H 203 H 160 H (75-99) mg/dL 03/13/21 03/13/21 03/13/21 Range/Units 08:14 08:14 11:43 WBC 16.1 H (3.8-10.6) k/uL Sodium 132 L (137-145) mmol/L BUN 34 H (9-20) mg/dL POC Glucose (mg/dL) 133 H (75-99) mg/dL Assessment and Plan Plan: 1 Acute hypoxic respiratory failure secondary to COVID-19 pneumonia. Not vaccinated. Currently on AirVo high flow oxygen at 50 L and 50 % FiO2 . The patient is on a combination of Decadron and Baricitinib per protocol for hypoxic respiratory failure. The patient is also on therapeutic dose of Lovenox. Clinically stable, oxygenation is improving slowly. Still on Airvo. Inflammatory markers are slowly improving. The patient is currently on 15 L with an FiO2 of 50%. Pulse ox is currently 93%. 2 History of mild intermittent asthma 3 History of obstructive sleep apnea syndrome, maintained on CPAP at home. 4 History of hypertension. 5 Type 2 diabetes. 6 GERD without esophagitis. 7 Morbid obesity. 8 Elevated pro calcitonin level, underlying superimposed bacterial pneumonia is not entirely ruled out Plan: No new complaints and his condition is stable Keep the patient on Airvo 50 L along with a FiO2 of 50% Continue Lovenox tapering dose Continue the Decadron and the patient is completing the course of Baricitinib in few days Titrate the FiO2 as tolerated Increase his activity as tolerated We will continue to follow
--- NOTE | 2021-03-13 14:10 | P.PN ---
Subjective Progress Note Date: 03/13/21 (delayed charting seen at 1030) Principal diagnosis: shortness of breath Patient is a 55-year-old male with hypertension, GERD, TESHA, and morbid obesity with initially presented to the hospital after recent diagnosis of COVID-19 with increasing shortness of breath and weakness. In the ER he required 100% nonrebreather. Initial chest x-ray showed pneumonia. Venous Dopplers were negative for DVT in bilateral lower extremities. He was started on Rocephin, Zithromax, and IV steroids. Pulmonology was consulted, patient was out of the window for REM. By the morning of 02/27 he was requiring aerosol pulse 100% nonrebreather as well as BiPAP at night. On the morning of 03/01 he was BiPAP dependent which was able to be weaned back to Airvo and nonrebreather by 03/05. He continues to slowly improve. His D-dimer did reach beyond the upper limit for normal and he was started on therapeutic anticoagulation. He continued to improve slowly. His blood sugar became more controlled as steroids were taken off. Patient seen and examined at bedside. No chest pain, no nausea, still short of breath with minimal exertion which is frustrating, asking questions about diet. General: non toxic, no distress, appears at stated age, obese Derm: warm, dry Head: atraumatic, normocephalic, symmetric Eyes: EOMI, no lid lag, anicteric sclera Mouth: no lip lesion, mucus membranes moist Cardiovascular: S1S2 reg, no murmur, positive posterior tibial pulse bilateral, Lungs: Coarse breath sounds bilateral, no rhonchi, no rales , no accessory muscle use Abdominal: soft, nontender to palpation, no guarding, no appreciable organomegaly Ext: no gross muscle atrophy, + bilateral LE edema, no contractures Neuro: CN II-XI grossly intact, no focal neuro deficits Psych: Alert, oriented, appropriate affect COVID-19 pneumonia Acute hypoxic respiratory failure Mild intermittent asthma TESHA-on CPAP at home ARDS secondary to COVID-19 - on Barcitnib D #12/21 - Decadron s/p 14 days - Completed 5 days of zithromax and rocephin - Vit C, Vit D , Zinc -Pulmonary recommendations -On therapeutic Lovenox - Patient is [place] to travel [place] Chest scan however had exceedingly high d- dimer is greater than 34. Ideally this should be obtained prior to discharge. Repeat venous Doppler from 03/09 are negative. Diabetes mellitus type 2, newly discovered -A1c 9.2 - on fixed dose with meals, change to once daily levemir which was increased, f ixed dose will be stopped in the AM - Will need a glucometer to check blood sugars three times daily as anticipate home on long acting insulin plus orals Hyponatremia, fluid overload -Mild continue to follow -Lasix 40 mg IV daily Hypertension, controlled - Cozaar - follow BP GERD - protonix Morbid obesity with BMI 41.3 - outpatient structured weight loss. Acute kidney injury, resolved Sepsis, resolved DVT prophylaxis: Lovenox Discussed with: Patient, nursing Anticipated discharge: 3-[address]: Home A total of 25 minutes was spent on the care of this complex patient more than 50% of the time was spent in counseling and care coordination. Objective - Vital Signs Vital signs: Vital Signs Temp 98.4 F 03/13/21 08:00 Pulse 88 03/13/21 12:00 Resp 18 03/13/21 13:51 BP 97/55 03/13/21 12:00 Pulse Ox 94 L 03/13/21 12:00 Intake & Output 03/12/21 03/13/21 03/13/21 18:59 06:59 18:59 Intake Total 720 1200 720 Output Total 275 1350 1075 Balance 445 -150 -355 Weight 119.748 kg Intake: Oral 720 1200 720 Output: Urine 275 1350 1075 Other: Voiding Method Urinal # Bowel Movements 2 - Labs CBC & Chem 7: 03/13/21 08:14 03/13/21 08:14 Labs: Abnormal Lab Results - Last 24 Hours (Table) 03/12/21 03/12/21 03/13/21 Range/Units 16:16 20:10 05:45 WBC (3.8-10.6) k/uL Sodium (137-145) mmol/L BUN (9-20) mg/dL POC Glucose (mg/dL) 227 H 203 H 160 H (75-99) mg/dL 03/13/21 03/13/21 03/13/21 Range/Units 08:14 08:14 11:43 WBC 16.1 H (3.8-10.6) k/uL Sodium 132 L (137-145) mmol/L BUN 34 H (9-20) mg/dL POC Glucose (mg/dL) 133 H (75-99) mg/dL
[2021-03-13 16:40] LABS: Glucose,Whole Blood 163 mg/dL (75-99)
[2021-03-13] MEDS: BARICITINIB 2 MG TABLET PO SCH (18:11)
[2021-03-13 21:03] LABS: Glucose,Whole Blood 180 mg/dL (75-99)
[2021-03-13] MEDS: LOSARTAN 50 MG TAB PO SCH (22:00)
[2021-03-13] MEDS: INSULIN DETEMIR (LEVEMIR) 100 UNIT/ML SYR SQ SCH (22:00)
[2021-03-14 02:29] LABS: Glucose,Whole Blood 110 mg/dL (75-99)
[2021-03-14 06:22] LABS: Glucose,Whole Blood 106 mg/dL (75-99)
[2021-03-14] MEDS: INSULIN ASPART (NovoLOG) 100 UNIT/ML VIAL SQ SCH ×4 (06:43→21:09)
[2021-03-14] MEDS: PANTOPRAZOLE 40 MG TABLET PO SCH (06:52)
--- NOTE | 2021-03-14 07:12 | XR ---
EXAMINATION TYPE: XR chest 1V portable DATE OF EXAM: 03/14/2021 CLINICAL HISTORY: Difficulty breathing progress study. TECHNIQUE: Single AP portable upright view of the chest is obtained. COMPARISON: Chest x-ray from March 07, 2021 FINDINGS: Bilateral multifocal and confluent increased opacity found background low lung volumes red emonstrated. Stable mild cardiomegaly. There is dextroconvex scoliotic curvature centered at mid thor acic spine redemonstrated. IMPRESSION: Bilateral multifocal and confluent increased opacities consistent with covid-19 infection and/or ARDS redemonstrated. No significant change from most recent x-ray.
[2021-03-14 08:29] LABS: HGB 14.4 gm/dL (13.0-17.5); MCH 30.3 pg (25.0-35.0); MCHC 32.1 g/dL (31.0-37.0); MCV 94.4 fL (80.0-100.0); Mean Platelet Volume 7.7; Platelet Count 278 k/uL (150-450); RBC 4.77 m/uL (4.30-5.90); WBC 13.5 k/uL (3.8-10.6)
[2021-03-14 08:50] LABS: African American GFR (CKD) >90 (>60 ml/min/1.73 sqM); Anion Gap 2 mmol/L; Blood Urea Nitrogen 32 mg/dL (9-20); Calcium 8.8 mg/dL (8.4-10.2); Carbon Dioxide 32 mmol/L (22-30); Chloride 98 mmol/L (98-107); Glucose 127 mg/dL (74-99); Non-African American GFR(CKD) >90 (>60 ml/min/1.73 sqM); Potassium 4.5 mmol/L (3.5-5.1); Sodium 132 mmol/L (137-145)
[2021-03-14] MEDS: ALBUTEROL HFA INHALER INHALATION PRN ×4 (08:52→19:30)
[2021-03-14] MEDS: SYMBICORT 80-4.5 MCG INHALER INHALATION SCH ×2 (08:52→19:30)
[2021-03-14] MEDS: CHOLECALCIFEROL 25 MCG (1000 IU) TABLET PO SCH (09:46)
[2021-03-14] MEDS: ASCORBIC ACID 500 MG TAB PO SCH (09:46)
[2021-03-14] MEDS: CITALOPRAM HYDROBROMIDE 20 MG TAB PO SCH (09:46)
[2021-03-14] MEDS: ENOXAPARIN 80 MG/0.8 ML SYRINGE SQ SCH ×2 (09:46→21:16)
[2021-03-14 11:39] LABS: Glucose,Whole Blood 150 mg/dL (75-99)
[2021-03-14] MEDS: FUROSEMIDE 10 MG/ML 4 ML VIAL IV SCH (12:12)
--- NOTE | 2021-03-14 13:24 | P.PN ---
Subjective Progress Note Date: 03/14/21 03/09/2021, [facility] patient for a follow-up. The patient is comfortable on high flow oxygen at 60 L with an FiO2 of 80%. The patient still desaturates with activity and mobility and talking. He is a case of community related pneumonia was been in the hospital since 02/25/2021. He is known to have obesity with a BMI of 41.3. The patient is known to have mild intermittent bronchial asthma, hypertension, obstructive sleep apnea and the patient normally is on CPAP therapy. The patient during the course of his illness Treated with steroids. He was not found to be a good candidate for Baricitinib at the time of admission as the patient's pro calcitonin level was slightly elevated at time of admission at 0.5.. For now, the patient is on Baricitinib per protocol at a dose of 4 mg by mouth daily. The patient is also on Decadron 6 mg IV every 24 hours. The patient is on vitamin C, vitamin D, zinc and the patient is also on articulation with Lovenox 80 mg subcu every 12 hours. The repeat venous Doppler showed no evidence of any DVT involving the lower extremities. The patient's d-dimer was as high as 34 and currently is down to 7.49. Due to high suspicion for pulmonary embolism, the patient was given a therapeutic dose of Lovenox. Chest x-ray still showing diffuse bilateral pulmonary infiltrates consistent with community related pneumonia. 03/10/2021, I'm seeing the patient for a follow-up. Doing well. The patient remains on Airvo 60 L with an FiO2 of 70% this morning. His breathing is getting labored with mobility and activity and the patient does some movement and activity of walking within his room. He remains on Decadron 6 mg IV every 24 hours. He remains on Baricitinib per protocol. No fever. No chills. No cough or sputum production. He is using incentive spirometer. He remains on Lovenox 80 mg subcu every 12 hours. Repeat a Doppler of the lower extremity s howed no evidence of any DVT. The patient has a sodium level of 132 with a potassium level of 4.4 BUN is at 42 with a creatinine of 1.05. Calcium level is 8.5. No other significant complaints otherwise for now. 03/11/2021, the patient is on Airvo at 60 L an FiO2 of 60%. His pulse ox is 92%. His breathing is labored with activity. Suggested further weaning of the Airvo setting. The patient felt that this is appropriate at this point in time and he wanted to maintain the current flow. No new complaints. No significant sputum production. No pleurisy no hemoptysis. He has a chronic cough and the patient is unable to fully expand his lungs because of episodic cough and. He is using incentive spirometer. He remains on a combination of Decadron and Baricitinib per protocol. He is also on vitamin C, zinc, and vitamin D. No new complaints otherwise for now. He remains on therapeutic dose of Lovenox 80 mg subcu every 12 hours. The patient has a d-dimer of 2.47 which has dropped from yesterday. The white second is a 50 with a hemoglobin 14.3. Urine is a 36 with a creatinine of 0.9 and his sodium level is 132. LFTs are essentially within normal limits. He is tolerating his diet. No nausea. No vomiting. No diarrhea. No abdominal pain. No altered mentation. 03/12/2021, I'm seeing the patient for a follow-up. He is feeling well. No new complaints. He is currently on Airvo at the 55 L flow and 55 percent FiO2. Pulse ox is currently 93%. He is showing slow but ongoing signs of improvement. He has no other new complaints otherwise. Blood work essentially stable. Creatinine is 0.8. White cell count of 15 with a hemoglobin of 13.7. No other significant events overnight. No chest pain. He remains on therapeutic dose of Lovenox 80 mg subcu every 12 hours. As mentioned earlier, his inflammatory markers are all improving. D-dimer was down to 2.4. On 03/13/2021, the patient has no complaints. The patient is currently on Airvo 50 L with an FiO2 of 50%. He is being gradually weaned off the floor and FiO2. The patient is calm and comfortable. The patient is not having any respiratory difficulties. No cough sputum production or chest that is so wheezing. He keeps a sitting on the recliner. Using incentive spirometer. He is completing the course of Baricitinib. Also, is on Decadron. The white cell count today's at 16.4 with a hemoglobin of 14. The is a 34 with a creatinine of 0.7 sodium level is at 132. Glucose level is at 133. 03/14/2021, the patient has no complaints. Doing well. Resting comfortably on a chair. He is on Airvo still on a flow of 50 L an FiO2 of 45%. His pulse ox was above 90%. I made recommendations to drop the flow down to 45 L. He has no specific complaints no chest pain. No altered mentation. He is still completing a course of Baricitinib and Decadron. Labs from today shows normal renal function with a creatinine of 0.8. Sodium is at 132. The white cell count 13.4 with a hemoglobin of 14.4. Blood sugar is at 150. Using incentive spirometer. Is quite active in the room. Objective - Vital Signs Vital signs: Vital Signs Temp 98.3 F 03/14/21 12:00 Pulse 71 03/14/21 12:00 Resp 18 03/14/21 12:00 BP 110/59 03/14/21 12:00 Pulse Ox 92 L 03/14/21 12:00 Intake & Output 03/13/21 03/14/21 03/14/21 18:59 06:59 18:59 Intake Total 838 600 Output Total 1075 400 200 Balance -237 200 -200 Weight 119.748 kg Intake: Oral 838 600 Output: Urine 1075 400 200 Other: Voiding Method Urinal # Bowel Movements 1 - Exam GENERAL EXAM: Alert, very pleasant 55-year-old gentleman, on AirVo high flow oxygen at 50 L and 50% FiO2 with O2 saturations at 90%, in mild respiratory distress. HEAD: Normocephalic. EYES: Normal reaction of pupils, equal size. NOSE: Clear with pink turbinates. THROAT: No erythema or exudates. NECK: No masses, no JVD. CHEST: No chest wall deformity. LUNGS: Equal air entry with coarse crackles in the bilateral bases. CVS: S1 and S2 normal with no audible murmur, regular rhythm. ABDOMEN: No hepatosplenomegaly, normal bowel sounds, no guarding or rigidity. SPINE: No scoliosis or deformity SKIN: No rashes CENTRAL NERVOUS SYSTEM: No focal deficits, tone is normal in all 4 extremities. EXTREMITIES: There is no peripheral edema. No clubbing, no cyanosis. Peripheral pulses are intact. - Labs CBC & Chem 7: 03/14/21 07:46 03/14/21 07:46 Labs: Abnormal Lab Results - Last 24 Hours (Table) 03/13/21 03/13/21 03/14/21 Range/Units 16:37 20:39 02:26 WBC (3.8-10.6) k/uL Sodium (137-145) mmol/L Carbon Dioxide (22-30) mmol/L BUN (9-20) mg/dL Glucose (74-99) mg/dL POC Glucose (mg/dL) 163 H 180 H 110 H (75-99) mg/dL 03/14/21 03/14/21 03/14/21 Range/Units 06:20 07:46 07:46 WBC 13.5 H (3.8-10.6) k/uL Sodium 132 L (137-145) mmol/L Carbon Dioxide 32 H (22-30) mmol/L BUN 32 H (9-20) mg/dL Glucose 127 H (74-99) mg/dL POC Glucose (mg/dL) 106 H (75-99) mg/dL 03/14/21 Range/Units 11:35 WBC (3.8-10.6) k/uL Sodium (137-145) mmol/L Carbon Dioxide (22-30) mmol/L BUN (9-20) mg/dL Glucose (74-99) mg/dL POC Glucose (mg/dL) 150 H (75-99) mg/dL Assessment and Plan Plan: 1 Acute hypoxic respiratory failure secondary to COVID-19 pneumonia. Not vaccinated. Currently on AirVo high flow oxygen at 50 L and 50 % FiO2 . The patient is on a combination of Decadron and Baricitinib per protocol for hypoxic respiratory failure. The patient is also on therapeutic dose of Lovenox. Clinically stable, oxygenation is improving slowly. Still on Airvo. Inflammatory markers are slowly improving. The patient is currently on 50L with an FiO2 of 45%. Pulse ox is currently 93%. 2 History of mild intermittent asthma 3 History of obstructive sleep apnea syndrome, maintained on CPAP at home. 4 History of hypertension. 5 Type 2 diabetes. 6 GERD without esophagitis. 7 Morbid obesity. 8 Elevated pro calcitonin level, underlying superimposed bacterial pneumonia is not entirely ruled out Plan: No new complaints and his condition is stable Wean down the Airvo to a floor 45 L with an FiO2 of 45% Continue Lovenox therapeutic dose Continue the Decadron and the patient is completing the course of Baricitinib in few days Titrate the FiO2 as tolerated Increase his activity as tolerated We will continue to follow
--- NOTE | 2021-03-14 14:27 | P.PN ---
<Ross Guerrero - Last Filed: 03/14/21 13:49> Subjective Progress Note Date: 03/14/21 Chief complaint: Shortness of breath Hospital course: Patient is a 55-year-old male with hypertension, GERD, TESHA, and morbid obesity with initially presented to the hospital after recent diagnosis of COVID-19 with increasing shortness of breath and weakness. In the ER he required 100% nonrebreather. Initial chest x-ray showed pneumonia. Venous Dopplers were negative for DVT in bilateral lower extremities. He was started on Rocephin, Zithromax, and IV steroids. Pulmonology was consulted, patient was out of the window for REM. By the morning of 02/27 he was requiring AIRVO in addition to 100% nonrebreather with BiPAP at night. On the morning of 03/01 he was BiPAP dependent at all times. Patient had exceedingly high d-dimer of greater than 34 on 02/27/21 and was started on therapeutic Lovenox as he was not stable enough to go down for a CT. Ideally a CT scan should be obtained once pt is stablized and prior to discharge. Repeat venous Doppler from 03/09 were negative. On 03/05/21 patient was finally weaned back to Airvo plus 100% nonrebreather mask. Patient is now showing slow improvement each day. He completed 14 day course of Decadron on 03/12/21. He is currently on AIRVO 53% and on day and 12 of 14 for Barcitnib. Physical examination: Patient seen and examined at bedside. He appears to be doing well this morning. He reports that he has been ambulating more in room and up to chair. At time of assessment patient was resting comfortably laying on his left side, reported feeling slightly tired as he did not sleep well last night. He is currently on AIRVO 53% and on day and 12 of 14 for Barcitnib. Patient denied any other complaints including headache, lightheadedness, dizziness, chest pain, pal pitations, or experiencing any numbness/tingling/weakness in his extremities. General: non toxic, no distress, appears at stated age, obese Derm: warm, dry Head: atraumatic, normocephalic, symmetric Eyes: EOMI, no lid lag, anicteric sclera Mouth: no lip lesion, mucus membranes moist Cardiovascular: S1S2 reg, no murmur, positive posterior tibial pulse bilateral, Lungs: Respirations even, regular, and unlabored on airflow. Lungs with bibasilar crackles. No rhonchi, rales, wheezes, or accessory muscle use. Abdominal: soft, nontender to palpation, no guarding, no appreciable organomegaly Ext: no gross muscle atrophy, + 1 bilateral LE edema, no contractures Neuro: CN II-XI grossly intact, no focal neuro deficits Psych: Alert, oriented, appropriate affect Assessment and Plan of Care: COVID-19 pneumonia Acute hypoxic respiratory failure Mild intermittent asthma TESHA-on CPAP at home ARDS secondary to COVID-19 Elevated d-dimer, on therapeutic Lovenox -Continue Barcitnib day 12 of 14 -Completed 14 day course of Decadron, last administered 03/12/21 -Completed 5 day course of antibiotics with zithromax and rocephin -Continue daily vitamin C, vitamin D, and zinc -Pulmonary following, appreciate further recommendations -On therapeutic Lovenox -Secondary to high oxygen needs, Patient is unable to be taken down for CTA. However, he had exceedingly high d-dimer of greater than 34 on 02/27/21 and was started on therapeutic Lovenox. Ideally a CT scan should be obtained once pt is stablized and prior to discharge. Repeat venous Doppler from 03/09 are negative. Diabetes mellitus type 2, newly discovered -A1c 9.2% -Continue glycemic protocol with NovoLog sliding scale and Levemir 20 units nightly -Patient will need a glucometer to check blood sugars three times daily upon discharge as it is anticipated that he will be discharged home on long acting insulin plus oral hypoglycemic medications. Hyponatremia, fluid overload -Mild continue to follow with repeat a.m. labs -Continue Lasix 40 mg IV daily Hypertension, controlled -Monitor vital signs and Continue daily medication regimen with Cozaar GERD -Continue GI prophylaxis with protonix 40 mg daily with breakfast. Morbid obesity with BMI 41.3 -Encourage outpatient structured weight loss program upon discharge. Acute kidney injury, resolved Sepsis, resolved DVT prophylaxis: Patient on therapeutic Lovenox Discussed with: Patient and RN Anticipated discharge: Pending clinical course Anticipated discharge place: Home A total of 35 minutes was spent on the care of this complex patient more than 50% of the time was spent in counseling and care coordination. Objective - Vital Signs Vital signs: Vital Signs Temp 98.1 F 02/05/22 04:00 Pulse 73 03/14/21 04:00 Resp 17 03/14/21 04:00 BP 117/70 03/14/21 04:00 Pulse Ox 94 L 03/14/21 04:00 Intake & Output 03/13/21 03/14/21 03/14/21 18:59 06:59 18:59 Intake Total 838 600 Output Total 1075 400 Balance -237 200 Weight 119.748 kg Intake: Oral 838 600 Output: Urine 1075 400 Other: Voiding Method Urinal # Bowel Movements 1 - Labs CBC & Chem 7: 03/14/21 07:46 03/14/21 07:46 Labs: Abnormal Lab Results - Last 24 Hours (Table) 03/13/21 03/13/21 03/13/21 Range/Units 08:14 08:14 11:43 WBC 16.1 H (3.8-10.6) k/uL Sodium 132 L (137-145) mmol/L BUN 34 H (9-20) mg/dL POC Glucose (mg/dL) 133 H (75-99) mg/dL 03/13/21 03/13/21 03/14/21 Range/Units 16:37 20:39 02:26 WBC (3.8-10.6) k/uL Sodium (137-145) mmol/L BUN (9-20) mg/dL POC Glucose (mg/dL) 163 H 180 H 110 H (75-99) mg/dL 03/14/21 Range/Units 06:20 WBC (3.8-10.6) k/uL Sodium (137-145) mmol/L BUN (9-20) mg/dL POC Glucose (mg/dL) 106 H (75-99) mg/dL <Louie Velasco - Last Filed: 03/14/21 17:06> Subjective I reviewed the documentation as provided by the ROSALINDA above, who is the original author of this note. I agree with the documented assessment and plan, with the following changes: None Objective - Vital Signs Vital signs: Vital Signs Temp 98.1 F 03/14/21 16:00 Pulse 86 03/14/21 16:00 Resp 18 03/14/21 16:00 BP 116/86 03/14/21 16:00 Pulse Ox 94 L 03/14/21 16:00 Intake & Output 03/13/21 03/14/21 03/14/21 18:59 06:59 18:59 Intake Total 838 600 Output Total 1075 400 200 Balance -237 200 -200 Weight 119.748 kg Intake: Oral 838 600 Output: Urine 1075 400 200 Other: Voiding Method Urinal # Bowel Movements 1 - Labs CBC & Chem 7: 03/14/21 14:45 03/14/21 07:46 Labs: Abnormal Lab Results - Last 24 Hours (Table) 03/13/21 03/14/21 03/14/21 Range/Units 20:39 02:26 06:20 WBC (3.8-10.6) k/uL Neutrophils # (Manual) (1.3-7.7) k/uL Metamyelocytes # (Man) (0) k/uL Myelocytes # (Manual) (0) k/uL Sodium (137-145) mmol/L Carbon Dioxide (22-30) mmol/L BUN (9-20) mg/dL Glucose (74-99) mg/dL POC Glucose (mg/dL) 180 H 110 H 106 H (75-99) mg/dL 03/14/21 03/14/21 03/14/21 Range/Units 07:46 07:46 11:35 WBC 13.5 H (3.8-10.6) k/uL Neutrophils # (Manual) (1.3-7.7) k/uL Metamyelocytes # (Man) (0) k/uL Myelocytes # (Manual) (0) k/uL Sodium 132 L (137-145) mmol/L Carbon Dioxide 32 H (22-30) mmol/L BUN 32 H (9-20) mg/dL Glucose 127 H (74-99) mg/dL POC Glucose (mg/dL) 150 H (75-99) mg/dL 03/14/21 03/14/21 Range/Units 14:45 16:11 WBC 12.7 H (3.8-10.6) k/uL Neutrophils # (Manual) 10.00 H (1.3-7.7) k/uL Metamyelocytes # (Man) 0.38 H (0) k/uL Myelocytes # (Manual) 0.13 H (0) k/uL Sodium (137-145) mmol/L Carbon Dioxide (22-30) mmol/L BUN (9-20) mg/dL Glucose (74-99) mg/dL POC Glucose (mg/dL) 120 H (75-99) mg/dL
[2021-03-14 15:12] LABS: HCT 44.4 % (39.0-53.0); HGB 14.1 gm/dL (13.0-17.5); MCH 29.9 pg (25.0-35.0); MCHC 31.7 g/dL (31.0-37.0); MCV 94.2 fL (80.0-100.0); Mean Platelet Volume 7.6; Platelet Count 224 k/uL (150-450); RBC 4.71 m/uL (4.30-5.90); RDW 13.5 % (11.5-15.5); WBC 12.7 k/uL (3.8-10.6)
[2021-03-14 15:48] LABS: Band Neutrophils % 4 %; Basophils # (M) 0.13 k/uL (0-0.2); Eosinophils # (M) 0.64 k/uL (0-0.7); Lymphocytes # (M) 1.14 k/uL (1.0-4.8); Metamyelocytes # (M) 0.38 k/uL (0); Metamyelocytes % 3 %; Monocytes # (M) 0.64 k/uL (0-1.0); Myelocytes # (M) 0.13 k/uL (0); Myelocytes % 1 %; Neutrophils % (M) 75 %; Nucleated Red Blood Cells 0 /100 WBC (0-0); Total Cells Counted 200
[2021-03-14 16:16] LABS: Glucose,Whole Blood 120 mg/dL (75-99)
[2021-03-14] MEDS: BARICITINIB 2 MG TABLET PO SCH (18:30)
[2021-03-14 20:35] LABS: Glucose,Whole Blood 124 mg/dL (75-99)
[2021-03-14] MEDS: LOSARTAN 50 MG TAB PO SCH (21:15)
[2021-03-14] MEDS: INSULIN DETEMIR (LEVEMIR) 100 UNIT/ML SYR SQ SCH (21:15)
[2021-03-15 01:50] LABS: Glucose,Whole Blood 149 mg/dL (75-99)
[2021-03-15 06:07] LABS: Glucose,Whole Blood 106 mg/dL (75-99)
[2021-03-15] MEDS: INSULIN ASPART (NovoLOG) 100 UNIT/ML VIAL SQ SCH ×4 (06:31→21:02)
[2021-03-15] MEDS: PANTOPRAZOLE 40 MG TABLET PO SCH (06:32)
[2021-03-15 07:25] LABS: HCT 39.5 % (39.0-53.0); HGB 12.7 gm/dL (13.0-17.5); MCH 30.1 pg (25.0-35.0); MCV 94.1 fL (80.0-100.0); Mean Platelet Volume 8.2; Platelet Count 201 k/uL (150-450); RDW 12.9 % (11.5-15.5); WBC 12.1 k/uL (3.8-10.6)
[2021-03-15 07:41] LABS: C Reactive Protein 2.9 mg/dL (<1.0); Magnesium 2.1 mg/dL (1.6-2.3)
[2021-03-15] MEDS: CITALOPRAM HYDROBROMIDE 20 MG TAB PO SCH (08:37)
[2021-03-15] MEDS: ASCORBIC ACID 500 MG TAB PO SCH (08:37)
[2021-03-15] MEDS: CHOLECALCIFEROL 25 MCG (1000 IU) TABLET PO SCH (08:37)
[2021-03-15] MEDS: FUROSEMIDE 10 MG/ML 4 ML VIAL IV SCH (08:37)
[2021-03-15] MEDS: ENOXAPARIN 80 MG/0.8 ML SYRINGE SQ SCH ×2 (08:37→21:02)
--- NOTE | 2021-03-15 08:43 | P.PN ---
<Ross Guerrero - Last Filed: 03/15/21 08:40> Subjective Progress Note Date: 03/15/21 Chief complaint: Shortness of breath Hospital course: Patient is a 55-year-old male with hypertension, GERD, TESHA, and morbid obesity with initially presented to the hospital after recent diagnosis of COVID-19 with increasing shortness of breath and weakness. In the ER he required 100% nonrebreather. Initial chest x-ray showed pneumonia. Venous Dopplers were negative for DVT in bilateral lower extremities. He was started on Rocephin, Zithromax, and IV steroids. Pulmonology was consulted, patient was out of the window for REM. By the morning of 02/27 he was requiring AIRVO in addition to 100% nonrebreather with BiPAP at night. On the morning of 03/01 he was BiPAP dependent at all times. Patient had exceedingly high d-dimer of greater than 34 on 02/27/21 and was started on therapeutic Lovenox as he was not stable enough to go down for a CT. Ideally a CT scan should be obtained once pt is stablized and prior to discharge. Repeat venous Doppler from 03/09 were negative. On 03/05/21 patient was finally weaned back to Airvo plus 100% nonrebreather mask. Patient is now showing slow improvement each day. He completed 14 day course of Decadron on 03/12/21. He is currently on AIRVO 53% and on day and of 14 for Barcitnib. Physical examination: Patient seen and examined at bedside. He continues to improve. He is currently 91% SpO2 on 45% O2 on AIRVO with FiO2 of 40%. He was sitting up at bedside eating breakfast this morning. He reports feeling great and looking forward to going home. He continues to have exertional dyspnea but states this is improving. He denies having any headache, lightheadedness, dizziness, chest pain, palpitations, or experiencing any numbness/tingling/weakness in his extremities. He is on day 13 of 14 for Baricitinib. Patient advised to continue daily vitamin C, vitamin D, zinc, and Lovenox. General: non toxic, no distress, appears at stated age, obese Derm: warm, dry Head: atraumatic, normocephalic, symmetric Eyes: EOMI, no lid lag, anicteric sclera Mouth: no lip lesion, mucus membranes moist Cardiovascular: S1S2 reg, no murmur, positive posterior tibial pulse bilateral, Lungs: Respirations even, regular, and unlabored on airflow. Lungs with bibasilar crackles. No rhonchi, rales, wheezes, or accessory muscle use. Abdominal: soft, nontender to palpation, no guarding, no appreciable organomegaly Ext: no gross muscle atrophy, +1 bilateral LE edema, no contractures Neuro: CN II-XI grossly intact, no focal neuro deficits Psych: Alert, oriented, appropriate affect Assessment and Plan of Care: COVID-19 pneumonia Acute hypoxic respiratory failure Mild intermittent asthma TESHA-on CPAP at home ARDS secondary to COVID-19 Elevated d-dimer, on therapeutic Lovenox -Continue Barcitnib day 12 of 14 -Completed 14 day course of Decadron, last administered 03/12/21 -Completed 5 day course of antibiotics with zithromax and rocephin -Continue daily vitamin C, vitamin D, and zinc -Pulmonary following, appreciate further recommendations -On therapeutic Lovenox -Secondary to high oxygen needs, Patient is unable to be taken down for CTA. However, he had exceedingly high d-dimer of greater than 34 on 02/27/21 and was started on therapeutic Lovenox. Ideally a CT scan should be obtained once pt is stablized and prior to discharge. Repeat venous Doppler from 03/09 are negative. Diabetes mellitus type 2, newly discovered -A1c 9.2% -Continue glycemic protocol with NovoLog sliding scale and Levemir 20 units nightly -Patient will need a glucometer to check blood sugars three times daily upon discharge as it is anticipated that he will be discharged home on long acting insulin plus oral hypoglycemic medications. Hyponatremia, fluid overload -Mild continue to follow with repeat a.m. labs -Continue Lasix 40 mg IV daily Hypertension, controlled -Monitor vital signs and Continue daily medication regimen with Cozaar GERD -Continue GI prophylaxis with protonix 40 mg daily with breakfast. Morbid obesity with BMI 41.3 -Encourage outpatient structured weight loss program upon discharge. Acute kidney injury, resolved Sepsis, resolved DVT prophylaxis: Patient on therapeutic Lovenox Discussed with: Patient and RN Anticipated discharge: Pending clinical course Anticipated discharge place: Home A total of 35 minutes was spent on the care of this complex patient more than 50% of the time was spent in counseling and care coordination. Objective - Vital Signs Vital signs: Vital Signs Temp 98 F 03/15/21 08:00 Pulse 80 03/15/21 08:00 Resp 18 03/15/21 08:00 BP 98/53 03/15/21 08:00 Pulse Ox 93 L 03/15/21 08:00 Intake & Output 03/14/21 03/15/21 03/15/21 18:59 06:59 18:59 Intake Total 400 Output Total 600 Balance -600 400 Intake: Oral 400 Output: Urine 600 Other: Voiding Method Urinal # Voids 1 2 # Bowel Movements 1 - Labs CBC & Chem 7: 03/15/21 07:00 03/14/21 07:46 Labs: Abnormal Lab Results - Last 24 Hours (Table) 03/14/21 03/14/21 03/14/21 Range/Units 07:46 11:35 14:45 WBC 12.7 H (3.8-10.6) k/uL RBC (4.30-5.90) m/uL Hgb (13.0-17.5) gm/dL Neutrophils # (Manual) 10.00 H (1.3-7.7) k/uL Metamyelocytes # (Man) 0.38 H (0) k/uL Myelocytes # (Manual) 0.13 H (0) k/uL D-Dimer (<0.60) mg/L FEU Sodium 132 L (137-145) mmol/L Carbon Dioxide 32 H (22-30) mmol/L BUN 32 H (9-20) mg/dL Glucose 127 H (74-99) mg/dL POC Glucose (mg/dL) 150 H (75-99) mg/dL Lactate Dehydrogenase (313-618) U/L C-Reactive Protein (<1.0) mg/dL 03/14/21 03/14/21 03/15/21 Range/Units 16:11 20:28 01:47 WBC (3.8-10.6) k/uL RBC (4.30-5.90) m/uL Hgb (13.0-17.5) gm/dL Neutrophils # (Manual) (1.3-7.7) k/uL Metamyelocytes # (Man) (0) k/uL Myelocytes # (Manual) (0) k/uL D-Dimer (<0.60) mg/L FEU Sodium (137-145) mmol/L Carbon Dioxide (22-30) mmol/L BUN (9-20) mg/dL Glucose (74-99) mg/dL POC Glucose (mg/dL) 120 H 124 H 149 H (75-99) mg/dL Lactate Dehydrogenase (313-618) U/L C-Reactive Protein (<1.0) mg/dL 03/15/21 03/15/21 03/15/21 Range/Units 06:04 07:00 07:00 WBC 12.1 H (3.8-10.6) k/uL RBC 4.20 L (4.30-5.90) m/uL Hgb 12.7 L (13.0-17.5) gm/dL Neutrophils # (Manual) (1.3-7.7) k/uL Metamyelocytes # (Man) (0) k/uL Myelocytes # (Manual) (0) k/uL D-Dimer 2.85 H (<0.60) mg/L FEU Sodium (137-145) mmol/L Carbon Dioxide (22-30) mmol/L BUN (9-20) mg/dL Glucose (74-99) mg/dL POC Glucose (mg/dL) 106 H (75-99) mg/dL Lactate Dehydrogenase (313-618) U/L C-Reactive Protein (<1.0) mg/dL 03/15/21 Range/Units 07:00 WBC (3.8-10.6) k/uL RBC (4.30-5.90) m/uL Hgb (13.0-17.5) gm/dL Neutrophils # (Manual) (1.3-7.7) k/uL Metamyelocytes # (Man) (0) k/uL Myelocytes # (Manual) (0) k/uL D-Dimer (<0.60) mg/L FEU Sodium (137-145) mmol/L Carbon Dioxide (22-30) mmol/L BUN (9-20) mg/dL Glucose (74-99) mg/dL POC Glucose (mg/dL) (75-99) mg/dL Lactate Dehydrogenase 870 H (313-618) U/L C-Reactive Protein 2.9 H (<1.0) mg/dL <Louie Velasco - Last Filed: 03/15/21 17:30> Subjective I reviewed the documentation as provided by the ROSALINDA above, who is the original author of this note. I agree with the documented assessment and plan, with the following changes: none Objective - Vital Signs Vital signs: Vital Signs Temp 97.9 F 03/15/21 11:33 Pulse 75 03/15/21 11:33 Resp 18 03/15/21 11:33 BP 96/51 03/15/21 11:33 Pulse Ox 98 03/15/21 11:33 Intake & Output 03/14/21 03/15/21 03/15/21 18:59 06:59 18:59 Intake Total 400 Output Total 600 600 Balance -600 400 -600 Intake: Oral 400 Output: Urine 600 600 Other: Voiding Method Urinal # Voids 1 2 2 # Bowel Movements 1 - Labs CBC & Chem 7: 03/15/21 07:00 03/14/21 07:46 Labs: Abnormal Lab Results - Last 24 Hours (Table) 03/14/21 03/15/21 03/15/21 Range/Units 20:28 01:47 06:04 WBC (3.8-10.6) k/uL RBC (4.30-5.90) m/uL Hgb (13.0-17.5) gm/dL D-Dimer (<0.60) mg/L FEU POC Glucose (mg/dL) 124 H 149 H 106 H (75-99) mg/dL Lactate Dehydrogenase (313-618) U/L C-Reactive Protein (<1.0) mg/dL 03/15/21 03/15/21 03/15/21 Range/Units 07:00 07:00 07:00 WBC 12.1 H (3.8-10.6) k/uL RBC 4.20 L (4.30-5.90) m/uL Hgb 12.7 L (13.0-17.5) gm/dL D-Dimer 2.85 H (<0.60) mg/L FEU POC Glucose (mg/dL) (75-99) mg/dL Lactate Dehydrogenase 870 H (313-618) U/L C-Reactive Protein 2.9 H (<1.0) mg/dL 03/15/21 Range/Units 11:42 WBC (3.8-10.6) k/uL RBC (4.30-5.90) m/uL Hgb (13.0-17.5) gm/dL D-Dimer (<0.60) mg/L FEU POC Glucose (mg/dL) 165 H (75-99) mg/dL Lactate Dehydrogenase (313-618) U/L C-Reactive Protein (<1.0) mg/dL
[2021-03-15] MEDS: SYMBICORT 80-4.5 MCG INHALER INHALATION SCH ×2 (11:23→19:25)
[2021-03-15] MEDS: ALBUTEROL HFA INHALER INHALATION PRN ×3 (11:23→19:25)
[2021-03-15 11:44] LABS: Glucose,Whole Blood 165 mg/dL (75-99)
--- NOTE | 2021-03-15 14:21 | P.PN ---
Subjective Progress Note Date: 03/15/21 03/09/2021, [facility] patient for a follow-up. The patient is comfortable on high flow oxygen at 60 L with an FiO2 of 80%. The patient still desaturates with activity and mobility and talking. He is a case of community related pneumonia was been in the hospital since 02/25/2021. He is known to have obesity with a BMI of 41.3. The patient is known to have mild intermittent bronchial asthma, hypertension, obstructive sleep apnea and the patient normally is on CPAP therapy. The patient during the course of his illness Treated with steroids. He was not found to be a good candidate for Baricitinib at the time of admission as the patient's pro calcitonin level was slightly elevated at time of admission at 0.5.. For now, the patient is on Baricitinib per protocol at a dose of 4 mg by mouth daily. The patient is also on Decadron 6 mg IV every 24 hours. The patient is on vitamin C, vitamin D, zinc and the patient is also on articulation with Lovenox 80 mg subcu every 12 hours. The repeat venous Doppler showed no evidence of any DVT involving the lower extremities. The patient's d-dimer was as high as 34 and currently is down to 7.49. Due to high suspicion for pulmonary embolism, the patient was given a therapeutic dose of Lovenox. Chest x-ray still showing diffuse bilateral pulmonary infiltrates consistent with community related pneumonia. 03/10/2021, I'm seeing the patient for a follow-up. Doing well. The patient remains on Airvo 60 L with an FiO2 of 70% this morning. His breathing is getting labored with mobility and activity and the patient does some movement and activity of walking within his room. He remains on Decadron 6 mg IV every 24 hours. He remains on Baricitinib per protocol. No fever. No chills. No cough or sputum production. He is using incentive spirometer. He remains on Lovenox 80 mg subcu every 12 hours. Repeat a Doppler of the lower extremity s howed no evidence of any DVT. The patient has a sodium level of 132 with a potassium level of 4.4 BUN is at 42 with a creatinine of 1.05. Calcium level is 8.5. No other significant complaints otherwise for now. 03/11/2021, the patient is on Airvo at 60 L an FiO2 of 60%. His pulse ox is 92%. His breathing is labored with activity. Suggested further weaning of the Airvo setting. The patient felt that this is appropriate at this point in time and he wanted to maintain the current flow. No new complaints. No significant sputum production. No pleurisy no hemoptysis. He has a chronic cough and the patient is unable to fully expand his lungs because of episodic cough and. He is using incentive spirometer. He remains on a combination of Decadron and Baricitinib per protocol. He is also on vitamin C, zinc, and vitamin D. No new complaints otherwise for now. He remains on therapeutic dose of Lovenox 80 mg subcu every 12 hours. The patient has a d-dimer of 2.47 which has dropped from yesterday. The white second is a 50 with a hemoglobin 14.3. Urine is a 36 with a creatinine of 0.9 and his sodium level is 132. LFTs are essentially within normal limits. He is tolerating his diet. No nausea. No vomiting. No diarrhea. No abdominal pain. No altered mentation. 03/12/2021, I'm seeing the patient for a follow-up. He is feeling well. No new complaints. He is currently on Airvo at the 55 L flow and 55 percent FiO2. Pulse ox is currently 93%. He is showing slow but ongoing signs of improvement. He has no other new complaints otherwise. Blood work essentially stable. Creatinine is 0.8. White cell count of 15 with a hemoglobin of 13.7. No other significant events overnight. No chest pain. He remains on therapeutic dose of Lovenox 80 mg subcu every 12 hours. As mentioned earlier, his inflammatory markers are all improving. D-dimer was down to 2.4. On 03/13/2021, the patient has no complaints. The patient is currently on Airvo 50 L with an FiO2 of 50%. He is being gradually weaned off the floor and FiO2. The patient is calm and comfortable. The patient is not having any respiratory difficulties. No cough sputum production or chest that is so wheezing. He keeps a sitting on the recliner. Using incentive spirometer. He is completing the course of Baricitinib. Also, is on Decadron. The white cell count today's at 16.4 with a hemoglobin of 14. The is a 34 with a creatinine of 0.7 sodium level is at 132. Glucose level is at 133. 03/14/2021, the patient has no complaints. Doing well. Resting comfortably on a chair. He is on Airvo still on a flow of 50 L an FiO2 of 45%. His pulse ox was above 90%. I made recommendations to drop the flow down to 45 L. He has no specific complaints no chest pain. No altered mentation. He is still completing a course of Baricitinib and Decadron. Labs from today shows normal renal function with a creatinine of 0.8. Sodium is at 132. The white cell count 13.4 with a hemoglobin of 14.4. Blood sugar is at 150. Using incentive spirometer. Is quite active in the room. 03/15/2021, the patient is feeling well but fatigued. He is undergoing gradually wean on his Airvo and currently is on a 40 L an FiO2 of 45%. No new complaints. Hemodynamically stable. Afebrile. Labs from today shows a white cell count of 12 with a hemoglobin of 12.7, LDH is down to 870, d-dimer is down to 2.8 and a CRP level is down to 2.9. As such, his inflammatory markers improved. The patient is still on a combination of Decadron and Baricitinib. The patient is also on anticoagulation and he is still on a therapeutic dose of Lovenox 80 mg subcu every 12 hours. No bleeding complications. No other significant events otherwise for now. Objective - Vital Signs Vital signs: Vital Signs Temp 97.9 F 03/15/21 11:33 Pulse 75 03/15/21 11:33 Resp 18 03/15/21 11:33 BP 96/51 03/15/21 11:33 Pulse Ox 98 03/15/21 11:33 Intake & Output 03/14/21 03/15/21 03/15/21 18:59 06:59 18:59 Intake Total 400 Output Total 600 600 Balance -600 400 -600 Intake: Oral 400 Output: Urine 600 600 Other: Voiding Method Urinal # Voids 1 2 2 # Bowel Movements 1 - Exam GENERAL EXAM: Alert, very pleasant 55-year-old gentleman, on AirVo high flow oxygen at 40 L with an FiO2 of 45% with O2 saturations at 90%, sitting up on a chair. No shortness of breath. HEAD: Normocephalic. EYES: Normal reaction of pupils, equal size. NOSE: Clear with pink turbinates. THROAT: No erythema or exudates. NECK: No masses, no JVD. CHEST: No chest wall deformity. LUNGS: Equal air entry with coarse crackles in the bilateral bases. CVS: S1 and S2 normal with no audible murmur, regular rhythm. ABDOMEN: No hepatosplenomegaly, normal bowel sounds, no guarding or rigidity. SPINE: No scoliosis or deformity SKIN: No rashes CENTRAL NERVOUS SYSTEM: No focal deficits, tone is normal in all 4 extremities. EXTREMITIES: There is no peripheral edema. No clubbing, no cyanosis. Peripheral pulses are intact. - Labs CBC & Chem 7: 03/15/21 07:00 03/14/21 07:46 Labs: Abnormal Lab Results - Last 24 Hours (Table) 03/14/21 03/14/21 03/14/21 Range/Units 14:45 16:11 20:28 WBC 12.7 H (3.8-10.6) k/uL RBC (4.30-5.90) m/uL Hgb (13.0-17.5) gm/dL Neutrophils # (Manual) 10.00 H (1.3-7.7) k/uL Metamyelocytes # (Man) 0.38 H (0) k/uL Myelocytes # (Manual) 0.13 H (0) k/uL D-Dimer (<0.60) mg/L FEU POC Glucose (mg/dL) 120 H 124 H (75-99) mg/dL Lactate Dehydrogenase (313-618) U/L C-Reactive Protein (<1.0) mg/dL 03/15/21 03/15/21 03/15/21 Range/Units 01:47 06:04 07:00 WBC 12.1 H (3.8-10.6) k/uL RBC 4.20 L (4.30-5.90) m/uL Hgb 12.7 L (13.0-17.5) gm/dL Neutrophils # (Manual) (1.3-7.7) k/uL Metamyelocytes # (Man) (0) k/uL Myelocytes # (Manual) (0) k/uL D-Dimer (<0.60) mg/L FEU POC Glucose (mg/dL) 149 H 106 H (75-99) mg/dL Lactate Dehydrogenase (313-618) U/L C-Reactive Protein (<1.0) mg/dL 03/15/21 03/15/21 03/15/21 Range/Units 07:00 07:00 11:42 WBC (3.8-10.6) k/uL RBC (4.30-5.90) m/uL Hgb (13.0-17.5) gm/dL Neutrophils # (Manual) (1.3-7.7) k/uL Metamyelocytes # (Man) (0) k/uL Myelocytes # (Manual) (0) k/uL D-Dimer 2.85 H (<0.60) mg/L FEU POC Glucose (mg/dL) 165 H (75-99) mg/dL Lactate Dehydrogenase 870 H (313-618) U/L C-Reactive Protein 2.9 H (<1.0) mg/dL Assessment and Plan Plan: 1 Acute hypoxic respiratory failure secondary to COVID-19 pneumonia. Not vaccinated. Currently on AirVo high flow oxygen at 40 L with an FiO2 of 45% . The patient is on a combination of Decadron and Baricitinib per protocol for hypoxic respiratory failure. The patient is also on therapeutic dose of Lovenox. Clinically stable, oxygenation is improving slowly. Still on Airvo. Inflammatory markers are slowly improving. There is significant drop in a d- dimer. The patient remains on therapeutic dose of Lovenox. The patient is also on a combination of Decadron and Baricitinib. 2 History of mild intermittent asthma 3 History of obstructive sleep apnea syndrome, maintained on CPAP at home. 4 History of hypertension. 5 Type 2 diabetes. 6 GERD without esophagitis. 7 Morbid obesity. 8 Elevated pro calcitonin level, underlying superimposed bacterial pneumonia is not entirely ruled out Plan: No new complaints and his condition is stable Wean down the Airvo to 40 L an FiO2 of 40% Continue Lovenox therapeutic dose Continue the Decadron and the patient is completing the course of Baricitinib in few days Titrate the FiO2 as tolerated Increase his activity as tolerated We will continue to follow
[2021-03-15 17:13] LABS: Glucose,Whole Blood 91 mg/dL (75-99)
[2021-03-15] MEDS: BARICITINIB 2 MG TABLET PO SCH (17:41)
[2021-03-15 20:04] LABS: Glucose,Whole Blood 286 mg/dL (75-99)
[2021-03-15] MEDS: INSULIN DETEMIR (LEVEMIR) 100 UNIT/ML SYR SQ SCH (21:02)
[2021-03-15] MEDS: LOSARTAN 50 MG TAB PO SCH (21:02)
[2021-03-16 06:03] LABS: Glucose,Whole Blood 187 mg/dL (75-99)
[2021-03-16] MEDS: INSULIN ASPART (NovoLOG) 100 UNIT/ML VIAL SQ SCH ×4 (06:20→21:04)
[2021-03-16] MEDS: PANTOPRAZOLE 40 MG TABLET PO SCH (06:20)
[2021-03-16] MEDS: ENOXAPARIN 80 MG/0.8 ML SYRINGE SQ SCH ×2 (08:41→21:04)
[2021-03-16] MEDS: ASCORBIC ACID 500 MG TAB PO SCH (08:41)
[2021-03-16] MEDS: CHOLECALCIFEROL 25 MCG (1000 IU) TABLET PO SCH (08:41)
[2021-03-16] MEDS: FUROSEMIDE 10 MG/ML 4 ML VIAL IV SCH (08:41)
[2021-03-16] MEDS: CITALOPRAM HYDROBROMIDE 20 MG TAB PO SCH (08:41)
[2021-03-16] MEDS: ALBUTEROL HFA INHALER INHALATION PRN ×4 (08:42→21:01)
[2021-03-16] MEDS: SYMBICORT 80-4.5 MCG INHALER INHALATION SCH ×2 (08:42→21:01)
--- NOTE | 2021-03-16 11:30 | P.PN ---
<Ross Guerrero - Last Filed: 03/16/21 11:19> Subjective Progress Note Date: 03/16/21 Chief complaint: Shortness of breath Hospital course: Patient is a 55-year-old male with hypertension, GERD, TESHA, and morbid obesity with initially presented to the hospital after recent diagnosis of COVID-19 with increasing shortness of breath and weakness. In the ER he required 100% nonrebreather. Initial chest x-ray showed pneumonia. Venous Dopplers were negative for DVT in bilateral lower extremities. He was started on Rocephin, Zithromax, and IV steroids. Pulmonology was consulted, patient was out of the window for REM. By the morning of 02/27 he was requiring AIRVO in addition to 100% nonrebreather with BiPAP at night. On the morning of 03/01 he was BiPAP dependent at all times. Patient had exceedingly high d-dimer of greater than 34 on 02/27/21 and was started on therapeutic Lovenox as he was not stable enough to go down for a CT. Ideally a CT scan should be obtained once pt is stablized and prior to discharge. Repeat venous Doppler from 03/09 were negative. On 03/05/21 patient was finally weaned back to Airvo plus 100% nonrebreather mask. Patient is now showing slow improvement each day. He completed 14 day course of Decadron on 03/12/21. Completed 14 day course of Barcitnib on 03/15/21. Physical examination: Patient seen and examined at bedside. His condition is stable this morning. He is on 40% oxygen with AIRVO at 40% FiO2 maintaining SpO2 96%, respiratory was called to decrease FiO2 in attempts to further wean patient down from oxygen. Patient reports he is continuing to do well and denies having any complaints. He reports that he continues to have dyspnea with exertion and reports that he has been having an increased cough over the past 24 hours but states he is not bringing up anything more than usual. He denies any weakness or fatigue, denies dizziness, lightheadedness, chest pain, palpitations, or experiencing any numbness/tingling/weakness in his extremities. Patient completed 14 day course of Barcitnib yesterday evening, plan to continue daily vitamin C, vitamin D, zin c, and Lovenox. Patient is stable for transfer to MedSurg with telemetry at this time. General: non toxic, no distress, appears at stated age, obese Derm: warm, dry Head: atraumatic, normocephalic, symmetric Eyes: EOMI, no lid lag, anicteric sclera Mouth: no lip lesion, mucus membranes moist Cardiovascular: S1S2 reg, no murmur, positive posterior tibial pulse bilateral, Lungs: Respirations even, regular, and unlabored on airflow. Lungs with bibasilar crackles. No rhonchi, rales, wheezes, or accessory muscle use. Abdominal: soft, nontender to palpation, no guarding, no appreciable organom egaly Ext: no gross muscle atrophy, +1 bilateral LE edema, no contractures Neuro: CN II-XI grossly intact, no focal neuro deficits Psych: Alert, oriented, appropriate affect Assessment and Plan of Care: COVID-19 pneumonia Acute hypoxic respiratory failure Mild intermittent asthma TESHA-on CPAP at home ARDS secondary to COVID-19 Elevated d-dimer, on therapeutic Lovenox -Completed 14 day course of Barcitnib on 03/15/21 -Completed 14 day course of Decadron, last administered 03/12/21 -Completed 5 day course of antibiotics with zithromax and rocephin -Continue daily vitamin C, vitamin D, and zinc -Pulmonary following, appreciate further recommendations -On therapeutic Lovenox -Secondary to high oxygen needs, Patient is unable to be taken down for CTA. However, he had exceedingly high d-dimer of greater than 34 on 02/27/21 and was s tarted on therapeutic Lovenox. Ideally a CT scan should be obtained once pt is stablized and prior to discharge. Repeat venous Doppler from 03/09 are negative. Diabetes mellitus type 2, newly discovered -A1c 9.2% -Continue glycemic protocol with NovoLog sliding scale and Levemir 20 units nightly -Patient will need a glucometer to check blood sugars three times daily upon discharge as it is anticipated that he will be discharged home on long acting insulin plus oral hypoglycemic medications. Hyponatremia, fluid overload -Mild continue to follow with repeat a.m. labs -Continue Lasix 40 mg IV daily Hypertension, controlled -Monitor vital signs and Continue daily medication regimen with Cozaar GERD -Continue GI prophylaxis with protonix 40 mg daily with breakfast. Morbid obesity with BMI 41.3 -Encourage outpatient structured weight loss program upon discharge. Acute kidney injury, resolved Sepsis, resolved DVT prophylaxis: Patient on therapeutic Lovenox Discussed with: Patient and RN Anticipated discharge: Pending clinical course Anticipated discharge place: Home A total of 35 minutes was spent on the care of this complex patient more than 50% of the time was spent in counseling and care coordination. Objective - Vital Signs Vital signs: Vital Signs Temp 97.6 F 03/16/21 04:00 Pulse 65 03/16/21 04:00 Resp 18 03/16/21 04:00 BP 101/58 03/16/21 04:00 Pulse Ox 96 03/16/21 04:00 Intake & Output 03/15/21 03/16/21 03/16/21 18:59 06:59 18:59 Output Total 600 400 Balance -600 -400 Output: Urine 600 400 Other: # Voids 2 1 - Labs CBC & Chem 7: 03/15/21 07:00 03/14/21 07:46 Labs: Abnormal Lab Results - Last 24 Hours (Table) 03/15/21 03/15/21 03/16/21 Range/Units 11:42 19:58 05:54 POC Glucose (mg/dL) 165 H 286 H 187 H (75-99) mg/dL <Louie Velasco - Last Filed: 03/17/21 07:10> Subjective I reviewed the documentation as provided by the ROSALINDA above, who is the original author of this note. I agree with the documented assessment and plan, with the following changes: none Objective - Vital Signs Vital signs: Vital Signs Temp 98.5 F 03/17/21 05:51 Pulse 79 03/17/21 05:51 Resp 19 03/17/21 05:51 BP 102/68 03/17/21 05:51 Pulse Ox 93 L 03/17/21 05:51 Intake & Output 03/16/21 03/17/21 03/17/21 18:59 06:59 18:59 Intake Total 540 1440 Output Total 500 Balance 40 1440 Intake: Oral 540 1440 Output: Urine 500 Other: Voiding Method Urinal # Voids 3 # Bowel Movements 1 - Labs CBC & Chem 7: 03/15/21 07:00 03/14/21 07:46 Labs: Abnormal Lab Results - Last 24 Hours (Table) 03/16/21 03/16/21 03/16/21 Range/Units 12:04 16:50 21:04 D-Dimer (<0.60) mg/L FEU POC Glucose (mg/dL) 137 H 146 H 220 H (75-99) mg/dL 03/17/21 03/17/21 Range/Units 05:54 06:50 D-Dimer 2.61 H (<0.60) mg/L FEU POC Glucose (mg/dL) 485 H (75-99) mg/dL
[2021-03-16 12:06] LABS: Glucose,Whole Blood 137 mg/dL (75-99)
[2021-03-16 17:01] LABS: Glucose,Whole Blood 146 mg/dL (75-99)
--- NOTE | 2021-03-16 17:52 | P.PN ---
Subjective Progress Note Date: 03/16/21 This is a 55-year-old white male with history of mild intermittent asthma, GERD , hypertension, obstructive sleep apnea syndrome, normally on CPAP. Patient was recently diagnosed with COVID-19 infection, and the patient has had symptoms for the last 10 days. Patient had mostly symptoms of shortness of breath weakness, vague aches and pains, and his oxygen saturation has been getting worse over the last 2 days, hence he decided to come to the ER. Chest x-ray showed bilateral infiltrates consistent with COVID-19 pneumonia. Patient required placement on a nonrebreather mask and high flow nasal cannula with O2 saturation in the low 90s. Patient was found to have elevated WBC count of 15.9. Elevated d-dimer of 3.97. Elevated creatinine of 1.30. Elevated ferritin of 710, elevated LDH of 1661 elevated C-reactive protein of 26.4, and he was also noted to have elevated pro calcitonin of 0.54. Patient tested positive for COVID-19. Hence the patient was admitted and this consult was initiated. I saw the patient in the ER, recommended that the patient continues with the COVID-19 cocktail. Patient is already out of the window for Remdesivir. Patient is not a good candidate to receive Baricitinib at this point specially with elevated pro calcitonin level. Considering his elevated d-dimer I'm recommending venous Doppler of the lower extremities. In the meantime I'm recommending a relatively higher dose of Lovenox 40 mg subcu twice a day, considering his renal status I would not alice mmend CT angiogram of the chest at this point. Patient will be admitted and we will continue to follow closely. The patient is seen today 02/26/2021 in follow-up on the selective care unit. He is currently sitting up in bed. Awake and alert. He is dyspneic with minimal conversation. Dyspneic with minimal exertion. He is currently on AirVo high flow oxygen at 60 L and 90% FiO2 to maintain O2 saturation 92%. He did utilize BiPAP throughout the evening 14/600% FiO2. He continues with coarse bilateral crackles. Dopplers of the lower extremities were negative for DVT. White count 18.1. Hemoglobin 14.4. Lymphocytes 0.4. Sodium 139. Potassium 5.3. Creatinine 0.93. Glucose 188. AST 46. ALT 33. Pro calcitonin 0.54. He is continued on Decadron, Lovenox, vitamin supplements. Remains on antibiotics in the form of ceftriaxone and azithromycin. The patient is seen today 02/27/2021 in follow-up on the selective care unit. He is currently sitting up in a chair at the bedside. Awake and alert. He is dyspneic with conversation. Dyspneic with minimal exertion. He is requiring AirVo high flow oxygen at 60 L and 94% FiO2 along with the 100% nonrebreather mask with O2 saturation 94%. He had been on BiPAP 14/600% FiO2 through the night. Chest x-ray continues to show bilateral patchy opacities consistent with COVID-19 pneumonia. He is continued on Decadron, Lovenox, vitamin supplements. He is also on antibiotics in the form of ceftriaxone and azithromycin. White count 14.9. Hemoglobin 14.8. Lymphocytes 0.4. D-dimer greater than 34. Sodium 138. Potassium 5.1. Creatinine 0.91. AST 34. ALT 31. LDH 1902. C- reactive protein 19.4. The patient is seen today 02/28/2021 he follow-up on the selective care unit. He is currently sitting up in a chair at the bedside and alert. He is currently on BiPAP 14/6 and 100% FiO2 to maintain O2 saturations in the low 90s. He's been alternating with AirVo at 60 L and 90% FiO2 in addition to 100% nonrebreather mask. He has been slow to progress but is no worse today compared to yesterday. WBCs 14.0. Hemoglobin 15.3. Lymphocytes 0.4. Sodium 137. Potassium 5.5. Creatinine 0.96. Glucose 163. AST 33. ALT 29. He is continued on antibiotics in the form of ceftriaxone and azithromycin. He is continued on Decadron 6 mg IV twice a day. Lovenox 80 mg subcu twice a day. Bronchodilators. Vitamin supplements. On 03/01/2021 patient seen in follow-up on selective care unit, he is currently on BiPAP support, with pressures of 14 and 6, and 100%, his pulse ox is 92-93%, patient is mildly tachypneic, but does not appear to be in any acute distress, nevertheless patient is BiPAP dependent, she quickly desaturates into the 60s when he is taken off BiPAP support to be given his oral medications or sips of w ater. He has been able to alternate with Airvo at 60 L and FiO2 of 92%, and he maintains O2 saturations at about 90-92%. Afebrile, hemodynamically has been stable, lung sounds reveal coarse crackles at bilateral bases, and some fine scattered crackles in the mid lungs. No complaints of chest discomfort, at times he is able to cough up some brown-colored phlegm, he remains on a combination of Rocephin and azithromycin for empiric antibiotic coverage. His initial pro-calcitonin level was mildly elevated at 0.54 suggesting possibility of underlying bacterial infection, we'll obtain follow-up pro-calcitonin level today. He remains on Decadron 6 mg twice daily, and his Lovenox was increased to 80 mg twice daily in view of significantly elevated d-dimer which was greater than 34.1. His lower extremity Dopplers were negative for DVT however patient has not been able to travel to CT department for CT angiogram of the chest related to high FiO2 requirement and the risk of clinical decompensation. Mentation since to be appropriate, he is alert, he is oriented 3, dates his been able to take in some oral nutrition when he switched to Airvo. His follow- up chest x-ray today shows bilateral airspace disease with similar appearance without significant change. There is elevation of the right hemidiaphragm was noted. No evident pneumothorax or pleural effusion. On 03/02/2021 patient seen in follow-up on selective care unit. Patient is on BiPAP support currently with pressures of 14 and 6 and FiO2 100%, patient has been tolerating Airvo support at mealtimes and he was able to take some oral intake. His back on BiPAP support, his pulse ox is 88-90%, appears to be comfortable, he denies any worsening dyspnea. No complaints of chest discomfort, he is awake and alert, oriented 3, his been afebrile. He is sitting up in the recliner, he has been get not to the bedside commode, tolerating activity fairly well, does get short of breath with exertion. His inflammatory markers remain elevated, inflammatory markers still elevated, and patient continues to require high flow oxygen and BiPAP support. On 03/03/2021 patient seen in follow-up on selective care unit, he remains on BiPAP support with pressures of 14/6, Fio2 100%, his pulse 91-95%, he thinks he is breathing easier today, he is resting comfortably in the recliner, we will trial him on Airvo this afternoon. Patient has not been tolerating Airvo very well prior to this. Occasional cough, no chest pain, patient is awake and alert, oriented 3, he is responding appropriately. No fever or chills. He has been able to take in some food by mouth however his oral intake is somewhat limited by his BiPAP dependence. Today's labs have been reviewed going white blood cell count of 14.6, hemoglobin of 16.0, d-dimer is improved and is down to 14.72, sodium is 136, potassium is 5.7, chloride is 99, CO2 32, BUN 32 creatinine 0.86. LDH is up to 2028, CRP is 2.7, pro-calcitonin level from yesterday was down to 0.24, antibiotics have been discontinued. Patient remains on Lovenox 80 mg twice daily, Baricitinib, Decadron 6 program twice daily. On 03/04/2021 patient seen in follow-up on selective care unit. Patient is currently off BiPAP support, he is currently on Airvo at 60 L and FiO2 of 90% in [facility] breather mask, he is breathing much more comfortably, is much more awake, seems a bit more conversant, he was able to take in some nutrition and water by mouth. Denies any worsening dyspnea or cough. Breathing fairly comfortably, his been a has recliner most of the time. No fever or chills o vernight. Remains on Lovenox 80 daily,Baricitinib, Decadron 6 program twice daily. On 03/05/2021 patient seen in follow-up on selective care unit, he is currently on Airvo at 60 L and FiO2 of 89%, he is not using the nonrebreather mask, his maintaining O2 sat around 90%, breathing very comfortably, he states he is feeling better overall, he sitting up in the recliner, no worsening cough or dyspnea, he remains on Decadron 6 program twice daily, he remains on Baricitinib, and her Lovenox at 80 mg twice daily, he is on inhaled bronchodilators, and multivitamins, his lung sounds reveal some bibasilar crackles, overall sounds improved on today's exam. No new chest x-ray. Today's labs have been reviewed, his white blood cell count is 17.2, hemoglobin is 14.7, sodium is 131, potassium is 5.1, chloride is 101, BUN is 20 creatinine 0.74. His inflammatory marker levels are still pending for today. At times patient is bringing up some light yellow colored phlegm which will be sent for cultures, vital signs have been stable, no fever or chills overnight. On 03/16/2021 patient seen in follow-up on selective care unit, he sitting up in the recliner, in no acute distress, currently his Airvo settings at 35 L and FiO2 of 40%, his pulse ox is 96%, breathing comfortably, he states he is co ntinuing to improve, remains on once daily dose of IV Lasix, however he still has some bilateral lower extremity edema, he is in -1 L negative fluid balance over the last 24 hours, he has completed his course of Baricitinib, and Decadron, he continues on Ventolin, Symbicort, he is on Lovenox 80 mg twice daily. His last d-dimer was 2.85 which was a significantly improved value from its peak of greater than 34.1 on 02/27/2021. Otherwise clinically is stable. No nausea vomiting or diarrhea, his been tolerating oral intake, no acute events overnight. Inflammatory markers were improving on yesterday's labs. Objective - Vital Signs Vital signs: Vital Signs Temp 97.9 F 03/16/21 12:00 Pulse 68 03/16/21 12:35 Resp 18 03/16/21 12:35 BP 124/68 03/16/21 12:00 Pulse Ox 98 03/16/21 16:35 Intake & Output 03/15/21 03/16/21 03/16/21 18:59 06:59 18:59 Intake Total 360 Output Total 600 400 500 Balance -600 -400 -140 Intake: Oral 360 Output: Urine 600 400 500 Other: # Voids 2 1 - Exam GENERAL EXAM: Alert, very pleasant, 56-year-old obese white male, on Airvo at 35 l/ Fio2 of 40%, with a pulse ox of 96% has not required nonrebreather mask HEAD: Normocephalic/atraumatic. EYES: Normal reaction of pupils, equal size. Conjunctiva pink, sclera white. NOSE: Clear with pink turbinates. THROAT: No erythema or exudates. NECK: No masses, no JVD, no thyroid enlargement, no adenopathy. CHEST: No chest wall deformity. Symmetrical expansion. LUNGS: Equal air entry with coarse crackles at bilateral bases CVS: Regular rate and rhythm, normal S1 and S2, no gallops, no murmurs, no rubs ABDOMEN: Soft, nontender. No hepatosplenomegaly, normal bowel sounds, no guarding or rigidity. EXTREMITIES: No clubbing, nonpitting bilateral lower extremity edema, no cyanosis, 2+ pulses and upper and lower extremities. MUSCULOSKELETAL: Muscle strength and tone normal. SPINE: No scoliosis or deformity SKIN: No rashes CENTRAL NERVOUS SYSTEM: Alert and oriented -3. No focal deficits, tone is normal in all 4 extremities. PSYCHIATRIC: Alert and oriented -3. Appropriate affect. Intact judgment and insight. - Labs CBC & Chem 7: 03/15/21 07:00 03/14/21 07:46 Labs: Abnormal Lab Results - Last 24 Hours (Table) 03/15/21 03/16/21 03/16/21 Range/Units 19:58 05:54 12:04 POC Glucose (mg/dL) 286 H 187 H 137 H (75-99) mg/dL 03/16/21 Range/Units 16:50 POC Glucose (mg/dL) 146 H (75-99) mg/dL Assessment and Plan Plan: Assessment: #1. Acute hypoxic respiratory failure secondary to COVID-19 pneumonia, patient is a non-vaccinated adult, at the time of his presentation patient was already requiring high flow oxygen on 100% nonrebreather and subsequently placed on BiPAP support on which she remains with pressures of 14 and 6 on FiO2 of 100%, alternating with Airvo at 60 L and FiO2 of 92%. Patient was not a candidate for Remdesivir related to severity of his hypoxia, length of symptoms, patient is a not a candidate for Baricitinib related to elevated pro calcitonin suggestive of bacterial infection. Patient came in to the emergency department with 10 day history of symptoms on 02/25/2021. Pro calcitonin level has improved after 5 days of empiric antibiotics in the form of azithromycin and Rocephin, and on 03/02/2021 antibiotics were discontinued and patient started on Baricitinib on 03/02/2021 which he completed on 03/15/2021. #2. Elevated d-dimer, lower extremity Dopplers were negative for DVT, patient is currently on Lovenox 80 mg twice daily. Unable to complete CTA chest related to FiO2 requirements and the risk of clinical decompensation. Lower extremity Dopplers will be repeated in view of persistent swelling #3. Elevated inflammatory markers related to COVID-19 pneumonia, continue to trend, patient was started on Baricitinib on 03/02/2021 #4. History of mild intermittent bronchial asthma #5. Morbid obesity with the BMI of 41.3 kg/m #6. Hypertension #7. Obstructive sleep apnea #8. GERD without esophagitis #9. Elevated pro calcitonin level suggesting underlying superimposed bacterial infection, patient was given azithromycin and Rocephin, pro-calcitonin level Has Improved, no growth on the cultures, and antibiotics have been discontinued afte r 5 Days Plan: Patient continues on Airvo 35 L and FiO2 of 40%, breathing comfortably, we'll switch to high flow nasal cannula today Continue weaning FiO2 to keep O2 sats at or about 90% Inflammatory markers are improving, d-dimer is only mildly elevated overall significantly improved Bilateral extremities remain persistently swollen, we'll repeat lower extremity Dopplers to rule out possibility of DVT Patient has completed Baricitinib, and Decadron He is improving Continue current medical treatment Once the patient's supplemental oxygen is down to 5 L unless may consider discharge home I performed a history & physical examination of the patient and discussed their management with my nurse practitioner, Pushpa Rajan. I reviewed the nurse practitioner's note and agree with the documented findings and plan of care. Lung sounds are positive for dim breath sounds with coarse crackles throughout the lung lo. The findings and the impression was discussed with the patient. I attest to the documentation by the nurse practitioner. Time with Patient: Less than 30
--- NOTE | 2021-03-16 18:41 | US ---
EXAMINATION TYPE: US venous doppler duplex LE BI DATE OF EXAM: 03/16/2021 6:21 PM COMPARISON: 03/09/21 CLINICAL HISTORY: swollen extremities, COVID 19 pneumonia. Bilateral edema; COVID patient SIDE PERFORMED: Bilateral TECHNIQUE: The lower extremity deep venous system is examined utilizing real time linear array sonog jeremi with graded compression, doppler sonography and color-flow sonography. VESSELS IMAGED: Common Femoral Vein Deep Femoral Vein Greater Saphenous Vein * Femoral Vein Popliteal Vein Small Saphenous Vein * Proximal Calf Veins (* superficial vessels) Right Leg: Negative for DVT Left Leg: Negative for DVT Grayscale, color doppler, spectral doppler imaging performed of the deep veins of the lower extremiti es. There is normal flow, compressibility, vascular waveforms. IMPRESSION: No evidence of DVT of either lower extremity.
[2021-03-16] MEDS: INSULIN DETEMIR (LEVEMIR) 100 UNIT/ML SYR SQ SCH (21:03)
[2021-03-16] MEDS: LOSARTAN 50 MG TAB PO SCH (21:04)
[2021-03-16 21:05] LABS: Glucose,Whole Blood 220 mg/dL (75-99)
[2021-03-17 06:51] LABS: Glucose,Whole Blood 485 mg/dL (75-99)
[2021-03-17] MEDS: ENOXAPARIN 80 MG/0.8 ML SYRINGE SQ SCH ×2 (07:58→21:24)
[2021-03-17] MEDS: FUROSEMIDE 10 MG/ML 4 ML VIAL IV SCH (07:59)
[2021-03-17] MEDS: CHOLECALCIFEROL 25 MCG (1000 IU) TABLET PO SCH (07:59)
[2021-03-17] MEDS: PANTOPRAZOLE 40 MG TABLET PO SCH (07:59)
[2021-03-17] MEDS: INSULIN ASPART (NovoLOG) 100 UNIT/ML VIAL SQ SCH ×4 (07:59→21:24)
[2021-03-17] MEDS: CITALOPRAM HYDROBROMIDE 20 MG TAB PO SCH (07:59)
[2021-03-17] MEDS: ASCORBIC ACID 500 MG TAB PO SCH (07:59)
[2021-03-17] MEDS: SYMBICORT 80-4.5 MCG INHALER INHALATION SCH ×2 (08:57→19:17)
[2021-03-17] MEDS: ALBUTEROL HFA INHALER INHALATION PRN ×4 (08:57→19:17)
[2021-03-17 09:45] LABS: HCT 39.5 % (39.6-50.0); HGB 12.4 g/dL (13.0-17.0); MCHC 31.4 g/dL (32.0-37.0); MCV 92.5 fL (80.0-97.0); NRBC Per 100 WBC 0 /100 WBCS (0.0-0.0); Platelet Count 160 X 10*3/uL (140-440); RBC 4.27 X 10*6/uL (4.40-5.60); RDW 13.4 % (11.5-14.5); WBC 10.27 X 10*3/uL (4.50-10.00)
[2021-03-17 10:15] LABS: African American GFR (CKD) 117.4 (60.0-200.0); Albumin 3.3 g/dL (3.8-4.9); Albumin/Globulin Ratio 1.5 (1.60-3.17); Anion Gap 10.2 mmol/L (10.00-18.00); BUN/Creat Ratio 21.38 Ratio (12.00-20.00); Blood Urea Nitrogen 17.1 mg/dL (9.0-27.0); Calcium 8.5 mg/dL (8.7-10.3); Carbon Dioxide 28.8 mmol/L (20.0-27.5); Globulin 2.2 g/dL (1.6-3.3); Magnesium 2.1 mg/dL (1.5-2.4); Non-African American GFR(CKD) 101.3 (60.0-200.0); Potassium 4.5 mmol/L (3.5-5.5); Total Bilirubin 0.3 mg/dL (0.30-1.20); Total Protein 5.5 g/dL (6.2-8.2)
--- NOTE | 2021-03-17 10:19 | P.PN ---
Subjective Progress Note Date: 03/17/21 Principal diagnosis: CoVID pneumonia This is a 55-year-old white male with history of mild intermittent asthma, GERD , hypertension, obstructive sleep apnea syndrome, normally on CPAP. Patient was recently diagnosed with COVID-19 infection, and the patient has had symptoms for the last 10 days. Patient had mostly symptoms of shortness of breath weakness, vague aches and pains, and his oxygen saturation has been getting worse over the last 2 days, hence he decided to come to the ER. Chest x-ray showed bilateral infiltrates consistent with COVID-19 pneumonia. Patient required placement on a nonrebreather mask and high flow nasal cannula with O2 saturation in the low 90 s. Patient was found to have elevated WBC count of 15.9. Elevated d-dimer of 3.97. Elevated creatinine of 1.30. Elevated ferritin of 710, elevated LDH of 1661 elevated C-reactive protein of 26.4, and he was also noted to have elevated pro calcitonin of 0.54. Patient tested positive for COVID-19. Hence the patient was admitted and this consult was initiated. I saw the patient in the ER, recommended that the patient continues with the COVID-19 cocktail. Patient is already out of the window for Remdesivir. Patient is not a good candidate to receive Baricitinib at this point specially with elevated pro calcitonin level. Considering his elevated d-dimer I'm recommending venous Doppler of the lower extremities. In the meantime I'm recommending a relatively higher dose of Lovenox 40 mg subcu twice a day, considering his renal status I would not recommend CT angiogram of the chest at this point. Patient will be admitted and we will continue to follow closely. The patient is seen today 02/26/2021 in follow-up on the selective care unit. He is currently sitting up in bed. Awake and alert. He is dyspneic with minimal conversation. Dyspneic with minimal exertion. He is currently on AirVo high flow oxygen at 60 L and 90% FiO2 to maintain O2 saturation 92%. He did utilize BiPAP throughout the evening 14/600% FiO2. He continues with coarse bilateral crackles. Dopplers of the lower extremities were negative for DVT. White count 18.1. Hemoglobin 14.4. Lymphocytes 0.4. Sodium 139. Potassium 5.3. Creatinine 0.93. Glucose 188. AST 46. ALT 33. Pro calcitonin 0.54. He is continued on Decadron, Lovenox, vitamin supplements. Remains on antibiotics in the form of ceftriaxone and azithromycin. The patient is seen today 02/27/2021 in follow-up on the selective care unit. He is currently sitting up in a chair at the bedside. Awake and alert. He is dyspneic with conversation. Dyspneic with minimal exertion. He is requiring AirVo high flow oxygen at 60 L and 94% FiO2 along with the 100% nonrebreather mask with O2 saturation 94%. He had been on BiPAP 14/600% FiO2 through the night. Chest x-ray continues to show bilateral patchy opacities consistent with COVID-19 pneumonia. He is continued on Decadron, Lovenox, vitamin supplements. He is also on antibiotics in the form of ceftriaxone and azithromycin. White count 14.9. Hemoglobin 14.8. Lymphocytes 0.4. D-dimer greater than 34. Sodium 138. Potassium 5.1. Creatinine 0.91. AST 34. ALT 31. LDH 1902. C- reactive protein 19.4. The patient is seen today 02/28/2021 he follow-up on the selective care unit. He is currently sitting up in a chair at the bedside and alert. He is currently on BiPAP 14/6 and 100% FiO2 to maintain O2 saturations in the low 90s. He's been alternating with AirVo at 60 L and 90% FiO2 in addition to 100% nonrebreather mask. He has been slow to progress but is no worse today compared to yesterday. WBCs 14.0. Hemoglobin 15.3. Lymphocytes 0.4. Sodium 137. Potassium 5.5. Creatinine 0.96. Glucose 163. AST 33. ALT 29. He is continued on antibiotics in the form of ceftriaxone and azithromycin. He is continued on Decadron 6 mg IV twice a day. Lovenox 80 mg subcu twice a day. Bronchodilators. Vitamin supplements. The patient is seen today 03/06/2021 in follow-up on the selective care unit. He is currently sitting up in a chair at the bedside. Awake and alert in no acute distress. He feels he is getting stronger each day. We'll short of breath. He does continue to require AirVo high flow oxygen at 60 L and 90% FiO2. Not requiring a nonrebreather mask. O2 saturation in the low 90s. He remains afebrile. Hemodynamically stable. White count 17.2. Hemoglobin 14.2. Leukocyte 0.5. Sodium 129. Potassium 5.5. Creatinine 0.80. He is continued on Baricitinib, Decadron, Lovenox, vitamin supplements. He is on Symbicort and albuterol. The patient is seen today 03/07/2021 in follow-up on the selective care unit. He is currently resting comfortably in a chair at the bedside. He is continued on AirVo hyperflexion at 60 L and 90% FiO2. He has been quite slow to recover but stable. No worsening shortness of breath. He is continued on Decadron, therapeutic Lovenox, vitamin supplements. Continued on Baricitinib. Continued on Symbicort and Ventolin. Continued on Levemir and a NovoLog sliding scale. Count 18.1. Hemoglobin 13.9. Lymphocytes 0.6. D-dimer 7.49. Sodium 131. Potassium 4.9. This x-ray continues to revealed diffuse interstitial and small spacer paced opacities bilaterally. No pneumothorax. No significant change. The patient is seen today March 08 2021 in follow-up on the selective care unit. He remains awake and alert in no acute distress. Sitting up in a chair at the bedside. He is still requiring AirVo high flow oxygen at 60 L and 80% FiO2. Feeling a bit better today compared to yesterday. He was given some IV diuretics. White count 18.4. Hemoglobin 14.1. Lymphocytes 0.7. Sodium 131. Potassium 4.9. BUN 31. Creatinine 0.89. Blood glucose 174. AST 21. ALT 29. He remains on Baricitinib, Decadron, Lovenox, vitamin supplements. Continued on Symbicort and albuterol HFA. Protonix for GI prophylaxis. The patient is seen today 03/17/2021 in follow-up on the regular medical floor. He is currently sitting up in a chair at the bedside. Awake and alert in no acute distress. He is down to 8 L high flow nasal cannula with O2 saturations in the 90s. Doppler of the lower extremities yesterday were negative for DVT. white count 10.2. Hemoglobin 12.4. D-dimer 2.61. He has completed his course of steroids. Remains on Lovenox 80 mg twice a day. Continued on Symbicort and albuterol. Remains on IV diuretics.No accurate I&O documented. Objective - Vital Signs Vital signs: Vital Signs Temp 98.5 F 03/17/21 05:51 Pulse 79 03/17/21 05:51 Resp 19 03/17/21 05:51 BP 102/68 03/17/21 05:51 Pulse Ox 93 L 03/17/21 05:51 Intake & Output 03/16/21 03/17/21 03/17/21 18:59 06:59 18:59 Intake Total 540 1440 Output Total 500 Balance 40 1440 Intake: Oral 540 1440 Output: Urine 500 Other: Voiding Method Urinal Toilet Urinal # Voids 3 # Bowel Movements 1 - Exam GENERAL EXAM: Alert, very pleasant 55-year-old gentleman, on 8 L high flow nasal cannula with O2 saturations at 93%, in no acute respiratory distress. HEAD: Normocephalic. EYES: Normal reaction of pupils, equal size. NOSE: Clear with pink turbinates. THROAT: No erythema or exudates. NECK: No masses, no JVD. CHEST: No chest wall deformity. LUNGS: Equal air entry with coarse crackles in the bilateral bases. CVS: S1 and S2 normal with no audible murmur, regular rhythm. ABDOMEN: No hepatosplenomegaly, normal bowel sounds, no guarding or rigidity. SPINE: No scoliosis or deformity SKIN: No rashes CENTRAL NERVOUS SYSTEM: No focal deficits, tone is normal in all 4 extremities. EXTREMITIES: There is no peripheral edema. No clubbing, no cyanosis. Peripheral pulses are intact. - Labs CBC & Chem 7: 03/17/21 05:54 03/14/21 07:46 Labs: Abnormal Lab Results - Last 24 Hours (Table) 03/16/21 03/16/21 03/16/21 Range/Units 12:04 16:50 21:04 WBC (4.50-10.00) X 10*3/uL RBC (4.40-5.60) X 10*6/uL Hgb (13.0-17.0) g/dL Hct (39.6-50.0) % MCHC (32.0-37.0) g/dL D-Dimer (<0.60) mg/L FEU POC Glucose (mg/dL) 137 H 146 H 220 H (75-99) mg/dL 03/17/21 03/17/21 03/17/21 Range/Units 05:54 05:54 06:50 WBC 10.27 H (4.50-10.00) X 10*3/uL RBC 4.27 L (4.40-5.60) X 10*6/uL Hgb 12.4 L (13.0-17.0) g/dL Hct 39.5 L (39.6-50.0) % MCHC 31.4 L (32.0-37.0) g/dL D-Dimer 2.61 H (<0.60) mg/L FEU POC Glucose (mg/dL) 485 H (75-99) mg/dL Assessment and Plan Assessment: 1 Acute hypoxic respiratory failure secondary to COVID-19 pneumonia. Not vaccinated. Currently on 8 L high flow nasal cannula. Chest x-ray continues to show bilateral patchy multifocal infiltrates. No Baricitinib initially due to the elevated pro calcitonin and previously on antibiotics. His antibiotics were stopped and he was started on Baricitinib on 03/05/2021. Completed Baricitinib and steroids. Remains on therapeutic Lovenox. Remains on vitamin supplements. Dopplers of the lower extremities again on 03/16/2021 were negative for DVT. 2 History of mild intermittent asthma 3 History of obstructive sleep apnea syndrome, maintained on CPAP at home. 4 History of hypertension. 5 Type 2 diabetes. 6 GERD without esophagitis. 7 Morbid obesity. 8 Elevated pro calcitonin level, underlying superimposed bacterial pneumonia is not entirely ruled out Plan: The patient was seen and evaluated Currently on 8 L high flow nasal cannula Completed Baricitinib, Decadron Remains on Lovenox, vitamin supplement Continue to titrate the FiO2 as tolerated Increase his activity as tolerated We will continue to follow I, the cosigning physician, performed a history & physical examination of the patient. Lungs sounds with coarse crackles in the bilateral bases. Maintaining O2 saturations in the 90s on 8 L high flow nasal cannula. I discussed the assessment and plan of care with my nurse practitioner, Sasha Vega. I attest to the above note as dictated by her.
--- NOTE | 2021-03-17 10:58 | P.PN ---
<Ross Guerrero - Last Filed: 03/17/21 10:48> Subjective Progress Note Date: 03/17/21 Chief complaint: Shortness of breath Hospital course: Patient is a 55-year-old male with hypertension, GERD, TESHA, and morbid obesity with initially presented to the hospital after recent diagnosis of COVID-19 with increasing shortness of breath and weakness. In the ER he required 100% nonrebreather. Initial chest x-ray showed pneumonia. Venous Dopplers were negative for DVT in bilateral lower extremities. He was started on Rocephin, Zithromax, and IV steroids. Pulmonology was consulted, patient was out of the window for REM. By the morning of 02/27 he was requiring AIRVO in addition to 100% nonrebreather with BiPAP at night. On the morning of 03/01 he was BiPAP dependent at all times. Patient had exceedingly high d-dimer of greater than 34 on 02/27/21 and was started on therapeutic Lovenox as he was not stable enough to go down for a CT. Ideally a CT scan should be obtained once pt is stablized and prior to discharge. Repeat venous Doppler from 03/09 were negative. On 03/05/21 patient was finally weaned back to Airvo plus 100% nonrebreather mask. Patient is now showing slow improvement each day. He completed 14 day course of Decadron on 03/12/21. Completed 14 day course of Barcitnib on 03/15/21. On 03/16/21 BLE Dopplers were repeated and remain negative for DVT. Now the patient is stabilized and has had resolution of acute kidney injury, we will obtain a CTA chest to rule out any PE to evaluate need for long-term anticoagulation as patient remains currently on therapeutic anticoagulation with Lovenox. Physical examination: Patient seen and examined at bedside. His condition is stable and continues to improve. He has been downgraded to [facility] and is currently on 8 L high flow nasal cannula maintaining SpO2 of 94%. Patient reports feeling great this morning. He again was sitting up in the chair and doing well. He denied having any headache, lightheadedness, dizziness, chest pain, or palpitations and reports improvement of shortness of breath. Patient states he is looking forward to going home. Patient aware once he is down to 5-6 L and requires no more than 8 L of oxygen with ambulation he may be discharged home with home care on oxygen. At this time patient to continue vitamin C, vitamin D, zinc, and Lovenox. Inflammatory markers continued to improve with d-dimer of 2.61, CRP of 2.00, and LDH of 365. Arrangements have been initiated with case management to set patient up for home oxygen and home care. On 03/16/21 BLE Dopplers were repeated and remain negative for DVT. Now the patient is stabilized and has had resolution of acute kidney injury, we will obtain a CTA chest to rule out any PE to evaluate need for long-term anticoagulation as patient remains currently on therapeutic anticoagulation with Lovenox. General: non toxic, no distress, appears at stated age, obese Derm: warm, dry Head: atraumatic, normocephalic, symmetric Eyes: EOMI, no lid lag, anicteric sclera Mouth: no lip lesion, mucus membranes moist Cardiovascular: S1S2 reg, no murmur, positive posterior tibial pulse bilateral, Lungs: Respirations even, regular, and unlabored o 8 L O2 via nasal cannula Lungs with soft bibasilar crackles. No rhonchi, rales, wheezes, or accessory muscle use. Abdominal: soft, nontender to palpation, no guarding, no appreciable organomegaly Ext: no gross muscle atrophy, +1-2 bilateral LE edema, no contractures Neuro: CN II-XI grossly intact, no focal neuro deficits Psych: Alert, oriented, appropriate affect Assessment and Plan of Care: COVID-19 pneumonia Acute hypoxic respiratory failure Mild intermittent asthma TESHA-on CPAP at home ARDS secondary to COVID-19 Elevated d-dimer, on therapeutic Lovenox -Completed 14 day course of Barcitnib on 03/15/21 -Completed 14 day course of Decadron, last administered 03/12/21 -Completed 5 day course of antibiotics with zithromax and rocephin -Continue daily vitamin C, vitamin D, and zinc -Pulmonary following, appreciate further recommendations -On therapeutic Lovenox -Bilateral lower extremity Dopplers remain negative for DVTs. Order placed for CTA chest to rule out PE at this time to evaluate need for long-term anticoagulation as patient currently remains on therapeutic anticoagulation with Lovenox. Diabetes mellitus type 2, newly discovered -A1c 9.2% -Continue glycemic protocol with NovoLog sliding scale and Levemir 20 units nightly -Patient will need a glucometer to check blood sugars three times daily upon discharge as it is anticipated that he will be discharged home on long acting insulin plus oral hypoglycemic medications. Hyponatremia, fluid overload -Mild continue to follow with repeat a.m. labs -Continue Lasix 40 mg IV daily Hypertension, controlled -Monitor vital signs and Continue daily medication regimen with Cozaar GERD -Continue GI prophylaxis with protonix 40 mg daily with breakfast. Morbid obesity with BMI 41.3 -Encourage outpatient structured weight loss program upon discharge. Acute kidney injury, resolved Sepsis, resolved DVT prophylaxis: Patient on therapeutic Lovenox Discussed with: Patient and RN Anticipated discharge: Pending clinical course, likely 2-[address]: Home With homecare A total of 40 minutes was spent on the care of this complex patient more than 50% of the time was spent in counseling and care coordination. Objective - Vital Signs Vital signs: Vital Signs Temp 98.5 F 03/17/21 05:51 Pulse 79 03/17/21 05:51 Resp 19 03/17/21 05:51 BP 102/68 03/17/21 05:51 Pulse Ox 93 L 03/17/21 05:51 Intake & Output 03/16/21 03/17/21 03/17/21 18:59 06:59 18:59 Intake Total 540 1440 Output Total 500 Balance 40 1440 Intake: Oral 540 1440 Output: Urine 500 Other: Voiding Method Urinal # Voids 3 # Bowel Movements 1 - Labs CBC & Chem 7: 03/17/21 05:54 03/17/21 05:54 Labs: Abnormal Lab Results - Last 24 Hours (Table) 03/16/21 03/16/21 03/16/21 Range/Units 12:04 16:50 21:04 D-Dimer (<0.60) mg/L FEU POC Glucose (mg/dL) 137 H 146 H 220 H (75-99) mg/dL 03/17/21 03/17/21 Range/Units 05:54 06:50 D-Dimer 2.61 H (<0.60) mg/L FEU POC Glucose (mg/dL) 485 H (75-99) mg/dL <Louie Velasco - Last Filed: 03/17/21 14:17> Subjective I reviewed the documentation as provided by the ROSALINDA above, who is the original author of this note. I agree with the documented assessment and plan, with the following changes: None Objective - Vital Signs Vital signs: Vital Signs Temp 98.3 F 03/17/21 10:00 Pulse 76 03/17/21 10:00 Resp 20 03/17/21 10:00 BP 94/58 03/17/21 10:00 Pulse Ox 94 L 03/17/21 10:00 Intake & Output 03/16/21 03/17/21 03/17/21 18:59 06:59 18:59 Intake Total 540 1440 Output Total 500 Balance 40 1440 Intake: Oral 540 1440 Output: Urine 500 Other: Voiding Method Urinal Toilet Urinal # Voids 3 # Bowel Movements 1 - Labs CBC & Chem 7: 03/17/21 05:54 03/17/21 05:54 Labs: Abnormal Lab Results - Last 24 Hours (Table) 03/16/21 03/16/21 03/17/21 Range/Units 16:50 21:04 05:54 WBC 10.27 H (4.50-10.00) X 10*3/uL RBC 4.27 L (4.40-5.60) X 10*6/uL Hgb 12.4 L (13.0-17.0) g/dL Hct 39.5 L (39.6-50.0) % MCHC 31.4 L (32.0-37.0) g/dL D-Dimer (<0.60) mg/L FEU Carbon Dioxide (20.0-27.5) mmol/L BUN/Creatinine Ratio (12.00-20.00) Ratio Glucose (70-110) mg/dL POC Glucose (mg/dL) 146 H 220 H (75-99) mg/dL Calcium (8.7-10.3) mg/dL ALT (10-49) U/L Lactate Dehydrogenase (120-246) U/L C-Reactive Protein (0.00-0.80) mg/dL Total Protein (6.2-8.2) g/dL Albumin (3.8-4.9) g/dL Albumin/Globulin Ratio (1.60-3.17) g/dL 03/17/21 03/17/21 03/17/21 Range/Units 05:54 05:54 06:50 WBC (4.50-10.00) X 10*3/uL RBC (4.40-5.60) X 10*6/uL Hgb (13.0-17.0) g/dL Hct (39.6-50.0) % MCHC (32.0-37.0) g/dL D-Dimer 2.61 H (<0.60) mg/L FEU Carbon Dioxide 28.8 H (20.0-27.5) mmol/L BUN/Creatinine Ratio 21.38 H (12.00-20.00) Ratio Glucose 146 H (70-110) mg/dL POC Glucose (mg/dL) 485 H (75-99) mg/dL Calcium 8.5 L (8.7-10.3) mg/dL ALT 116 H (10-49) U/L Lactate Dehydrogenase 365 H (120-246) U/L C-Reactive Protein 2.00 H (0.00-0.80) mg/dL Total Protein 5.5 L (6.2-8.2) g/dL Albumin 3.3 L (3.8-4.9) g/dL Albumin/Globulin Ratio 1.50 L (1.60-3.17) g/dL 03/17/21 Range/Units 12:01 WBC (4.50-10.00) X 10*3/uL RBC (4.40-5.60) X 10*6/uL Hgb (13.0-17.0) g/dL Hct (39.6-50.0) % MCHC (32.0-37.0) g/dL D-Dimer (<0.60) mg/L FEU Carbon Dioxide (20.0-27.5) mmol/L BUN/Creatinine Ratio (12.00-20.00) Ratio Glucose (70-110) mg/dL POC Glucose (mg/dL) 130 H (75-99) mg/dL Calcium (8.7-10.3) mg/dL ALT (10-49) U/L Lactate Dehydrogenase (120-246) U/L C-Reactive Protein (0.00-0.80) mg/dL Total Protein (6.2-8.2) g/dL Albumin (3.8-4.9) g/dL Albumin/Globulin Ratio (1.60-3.17) g/dL
[2021-03-17 12:02] LABS: Glucose,Whole Blood 130 mg/dL (75-99)
--- NOTE | 2021-03-17 13:13 | CT ---
EXAMINATION TYPE: CT chest angio for PE DATE OF EXAM: 03/17/2021 COMPARISON: 03/01/2019 HISTORY: Elevated d-dimer, hypoxia, Covid CT DLP: 588 mGycm Automated exposure control for dose reduction was used. CONTRAST: CT Chest for pulmonary embolism performed with with IV Contrast, patient injected with 100 mL of Isov ue 370. FINDINGS: LUNGS: There is diffuse bilateral groundglass changes compatible with diffuse pneumonia, pneumonitis or ARDS. No sizable pleural effusion or pneumothorax. MEDIASTINUM: There is satisfactory enhancement of the pulmonary artery and its branches, there is no CT evidence for pulmonary embolism. There nonspecific right hilar lymphadenopathy measuring short ax is of 1.3 cm heart size prominent.. OTHER: Hypertrophic and degenerative changes spine. There is a small hiatal hernia. Lung the posteri or margin of the stomach there may be a small gastric diverticulum on axial image 118 through 123 IMPRESSION: 1. Diffuse airspace disease correlate for diffuse pneumonia or ARDS. 2. No diagnostic evidence of pulmonary embolism.
[2021-03-17 16:31] LABS: Glucose,Whole Blood 170 mg/dL (75-99)
[2021-03-17 21:06] LABS: Glucose,Whole Blood 176 mg/dL (75-99)
[2021-03-17] MEDS: LOSARTAN 50 MG TAB PO SCH (21:23)
[2021-03-17] MEDS: INSULIN DETEMIR (LEVEMIR) 100 UNIT/ML SYR SQ SCH (21:24)
[2021-03-18 07:19] LABS: Glucose,Whole Blood 126 mg/dL (75-99)
[2021-03-18] MEDS: INSULIN ASPART (NovoLOG) 100 UNIT/ML VIAL SQ SCH ×4 (07:20→20:35)
[2021-03-18] MEDS: ASCORBIC ACID 500 MG TAB PO SCH (07:24)
[2021-03-18] MEDS: PANTOPRAZOLE 40 MG TABLET PO SCH (07:24)
[2021-03-18] MEDS: FUROSEMIDE 10 MG/ML 4 ML VIAL IV SCH (07:24)
[2021-03-18] MEDS: ENOXAPARIN 80 MG/0.8 ML SYRINGE SQ SCH (07:24)
[2021-03-18] MEDS: CHOLECALCIFEROL 25 MCG (1000 IU) TABLET PO SCH (07:24)
[2021-03-18] MEDS: CITALOPRAM HYDROBROMIDE 20 MG TAB PO SCH (07:24)
[2021-03-18] MEDS: ALBUTEROL HFA INHALER INHALATION PRN ×4 (08:22→20:48)
[2021-03-18] MEDS: SYMBICORT 80-4.5 MCG INHALER INHALATION SCH ×2 (08:22→20:48)
--- NOTE | 2021-03-18 10:50 | P.PN ---
Subjective Progress Note Date: 03/18/21 Principal diagnosis: CoVID pneumonia This is a 55-year-old white male with history of mild intermittent asthma, GERD , hypertension, obstructive sleep apnea syndrome, normally on CPAP. Patient was recently diagnosed with COVID-19 infection, and the patient has had symptoms for the last 10 days. Patient had mostly symptoms of shortness of breath weakness, vague aches and pains, and his oxygen saturation has been getting worse over the last 2 days, hence he decided to come to the ER. Chest x-ray showed bilateral infiltrates consistent with COVID-19 pneumonia. Patient required placement on a nonrebreather mask and high flow nasal cannula with O2 saturation in the low 90 s. Patient was found to have elevated WBC count of 15.9. Elevated d-dimer of 3.97. Elevated creatinine of 1.30. Elevated ferritin of 710, elevated LDH of 1661 elevated C-reactive protein of 26.4, and he was also noted to have elevated pro calcitonin of 0.54. Patient tested positive for COVID-19. Hence the patient was admitted and this consult was initiated. I saw the patient in the ER, recommended that the patient continues with the COVID-19 cocktail. Patient is already out of the window for Remdesivir. Patient is not a good candidate to receive Baricitinib at this point specially with elevated pro calcitonin level. Considering his elevated d-dimer I'm recommending venous Doppler of the lower extremities. In the meantime I'm recommending a relatively higher dose of Lovenox 40 mg subcu twice a day, considering his renal status I would not recommend CT angiogram of the chest at this point. Patient will be admitted and we will continue to follow closely. The patient is seen today 02/26/2021 in follow-up on the selective care unit. He is currently sitting up in bed. Awake and alert. He is dyspneic with minimal conversation. Dyspneic with minimal exertion. He is currently on AirVo high flow oxygen at 60 L and 90% FiO2 to maintain O2 saturation 92%. He did utilize BiPAP throughout the evening 14/600% FiO2. He continues with coarse bilateral crackles. Dopplers of the lower extremities were negative for DVT. White count 18.1. Hemoglobin 14.4. Lymphocytes 0.4. Sodium 139. Potassium 5.3. Creatinine 0.93. Glucose 188. AST 46. ALT 33. Pro calcitonin 0.54. He is continued on Decadron, Lovenox, vitamin supplements. Remains on antibiotics in the form of ceftriaxone and azithromycin. The patient is seen today 02/27/2021 in follow-up on the selective care unit. He is currently sitting up in a chair at the bedside. Awake and alert. He is dyspneic with conversation. Dyspneic with minimal exertion. He is requiring AirVo high flow oxygen at 60 L and 94% FiO2 along with the 100% nonrebreather mask with O2 saturation 94%. He had been on BiPAP 14/600% FiO2 through the night. Chest x-ray continues to show bilateral patchy opacities consistent with COVID-19 pneumonia. He is continued on Decadron, Lovenox, vitamin supplements. He is also on antibiotics in the form of ceftriaxone and azithromycin. White count 14.9. Hemoglobin 14.8. Lymphocytes 0.4. D-dimer greater than 34. Sodium 138. Potassium 5.1. Creatinine 0.91. AST 34. ALT 31. LDH 1902. C- reactive protein 19.4. The patient is seen today 02/28/2021 he follow-up on the selective care unit. He is currently sitting up in a chair at the bedside and alert. He is currently on BiPAP 14/6 and 100% FiO2 to maintain O2 saturations in the low 90s. He's been alternating with AirVo at 60 L and 90% FiO2 in addition to 100% nonrebreather mask. He has been slow to progress but is no worse today compared to yesterday. WBCs 14.0. Hemoglobin 15.3. Lymphocytes 0.4. Sodium 137. Potassium 5.5. Creatinine 0.96. Glucose 163. AST 33. ALT 29. He is continued on antibiotics in the form of ceftriaxone and azithromycin. He is continued on Decadron 6 mg IV twice a day. Lovenox 80 mg subcu twice a day. Bronchodilators. Vitamin supplements. The patient is seen today 03/06/2021 in follow-up on the selective care unit. He is currently sitting up in a chair at the bedside. Awake and alert in no acute distress. He feels he is getting stronger each day. We'll short of breath. He does continue to require AirVo high flow oxygen at 60 L and 90% FiO2. Not requiring a nonrebreather mask. O2 saturation in the low 90s. He remains afebrile. Hemodynamically stable. White count 17.2. Hemoglobin 14.2. Leukocyte 0.5. Sodium 129. Potassium 5.5. Creatinine 0.80. He is continued on Baricitinib, Decadron, Lovenox, vitamin supplements. He is on Symbicort and albuterol. The patient is seen today 03/07/2021 in follow-up on the selective care unit. He is currently resting comfortably in a chair at the bedside. He is continued on AirVo hyperflexion at 60 L and 90% FiO2. He has been quite slow to recover but stable. No worsening shortness of breath. He is continued on Decadron, therapeutic Lovenox, vitamin supplements. Continued on Baricitinib. Continued on Symbicort and Ventolin. Continued on Levemir and a NovoLog sliding scale. Count 18.1. Hemoglobin 13.9. Lymphocytes 0.6. D-dimer 7.49. Sodium 131. Potassium 4.9. This x-ray continues to revealed diffuse interstitial and small spacer paced opacities bilaterally. No pneumothorax. No significant change. The patient is seen today March 08 2021 in follow-up on the selective care unit. He remains awake and alert in no acute distress. Sitting up in a chair at the bedside. He is still requiring AirVo high flow oxygen at 60 L and 80% FiO2. Feeling a bit better today compared to yesterday. He was given some IV diuretics. White count 18.4. Hemoglobin 14.1. Lymphocytes 0.7. Sodium 131. Potassium 4.9. BUN 31. Creatinine 0.89. Blood glucose 174. AST 21. ALT 29. He remains on Baricitinib, Decadron, Lovenox, vitamin supplements. Continued on Symbicort and albuterol HFA. Protonix for GI prophylaxis. The patient is seen today 03/17/2021 in follow-up on the regular medical floor. He is currently sitting up in a chair at the bedside. Awake and alert in no acute distress. He is down to 8 L high flow nasal cannula with O2 saturations in the 90s. Doppler of the lower extremities yesterday were negative for DVT. white count 10.2. Hemoglobin 12.4. D-dimer 2.61. He has completed his course of steroids. Remains on Lovenox 80 mg twice a day. Continued on Symbicort and albuterol. Remains on IV diuretics.No accurate I&O documented. The patient is seen today 03/18/2021 in follow-up on the regular medical floor. Awake and alert in no acute distress. He is currently on 7 L high flow nasal cannula with O2 saturation of 92%. He denies any worsening shortness of breath cough or congestion. Currently sitting up in a chair. Feeling stronger each day. Breathing easier each day. He is continued on Symbicort and albuterol. Remains on Lovenox 80 mg twice a day. CT angiogram performed yesterday revealed no evidence of pulmonary embolism. There is continued airspace disease consistent with CoVID pneumonia. Recent Doppler of lower extremities revealed no evidence of DVT. He is continued on IV diuretics. Currently in a +1.4 L balance. He remains in a Protonix for GI prophylaxis. Blood glucose 126. Objective - Vital Signs Vital signs: Vital Signs Temp 97.9 F 03/18/21 09:32 Pulse 49 L 03/18/21 09:32 Resp 18 03/18/21 09:32 BP 96/61 03/18/21 09:32 Pulse Ox 92 L 03/18/21 09:32 Intake & Output 03/17/21 03/18/21 03/18/21 18:59 06:59 18:59 Other: Voiding Method Toilet Bedside Commode Urinal Urinal # Voids 5 4 - Exam GENERAL EXAM: Alert, very pleasant 55-year-old gentleman, on 7 L high flow nasal cannula with O2 saturations at 93%, in no acute respiratory distress. HEAD: Normocephalic. EYES: Normal reaction of pupils, equal size. NOSE: Clear with pink turbinates. THROAT: No erythema or exudates. NECK: No masses, no JVD. CHEST: No chest wall deformity. LUNGS: Equal air entry with coarse crackles in the bilateral bases. CVS: S1 and S2 normal with no audible murmur, regular rhythm. ABDOMEN: No hepatosplenomegaly, normal bowel sounds, no guarding or rigidity. SPINE: No scoliosis or deformity SKIN: No rashes CENTRAL NERVOUS SYSTEM: No focal deficits, tone is normal in all 4 extremities. EXTREMITIES: There is no peripheral edema. No clubbing, no cyanosis. Peripheral pulses are intact. - Labs CBC & Chem 7: 03/17/21 05:54 03/17/21 05:54 Labs: Abnormal Lab Results - Last 24 Hours (Table) 03/17/21 03/17/21 03/17/21 Range/Units 12:01 16:29 21:04 POC Glucose (mg/dL) 130 H 170 H 176 H (75-99) mg/dL 03/18/21 Range/Units 07:15 POC Glucose (mg/dL) 126 H (75-99) mg/dL Assessment and Plan Assessment: 1 Acute hypoxic respiratory failure secondary to COVID-19 pneumonia. Not vaccinated. Currently on 8 L high flow nasal cannula. Chest x-ray continues to show bilateral patchy multifocal infiltrates. No Baricitinib initially due to the elevated pro calcitonin and previously on antibiotics. His antibiotics were stopped and he was started on Baricitinib on 03/05/2021. Completed Baricitinib and Decadron. Remains on therapeutic Lovenox. Remains on vitamin supplements. Dopplers of the lower extremities again on 03/16/2021 were negative for DVT. CT angiogram from 03/17/2021 ruled out pulmonary embolism. Continue diffuse bilateral airspace disease. Currently down to 7 L high flow nasal cannula. 2 History of mild intermittent asthma 3 History of obstructive sleep apnea syndrome, maintained on CPAP at home. 4 History of hypertension. 5 Type 2 diabetes. 6 GERD without esophagitis. 7 Morbid obesity. 8 Elevated pro calcitonin level, underlying superimposed bacterial pneumonia is not entirely ruled out Plan: The patient was seen and evaluated CT angiogram ruled out pulmonary embolism Recent Doppler of the lower extremities ruled out DVTs Remains on therapeutic Lovenox at 80 mg twice a day Currently on 7 L high flow nasal cannula Decreased to 5 L and if tolerated home later today or tomorrow Accepting of O2 saturations greater than 89% Home oxygen to be arranged To follow-up in the office in 1-2 weeks post discharge I, the cosigning physician, performed a history & physical examination of the patient. Lungs sounds with coarse crackles in the bilateral bases. Maintaining O2 saturations in the 90s on 7 L high flow nasal cannula. I discussed the assessment and plan of care with my nurse practitioner, Sasha Vega. I attest to the above note as dictated by her.
[2021-03-18 11:20] LABS: Glucose,Whole Blood 207 mg/dL (75-99)
[2021-03-18 12:22] LABS: Basophils # (A) 0.1 k/uL (0-0.2); Basophils % (A) 1 %; Eosinophils # (A) 0.5 k/uL (0-0.7); Eosinophils % (A) 6 %; HCT 40.5 % (39.0-53.0); HGB 12.6 gm/dL (13.0-17.5); Hypochromasia Slight; Lymphocytes % (A) 10 %; MCH 29.7 pg (25.0-35.0); MCHC 31.1 g/dL (31.0-37.0); MCV 95.3 fL (80.0-100.0); Mean Platelet Volume 8.3; Monocytes # (A) 0.4 k/uL (0-1.0); Monocytes % (A) 4 %; Neutrophils # (A) 7.4 k/uL (1.3-7.7); Neutrophils % (A) 78 %; Platelet Count 140 k/uL (150-450); RBC 4.25 m/uL (4.30-5.90); RDW 13.6 % (11.5-15.5); WBC 9.5 k/uL (3.8-10.6)
[2021-03-18 12:38] LABS: ALT 96 U/L (4-49); AST 37 U/L (17-59); African American GFR (CKD) >90 (>60 ml/min/1.73 sqM); Albumin/Globulin Ratio 1.1; Alkaline Phosphatase 94 U/L (38-126); Anion Gap 3 mmol/L; Blood Urea Nitrogen 18 mg/dL (9-20); Calcium 8.1 mg/dL (8.4-10.2); Carbon Dioxide 32 mmol/L (22-30); Chloride 98 mmol/L (98-107); Globulin 2.7 g/dL; Glucose 234 mg/dL (74-99); Non-African American GFR(CKD) >90 (>60 ml/min/1.73 sqM); Potassium 4.3 mmol/L (3.5-5.1); Sodium 133 mmol/L (137-145); Total Bilirubin 0.5 mg/dL (0.2-1.3); Total Protein 5.7 g/dL (6.3-8.2)
--- NOTE | 2021-03-18 15:18 | P.PN ---
Subjective Progress Note Date: 03/18/21 Patient wasn't examined at the bedside. He is currently on 5 L. He denies any chest pain. Objective - Vital Signs Vital signs: Vital Signs Temp 97.7 F 03/18/21 14:00 Pulse 85 03/18/21 14:00 Resp 16 03/18/21 14:00 BP 108/68 03/18/21 14:00 Pulse Ox 5 L 03/18/21 14:00 Intake & Output 03/17/21 03/18/21 03/18/21 18:59 06:59 18:59 Other: Voiding Method Toilet Bedside Commode Bedside Commode Urinal Urinal Urinal # Voids 5 4 - Labs CBC & Chem 7: 03/18/21 11:52 03/18/21 11:52 Labs: Abnormal Lab Results - Last 24 Hours (Table) 03/17/21 03/17/21 03/18/21 Range/Units 16:29 21:04 07:15 RBC (4.30-5.90) m/uL Hgb (13.0-17.5) gm/dL Plt Count (150-450) k/uL Sodium (137-145) mmol/L Carbon Dioxide (22-30) mmol/L Glucose (74-99) mg/dL POC Glucose (mg/dL) 170 H 176 H 126 H (75-99) mg/dL Calcium (8.4-10.2) mg/dL ALT (4-49) U/L Total Protein (6.3-8.2) g/dL Albumin (3.5-5.0) g/dL 03/18/21 03/18/21 03/18/21 Range/Units 11:18 11:52 11:52 RBC 4.25 L (4.30-5.90) m/uL Hgb 12.6 L (13.0-17.5) gm/dL Plt Count 140 L (150-450) k/uL Sodium 133 L (137-145) mmol/L Carbon Dioxide 32 H (22-30) mmol/L Glucose 234 H (74-99) mg/dL POC Glucose (mg/dL) 207 H (75-99) mg/dL Calcium 8.1 L (8.4-10.2) mg/dL ALT 96 H (4-49) U/L Total Protein 5.7 L (6.3-8.2) g/dL Albumin 3.0 L (3.5-5.0) g/dL Assessment and Plan Assessment: Patient is a 55-year-old male with hypertension, GERD, TESHA, and morbid obesity with initially presented to the hospital after recent diagnosis of COVID-19 with increasing shortness of breath and weakness. In the ER he required 100% nonrebreather. Initial chest x-ray showed pneumonia. Venous Dopplers were negative for DVT in bilateral lower extremities. He was started on Rocephin, Zithromax, and IV steroids. Pulmonology was consulted, patient was out of the window for REM. By the morning of 02/27 he was requiring AIRVO in addition to 100% nonrebreather with BiPAP at night. On the morning of 03/01 he was BiPAP dependent at all times. Patient had exceedingly high d-dimer of greater than 34 on 02/27/21 and was started on therapeutic Lovenox as he was not stable enough to go down for a CT. Ideally a CT scan should be obtained once pt is stablized and prior to discharge. Repeat venous Doppler from 03/09 were negative. On 03/05/21 patient was finally weaned back to Airvo plus 100% nonrebreather mask. Patient is now showing slow improvement each day. He completed 14 day course of Decadron on 03/12/21. Completed 14 day course of Barcitnib on 03/15/21. On 03/16/21 BLE Dopplers were repeated and remain negative for DVT. Now the patient is stabilized and has had resolution of acute kidney injury, we will obtain a CTA chest to rule out any PE to evaluate need for long-term anticoagulation as patient remains currently on therapeutic anticoagulation with Lovenox. Physical examination: General: non toxic, no distress, appears at stated age, obese Derm: warm, dry Head: atraumatic, normocephalic, symmetric Eyes: EOMI, no lid lag, anicteric sclera Mouth: no lip lesion, mucus membranes moist Cardiovascular: S1S2 reg, no murmur, positive posterior tibial pulse bilateral, Lungs: Respirations even, regular, and unlabored o 8 L O2 via nasal cannula Lungs with soft bibasilar crackles. No rhonchi, rales, wheezes, or accessory muscle use. Abdominal: soft, nontender to palpation, no guarding, no appreciable organomegaly Ext: no gross muscle atrophy, +1-2 bilateral LE edema, no contractures Neuro: CN II-XI grossly intact, no focal neuro deficits Psych: Alert, oriented, appropriate affect Assessment and Plan of Care: COVID-19 pneumonia Acute hypoxic respiratory failure Mild intermittent asthma TESHA-on CPAP at home ARDS secondary to COVID-19 Elevated d-dimer, on therapeutic Lovenox -Completed 14 day course of Barcitnib on 03/15/21 -Completed 14 day course of Decadron, last administered 03/12/21 -Completed 5 day course of antibiotics with zithromax and rocephin -Continue daily vitamin C, vitamin D, and zinc -Pulmonary following, appreciate further recommendations -On Eliquis 2. 5 twice daily -Bilateral lower extremity Dopplers remain negative for DVTs. CTA of the chest was negative for PE New-onset Diabetes mellitus type 2 with uncontrolled hyperglycemia -A1c 9.2% -Continue glycemic protocol with NovoLog sliding scale and Levemir 20 units nightly -Patient will need a glucometer to check blood sugars three times daily upon discharge as it is anticipated that he will be discharged home on long acting in sulin plus oral hypoglycemic medications. Hyponatremia, fluid overload -Mild continue to follow with repeat a.m. labs -Continue Lasix 40 mg IV daily Hypertension, controlled -Monitor vital signs and Continue daily medication regimen with Cozaar GERD -Continue GI prophylaxis with protonix 40 mg daily with breakfast. Morbid obesity with BMI 41.3 -Encourage outpatient structured weight loss program upon discharge. Acute kidney injury, resolved Sepsis, resolved DVT prophylaxis: Eliquis 2.5 twice daily Discussed with: Patient and RN Anticipated discharge: Pending clinical course, likely 2-[address]: Home With homecare
[2021-03-18 16:44] LABS: Glucose,Whole Blood 82 mg/dL (75-99)
[2021-03-18 20:26] LABS: Glucose,Whole Blood 167 mg/dL (75-99)
[2021-03-18] MEDS: INSULIN DETEMIR (LEVEMIR) 100 UNIT/ML SYR SQ SCH (20:35)
[2021-03-18] MEDS: LOSARTAN 50 MG TAB PO SCH (20:35)
[2021-03-18] MEDS ORDERED: APIXABAN 2.5 MG TABLET PO SCH (21:00)
[2021-03-19 06:23] VITALS: BP 133/80; PULSE 74; RESP 19; TEMP 97.9
[2021-03-19 06:58] LABS: Glucose,Whole Blood 255 mg/dL (75-99)
[2021-03-19] MEDS: SYMBICORT 80-4.5 MCG INHALER INHALATION SCH (07:26)
[2021-03-19] MEDS: ALBUTEROL HFA INHALER INHALATION PRN ×2 (07:26→11:30)
[2021-03-19] MEDS: INSULIN ASPART (NovoLOG) 100 UNIT/ML VIAL SQ SCH ×2 (08:03→12:14)
[2021-03-19] MEDS: CHOLECALCIFEROL 25 MCG (1000 IU) TABLET PO SCH (08:04)
[2021-03-19] MEDS: CITALOPRAM HYDROBROMIDE 20 MG TAB PO SCH (08:04)
[2021-03-19] MEDS: ASCORBIC ACID 500 MG TAB PO SCH (08:04)
[2021-03-19] MEDS: PANTOPRAZOLE 40 MG TABLET PO SCH (08:04)
[2021-03-19] MEDS ORDERED: APIXABAN 2.5 MG TABLET PO SCH (09:00)
[2021-03-19] MEDS ORDERED: FUROSEMIDE 20 MG TAB PO SCH (09:00)
[2021-03-19 09:31] LABS: Basophils # (A) 0.07 X 10*3/uL (0.00-0.10); Basophils % (A) 0.8 %; Eosinophils # (A) 0.61 X 10*3/uL (0.04-0.35); Eosinophils % (A) 7.1 %; HCT 39.9 % (39.6-50.0); HGB 12.4 g/dL (13.0-17.0); Immature Grans, Automated 4.4 %; Lymphocytes # (A) 1.33 X 10*3/uL (0.90-5.00); Lymphocytes % (A) 15.5 %; MCH 28.8 pg (27.0-32.0); MCHC 31.1 g/dL (32.0-37.0); MCV 92.6 fL (80.0-97.0); Mean Platelet Volume 11.2 fL (9.5-12.2); Monocytes # (A) 0.67 X 10*3/uL (0.20-1.00); Monocytes % (A) 7.8 %; NRBC Per 100 WBC 0 /100 WBCS (0.0-0.0); Neutrophils % (A) 64.4 %; Platelet Count 148 X 10*3/uL (140-440); RBC 4.31 X 10*6/uL (4.40-5.60); RDW 13.3 % (11.5-14.5); WBC 8.56 X 10*3/uL (4.50-10.00)
[2021-03-19 09:47] LABS: African American GFR (CKD) 120.5 (60.0-200.0); Albumin 3.5 g/dL (3.8-4.9); Albumin/Globulin Ratio 1.43 (1.60-3.17); Anion Gap 10.2 mmol/L (10.00-18.00); BUN/Creat Ratio 21.33 Ratio (12.00-20.00); Calcium 9.1 mg/dL (8.7-10.3); Carbon Dioxide 28.8 mmol/L (20.0-27.5); Globulin 2.4 g/dL (1.6-3.3); Magnesium 2.2 mg/dL (1.5-2.4); Potassium 4.7 mmol/L (3.5-5.5); Total Bilirubin 0.3 mg/dL (0.30-1.20); Total Protein 5.9 g/dL (6.2-8.2)
--- NOTE | 2021-03-19 10:48 | P.PN ---
Subjective Progress Note Date: 03/19/21 This is a 55-year-old white male with history of mild intermittent asthma, GERD , hypertension, obstructive sleep apnea syndrome, normally on CPAP. Patient was recently diagnosed with COVID-19 infection, and the patient has had symptoms for the last 10 days. Patient had mostly symptoms of shortness of breath weakness, vague aches and pains, and his oxygen saturation has been getting worse over the last 2 days, hence he decided to come to the ER. Chest x-ray showed bilateral infiltrates consistent with COVID-19 pneumonia. Patient required placement on a nonrebreather mask and high flow nasal cannula with O2 saturation in the low 90s. Patient was found to have elevated WBC count of 15.9. Elevated d-dimer of 3.97. Elevated creatinine of 1.30. Elevated ferritin of 710, elevated LDH of 1661 elevated C-reactive protein of 26.4, and he was also noted to have elevated pro calcitonin of 0.54. Patient tested positive for COVID-19. Hence the patient was admitted and this consult was initiated. I saw the patient in the ER, recommended that the patient continues with the COVID-19 cocktail. Patient is already out of the window for Remdesivir. Patient is not a good candidate to receive Baricitinib at this point specially with elevated pro calcitonin level. Considering his elevated d-dimer I'm recommending venous Doppler of the lower extremities. In the meantime I'm recommending a relatively higher dose of Lovenox 40 mg subcu twice a day, considering his renal status I would not alice mmend CT angiogram of the chest at this point. Patient will be admitted and we will continue to follow closely. The patient is seen today 02/26/2021 in follow-up on the selective care unit. He is currently sitting up in bed. Awake and alert. He is dyspneic with minimal conversation. Dyspneic with minimal exertion. He is currently on AirVo high flow oxygen at 60 L and 90% FiO2 to maintain O2 saturation 92%. He did utilize BiPAP throughout the evening 14/600% FiO2. He continues with coarse bilateral crackles. Dopplers of the lower extremities were negative for DVT. White count 18.1. Hemoglobin 14.4. Lymphocytes 0.4. Sodium 139. Potassium 5.3. Creatinine 0.93. Glucose 188. AST 46. ALT 33. Pro calcitonin 0.54. He is continued on Decadron, Lovenox, vitamin supplements. Remains on antibiotics in the form of ceftriaxone and azithromycin. The patient is seen today 02/27/2021 in follow-up on the selective care unit. He is currently sitting up in a chair at the bedside. Awake and alert. He is dyspneic with conversation. Dyspneic with minimal exertion. He is requiring AirVo high flow oxygen at 60 L and 94% FiO2 along with the 100% nonrebreather mask with O2 saturation 94%. He had been on BiPAP 14/600% FiO2 through the night. Chest x-ray continues to show bilateral patchy opacities consistent with COVID-19 pneumonia. He is continued on Decadron, Lovenox, vitamin supplements. He is also on antibiotics in the form of ceftriaxone and azithromycin. White count 14.9. Hemoglobin 14.8. Lymphocytes 0.4. D-dimer greater than 34. Sodium 138. Potassium 5.1. Creatinine 0.91. AST 34. ALT 31. LDH 1902. C- reactive protein 19.4. The patient is seen today 02/28/2021 he follow-up on the selective care unit. He is currently sitting up in a chair at the bedside and alert. He is currently on BiPAP 14/6 and 100% FiO2 to maintain O2 saturations in the low 90s. He's been alternating with AirVo at 60 L and 90% FiO2 in addition to 100% nonrebreather mask. He has been slow to progress but is no worse today compared to yesterday. WBCs 14.0. Hemoglobin 15.3. Lymphocytes 0.4. Sodium 137. Potassium 5.5. Creatinine 0.96. Glucose 163. AST 33. ALT 29. He is continued on antibiotics in the form of ceftriaxone and azithromycin. He is continued on Decadron 6 mg IV twice a day. Lovenox 80 mg subcu twice a day. Bronchodilators. Vitamin supplements. On 03/01/2021 patient seen in follow-up on selective care unit, he is currently on BiPAP support, with pressures of 14 and 6, and 100%, his pulse ox is 92-93%, patient is mildly tachypneic, but does not appear to be in any acute distress, nevertheless patient is BiPAP dependent, she quickly desaturates into the 60s when he is taken off BiPAP support to be given his oral medications or sips of w ater. He has been able to alternate with Airvo at 60 L and FiO2 of 92%, and he maintains O2 saturations at about 90-92%. Afebrile, hemodynamically has been stable, lung sounds reveal coarse crackles at bilateral bases, and some fine scattered crackles in the mid lungs. No complaints of chest discomfort, at times he is able to cough up some brown-colored phlegm, he remains on a combination of Rocephin and azithromycin for empiric antibiotic coverage. His initial pro-calcitonin level was mildly elevated at 0.54 suggesting possibility of underlying bacterial infection, we'll obtain follow-up pro-calcitonin level today. He remains on Decadron 6 mg twice daily, and his Lovenox was increased to 80 mg twice daily in view of significantly elevated d-dimer which was greater than 34.1. His lower extremity Dopplers were negative for DVT however patient has not been able to travel to CT department for CT angiogram of the chest related to high FiO2 requirement and the risk of clinical decompensation. Mentation since to be appropriate, he is alert, he is oriented 3, dates his been able to take in some oral nutrition when he switched to Airvo. His follow- up chest x-ray today shows bilateral airspace disease with similar appearance without significant change. There is elevation of the right hemidiaphragm was noted. No evident pneumothorax or pleural effusion. On 03/02/2021 patient seen in follow-up on selective care unit. Patient is on BiPAP support currently with pressures of 14 and 6 and FiO2 100%, patient has been tolerating Airvo support at mealtimes and he was able to take some oral intake. His back on BiPAP support, his pulse ox is 88-90%, appears to be comfortable, he denies any worsening dyspnea. No complaints of chest discomfort, he is awake and alert, oriented 3, his been afebrile. He is sitting up in the recliner, he has been get not to the bedside commode, tolerating activity fairly well, does get short of breath with exertion. His inflammatory markers remain elevated, inflammatory markers still elevated, and patient continues to require high flow oxygen and BiPAP support. On 03/03/2021 patient seen in follow-up on selective care unit, he remains on BiPAP support with pressures of 14/6, Fio2 100%, his pulse 91-95%, he thinks he is breathing easier today, he is resting comfortably in the recliner, we will trial him on Airvo this afternoon. Patient has not been tolerating Airvo very well prior to this. Occasional cough, no chest pain, patient is awake and alert, oriented 3, he is responding appropriately. No fever or chills. He has been able to take in some food by mouth however his oral intake is somewhat limited by his BiPAP dependence. Today's labs have been reviewed going white blood cell count of 14.6, hemoglobin of 16.0, d-dimer is improved and is down to 14.72, sodium is 136, potassium is 5.7, chloride is 99, CO2 32, BUN 32 creatinine 0.86. LDH is up to 2028, CRP is 2.7, pro-calcitonin level from yesterday was down to 0.24, antibiotics have been discontinued. Patient remains on Lovenox 80 mg twice daily, Baricitinib, Decadron 6 program twice daily. On 03/04/2021 patient seen in follow-up on selective care unit. Patient is currently off BiPAP support, he is currently on Airvo at 60 L and FiO2 of 90% in [facility] breather mask, he is breathing much more comfortably, is much more awake, seems a bit more conversant, he was able to take in some nutrition and water by mouth. Denies any worsening dyspnea or cough. Breathing fairly comfortably, his been a has recliner most of the time. No fever or chills o vernight. Remains on Lovenox 80 daily,Baricitinib, Decadron 6 program twice daily. On 03/05/2021 patient seen in follow-up on selective care unit, he is currently on Airvo at 60 L and FiO2 of 89%, he is not using the nonrebreather mask, his maintaining O2 sat around 90%, breathing very comfortably, he states he is feeling better overall, he sitting up in the recliner, no worsening cough or dyspnea, he remains on Decadron 6 program twice daily, he remains on Baricitinib, and her Lovenox at 80 mg twice daily, he is on inhaled bronchodilators, and multivitamins, his lung sounds reveal some bibasilar crackles, overall sounds improved on today's exam. No new chest x-ray. Today's labs have been reviewed, his white blood cell count is 17.2, hemoglobin is 14.7, sodium is 131, potassium is 5.1, chloride is 101, BUN is 20 creatinine 0.74. His inflammatory marker levels are still pending for today. At times patient is bringing up some light yellow colored phlegm which will be sent for cultures, vital signs have been stable, no fever or chills overnight. On 03/16/2021 patient seen in follow-up on selective care unit, he sitting up in the recliner, in no acute distress, currently his Airvo settings at 35 L and FiO2 of 40%, his pulse ox is 96%, breathing comfortably, he states he is co ntinuing to improve, remains on once daily dose of IV Lasix, however he still has some bilateral lower extremity edema, he is in -1 L negative fluid balance over the last 24 hours, he has completed his course of Baricitinib, and Decadron, he continues on Ventolin, Symbicort, he is on Lovenox 80 mg twice daily. His last d-dimer was 2.85 which was a significantly improved value from its peak of greater than 34.1 on 02/27/2021. Otherwise clinically is stable. No nausea vomiting or diarrhea, his been tolerating oral intake, no acute events overnight. Inflammatory markers were improving on yesterday's labs. On 03/19/2021 patient seen in follow-up on medical surgical floor, he is currently down to 5 L of oxygen maintaining O2 saturations at 90-93%, breathing comfortably, vital signs have been stable, no fever or chills. He is sitting up in a recliner, he states he feels a bit tired, he is not sleeping well at night, but no worsening dyspnea nor chest discomfort, no worsening cough. Yesterday we repeated the CTA chest showed diffuse airspace disease consistent with diffuse pneumonia related to COVID-19, and the computed tomography scan was nondiagnostic of pulmonary embolism. Lower extremity Dopplers were repeated on 03/17/2021 in view of persistent swelling in bilateral lower extremities and showed no evidence of DVT, patient had been on intermediate doses of Lovenox at 80 mg through his hospital stay, his d-dimer levels have improved, however in view of his severe hypoxia, severe COVID-19 pneumonia his risk of DVT and PE was thought to be increased, and patient fully placed on 14 day course of Eliquis 2.5 mg twice daily which was started yesterday and will continue after his discharge. Patient has completed his steroids, he remains on inhaled bronchodilators and multivitamins. His been tolerating oral intake, no specific complaints currently. Has some persistent swelling in his lower extremities, she was started on oral Lasix 20 mg daily Objective - Vital Signs Vital signs: Vital Signs Temp 97.9 F 03/19/21 05:30 Pulse 74 03/19/21 05:30 Resp 19 03/19/21 07:00 BP 133/80 03/19/21 05:30 Pulse Ox 93 L 03/19/21 05:30 Intake & Output 03/18/21 03/19/21 03/19/21 18:59 06:59 18:59 Other: Voiding Method Bedside Commode Toilet Toilet Urinal Urinal Urinal # Voids 5 4 # Bowel Movements 2 - Exam GENERAL EXAM: Alert, very pleasant, 56-year-old obese white male, on 5 l/min with a pulse ox of 94% HEAD: Normocephalic/atraumatic. EYES: Normal reaction of pupils, equal size. Conjunctiva pink, sclera white. NOSE: Clear with pink turbinates. THROAT: No erythema or exudates. NECK: No masses, no JVD, no thyroid enlargement, no adenopathy. CHEST: No chest wall deformity. Symmetrical expansion. LUNGS: Equal air entry with coarse crackles at bilateral bases CVS: Regular rate and rhythm, normal S1 and S2, no gallops, no murmurs, no rubs ABDOMEN: Soft, nontender. No hepatosplenomegaly, normal bowel sounds, no guarding or rigidity. EXTREMITIES: No clubbing, nonpitting bilateral lower extremity edema, no cyano sis, 2+ pulses and upper and lower extremities. MUSCULOSKELETAL: Muscle strength and tone normal. SPINE: No scoliosis or deformity SKIN: No rashes CENTRAL NERVOUS SYSTEM: Alert and oriented -3. No focal deficits, tone is normal in all 4 extremities. PSYCHIATRIC: Alert and oriented -3. Appropriate affect. Intact judgment and insight. - Labs CBC & Chem 7: 03/19/21 05:41 03/19/21 05:41 Labs: Abnormal Lab Results - Last 24 Hours (Table) 03/18/21 03/18/2122 Range/Units 11:18 11:52 11:52 RBC 4.25 L (4.30-5.90) m/uL Hgb 12.6 L (13.0-17.5) gm/dL MCHC (32.0-37.0) g/dL Plt Count 140 L (150-450) k/uL Immature Gran # (0.00-0.04) X 10*3/uL Eosinophils # (0.04-0.35) X 10*3/uL Sodium 133 L (137-145) mmol/L Carbon Dioxide 32 H (22-30) mmol/L BUN/Creatinine Ratio (12.00-20.00) Ratio Glucose 234 H (74-99) mg/dL POC Glucose (mg/dL) 207 H (75-99) mg/dL Calcium 8.1 L (8.4-10.2) mg/dL ALT 96 H (4-49) U/L Total Protein 5.7 L (6.3-8.2) g/dL Albumin 3.0 L (3.5-5.0) g/dL Albumin/Globulin Ratio (1.60-3.17) g/dL 03/18/21 03/19/21 03/19/21 Range/Units 20:23 05:41 05:41 RBC 4.31 L (4.30-5.90) m/uL Hgb 12.4 L (13.0-17.5) gm/dL MCHC 31.1 L (32.0-37.0) g/dL Plt Count (150-450) k/uL Immature Gran # 0.38 H (0.00-0.04) X 10*3/uL Eosinophils # 0.61 H (0.04-0.35) X 10*3/uL Sodium (137-145) mmol/L Carbon Dioxide 28.8 H (22-30) mmol/L BUN/Creatinine Ratio 21.33 H (12.00-20.00) Ratio Glucose 122 H (74-99) mg/dL POC Glucose (mg/dL) 167 H (75-99) mg/dL Calcium (8.4-10.2) mg/dL ALT 99 H (4-49) U/L Total Protein 5.9 L (6.3-8.2) g/dL Albumin 3.5 L (3.5-5.0) g/dL Albumin/Globulin Ratio 1.43 L (1.60-3.17) g/dL 03/19/21 Range/Units 06:56 RBC (4.30-5.90) m/uL Hgb (13.0-17.5) gm/dL MCHC (32.0-37.0) g/dL Plt Count (150-450) k/uL Immature Gran # (0.00-0.04) X 10*3/uL Eosinophils # (0.04-0.35) X 10*3/uL Sodium (137-145) mmol/L Carbon Dioxide (22-30) mmol/L BUN/Creatinine Ratio (12.00-20.00) Ratio Glucose (74-99) mg/dL POC Glucose (mg/dL) 255 H (75-99) mg/dL Calcium (8.4-10.2) mg/dL ALT (4-49) U/L Total Protein (6.3-8.2) g/dL Albumin (3.5-5.0) g/dL Albumin/Globulin Ratio (1.60-3.17) g/dL Assessment and Plan Plan: Assessment: #1. Acute hypoxic respiratory failure secondary to COVID-19 pneumonia, significantly improved since admission, patient is currently on 5 L of oxygen. Patient is a non-vaccinated adult, at the time of his presentation patient was already requiring high flow oxygen on 100% nonrebreather and subsequently placed on BiPAP support on which she remains with pressures of 14 and 6 on FiO2 of 100%, alternating with Airvo at 60 L and FiO2 of 92%. Patient was not a candidate for Remdesivir related to severity of his hypoxia, length of symptoms, patient is a not a candidate for Baricitinib related to elevated pro calcitonin suggestive of bacterial infection. Patient came in to the emergency department with 10 day history of symptoms on 02/25/2021. Pro calcitonin level has improved after 5 days of empiric antibiotics in the form of azithromycin and Rocephin, and on 03/02/2021 antibiotics were discontinued and patient started on Baricitinib on 03/02/2021 which he completed on 03/15/2021. #2. Elevated d-dimer, improved. lower extremity Dopplers were negative for DVT, patient was treated with Lovenox 80 mg twice daily. Unable to complete initial CTA chest related to FiO2 requirements and the risk of clinical decompensation. CTA chest has been completed on 03/18/2021 and was nondiagnostic for pulmonary embolism, lower extremity Dopplers were negative for DVT on 03/17/2021 #3. Elevated inflammatory markers related to COVID-19 pneumonia, continue to trend, patient completed Baricitinib and Decadron, markers have improved #4. History of mild intermittent bronchial asthma #5. Morbid obesity with the BMI of 41.3 kg/m #6. Hypertension #7. Obstructive sleep apnea #8. GERD without esophagitis #9. Elevated pro calcitonin level suggesting underlying superimposed bacterial infection, patient was given azithromycin and Rocephin, pro-calcitonin level Has Improved, no growth on the cultures, and antibiotics have been discontinued after 5 Days Plan: Clinically patient continues to improve, currently down to 5 L of oxygen CTA chest has been reviewed showing no evidence of PE, but still significant ai rspace disease related to COVID-19 ARDS Patient has completed Baricitinib, and Decadron He is improving His had no acute events overnight, and his inflammatory markers and d-dimer have improved From pulmonary perspective she can be considered for discharge home We'll send him home on 14 day course of Eliquis 2.5 mg twice daily as prophylactic anticoagulation in view of severity of his illness related to COVID-19 pneumonia Lasix 20 mg daily for 30 days He can resume his home dose Symbicort, and rescue inhaler He'll continue multivitamins No need for steroids upon discharge Reggie stockings on bilateral lower extremities Outpatient follow-up with Dr. Lund in the office next week Patient was instructed to continue monitoring his pulse oximetry at home, and overall general condition, dyspnea, He was instructed to come back to be reevaluated with any worsening dyspnea or hypoxia I performed a history & physical examination of the patient and discussed their management with my nurse practitioner, Pushpa Rajan. I reviewed the nurse practitioner's note and agree with the documented findings and plan of care. Lung sounds are positive for dim breath sounds with coarse crackles throughout the lung lo. The findings and the impression was discussed with the patient. I attest to the documentation by the nurse practitioner. Time with Patient: Less than 30
[2021-03-19 12:04] LABS: Glucose,Whole Blood 205 mg/dL (75-99)
--- NOTE | 2021-03-19 12:07 | P.DS ---
Providers Date of admission: 02/25/21 09:15 Attending physician: Caitlyn Mcelroy DO Consults: 02/25/21 09:16 Consult Physician Routine Consulting Provider: Catracho Cervantes Reason/Comments: covid Do you want consulting provider notified?: Yes Primary care physician: Ap Y[facility] Course: History of present illness Patient is a 55-year-old male with hypertension, GERD, TESHA, and morbid obesity with initially presented to the hospital after recent diagnosis of COVID-19 with increasing shortness of breath and weakness. In the ER he required 100% nonrebreather. Initial chest x-ray showed pneumonia. Venous Dopplers were negative for DVT in bilateral lower extremities. He was started on Rocephin, Zithromax, and IV steroids. Pulmonology was consulted, patient was out of the window for REM. By the morning of 02/27 he was requiring AIRVO in addition to 100% nonrebreather with BiPAP at night. On the morning of 03/01 he was BiPAP dependent at all times. Patient had exceedingly high d-dimer of greater than 34 on 02/27/21 and was started on therapeutic Lovenox as he was not stable enough to go down for a CT. Ideally a CT scan should be obtained once pt is stablized and prior to discharge. Repeat venous Doppler from 03/09 were negative. On 03/05/21 patient was finally weaned back to Airvo plus 100% nonrebreather mask. Patient is now showing slow improvement each day. He completed 14 day course of Decadron on 03/12/21. Completed 14 day course of Barcitnib on 03/15/21. On 03/16/21 BLE Dopplers were repeated and remain negative for DVT. Now the patient is sta bilized and has had resolution of acute kidney injury, we will obtain a CTA chest to rule out any PE to evaluate need for long-term anticoagulation as patient remains currently on therapeutic anticoagulation with Lovenox. Physical examination: General: non toxic, no distress, appears at stated age, obese Derm: warm, dry Head: atraumatic, normocephalic, symmetric Eyes: EOMI, no lid lag, anicteric sclera Mouth: no lip lesion, mucus membranes moist Cardiovascular: S1S2 reg, no murmur, positive posterior tibial pulse bilateral, Lungs: Respirations even, regular, and unlabored o 8 L O2 via nasal cannula Lungs with soft bibasilar crackles. No rhonchi, rales, wheezes, or accessory muscle use. Abdominal: soft, nontender to palpation, no guarding, no appreciable organomegaly Ext: no gross muscle atrophy, +1-2 bilateral LE edema, no contractures Neuro: CN II-XI grossly intact, no focal neuro deficits Psych: Alert, oriented, appropriate affect Assessment and Plan of Care: COVID-19 pneumonia Acute hypoxic respiratory failure Mild intermittent asthma TESHA-on CPAP at home ARDS secondary to COVID-19 Elevated d-dimer, on therapeutic Lovenox -Completed 14 day course of Barcitnib on 03/15/21 -Completed 14 day course of Decadron, last administered 03/12/21 -Completed 5 day course of antibiotics with zithromax and rocephin -Continue daily vitamin C, vitamin D, and zinc -Pulmonary following, appreciate further recommendations -On Eliquis 2. 5 twice daily -Bilateral lower extremity Dopplers remain negative for DVTs. CTA of the chest was negative for PE New-onset Diabetes mellitus type 2 with uncontrolled hyperglycemia -A1c 9.2% -Continue glycemic protocol with NovoLog sliding scale and Levemir 20 units nightly -Patient will need a glucometer to check blood sugars three times daily upon discharge as it is anticipated that he will be discharged home on long acting insulin plus oral hypoglycemic medications. Hyponatremia, fluid overload -Hyponatremia resolved -Lasix resumed on discharge for pulmonary recommendation Hypertension, controlled -Monitor vital signs and Continue daily medication regimen with Cozaar GERD -Continue GI prophylaxis with protonix 40 mg daily with breakfast. Morbid obesity with BMI 41.3 -Encourage outpatient structured weight loss program upon discharge. Acute kidney injury, resolved Sepsis, resolved Patient Condition at Discharge: Stable Plan - Discharge Summary New Discharge Prescriptions: New Insulin Detemir (Levemir) [Levemir] 20 unit SQ HS #30 ml Apixaban [Eliquis] 2.5 mg PO BID 14 Days #28 tab Furosemide [Lasix] 20 mg PO DAILY 30 Days #30 tab Losartan [Cozaar] 50 mg PO HS 30 Days #30 tab Continue Fluticasone/Umeclidin/Vilanter [Trelegy Ellipta 200-62.5-25] 1 puff INHALATION RT-DAILY metFORMIN HCL 500 mg PO BID Cholecalciferol (Vitamin D3) [Vitamin D3 (125 MCG = 5,000 IU)] 125 mcg PO DAILY Citalopram Hydrobromide [CeleXA] 20 mg PO DAILY Budesonide [Pulmicort Flexhaler] 2 puff INHALATION RT-BID Discontinued Losartan Potassium 100 mg PO HS Levofloxacin [Levaquin] 500 mg PO DAILY Discharge Medication List Budesonide [Pulmicort Flexhaler] 2 puff INHALATION RT-BID 02/25/21 [History] Cholecalciferol (Vitamin D3) [Vitamin D3 (125 MCG = 5,000 IU)] 125 mcg PO DAILY 02/25/21 [History] Citalopram Hydrobromide [CeleXA] 20 mg PO DAILY 02/25/21 [History] Fluticasone/Umeclidin/Vilanter [Trelegy Ellipta 200-62.5-25] 1 puff INHALATION RT-DAILY 02/25/21 [History] metFORMIN HCL 500 mg PO BID 02/25/21 [History] Apixaban [Eliquis] 2.5 mg PO BID 14 Days #28 tab 03/19/21 [Rx] Furosemide [Lasix] 20 mg PO DAILY 30 Days #30 tab 03/19/21 [Rx] Insulin Detemir (Levemir) [Levemir] 20 unit SQ HS #30 ml 03/19/21 [Rx] Losartan [Cozaar] 50 mg PO HS 30 Days #30 tab 03/19/21 [Rx] Follow up Appointment(s)/Referral(s): Catracho Cervantes MD [Family Provider] - 1 Week [facility] [NON-STAFF] - As Needed (oxygen) Ap Phillips MD [Primary Care Provider] - 1-2 days Activity/Diet/Wound Care/Special Instructions: Glucometer filled at [facility] - copay $3 Discharge Disposition: HOME WITH HOME HEALTH SERVICES
== END 2021-03-19 14:36 | disposition home health service (06) | DRG 871 ==
LOC: EC 08:05 → 3SCARD 09:15 → 4SSUR 03-16 17:28
PROVIDERS: ADMIT Internal Medicine; ATTEND Internal Medicine
PROC: 5A0935A Assistance with Respiratory Ventilation, Less than 24 Consecutive Hours, High Flow/Velocity Cannula (ICD-10-PCS; principal; 2021-02-25)
PROC: 5A0945A Assistance with Respiratory Ventilation, 24-96 Consecutive Hours, High Flow/Velocity Cannula (ICD-10-PCS; 2021-02-26)
PROC: 5A09357 Assistance with Respiratory Ventilation, Less than 24 Consecutive Hours, Continuous Positive Airway Pressure (ICD-10-PCS; 2021-02-26)
PROC: 5A0955A Assistance with Respiratory Ventilation, Greater than 96 Consecutive Hours, High Flow/Velocity Cannula (ICD-10-PCS; 2021-03-01)
PROC: XW0DXM6 Introduction of Baricitinib into Mouth and Pharynx, External Approach, New Technology Group 6 (ICD-10-PCS; 2021-03-02)
DX: A41.89 Other specified sepsis (principal); J12.82 Pneumonia due to coronavirus disease 2019; J15.9 Unspecified bacterial pneumonia; J80 Acute respiratory distress syndrome; U07.1 COVID-19; E87.1 Hypo-osmolality and hyponatremia; N17.9 Acute kidney failure, unspecified; Z68.41 Body mass index [BMI] 40.0-44.9, adult; A41.9 Sepsis, unspecified organism; E11.65 Type 2 diabetes mellitus with hyperglycemia; Z79.84 Long term (current) use of oral hypoglycemic drugs; R74.02 Elevation of levels of lactic acid dehydrogenase [LDH]; R79.82 Elevated C-reactive protein (CRP); E66.01 Morbid (severe) obesity due to excess calories; E04.1 Nontoxic single thyroid nodule; E87.70 Fluid overload, unspecified; F39 Unspecified mood [affective] disorder; G47.33 Obstructive sleep apnea (adult) (pediatric); R79.1 Abnormal coagulation profile; I10 Essential (primary) hypertension; J45.20 Mild intermittent asthma, uncomplicated; K21.9 Gastro-esophageal reflux disease without esophagitis; Z79.01 Long term (current) use of anticoagulants; Z79.4 Long term (current) use of insulin; Z79.899 Other long term (current) drug therapy; Z79.51 Long term (current) use of inhaled steroids; Z90.49 Acquired absence of other specified parts of digestive tract; Z80.41 Family history of malignant neoplasm of ovary
CPT/HCPCS: 36415; 71045; 71275; 80048; 80053; 82248; 82728; 83036; 83605; 83615; 83735; 84145; 85025; 85027; 85379; 85610; 85730; 86140; 87040; 87070; 87205; 87635; 93005; 93970; 94640; 94660; 94760; 99291